=== PATIENT | female | born 1970 | race Caucasian/White ===

== ENCOUNTER 2017-10-05 20:40 | Emergency (ER) | payer SELFPAY ==
[2017-10-05 20:41] VITALS: BP 159/70; PULSE 84; RESP 18; TEMP 36.8; O2SAT 97; BMI 41.2
[2017-10-05 21:43] VITALS: RESP 18
--- NOTE | 2017-10-05 22:33 | ED.VISSUMM ---
- ER Visit Summary Date of Service: 10/05/17 Chief Complaint: Blood in the ear History of Present Illness: The patient is a 46 F who reports recurrent ear infections since May. She is initially on oral antibiotics followed by an eardrop. She has not been on any antibiotics for quite a while. Patient states that she had blood from her left ear earlier today and that her ear was swollen shut. She denies fever. She denies URI symptoms but states she does have allergies. Physical Examination: Vital signs significant for blood pressure 159/70, otherwise unremarkable. Patient sitting upright in bed no acute distress. Head and neck examination reveals right ear to be normal. Examination of the left ear reveals edema and erythema to the proximal canal. The TM itself is clear. Heart is regular rate and rhythm. Lung sounds are clear. Abdomen is soft nontender. Test Results: [] Emergency Department Course and Treatment: Patient is given Cortisporin drops. She is to follow up with the [facility]. Treatment Plan: [] Disposition: Discharge Impression: Otitis externa left ear This note was generated with Koemei dictation software. It may contain incorrect words, spelling, and punctuation that were not noted in review of the chart prior to signing ED Disposition - Plan for ED Patient: Disposition: Home or Assisted Living Chief Complaint: Ear Problem Instructions: ED Otitis Externa Referrals: Deneen Ac NP-C [Primary Care Provider] - Additional Instructions: 4 drops 4 times per day
--- NOTE | 2017-10-05 22:33 | ED.DEP ---
ED Disposition - Plan for ED Patient: Disposition: Home or Assisted Living Chief Complaint: Ear Problem Instructions: ED Otitis Externa Referrals: Deneen Ac QA AUDITOR-C [Primary Care Provider] - Additional Instructions: 4 drops 4 times per day
[2017-10-05 23:05] VITALS: RESP 16
[2017-10-05] MEDS: Neomycin Sulfate/Polymyxin/Hc Susp 10 ML Bottle 4 DRP OTIC (23:05)
== END 2017-10-05 23:05 | disposition home or self-care (01) ==
PROVIDERS: Emergency Provider Emergency Medicine; Family Provider Nurse Practitioner Family; PCP Nurse Practitioner Family
DX: H60.92 Unspecified otitis externa, left ear (principal); Z79.899 Other long term (current) drug therapy
CPT/HCPCS: 99282

== ENCOUNTER 2018-01-02 23:15 | Emergency (ER) | payer SELFPAY ==
[2018-01-02 23:16] VITALS: BP 164/81; PULSE 78; RESP 16; TEMP 36.1; O2SAT 98; BMI 41.5
--- NOTE | 2018-01-02 23:48 | ED.VISSUMM ---
- ER Visit Summary Date of Service: 01/02/18 Chief Complaint: Bilateral ear pain History of Present Illness: The patient is a 47 F who goes to the [facility]. She reports that since May she has been dealing with otitis externa. States that initially she was put on antibiotic pill with no relief. She was then placed on an eardrop which did not give her any relief. She reports that she then had an eardrop called and that because $400. States that she was unable to afford this. Patient states that 2 months ago she was placed on Cortisporin otic and it worked while she was using it, but is initially stopped the symptoms returned. She has not followed up with anyone for this. Patient reports that her pain worsened 2 days ago. She describes as an aching, throbbing pain that is bilateral. States that her right ear is 5 out of 10 currently and 10 out of 10 at worst. Her left ear is 3 out of 10 now and 10 out of 10 at worst. States that both ears have been draining since May. She denies any constitutional symptoms. No fever, chills, nausea, or vomiting. Physical Examination: Vitals: Stable. Afebrile. General: Well-nourished and well-developed. Head: Normocephalic atraumatic. HEENT: Right ear has no pain with movement of her tragus. She does have mild swelling of her canal without exudate. She has a serous effusion behind her TM with no erythema. Left ear does show pain with movement of her tragus. Her canal is quite swollen. I am unable to visualize her TM. There is no exudate present in the canal. She does not have any mastoid tenderness bilaterally. Neck: Supple, no lymphadenopathy. No JVD. Nontender. Cardiovascular: Regular rate and rhythm. No murmurs. Respiratory: No respiratory distress. Clear to auscultation bilaterally. Abdominal: Soft, nontender, nondistended, normal bowel sounds. No guarding, rebound, or peritoneal signs. Back: Nontender. Extremities: Nontender, no edema. Skin: Normal color, no rash. Neurologic: Alert and oriented ?3. Cranial nerves II through XII are intact. Normal strength and sensation. Psych: Normal affect. Emergency Department Course and Treatment: I had a prolonged discussion with the patient about treatment options. She was given coupons for ofloxacin and dexamethasone drops for [facility] and it will total $40 for both. She states that she cannot afford this. Treatment Plan: Patient will be discharged on ofloxacin and dexamethasone drops. Given a prescription for 10 [place]. Instructed to follow-up with Dr. Goldy Finch in 1 week if not improving. Return to the emergency department for any worsening symptoms. Disposition: To home in improved and stable condition. Impression: 1. Bilateral otitis externa. This note was generated with [employer] dictation software. It may contain incorrect words, spelling, and punctuation that were not noted in review of the chart prior to signing ED Disposition - Plan for ED Patient: Disposition: Home or Assisted Living Chief Complaint: Ear Problem Instructions: ED Otitis Externa Prescriptions: Hydrocodone Bitart/Apap 5-325 [[place] 5MG-325MG] 1 tablet PO Q4H PRN PRN 2 Days #10 tablet PRN Reason: Pain Dexamethasone Sod Phosphate [Dexamethasone Ophthalmic] 4 drop EACH EAR BID 7 Days #1 bottle Ofloxacin 4 drop EACH EAR BID 7 Days #1 bottle Referrals: Goldy Flowers MD [STAFF PHYSICIAN] - 1 Week if not improving
--- NOTE | 2018-01-02 23:52 | ED.DCSUM_ITS ---
- ER Visit Summary Date of Service: 01/02/18 Chief Complaint: Bilateral ear pain History of Present Illness: The patient is a 47 F who goes to the [facility]. She reports that since May she has been dealing with otitis externa. States that initially she was put on antibiotic pill with no re lief. She was then placed on an eardrop which did not give her any relief. She reports that she then had an eardrop called and that because $400. States that she was unable to afford this. Patient states that 2 months ago she was placed on Cortisporin otic and it worked while she was using it, but is initially stopped the symptoms returned. She has not followed up with anyone for this. Patient reports that her pain worsened 2 days ago. She describes as an aching, throbbing pain that is bilateral. States that her right ear is 5 out of 10 currently and 10 out of 10 at worst. Her left ear is 3 out of 10 now and 10 out of 10 at worst. States that both ears have been draining since May. She denies any constitutional symptoms. No fever, chills, nausea, or vomiting. Physical Examination: Vitals: Stable. Afebrile. General: Well-nourished and well-developed. Head: Normocephalic atraumatic. HEENT: Right ear has no pain with movement of her tragus. She does have mild swelling of her canal without exudate. She has a serous effusion behind her TM with no erythema. Left ear does show pain with movement of her tragus. Her canal is quite swollen. I am unable to visualize her TM. There is no exudate present in the canal. She does not have any mastoid tenderness bilaterally. Neck: Supple, no lymphadenopathy. No JVD. Nontender. Cardiovascular: Regular rate and rhythm. No murmurs. Respiratory: No respiratory distress. Clear to auscultation bilaterally. Abdominal: Soft, nontender, nondistended, normal bowel sounds. No guarding, rebound, or peritoneal signs. Back: Nontender. Extremities: Nontender, no edema. Skin: Normal color, no rash. Neurologic: Alert and oriented ?3. Cranial nerves II through XII are intact. Normal strength and sensation. Psych: Normal affect. Emergency Department Course and Treatment: I had a prolonged discussion with the patient about treatment options. She was given coupons for ofloxacin and dexamethasone drops for [facility] and it will total $40 for both. She states that she cannot afford this. Treatment Plan: Patient will be discharged on ofloxacin and dexamethasone drops. Given a prescription for 10 [place]. Instructed to follow-up with Dr. Goldy Finch in 1 week if not improving. Return to the emergency department for any worsening symptoms. Disposition: To home in improved and stable condition. Impression: 1. Bilateral otitis externa. This note was generated with [employer] dictation software. It may contain incorrect words, spelling, and punctuation that were not noted in review of the chart prior to signing ED Disposition - Plan for ED Patient: Disposition: Home or Assisted Living Chief Complaint: Ear Problem Instructions: ED Otitis Externa Prescriptions: Hydrocodone Bitart/Apap 5-325 [[place] 5MG-325MG] 1 tablet PO Q4H PRN PRN 2 Days #10 tablet PRN Reason: Pain Dexamethasone Sod Phosphate [Dexamethasone Ophthalmic] 4 drop EACH EAR BID 7 Days #1 bottle Ofloxacin 4 drop EACH EAR BID 7 Days #1 bottle Referrals: Goldy Flowers MD [STAFF PHYSICIAN] - 1 Week if not improving
[2018-01-03 00:44] VITALS: BP 136/84; PULSE 88; RESP 16; O2SAT 98
[2018-01-03] MEDS: HYDROcodone Bitartrate/Apap 5/325 Tablet PO (00:46)
== END 2018-01-03 00:48 | disposition home or self-care (01) ==
PROVIDERS: Emergency Provider Emergency Medicine; Family Provider Nurse Practitioner Family; PCP Nurse Practitioner Family
DX: H60.8X3 Other otitis externa, bilateral (principal); Z79.899 Other long term (current) drug therapy
CPT/HCPCS: 99282

== ENCOUNTER 2018-07-27 22:28 | Emergency (ER) | payer SELFPAY ==
[2018-07-27 22:28] VITALS: BP 141/78; PULSE 87; RESP 15; TEMP 36.7; BMI 36.3
[2018-07-27 23:15] LABS: Absolute Lymphocyte Count 2.25 X10^3/ul (0.83-4.51); Absolute Neutrophil Count 4.1 X10^3/uL (2.0-7.7); Basophil# 0.01 X10^3/uL; Basophil% 0.1 % (0-1); Eosinophil# 0.11 X10^3/uL; Eosinophils% 1.6 % (0-5); Hematocrit 36.4 % (37-47); Hemoglobin 11.9 g/dl (12.0-15.0); Lymphocyte # 2.25 X10^3/ul (4.0); Lymphocyte % 32.8 % (19-41); Mean Corp Hgb Conc 32.7 g/gl (32-36); Mean Corpuscular Hgb 26.3 pg (27.0-32.0); Mean Corpuscular Volume 80.4 fL (81-99); Mean Platelet Vol. 11.3 fl (6.2-12.0); Monocyte# 0.35 X10^3/uL; Monocyte% 5.1 % (0-10); Neutrophil # 4.12 X10^3/uL (2.7-7.7); Neutrophil % 60.3 % (47-70); Platelet Count 262 K/mm3 (150-450); RBC Distribution Width CV 14.3 % (11.6-14.6); RBC Distribution Width SD 41.9 fl (35.1-43.9); Red Blood Count 4.53 M/mm3 (4.2-5.4); White Blood Count 6.9 K/mm3 (4.4-11.0)
[2018-07-27 23:16] LABS: POSITIVE COUNT NO; POSITIVE DIFFERENTIAL NO; POSITIVE MORPHOLOGY NO
[2018-07-27 23:22] LABS: Internal QC Validated? YES +Cl - CLEAR BKGD; Pregnancy, Serum, hCG Quali. NEGATIVE Negative
--- NOTE | 2018-07-27 23:26 | EKG12_ITS ---
Test Reason : [facility] Blood Pressure : / mmHG Vent. Rate : 078 BPM Atrial Rate : 078 BPM P-R Int : 152 ms QRS Dur : 096 ms QT Int : 384 ms P-R-T Axes : 018 057 043 degrees QTc Int : 437 ms Normal sinus rhythm Normal ECG Confirmed by TIFFANY VILLALOBOS, TATI ([id number]), television news video editor LORI BELL ([id number]) on 07/30/2018 9:33:30 AM Referred By: Confirmed By:TATI ALLEN MD
[2018-07-27 23:27] LABS: Amphetamine Urine VISTA NEGATIVE (<1000 ng/mL); Barbiturate Urine VISTA NEGATIVE (< 200 ng/mL); Benzodiazepine Urine VISTA NEGATIVE (< 200 ng/mL); Cocaine Urine VISTA NEGATIVE (< 300 ng/mL); Ecstacy Urine VISTA NEGATIVE (< 500 ng/mL); Methadone Urine VISTA NEGATIVE (< 300 ng/mL); PCP Urine VISTA NEGATIVE (< 25 ng/mL); THC Urine VISTA POSITIVE (< 50 ng/mL); Vista UDS pH Range 5
[2018-07-27 23:28] VITALS: PULSE 87; RESP 17; O2SAT 97
[2018-07-27 23:28] LABS: Anion Gap 4 (5-15); BUN 7 mg/dL (7-18); BUN/Creat Ratio 11.1 RATIO (10-20); Calcium,Total 8.8 mg/dL (8.5-10.1); Chloride 109 mmol/L (98-107); Creatinine, Serum 0.63 mg/dL (0.55-1.02); EST Glomerular Filtration Rate 107 mL/min (>60); Est Glom Filt Rate - Afr Amer 130 mL/min (>60); Estimated Creatinine Clearance 102.23 ml/min; Glucose 95 mg/dL (74-106); Potassium 2.8 mmol/L (3.5-5.1); Sodium Level 139 mmol/L (136-145)
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
[2018-07-27 23:54] LABS: Red Blood Cells-Urine 0 SEEN /hpf (0-5)
[2018-07-28] VITALS (7 sets, daily range): BP systolic 136–138; BP diastolic 70–71; PULSE 72–87; RESP 14–18; TEMP 36.6; O2SAT 97
[2018-07-28] LABS: Color, Urine Yellow (Yellow); Glucose, Dipstick Normal (Normal); Ketone-Dipstick 5 mg/dl (Negative); Leukocyte Esterase-Dipstick 25 /ul (Negative); Nitrite-Dipstick Negative (Negative); Occult Blood-Urine 250 /ul (Negative); Protein-Dipstick 15 mg/dl (Negative); Specific Gravity, Urine 1.015 (1.002-1.030); Urine Bilirubin Dipstick Negative (Negative); Urine Clarity Clear (Clear); Urine Urobilinogen Normal (Normal)
[2018-07-28 00:08] LABS: AST(SGOT) 11 U/L (15-37); Alanine Aminotransfer ALT/SGPT 19 U/L (13-56); Alkaline Phosphatase 67 U/L (45-117); Bilirubin, Direct 0.14 mg/dL (0.00-0.30); Globulin 3.6 g/dL (2.2-4.2); Protein, Total 7.6 g/dL (6.4-8.2); Thyroid Stim Hormone (TSH) 1.19 uIU/mL (0.358-3.74)
--- NOTE | 2018-07-28 00:10 | NURSING ---
CALLED CRISIS AT 0010
[2018-07-28 00:11] LABS: Bacteria RARE /hpf (None Seen); Calcium Oxalate Crystals Ur RARE /hpf (<or=2+); Mucous, Urine 1+ /hpf (<or=2+); Squamous Epithelial Cells - UA 0-5 SEEN /hpf (5-10); White Blood Cells 0-5 SEEN /hpf (0-5)
--- NOTE | 2018-07-28 04:50 | NURSING ---
ONCE ACCEPTED TO [facility] NEED TO USE [facility] SO [facility] GETS BILL
[2018-07-28 05:52] LABS: Potassium 3.3 mmol/L (3.5-5.1)
--- NOTE | 2018-07-28 08:12 | ED.RN ---
CALLED AND LEFT MESSAGE OR WHICH IS THE ONLY CONTACT LISTED TO ASK FOR SOMEONE TO CHECK ON PT'S ANIMALS. THE WAS DONE PER PT REQUEST.
--- NOTE | 2018-07-28 08:15 | ED.RN ---
JAKY JAIN CALLED BACK AND STATED HE WOULD MAKE SURE THE ANIMALS ARE TAKEN CARE OF.
== END 2018-07-28 08:00 ==
PROVIDERS: Emergency Medicine; Emergency Provider Emergency Medicine; Family Provider Nurse Practitioner Family; PCP Nurse Practitioner Family
DX: R45.851 Suicidal ideations (principal); F32.9 Major depressive disorder, single episode, unspecified; E87.6 Hypokalemia; F17.200 Nicotine dependence, unspecified, uncomplicated; Z79.899 Other long term (current) drug therapy
CPT/HCPCS: 80048; 80076; 80307; 80320; 81001; 84132; 84443; 84703; 85025; 93005; 99285; G0480

== ENCOUNTER → 2019-07-19 07:05 | Outpatient (CLI) | payer MEDICAID, SELFPAY ==
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
== END ==
DX: M79.622 Pain in left upper arm (principal)
CPT/HCPCS: 73030; 73060

== ENCOUNTER → 2019-08-23 15:47 | Outpatient (CLI) | payer MEDICAID, SELFPAY ==
--- NOTE | 2019-08-23 15:49 | BI_ITS ---
MAMMOGRAPHY - BILATERAL SCREENING REASON FOR EXAM: Female, 48 years old. Routine annual screening examination. PERTINENT HISTORY: Non-contributory. TECHNIQUE: Digital bilateral breast summer (3D mammographic acquisition) in the CC and MLO projections. 2-D mediolateral oblique (MLO) and craniocaudad (CC) views of both breasts were obtained. CAD: Full Field Digital Mammography with Computer Added Detection was performed. COMPARISON: Comparison is made with prior examination dated January 29, 2017. FINDINGS: Breast Composition: The breasts are heterogeneously dense, which may obscure small masses. There are no dominant masses or suspicious calcifications. No other significant abnormalities are identified. There has been no significant change since the prior study. BI/SCREEN MAMM (CAD) W/SUMMER BILAT IMPRESSION: Stable bilateral screening mammogram. Yearly follow-up mammogram recommended. (A) ASSESSMENT CATEGORY: BIRADS Category 1: Negative. A letter regarding these results will be sent to the patient by the facility within 30 days. Approximately 10% of breast cancers are not detected by mammography. A normal mammogram should not delay biopsy of a clinically suspicious abnormality. [id number] Electronically Signed: Shawn Handy, at 8:02 EDT , Service support ,
== END ==
DX: Z12.31 Encounter for screening mammogram for malignant neoplasm of breast (principal)
CPT/HCPCS: 77063; 77067

== ENCOUNTER → 2019-11-16 14:30 | Outpatient (CLI) | payer MEDICAID, SELFPAY ==
[2019-11-16 13:59] VITALS: BMI 30.4
--- NOTE | 2019-11-16 14:30 | EMB_PTH ---
PATIENT: TONY TSANG LOC: [facility] U#:[id number] AGE/SX: 54/F ROOM: RE11/16/[address]: Dr. Zora James MD : 1970 BED: DIS: SPEC #: [id number] RECD: 11/16/19 16:55 STATUS: BENEDICT RECaesar #: [id number] ELVIN: 11/16/19 14:[address]: Zora James DEPT: SURGICAL PATHOLOGY RECD BY: Khadar Murguia ENTERED: 11/17/19 08:50 SP TYPE: ENDOM BX/C MANNY DR: Leana [facility] Tissues: Endometrium, NOS Procedures: Surgery Specimen Level IV HEADER OPERATION: Endometrial biopsy PRE-OP DIAGNOSIS: Abnormal uterine bleeding TISSUE SUBMITTED: Endometrial lining MICROSCOPIC DIAGNOSIS Endometrium, curettings: Strips of benign superficial endometrium. Weakly proliferative to inactive endometrium with stromal breakdown. AM:afshin 11/18/19 MICROSCOPIC DESCRIPTION Slides are reviewed. GROSS DESCRIPTION Received is one container labeled with the patient's name and not further designated. The specimen consists of a scant amount of soft tissue. The specimen is totally submitted for cell block preparation. A few minute fragments are submitted in cassette 2. / SJ:afshin 11/17/19 TC:5 CPT: 21387
== END ==
PROVIDERS: Referring Provider Obstetrics & Gynecology; Visit Provider Obstetrics & Gynecology
DX: N93.9 Abnormal uterine and vaginal bleeding, unspecified (principal)
CPT/HCPCS: 88305

== ENCOUNTER 2019-12-06 12:39 | Day surgery (SDC) | payer MEDICAID, SELFPAY ==
[2019-11-16 13:59] VITALS: BMI 30.4
[2019-11-30 14:15] LABS: Hematocrit 37.2 % (37-47); Hemoglobin 11.9 g/dL (12.0-15.0); Mean Corpuscular Hgb 27.6 pg (27.0-32.0); Mean Corpuscular Volume 86.3 fL (81-99); Mean Platelet Vol. 11.3 fl (6.2-12.0); Platelet Count 284 K/mm3 (150-450); RBC Distribution Width CV 13.1 % (11.6-14.6); RBC Distribution Width SD 40.9 fl (35.1-43.9); Red Blood Count 4.31 M/mm3 (4.2-5.4); White Blood Count 5.8 K/mm3 (4.4-11.0)
[2019-12-06] MEDS: Levonorgestrel IUD (Liletta) 1 EACH IY (07:00)
[2019-12-06 13:08] LABS: Internal QC Validated? YES +Cl - CLEAR BKGD; Pregnancy, Urine Negative Negative
[2019-12-06 13:21] VITALS: BP 127/87; PULSE 92; RESP 16; TEMP 36.1; O2SAT 100; BMI 31.6
[2019-12-06] MEDS: Lactated Ringers 1,000 ML 100 ML IV (13:29)
--- NOTE | 2019-12-06 13:59 | HP.PCM_ITS ---
- Problem List (1) Cervical stenosis (uterine cervix) Status: Acute (2) Abnormal uterine bleeding (AUB) Status: Acute History and Physical Date of Admission: 12/06/19 Intake Vital Signs 11/16/19 Height 5 ft 6 in 11/16/19 Weight: 188 lb 8 oz 11/16/19 BMI 30.4 11/16/19 BP 138/90 H Intake Visit Reasons: EMB & IUD insertion [employer] Bi Developer Required: No Is patient in pain?: No Allergies Penicillins Allergy (Verified 11/16/19 13:59) Hives Medications Levocetirizine Dihydrochloride [Allergy Relief] 15 mg PO DAILY 07/27/18 [History Confirmed 11/16/19] sertraline 100 mg tablet 100 mg PO DAILY tab 10/17/19 [History Confirmed 11/16/19] Post menopausal: No Patient : No : No PFSH PFSH Medical History PTSD (post-traumatic stress disorder) (Acute) Family History Mother Diabetes Social History (Updated 11/16/19 @ 14:[address] Zora James MD) Smoking Status: Current every day smoker second hand exposure: Yes alcohol intake: never substance use type: does not use seatbelt use: always do you feel safe at home: Yes Pregancy History 3 Elective abortions Hx Para 3 Spontaneous abortions Hx # Term Pregnancies Ectopic pregnancies Hx # Pregnancies Multiple births # of living children 3 HPI EMB & IUD insertion: Details: TONY JAIN is a 48 year old who presents for EMB and IUD insertion. Exam Const General: cooperative, healthy appearing, comfortable, no acute distress, well developed, well groomed Nutritional Appearance: average body habitus, well nourished Orientation: alert, awake, oriented x3 HENMT Head: normal to inspection, normocephalic, atraumatic Eyes Pupils: PERRL, accommodation normal EOM: EOM intact bilaterally Resp Effort & Inspection: normal respiratory effort, able to speak in complete sentences, symmetric chest movement Cardio Rate: regular rate GI Inspection: normal to inspection, non-distended Palpation: soft, no guarding, no masses, not rigid, nontender External Female Exam: normal external appearance, normal appearance of the urethra, no lesions, no lacerations Urethra: normal appearance of the urethra Speculum Exam - Vagina: normal appearance of the vagina, normal vaginal discharge, not erythematous, no lesions, No vaginal bleeding Speculum Exam - Cervix: normal appearance of the cervix OB/External & Speculum: No vaginal bleeding Speculum Exam: no vaginal bleeding Neuro General: alert, awake, oriented x3, CN's II-XI intact bilaterally Cranial Nerves: PERRL, accommodation normal, EOM intact bilaterally Cognition: normal cognition Speech: speech normal Gait: normal gait Psych Appearance: grossly normal, well kempt Mental Status: mental status grossly normal Mood: congruent mood Affect: normal affect Speech and Movement: speech and movement normal Attitude: cooperative Thought Process: normal Thought Content: normal Judgment: judgment good Office Procedures Endometrial Biopsy Endometrial Biopsy Test: Yes Negative Consent Signed: Yes Time out checklist: patient, procedure, site marked/identified, positioning of patient, supplies available, allergies confirmed, team agrees on procedure tenaculum used: Yes Details: Cervix prepped with betadine. Significant stenosis was noted. Gentle traction was applied to the tenacylym and a pipelle inserted into uterus without complication and scant tissue was obtained. Specimen obtained and sent to lab for analysis. All instruments removed from vagina without complications. Excellent hemostasis noted. Liletta IUD IUD GC/Chlamydia:: not done Test: Yes Negative Consent Signed: Yes Time out checklist: patient, procedure, site marked/identified, positioning of patient, supplies available, allergies confirmed, team agrees on procedure IUD: Yes Liletta Details: Sign in Communication: Completed Sign out documentation: Completed The uterus sounded to 7 cm. After prepping the cervix with betadine and using sterile technique, the cervix was grasped with a single tooth tenaculum. Initial attempt to place the IUD showed significant cervical stenosis. Cervical dilators were attempted, but were unable to pass through the internal os. Attempt was again made at passing the IUD, but this was unsuccessful. The procedure was aborted. All instruments were removed from the vagina and excellent hemostasis was noted. Procedure Summary: unsuccessful IUD insertion levonorgestrel 20 mcg/24 hours (5 yrs) 52 mg intrauterine device 1 insert intrauterine ONCE IUD Details: Sign in Communication: Completed Sign out documentation: Completed The uterus sounded to [] cm. After prepping the cervix with betadine and using sterile technique, the cervix was grasped with a single tooth tenaculum and the IUD was inserted without difficulty and the string was cut to 3cm from the external os of the cervix. All instruments were removed from the vagina and excellent hemostasis was noted. Procedure Summary: patient tolerated the procedure well without complication. Office Meds levonorgestrel Performing Provider: Zora James MD Documented (not given) by: Zora James MD on 11/16/19 14:34 Dose Route Admin Location Lot Number Expiration Date NDC Geologic Technician 1 insert intrauterine Results POC Urine Office , Urine Negative Last Edit by Leslie Ralph on 11/16/19 14:06 Assessment & Plan 1. Unsuccessful IUD insertion Z53.8 Plan Presented for IUD insertion and EMB. Was able to get EMB with significant traction placed on EMB, but multiple attempts at IUD placement and passage of cervical dilators were unsuccessful. Discussed alternative contraception vs. Placement in the OR. Patient agreeable to placement of IUD under anesthesia. Aware of risk of expulsion and perforation. Plan Detail Other Orders Orders: Liletta IUD Today Z97.5 Endometrial Biopsy Today N93.9 POC Urine Today N91.2 Other Medications New: levonorgestrel 1 insert intrauterine ONCE 1 ea 0RF Z97.5 Coding Level of Care Code No Charge Diagnoses Unsuccessful IUD insertion Z53.8 Additional Codes Endometrial Biopsy (69022) IUD (77750)
--- NOTE | 2019-12-06 14:02 | PCM.DC.D&C ---
Discharge Diet: No Restrictions Discharge Activity: Return to Normal Activity, May Shower, May Take a Tub Bath - in 2 weeks. Call your doctor if you observe: Fever of 101 or Higher, Using more than one pad per hour, Shortness of breath, Dizziness, Fainting spells, Uncontrolled pain Allergies/Adverse Reactions: Allergies Penicillins Allergy (Verified 12/06/19 13:20) Hives Medications to take at Discharge sertraline 100 mg tablet 50 mg PO DAILY tab 10/17/19 levonorgestrel 20 mcg/24 hours (5 yrs) 52 mg intrauterine device 1 insert INTRAUTERINE ONCE #1 ea 11/16/19 Ibuprofen [Motrin] 800 mg PO TID PRN PRN #60 tab 12/06/19 The following prescriptions were given: Ibuprofen [Motrin] 800 mg PO TID PRN PRN #60 tab PRN Reason: Pain Score 1-10 Transmission Status: Pending to [employer] [facility] - Test Results: Test results from this visit will be discussed in further detail at your follow-up appointment, if applicable.
--- NOTE | 2019-12-06 14:04 | PCM.OPRPT ---
Problem List (1) Cervical stenosis (uterine cervix) Status: Acute (2) Abnormal uterine bleeding (AUB) Status: Acute Report of Operation Date of Procedure: 12/06/19 Pre-Operative Diagnosis: Cervical stenosis, Abnormal uterine bleeding Post-Operative Diagnosis: Same Surgery/Procedure Performed:: Pelvic exam under anesthesia, Liletta IUD insertion Description of Surgical Findings:: Normal appearing cervix. Uterus sounding to 8cm. fitness services manager: None Type of Anesthesia:: MAC Estimated Blood Loss (mL): 5ml Description of Procedure: The patient was taken to the operating room where anesthesia was obtained without difficulty. She was prepped and draped in the dorsal lithotomy position with yellofin stirrups. A weighted speculum was placed in the posterior aspect of the vagina and a negrete retractor was used to visualize the anterior lip of the cervix. The cervix was grasped with a single tooth tenaculum. The uterus sounded to 8cm. The cervix was dilated to allow passage of the IUD applicator. The Liletta IUD was placed without difficulty. Strings were trimmed to 3cm. All instruments were removed from the vagina and she was awakened from anesthesia. Grafts/Implants Used: Liletta IUD - LOT#[id number], Exp:02/2023 - Complications none - Admit VTE Documentation VTE Present on Admission: No Multi Select Codes - Urinary/Genital Urinary/Genital CPT Codes: 91420 PEUA - with IUD insertion
[2019-12-06 14:23] VITALS: BP 125/79; BP 127/87; PULSE 78; RESP 16; TEMP 36.4; O2SAT 99
[2019-12-06 14:30] VITALS: BP 125/82; BP 127/87; PULSE 73; RESP 16; O2SAT 98
[2019-12-06 14:35] VITALS: BP 127/85; BP 127/87; PULSE 78; RESP 16; O2SAT 99
[2019-12-06 14:40] VITALS: BP 120/81; BP 127/87; PULSE 76; RESP 16; O2SAT 98
[2019-12-06 14:45] VITALS: BP 118/82; BP 127/87; PULSE 73; RESP 16; TEMP 36.4; O2SAT 98
== END 2019-12-06 15:37 | disposition home or self-care (01) ==
LOC: SDC 12:40 → AC 12:41
PROVIDERS: Anesthesiology; Referring Provider Obstetrics & Gynecology; Visit Provider Obstetrics & Gynecology
PROC: (CPT 58120; principal; 2019-12-06 13:55)
DX: Z30.430 Encounter for insertion of intrauterine contraceptive device (principal); N88.2 Stricture and stenosis of cervix uteri; Z20.828 Contact with and (suspected) exposure to other viral communicable diseases; N93.9 Abnormal uterine and vaginal bleeding, unspecified; F17.200 Nicotine dependence, unspecified, uncomplicated; F41.9 Anxiety disorder, unspecified; F32.9 Major depressive disorder, single episode, unspecified; Z79.899 Other long term (current) drug therapy
CPT/HCPCS: 00940; 58300; 36415; 81025; 85027; 86850; 86900; 86901; 87635; C9803; J7120; U0003

== ENCOUNTER → 2020-03-14 16:44 | Outpatient (CLI) | payer MEDICAID, SELFPAY ==
[2020-03-14 11:47] VITALS: BMI 35.0
== END ==
PROVIDERS: Referring Provider Obstetrics & Gynecology; Visit Provider Obstetrics & Gynecology
DX: L29.2 Pruritus vulvae (principal)
CPT/HCPCS: 87070; 87186; 87205

== ENCOUNTER → 2020-03-21 13:58 | Outpatient (CLI) | payer MEDICAID, SELFPAY ==
[2020-03-14 11:47] VITALS: BMI 35.0
--- NOTE | 2020-03-21 14:00 | US_ITS ---
STUDY: ULTRASOUND OF THE FEMALE PELVIS - COMPLETE REASON FOR EXAM: Female, 49 years old. iud placement LMP: None TECHNIQUE: Transabdominal and Transvaginal TECHNICAL QUALITY: Adequate. COMPARISON: None. FINDINGS: The uterus is anteverted and is in a midline position. The uterus measures 10.6 cm x 5.8 cm x 4.9 cm. There is a Nabothian cyst of the cervix. The endometrium measures 4.8 mm in thickness, and is hyperechoic. There is no demonstrated endometrial mass. There is no demonstrated myometrial mass. I.U.D. - The patient does have an I.U.D. The right ovary is visualized. The right ovary measures 2.8 cm x 2.8 cm x 1.7 cm. There is no right ovarian cyst or ovarian mass. There is no visualized right adnexal mass or complex lesion. There is normal arterial and normal venous vascularity. The left ovary is visualized. The left ovary measures 3.6 cm x 3.5 cm x 3.5 cm. There is a 2.1 cm x 2.4 cm x 2 cm cyst. There is no visualized left adnexal mass or complex lesion. There is normal arterial and normal venous vascularity. There is no fluid in the cul-de-sac. The pre void volume of the bladder was 51 ml. US/Pelvic (Non ) IMPRESSION: IUD is seen within the uterus. 2.1 cm x 2.4 cm x 2 cm left ovarian cyst. Electronically Signed: Shawn Handy MD at 15:05 EST , Service support ,
--- NOTE | 2020-03-21 14:00 | US_ITS ---
STUDY: ULTRASOUND OF THE FEMALE PELVIS - COMPLETE REASON FOR EXAM: Female, 49 years old. iud placement LMP: None TECHNIQUE: Transabdominal and Transvaginal TECHNICAL QUALITY: Adequate. COMPARISON: None. FINDINGS: The uterus is anteverted and is in a midline position. The uterus measures 10.6 cm x 5.8 cm x 4.9 cm. There is a Nabothian cyst of the cervix. The endometrium measures 4.8 mm in thickness, and is hyperechoic. There is no demonstrated endometrial mass. There is no demonstrated myometrial mass. I.U.D. - The patient does have an I.U.D. The right ovary is visualized. The right ovary measures 2.8 cm x 2.8 cm x 1.7 cm. There is no right ovarian cyst or ovarian mass. There is no visualized right adnexal mass or complex lesion. There is normal arterial and normal venous vascularity. The left ovary is visualized. The left ovary measures 3.6 cm x 3.5 cm x 3.5 cm. There is a 2.1 cm x 2.4 cm x 2 cm cyst. There is no visualized left adnexal mass or complex lesion. There is normal arterial and normal venous vascularity. There is no fluid in the cul-de-sac. The pre void volume of the bladder was 51 ml. US/Transvaginal Non- IMPRESSION: IUD is seen within the uterus. 2.1 cm x 2.4 cm x 2 cm left ovarian cyst. Electronically Signed: Shawn Handy MD at 15:05 EST , Service support ,
== END ==
PROVIDERS: Referring Provider Obstetrics & Gynecology; Visit Provider Obstetrics & Gynecology
DX: Z30.431 Encounter for routine checking of intrauterine contraceptive device (principal)
CPT/HCPCS: 76830; 76856

== ENCOUNTER → 2020-05-09 11:56 | Outpatient (CLI) | payer MEDICAID, SELFPAY ==
[2020-03-14 11:47] VITALS: BMI 35.0
[2020-04-04 11:37] VITALS: BMI 35.5
--- NOTE | 2020-05-09 11:58 | US_ITS ---
STUDY: ULTRASOUND OF THE FEMALE PELVIS - COMPLETE REASON FOR EXAM: Female, 49 years old. F/u ovarian cyst LMP: Unknown. TECHNIQUE: Transabdominal and Transvaginal TECHNICAL QUALITY: Adequate. COMPARISON: Comparison is made with prior examination dated 03/21/2020. FINDINGS: The uterus is anteverted and is in a midline position. The uterus measures 9.4 cm x 6.3 cm x 4.4 cm. There is a Nabothian cyst of the cervix. The endometrium measures 7 mm in thickness, and is hyperechoic. There is no demonstrated endometrial mass. There is no demonstrated myometrial mass. I.U.D. - The patient does not have an I.U.D. The right ovary is visualized. The right ovary measures 2.6 cm x 1.8 cm x 1.9 cm. There is no right ovarian cyst or ovarian mass. There is no visualized right adnexal mass or complex lesion. There is normal arterial and normal venous vascularity. The left ovary is visualized. The left ovary measures 2.8 cm x 2.1 cm x 2.1 cm. Interval decrease in size of the left ovarian cyst. It presently measures 1.1 cm x 0.8 cm x 0.7 cm. There is no visualized left adnexal mass or complex lesion. There is normal arterial and normal venous vascularity. There is no fluid in the cul-de-sac. US/Transvaginal Non- IMPRESSION: Interval decrease in size of the left ovarian cyst. It presently measures 1.1 cm x 0.8 cm x 0.7 cm. Electronically Signed: Shawn Handy MD at 14:49 EDT , Service support ,
--- NOTE | 2020-05-09 11:58 | US_ITS ---
STUDY: ULTRASOUND OF THE FEMALE PELVIS - COMPLETE REASON FOR EXAM: Female, 49 years old. F/u ovarian cyst LMP: Unknown. TECHNIQUE: Transabdominal and Transvaginal TECHNICAL QUALITY: Adequate. COMPARISON: Comparison is made with prior examination dated 03/21/2020. FINDINGS: The uterus is anteverted and is in a midline position. The uterus measures 9.4 cm x 6.3 cm x 4.4 cm. There is a Nabothian cyst of the cervix. The endometrium measures 7 mm in thickness, and is hyperechoic. There is no demonstrated endometrial mass. There is no demonstrated myometrial mass. I.U.D. - The patient does not have an I.U.D. The right ovary is visualized. The right ovary measures 2.6 cm x 1.8 cm x 1.9 cm. There is no right ovarian cyst or ovarian mass. There is no visualized right adnexal mass or complex lesion. There is normal arterial and normal venous vascularity. The left ovary is visualized. The left ovary measures 2.8 cm x 2.1 cm x 2.1 cm. Interval decrease in size of the left ovarian cyst. It presently measures 1.1 cm x 0.8 cm x 0.7 cm. There is no visualized left adnexal mass or complex lesion. There is normal arterial and normal venous vascularity. There is no fluid in the cul-de-sac. US/Pelvic (Non ) IMPRESSION: Interval decrease in size of the left ovarian cyst. It presently measures 1.1 cm x 0.8 cm x 0.7 cm. Electronically Signed: Shawn Handy MD at 14:49 EDT , Service support ,
== END ==
PROVIDERS: Referring Provider Obstetrics & Gynecology; Visit Provider Obstetrics & Gynecology
DX: N83.209 Unspecified ovarian cyst, unspecified side (principal)
CPT/HCPCS: 76830; 76856

== ENCOUNTER 2020-08-19 15:41 | Emergency (ER) | payer MEDICAID, SELFPAY ==
[2020-04-04 11:37] VITALS: BMI 35.5
[2020-08-19 15:41] VITALS: BP 129/89; PULSE 103; RESP 16; TEMP 36.3; O2SAT 97; BMI 33.7
[2020-08-19 15:54] VITALS: PULSE 99; RESP 20; O2SAT 99
--- NOTE | 2020-08-19 16:04 | CT_ITS ---
STUDY: CT CERVICAL SPINE WITHOUT CONTRAST REASON FOR EXAM: Female, 49 years old. Fall struck head RADIATION DOSAGE (If Supplied By Facility): CTDIvol = ( 25.50 ) mGy, DLP = ( 539.81 ) mGycm TECHNIQUE: High resolution transaxial imaging was performed without contrast material. Sagittal and coronal images were reconstructed. Individualized dose optimization techniques were used for this CT. COMPARISON: None FINDINGS: No definite acute fracture/dislocation. The cervical junction is intact. C1-C2 articulation is intact. Curvature is within normal limits. There is normal alignment. Facet joints are intact at all levels bilaterally. No jumped facets. There is multilevel spondyloarthropathy. Multilevel degenerative disc disease seen. Multilevel loss of disc height. Multilevel anterior and posterior marginal osteophytes and disc bulges. Multilevel neural foraminal narrowing. Multilevel narrowing of the spinal canal. Visualized paraspinal soft tissues and structures are unremarkable. CT/Spine Cervical without Contras IMPRESSION: There is no definite acute fracture/dislocation. Degenerative changes. Electronically Signed: Jackson Anaya MD at 17:48 EDT , Service support ,
--- NOTE | 2020-08-19 16:04 | CT_ITS ---
STUDY: CT BRAIN WITHOUT CONTRAST REASON FOR EXAM: Female, 49 years old. Fall of ladder, R sided THAYER RADIATION DOSAGE (If Supplied By Facility): CTDIvol = ( 44.99 ) mGy, DLP = ( 796.11 ) mGycm TECHNIQUE: Transaxial CT imaging of the brain was performed without administration of intravenous contrast material. Individualized dose optimization techniques were used for this CT. COMPARISON: 10/25/2013 FINDINGS: Normal soft tissue structures. Normal calvarium. Normal size ventricles and extra-axial spaces for the patient''s age. Normal white matter tracts of the cerebral hemispheres. Normal basal ganglia and thalami. Normal brainstem. Normal cerebellum. There is no intracranial hemorrhage. There are no findings of an acute ischemic infarction. Normal visualized paranasal sinuses. CT/Brain/Head without Contrast IMPRESSION: Normal unenhanced CT scan of the brain. Electronically Signed: Jackson Anaya MD at 18:05 EDT , Service support ,
--- NOTE | 2020-08-19 16:04 | CT_ITS ---
EXAM: CT CHEST, ABDOMEN AND PELVIS WITH INTRAVENOUS CONTRAST CLINICAL INDICATION: Fall off ladder, R flank/rib pain TECHNIQUE: Helically acquired images were obtained of the chest, abdomen and pelvis with intravenous contrast. This CT exam was performed using one or more of the following dose reduction techniques: automated exposure control, adjustment of the mA and/or kV according to patient size, and/or use of iterative reconstruction technique. [employer] report generation technology utilized. CONTRAST: IV 100mL [id number]-300 COMPARISON: None. FINDINGS: CHEST: LUNGS AND PLEURAL SPACES: Unremarkable. No mass. No consolidation or edema. No pleural effusion or thickening. No pneumothorax. HEART: Unremarkable. Heart size is normal. No pericardial effusion. MEDIASTINUM: Unremarkable. No mediastinal or hilar adenopathy. Esophagus is unremarkable. No hiatal hernia. THYROID: Unremarkable. No thyroid lesions. ABDOMEN: LIVER: There is fatty liver with hepatomegaly. GALLBLADDER AND BILE DUCTS: Unremarkable. No calcified gallstones. No gallbladder distention or wall edema. No intra- or extrahepatic biliary ductal dilation. PANCREAS: Unremarkable. No focal cystic or solid mass. SPLEEN: Unremarkable. Normal size without focal cystic or solid mass. ADRENALS: Unremarkable. No nodules. KIDNEYS AND URETERS: Unremarkable. Normal renal size and position. No hydronephrosis. STOMACH AND BOWEL: Unremarkable. No stomach or bowel distention. No focal inflammatory change. PELVIS: APPENDIX: No evidence of acute appendicitis. BLADDER: Unremarkable. REPRODUCTIVE: Unremarkable as visualized. No mass. CHEST, ABDOMEN and PELVIS: INTRAPERITONEAL SPACE: Unremarkable. No ascites or other fluid collection. No free air. BONES/JOINTS: Degenerative changes of the lumbar spine. No fractures are seen. SOFT TISSUES: Unremarkable. No discrete abdominal or pelvic wall hernia. VASCULATURE: Unremarkable. Aorta is non-dilated. No aortic dissection. No obvious central pulmonary embolism although this study was not performed with the pulmonary embolism protocol. LYMPH NODES: Unremarkable. No enlarged lymph nodes. CT/CT Chest, Abd, Pel w/Contrast IMPRESSION: No definite acute or significant abnormality seen. Electronically Signed: Jackson Anaya MD at 17:57 EDT , Service support ,
[2020-08-19] MEDS: fentaNYL 100 MCG/2 ML Ampul 50 MCG IV (16:24)
[2020-08-19 16:26] LABS: Absolute Lymphocyte Count 1.71 X10^3/uL (0.83-4.51); Absolute Neutrophil Count 4.2 X10^3/uL (2.0-7.7); Basophil# 0.02 X10^3/uL; Basophil% 0.3 % (0-1); Eosinophil# 0.15 X10^3/uL; Eosinophils% 2.3 % (0-5); Hematocrit 39.6 % (37-47); Hemoglobin 12.6 g/dL (12.0-15.0); Lymphocyte # 1.71 X10^3/ul (0.83-4.51); Lymphocyte % 26.6 % (19-41); Mean Corp Hgb Conc 31.8 g/dL (32-36); Mean Corpuscular Hgb 27.6 pg (27.0-32.0); Mean Corpuscular Volume 86.8 fL (81-99); Mean Platelet Vol. 11.6 fl (6.2-12.0); Monocyte# 0.37 X10^3/uL; Monocyte% 5.8 % (0-10); NRBC Flagged by Analyzer 0 % (0-5); Neutrophil # 4.16 X10^3/uL (2.7-7.7); Neutrophil % 64.7 % (47-70); Platelet Count 272 K/mm3 (150-450); RBC Distribution Width CV 13.4 % (11.6-14.6); RBC Distribution Width SD 42.5 fl (35.1-43.9); Red Blood Count 4.56 M/mm3 (4.2-5.4); White Blood Count 6.4 K/mm3 (4.4-11.0)
--- NOTE | 2020-08-19 16:37 | ED.VIS.FALL ---
HPI HPI - Fall History of Present Illness Chief Complaint: Trauma Informant: patient Narrative Narrative: Patient is a 49-year-old female who presents to the emergency department after fall off a ladder. She states that she was about the level of the roof which is 10 feet high whenever she fell backwards. She landed straight on her back and did hit her head. She denies loss of consciousness. She does complain of a right-sided headache that she describes as severe. She is complaining of right-sided mid back pain as well. She denies any neck pain. No chest pain or shortness of breath. No abdominal pain. No weakness or loss of sensation in her extremities. She is not on any blood thinning medications. She has been able to ambulate since the event. [facility] Medical History (Updated 08/20/20 @ 23:[address] Sukh Suárez DO) PTSD (post-traumatic stress disorder) Home Medications sertraline 100 mg tablet 100 mg PO DAILY tab 10/17/19 [History Last Taken Unknown] norethindrone (contraceptive) 0.35 mg tablet 0.35 mg PO DAILY #84 tab 04/04/20 [Rx Last Taken Unknown] lamotrigine 150 mg PO DAILY 06/04/20 [History Last Taken Unknown] Allergy/AdvReac Type Severity Reaction Status Date / Time Penicillins Allergy Hives Verified 08/19/20 15:41 Family History Mother Diabetes Surgical History exam under anesthesia Social History Smoking Status: Current every day smoker tobacco type: cigarettes second hand exposure: Yes alcohol intake: never substance use type: does not use seatbelt use: always do you feel safe at home: Yes ROS ROS ED Constitutional Constitutional ED: Denies chills or fever(s) Eyes Eyes: Denies change in vision ENT ENT ED: Denies epistaxis or rhinorrhea Cardiovascular Cardiovascular: Denies chest pain or palpitations Respiratory/Chest Respiratory/Chest: Denies cough, dyspnea or dyspnea on exertion Gastrointestinal Gastrointestinal: Denies abdominal pain, diarrhea, nausea or vomiting Genitourinary Genitourinary ED: Denies dysuria, hematuria or urinary frequency Musculoskeletal Musculoskeletal: Denies neck pain Integumentary Denies rash Neurologic Neurologic: Denies dizziness, headache(s) or weakness EXAM Physical Exam Const Vital Signs: 08/19/20 15:41 08/19/20 15:54 08/19/20 15:55 Temperature 97.3 F L Temperature Source Temporal Pulse Rate 103 H 99 Respiratory Rate 16 20 H Respiratory Effort Normal Non-Labored Respiratory Depth Shallow Respiratory Pattern Normal Blood Pressure 129/89 H Blood Pressure Mean 102 Pulse Ox 97 99 Oxygen Delivery Method Room Air Room Air Room Air Positive well nourished and well developed General Appearance ED: well developed and NAD HEENT Reports normocephalic, head/scalp atraumatic and moist mucous membranes HEENT Narrative: Small contusion to right parietal occipital region. Eyes PERRL and EOMs intact bilaterally Neck supple General: Negative for tenderness Chest Wall inspection of chest normal Resp normal respiratory effort and clear to auscultation bilaterally Auscultation: Negative for rales, rhonchi or wheezes Cardio regular rate, regular rhythm and no murmurs GI normal to inspection, nondistended, normoactive bowel sounds Palpation: soft; Negative for guarding or rebound tenderness present Back/Spine Back/Spine Narrative: Tenderness to right lateral mid back. No midline spine tenderness or step-off sign. No overlying skin changes. No obvious deformity. Extremity normal to inspection General Extremety ED: Negative for edema or tenderness General Extremity: Negative for edema Neuro oriented x3, CN's II-XII intact bilaterally and no sensory deficits noted Sensorium / Orientation: alert Motor Exam: strength 5/5 throughout Psych mental status grossly normal Skin no rashes or lesions noted MDM MDM MDM Narrative Medical decision making narrative: Patient presents to the emergency department after a fall off a ladder. Upon arrival to the ED vital signs within normal limits. She is complaining of mid upper back pain as well as headache. CT scans are being performed. Basic lab work checked. Basic lab work did not reveal the patient to be anemic. No significant acute abnormality. CT scan of the head did not reveal any acute traumatic intracranial findings. No CT evidence of acute chest/abdomen/pelvis traumatic findings. Patient feeling much better on reexamination. Patient able to ambulate around the ED. Will recommend symptomatic treatment at home. Return precautions are reviewed with her. She otherwise is to follow-up with her PCP. She understands and is agreeable with plan. Discharged home in stable condition. All questions were answered. Lab Data Labs: Laboratory Results - last 24 hr 08/19/20 08/19/20 16:12 16:12 WBC 6.4 RBC 4.56 Hgb 12.6 Hct 39.6 MCV 86.8 MCH 27.6 MCHC 31.8 L RDW Std Deviation 42.5 RDW Coeff of Sharlene 13.4 Plt Count 272 MPV 11.6 Immature Gran % (Auto) 0.300 Neut % (Auto) 64.7 Lymph % (Auto) 26.6 Kaufman % (Auto) 5.8 Eos % (Auto) 2.3 Baso % (Auto) 0.3 Absolute Neuts (auto) 4.2 Absolute Lymphs (auto) 1.71 Nucleated RBC % 0 Sodium 139 Potassium 3.8 Chloride 106 Carbon Dioxide 24.0 Anion Gap 9 BUN 16 Creatinine 0.74 Estim Creat Clear Calc 81.84 Est GFR (MDRD) Af Amer 107 Est GFR (MDRD) Non-Af 88 BUN/Creatinine Ratio 21.7 H Glucose 112 H Calcium 8.8 Total Bilirubin 0.50 AST 15 ALT 18 Alkaline Phosphatase 78 Total Protein 7.6 Albumin 4.0 Globulin 3.6 Albumin/Globulin Ratio 1.1 Lipase 98 Discharge Plan Triage Chief Complaint: Trauma ED Provider: Sukh Suárez Dx/Rx/DC Orders Clinical Impression: CHI (closed head injury), Back pain, Fall from ladder Instructions: Bone Contusion, ED Head Injury (Adult) Prescriptions: No Action norethindrone (contraceptive) 0.35 mg tablet 0.35 mg PO DAILY Qty: 84 RF: 4 sertraline 100 mg tablet 100 mg PO DAILY RF: 0 lamotrigine 100 MG tablet 150 mg PO DAILY RF: 0 Primary Care Provider: [facility]renga [facility] - 3-5 Days Disposition Disposition: Home, Self Care Discharge Date/Time: 08/19/20 19:03
[2020-08-19 16:39] LABS: ALB/GLOB Ratio 1.1 RATIO (0.9-2.4); AST(SGOT) 15 U/L (15-37); Alanine Aminotransfer ALT/SGPT 18 U/L (13-56); Alkaline Phosphatase 78 U/L (45-117); Anion Gap 9 (5-15); BUN 16 mg/dL (7-18); BUN/Creat Ratio 21.7 RATIO (10-20); Calcium,Total 8.8 mg/dL (8.5-10.1); Chloride 106 mmol/L (98-107); Creatinine, Serum 0.74 mg/dL (0.55-1.02); EST Glomerular Filtration Rate 88 mL/min (>60); Est Glom Filt Rate - Afr Amer 107 mL/min (>60); Estimated Creatinine Clearance 81.84 ml/min; Globulin 3.6 g/dL (2.2-4.2); Glucose 112 mg/dL (74-106); Lipase 98 U/L (73-393); Potassium 3.8 mmol/L (3.5-5.1); Protein, Total 7.6 g/dL (6.4-8.2); Sodium Level 139 mmol/L (136-145)
[2020-08-19 16:41] VITALS: BP 120/82; PULSE 86; RESP 16; O2SAT 95
[2020-08-19 17:00] VITALS: BP 138/83; PULSE 94; RESP 15; O2SAT 99
[2020-08-19 17:31] LABS: Bacteria 0 SEEN /hpf (None Seen); Mucous, Urine 0 SEEN /hpf (<or=2+)
[2020-08-19 17:32] LABS: Color, Urine Yellow (Yellow); Glucose, Dipstick Normal (Normal); Ketone-Dipstick Negative (Negative); Leukocyte Esterase-Dipstick 25 /ul (Negative); Nitrite-Dipstick Negative (Negative); Occult Blood-Urine 50 /ul (Negative); Protein-Dipstick 30 mg/dl (Negative); Specific Gravity, Urine 1.015 (1.002-1.030); Urine Bilirubin Dipstick Negative (Negative); Urine Clarity Sl. Cloudy (Clear); Urine Urobilinogen 1 mg/dl (Normal); Urine pH 6.5 (5.0 - 8.0)
[2020-08-19] MEDS: Morphine 4 MG/ML Syringe IV (17:38)
[2020-08-19 17:47] LABS: Red Blood Cells-Urine 0-5 SEEN /hpf (0-5); Squamous Epithelial Cells - UA 0-5 SEEN /hpf (5-10); White Blood Cells 0-5 SEEN /hpf (0-5)
[2020-08-19 19:00] VITALS: BP 122/89
== END 2020-08-19 19:03 | disposition home or self-care (01) ==
PROVIDERS: Emergency Provider Emergency Medicine
DX: S09.90XA Unspecified injury of head, initial encounter (principal); M54.9 Dorsalgia, unspecified; F17.210 Nicotine dependence, cigarettes, uncomplicated; F43.10 Post-traumatic stress disorder, unspecified; W11.XXXA Fall on and from ladder, initial encounter
CPT/HCPCS: 70450; 71260; 72125; 74177; 80053; 81001; 83690; 85025; 96374; 96375; 99284; Q9967; A4216

== ENCOUNTER → 2020-09-19 09:27 | Outpatient (CLI) | payer MEDICAID, SELFPAY ==
[2020-04-04 11:37] VITALS: BMI 35.5
--- NOTE | 2020-09-19 09:28 | BI_ITS ---
MAMMOGRAPHY - BILATERAL SCREENING REASON FOR EXAM: Female, 49 years old. Routine annual screening examination. PERTINENT HISTORY: Screening TECHNIQUE: Digital bilateral breast summer (3D mammographic acquisition) in the CC and MLO projections. 2-D mediolateral oblique (MLO) and craniocaudad (CC) views of both breasts were obtained. CAD: Full Field Digital Mammography with Computer Added Detection was performed. COMPARISON: 08/23/2019 FINDINGS: Breast Composition: Heterogeneously dense There are no dominant masses or suspicious calcifications. No other significant abnormalities are identified. BI/SCRN MAMM (CAD)W/SUMMER BILAT IMPRESSION: Stable bilateral screening mammogram. Yearly follow-up mammogram recommended. (A) ASSESSMENT CATEGORY: BIRADS Category 1: Negative. A letter regarding these results will be sent to the patient by the facility within 30 days. Approximately 10% of breast cancers are not detected by mammography. A normal mammogram should not delay biopsy of a clinically suspicious abnormality. [id number] Electronically Signed: Zeus Bailon DO at 16:25 EDT Tel , Service support ,
== END ==
PROVIDERS: Referring Provider Nurse Practitioner Adult Health; Visit Provider Nurse Practitioner Adult Health
DX: Z12.31 Encounter for screening mammogram for malignant neoplasm of breast (principal); F33.1 Major depressive disorder, recurrent, moderate
CPT/HCPCS: 77063; 77067

== ENCOUNTER → 2021-01-23 11:44 | Outpatient (CLI) | payer MEDICAID, SELFPAY ==
[2021-01-23 12:02] LABS: Absolute Lymphocyte Count 1.73 X10^3/uL (0.83-4.51); Absolute Neutrophil Count 2.9 X10^3/uL (2.0-7.7); Basophil# 0.03 X10^3/uL; Basophil% 0.6 % (0-1); Eosinophil# 0.27 X10^3/uL; Hematocrit 39.5 % (37-47); Hemoglobin 13.4 g/dL (12.0-15.0); Lymphocyte # 1.73 X10^3/ul (0.83-4.51); Lymphocyte % 32.3 % (19-41); Mean Corp Hgb Conc 33.9 g/dL (32-36); Mean Corpuscular Hgb 29.8 pg (27.0-32.0); Mean Corpuscular Volume 87.8 fL (81-99); Mean Platelet Vol. 11.1 fl (6.2-12.0); Monocyte# 0.39 X10^3/uL; Monocyte% 7.3 % (0-10); NRBC Flagged by Analyzer 0 % (0-5); Neutrophil # 2.88 X10^3/uL (2.7-7.7); Neutrophil % 53.9 % (47-70); Platelet Count 273 K/mm3 (150-450); RBC Distribution Width SD 38.6 fl (35.1-43.9); White Blood Count 5.4 K/mm3 (4.4-11.0)
[2021-01-23 12:22] LABS: Estradiol 43.2 pg/mL; Follicle Stimulating Hormone 31.3 mIU/mL; Thyroid Stim Hormone (TSH) 0.73 uIU/mL (0.358-3.74)
== END ==
PROVIDERS: Referring Provider Nurse Practitioner Women's Health; Visit Provider Nurse Practitioner Women's Health
DX: N90.89 Other specified noninflammatory disorders of vulva and perineum (principal); N85.2 Hypertrophy of uterus; N93.9 Abnormal uterine and vaginal bleeding, unspecified; Z13.29 Encounter for screening for other suspected endocrine disorder
CPT/HCPCS: 36415; 82670; 83001; 84443; 85025; 87255

== ENCOUNTER → 2021-01-29 14:58 | Outpatient (CLI) | payer MEDICAID, SELFPAY ==
--- NOTE | 2021-01-29 15:01 | US_ITS ---
STUDY: ULTRASOUND OF THE FEMALE PELVIS - COMPLETE REASON FOR EXAM: Female, 50 years old. Abnormal bleeding LMP: 01/13/2021 TECHNIQUE: Transabdominal and Transvaginal TECHNICAL QUALITY: Adequate. COMPARISON: None. FINDINGS: The uterus is anteverted and is in a midline position. The uterus measures 9.1 x 5.0 x 4.4 cm. Normal uterine cervix. The endometrium measures 4.5 mm in thickness, and is hyperechoic. There is suggestion of adenomyosis with indistinctness between the endometrial stripe and myometrium. There is no demonstrated endometrial mass. There is no demonstrated myometrial mass. I.U.D. - The patient does not have an I.U.D. The right ovary is visualized. The right ovary measures 3.5 x 3.7 x 3.0 cm. There is a simple 3.1 cm cyst. There is normal arterial and normal venous vascularity. The left ovary is visualized. The left ovary measures 2.4 x 2.6 x 1.1 cm. There is no left ovarian cyst or ovarian mass. There is no visualized left adnexal mass or complex lesion. There is normal arterial and normal venous vascularity. There is no fluid in the cul-de-sac. The bladder is sonographically normal US/Transvaginal Non- IMPRESSION: Indistinct border between the endometrium and myometrium within the uterus suggesting adenomyosis Simple right ovarian cyst, given patient''s age, short-term follow-up is recommended to ensure resolution No suspicious adnexal mass or free fluid Electronically Signed: Filiberto Garsia MD at 16:56 EST , Service support ,
--- NOTE | 2021-01-29 15:01 | US_ITS ---
STUDY: ULTRASOUND OF THE FEMALE PELVIS - COMPLETE REASON FOR EXAM: Female, 50 years old. Abnormal bleeding LMP: 01/13/2021 TECHNIQUE: Transabdominal and Transvaginal TECHNICAL QUALITY: Adequate. COMPARISON: None. FINDINGS: The uterus is anteverted and is in a midline position. The uterus measures 9.1 x 5.0 x 4.4 cm. Normal uterine cervix. The endometrium measures 4.5 mm in thickness, and is hyperechoic. There is suggestion of adenomyosis with indistinctness between the endometrial stripe and myometrium. There is no demonstrated endometrial mass. There is no demonstrated myometrial mass. I.U.D. - The patient does not have an I.U.D. The right ovary is visualized. The right ovary measures 3.5 x 3.7 x 3.0 cm. There is a simple 3.1 cm cyst. There is normal arterial and normal venous vascularity. The left ovary is visualized. The left ovary measures 2.4 x 2.6 x 1.1 cm. There is no left ovarian cyst or ovarian mass. There is no visualized left adnexal mass or complex lesion. There is normal arterial and normal venous vascularity. There is no fluid in the cul-de-sac. The bladder is sonographically normal US/Pelvic (Non ) IMPRESSION: Indistinct border between the endometrium and myometrium within the uterus suggesting adenomyosis Simple right ovarian cyst, given patient''s age, short-term follow-up is recommended to ensure resolution No suspicious adnexal mass or free fluid Electronically Signed: Filiberto Garsia MD at 16:56 EST , Service support ,
== END ==
PROVIDERS: Referring Provider Nurse Practitioner Women's Health; Visit Provider Nurse Practitioner Women's Health
DX: N93.9 Abnormal uterine and vaginal bleeding, unspecified (principal); N85.2 Hypertrophy of uterus
CPT/HCPCS: 76830; 76856

== ENCOUNTER 2021-03-28 14:00 | Outpatient (CLI) | payer MEDICAID, SELFPAY ==
--- NOTE | 2021-03-28 14:02 | US_ITS ---
STUDY: ULTRASOUND OF THE FEMALE PELVIS - COMPLETE REASON FOR EXAM: Female, 50 years old. ovarian cyst, pelvic pain TECHNIQUE: Transabdominal COMPARISON: None. FINDINGS: The uterus is anteverted and is in a midline position. The uterus measures 9 x 5 cm. There is a Nabothian cyst of the cervix. The endometrium measures 2 mm in thickness, and is hyperechoic. There is no demonstrated endometrial mass. Uterus is heterogeneous. There is no demonstrated myometrial mass. I.U.D. - The patient does not have an I.U.D. The right ovary is visualized. The right ovary measures 2.8 x 3 cm. Cyst visualized measuring 18 mm. There is no visualized right adnexal mass or complex lesion. There is normal arterial and normal venous vascularity. The left ovary is visualized. The left ovary measures 2.5 x 2.4 cm. There is no left ovarian cyst or ovarian mass. There is no visualized left adnexal mass or complex lesion. There is normal arterial and normal venous vascularity. There is no fluid in the cul-de-sac. Urinary bladder volume is 180 cc US/Transvaginal Non- IMPRESSION: There are Nabothian cysts of the cervix. Electronically Signed: Marco Lara MD at 20:14 EST ,
--- NOTE | 2021-03-28 14:02 | US_ITS ---
STUDY: ULTRASOUND OF THE FEMALE PELVIS - COMPLETE REASON FOR EXAM: Female, 50 years old. ovarian cyst, pelvic pain TECHNIQUE: Transabdominal COMPARISON: None. FINDINGS: The uterus is anteverted and is in a midline position. The uterus measures 9 x 5 cm. There is a Nabothian cyst of the cervix. The endometrium measures 2 mm in thickness, and is hyperechoic. There is no demonstrated endometrial mass. Uterus is heterogeneous. There is no demonstrated myometrial mass. I.U.D. - The patient does not have an I.U.D. The right ovary is visualized. The right ovary measures 2.8 x 3 cm. Cyst visualized measuring 18 mm. There is no visualized right adnexal mass or complex lesion. There is normal arterial and normal venous vascularity. The left ovary is visualized. The left ovary measures 2.5 x 2.4 cm. There is no left ovarian cyst or ovarian mass. There is no visualized left adnexal mass or complex lesion. There is normal arterial and normal venous vascularity. There is no fluid in the cul-de-sac. Urinary bladder volume is 180 cc US/Pelvic (Non ) IMPRESSION: There are Nabothian cysts of the cervix. Electronically Signed: Marco Lara MD at 20:14 EST ,
== END 2021-03-28 23:59 | disposition home or self-care (01) ==
LOC: US 14:01
PROVIDERS: Referring Provider Nurse Practitioner Women's Health; Visit Provider Nurse Practitioner Women's Health
DX: N83.209 Unspecified ovarian cyst, unspecified side (principal)
CPT/HCPCS: 76830; 76856

== ENCOUNTER 2021-06-25 08:36 | Day surgery (SDC) | payer MEDICAID, SELFPAY ==
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
--- NOTE | 2021-06-24 12:39 | EKG12_ITS ---
Test Reason : PREOP Blood Pressure : / mmHG Vent. Rate : 090 BPM Atrial Rate : 090 BPM P-R Int : 150 ms QRS Dur : 082 ms QT Int : 346 ms P-R-T Axes : 066 054 050 degrees QTc Int : 423 ms Normal sinus rhythm Normal ECG Confirmed by RILEY VILLALOBOS, JEROME ([id number]), proposal editor WANDA GARCIA ([id number]) on 06/24/2021 2:04:00 PM Referred By: Marilee Mcclelland Confirmed By:JEROME LIN MD
[2021-06-24 13:36] LABS: Hemoglobin 13.4 g/dL (12.0-15.0); Mean Corp Hgb Conc 33.5 g/dL (32-36); Mean Corpuscular Volume 89.7 fL (81-99); Mean Platelet Vol. 11.1 fl (6.2-12.0); Platelet Count 250 K/mm3 (150-450); RBC Distribution Width CV 12.4 % (11.6-14.6); RBC Distribution Width SD 40.7 fl (35.1-43.9); Red Blood Count 4.46 M/mm3 (4.2-5.4); White Blood Count 6.9 K/mm3 (4.4-11.0)
[2021-06-24 14:37] LABS: Magnesium 1.8 mg/dL (1.6-2.6)
[2021-06-25] VITALS (7 sets, daily range): BP systolic 120–133; BP diastolic 80–89; PULSE 89–98; RESP 14–16; TEMP 36.7–37.2; O2SAT 98–100; BMI 36.5
[2021-06-25 09:11] LABS: Internal QC Validated? YES +Cl - CLEAR BKGD; Pregnancy, Urine Negative Negative
--- NOTE | 2021-06-25 09:15 | PCM.DC ---
Discharge Instructions Diet Discharge Diet: No restrictions Activity May resume sexual activity in: 6 weeks Weight Bearing Status: Full weight bearing Dressing / Incision Call your doctor if your incision/area has: Continuous Slow Oozing, Sudden Increased Bleeding, Increased Pain/ Swelling, Increased Redness and Foul Smelling Discharge Call your doctor if you observe: Fever of 101 or Higher, Using more than 1 pad per hour, Shortness of breath, Chest pain and Uncontrolled pain Suture Line Care: Avoid Pulling/Pushing and Avoid Pinching/Bending Remove Dressing in: 1 week (if present) Cleanse incision/area with: Soap & Water and Keep Dressing Clean & Dry Follow Up Care Please Follow Up With: Marilee Mcclelland DO When: Call to make an appointment with your doctor for a postop visit in 2 and 6 weeks Test Results: Test results from this visit will be discussed in further detail at your follow-up appointment, if applicable. Discharge Plan Admission Primary Reason for Your Visit: hysterectomy Attending Provider: Marilee Mcclelland [facility] Providers: Beena Ohara Discharge Orders/Prescriptions Prescriptions: New ibuprofen 800 mg tablet 800 mg PO Q8H PRN (Reason: pain) 7 Days Qty: 30 RF: 0 oxycodone-acetaminophen [Percocet] 5-325 mg tablet 1 tab PO Q4H PRN (Reason: pain) 7 Days Qty: 30 RF: 0 Continued sertraline 100 mg tablet 100 mg PO DAILY RF: 0 lamotrigine [Lamictal] 100 MG tablet 150 mg PO DAILY RF: 0 zolpidem 5 mg tablet 5 mg PO QHS RF: 0 valacyclovir 1 gram tablet 1,000 mg PO BID PRN (Reason: HSV) RF: 0 Discontinued norethindrone (contraceptive) 0.35 mg tablet 0.35 mg PO DAILY Qty: 84 RF: 4 [facility] - Disposition Disposition (needs filled in before D/C Order can be placed): Home, Self Care
[2021-06-25] MEDS: Gabapentin 600 MG Tablet PO (09:24)
[2021-06-25] MEDS: Celecoxib 200 MG Capsule 400 MG PO (09:24)
[2021-06-25] MEDS: dexAMETHasone 10 MG/ML Vial 8 MG IV (09:24)
[2021-06-25] MEDS: Acetaminophen 500 MG Tablet 1000 MG PO (09:25)
[2021-06-25] MEDS: Lactated Ringers 1,000 ML 40 ML IV (09:28)
[2021-06-25] MEDS: Magnesium 2 GM IV (09:29)
[2021-06-25 09:46] LABS: Bedside Glucose 151 mg/dL (74-106)
--- NOTE | 2021-06-25 10:10 | HYST_PTH ---
PATIENT: TONY TSANG LOC: [facility] U#:[id number] AGE/SX: 50/F ROOM: RE06/25/[address]: Dr. Marilee Mcclelland DO : 1970 BED: DIS: 06/25/2021 SPEC #: [id number] RECD: 06/25/21 12:34 STATUS: BENEDICT CRISTHIAN #: [id number] ELVIN: 06/25/21 10:[address]: Marilee Mcclelland DEPT: SURGICAL PATHOLOGY RECD BY: Marquita Meyers ENTERED: 06/25/21 12:58 SP TYPE: HYSTERECT OTHR DR: Beena Ohara, DISH PERSON-C [facility] Tissues: Uterus, NOS Procedures: Surgery Specimen Level V HEADER OPERATION: Lap robotic hysterectomy, salpingectomy, cystoscopy PRE-OP DIAGNOSIS: Pelvic pain, ovarian cyst, abnormal uterine bleeding TISSUE SUBMITTED: Uterus, cervix, bilateral fallopian tubes MICROSCOPIC DIAGNOSIS Uterus, cervix and bilateral fallopian tubes, hysterectomy and bilateral salpingectomy: Cervix ? chronic cystic cervicitis. Endometrium ? inactive endometrium. Myometrium ? adenomyosis. Bilateral fallopian tubes - no pathologic diagnosis. SJ:afshin 06/26/2021 MICROSCOPIC DESCRIPTION Slides are reviewed. GROSS DESCRIPTION Received in fixative is one container labeled with the patient's name and designated uterus, cervix, bilateral fallopian tubes. The specimen consists of a hysterectomy specimen consisting of uterus with cervix and attached bilateral fallopian tubes. The uterus with cervix weighs 84 gm and measures 8.5 x 5 x 3.5 cm. The serosal surface is melendez, glistening. The ectocervical mucosa is unremarkable. The external os is oval in contour. The endocervical canal measures 3 cm in length and the endocervical mucosa is melendez, glistening and unremarkable. The triangular endometrial cavity measures 4 cm in length and 2.5 cm in width. The endometrium is melendez, glistening without any mass lesion and measures 0.1 cm in thickness. Sections of the uterine wall do not reveal any mass lesion and measures 2 cm in thickness. The right fallopian tube measures 7 cm in length and up to 0.7 cm in diameter. The fimbrial end is identified. Sections reveal unremarkable cut surfaces. The left fallopian tube is similar appearance to right and measures 8 cm in length and 0.7 cm in diameter. [employer] sections are submitted in eight cassettes as follows: 1 - anterior cervix, 2 - posterior cervix, 3 & 4 - anterior uterine wall, 5 & 6 - posterior uterine wall, 7 ? right fallopian tube, 8 ? left fallopian tube. / MIKKI:afshin 06/25/2021 TC:5 CPT: 63271
--- NOTE | 2021-06-25 11:37 | PCM.OPRPT ---
Report of Operation Date of Procedure: 06/25/21 Pre-Operative Diagnosis: pelvic pain, menorrhagia, obesity Post-Operative Diagnosis: pelvic pain, menorrhagia, obesity Surgery/Procedure Performed:: total robotic hysterectomy, bilateral salpingectomy Description of Surgical Findings:: 9 cm size uterus, normal appearing ovaries and tubes. On exploration of the abdominal cavity the uterus, adnexa, bowel, and liver were found to be normal. Cystoscopy showed no evidence of leaking at approximately 250 cc of normal saline, positive ureteral orifices and jet flow are seen and no suture material was appreciated in the bladder. Surgeon: Marilee Mcclelland child and youth program assistant: Karen Chowdary Type of Anesthesia: General Anesthesiologist: Russell Barrera Specimen's removed: uterus, cervix, fallopian tubes Drains: none Estimated Blood Loss (mL): 50cc Fluids Replaced: 1500cc Description of Procedure: Specimens removed: Uterus and cervix, Bilateral tubes Reason for surgery: This is a 50-year-old G3, P3 who presented to my office with history of heavy menses and desire for hysterectomy. The planned procedure is for a robotic hysterectomy the risks benefits and alternatives were discussed with the patient the patient had a clear understanding of the procedure and a consent form was signed. Procedure: The patient was placed in the dorsal low lithotomy position and prepped and draped in the normal sterile fashion both abdominally and in the perineum. Her legs were placed in stirrups a Hill catheter was inserted into the urethra without difficulty. A weighted speculum was placed in the vagina and a single-tooth tenaculum was used to grasp the anterior lip of the cervix. An Advincula uterine manipulator was inserted through the cervix without complication. It was then tied into place at the 2 and 10:00 locations on the cervix. Gloves were changed and attention was turned towards the abdomen. Approximately 23 cm above the pubic symphysis in the midline, and after Marcaine injection, a [8] mm incision was made. An 8 mm trocar was inserted through the laparoscope, then inserted into the abdomen under direct visualization using the laparoscope. Good abdominal placement was noted and no complications were appreciated. An air seal device was utilized to create pneumoperitoneum. At 12 cm lateral to the midline on the left and right sides 8 mm accessory ports were placed. Next a left upper quadrant 8 mm acute care nursing assistant port site was placed. The patient was placed in steep Trendelenburg position. The robot was docked. The hysterectomy was initiated first by taking down the fallopian tubes by dissecting the underlying mesosalpinx. Next, the round ligament on each side was taken down using the vessel sealer device. The IP ligament was then taken down using the vessel sealer device. These areas were freed without complication] the broad ligament was then and taken down using the vessel sealer device. Next the bladder flap was taken down without complication. This was done using monopolar cautery to the level of the cervical vaginal junction. After the bladder flap was created, uterine vessels were then isolated and cauterized using the vessel sealer device and EndoShears. At this point the uterine vessels were taken down further starting from the ascending branch, dissecting along the edges of the cervix to the level of the cervical vaginal junction with hemostasis appreciated. The cervical vaginal junction was then using monopolar cautery in a circumferential pattern across the superior aspect of the cervix. The specimen was delivered through the vagina and sent to pathology. The remaining vaginal cuff was then closed using V lock suture in 2 layters. This was performed in a running technique. Excellent hemostasis was obtained and good closure was noted. Irrigation was then performed. All operative sites were noted to be hemostatic. A cystoscopy was performed with a 70 degree cystoscope through the urethra into the bladder without complication. The bladder was instilled with approximately 250 cc of normal saline. Intraoperative images were made. Ureteral orifices and jets were identified. No suture material was appreciated in the bladder. The bladder was then drained and cystoscope was removed. The abdominal cavity was again examined using the laparoscope after the robot was undocked. All operative sites were noted to be hemostatic. The trochars were removed under direct visualization without complication and pneumoperitoneum was reduced. At this point the skin was then closed using 4-0 Monocryl subcuticular stitch and sealed with surgical glue. The patient tolerated the procedure well sponge lap and needle counts were correct x2 the patient was taken to the recovery room in stable condition. Admit VTE Documentation VTE Present on Admission: Yes VTE Mechan Device Prophylaxis: None VTE Pharm Prophylaxis ordered?: No Reason prophylaxis not ordered:: Treatment Not Indicated Multi Select Codes Urinary/Genital Urinary/Genital CPT Codes: 75430 TLH+BS/O <250gr uterus
[2021-06-25] MEDS: Lactated Ringers 1,000 ML 100 ML IV (12:56)
[2021-06-25] MEDS: Ondansetron 4 MG/2 ML Vial IV (12:57)
[2021-06-25] MEDS: HYDROcodone Bitartrate/Apap 5/325 Tablet PO (13:37)
== END 2021-06-25 14:25 | disposition home or self-care (01) ==
LOC: SDC 08:36 → AC 08:37
PROVIDERS: Anesthesiology; Referring Provider Obstetrics & Gynecology; Visit Provider Obstetrics & Gynecology
PROC: 0UT94ZZ Resection of Uterus, Percutaneous Endoscopic Approach (ICD-10-PCS; CPT 58571; principal; 2021-06-25 09:50)
DX: N72 Inflammatory disease of cervix uteri (principal); N80.0 Endometriosis of uterus; M48.02 Spinal stenosis, cervical region; E66.9 Obesity, unspecified; F43.10 Post-traumatic stress disorder, unspecified; F17.210 Nicotine dependence, cigarettes, uncomplicated; M19.90 Unspecified osteoarthritis, unspecified site; Z79.899 Other long term (current) drug therapy; Z68.36 Body mass index [BMI] 36.0-36.9, adult
CPT/HCPCS: 58571; 00840; 36415; 81025; 82962; 83735; 85027; 86850; 86900; 86901; 87426; 88307; 93005; C9803; J7120; J2405

== ENCOUNTER 2021-07-22 19:16 | Emergency (ER) | payer MEDICAID, SELFPAY ==
[2021-07-22 19:18] VITALS: BP 138/76; PULSE 114; RESP 18; TEMP 36.2; O2SAT 97; BMI 36.9
--- NOTE | 2021-07-22 19:30 | EX.ED.DYSGE1 ---
HPI History of Present Illness Chief Complaint: Lower Extremity Injury Informant: patient Narrative Narrative: 50-year-old female states that she is having right leg pain. She states that on June 25 she underwent a hysterectomy. She had a follow-up appointment on the . She states that just prior to that appointment she had 2 days where her knee was swollen and very painful. She notes that the leg is now started hurting again and is swollen. She notes she developed a pustule in her inguinal region that is painful. It started draining brown fluid but then the next day it was closed back up again. She is worried she may have a DVT. [facility] Medical History Arthritis Depression PTSD (post-traumatic stress disorder) Smoker Wears glasses Home Medications sertraline 100 mg tablet 100 mg PO DAILY tab 10/17/19 [History Last Taken 06/24/21] lamotrigine [Lamictal] 150 mg PO DAILY 06/04/20 [History Last Taken 06/24/21] valacyclovir 1,000 mg PO BID PRN 06/12/21 [History Last Taken 06/24/21] zolpidem 5 mg PO QHS 06/12/21 [History Last Taken 06/24/21] ibuprofen 800 mg PO Q8H PRN 7 Days #30 tab 06/25/21 [Rx Last Taken Unknown] oxycodone-acetaminophen [Percocet] 1 tab PO Q4H PRN 7 Days #30 tab 06/25/21 [Rx Last Taken Unknown] cephalexin 500 mg PO Q6 #28 capsule 07/22/21 [Rx Last Taken Unknown] oxycodone-acetaminophen 1 tab PO Q6H PRN PRN 3 Days #12 tablet 07/22/21 [Rx Last Taken Unknown] sulfamethoxazole-trimethoprim 1 tab PO BID #14 tablet 07/22/21 [Rx Last Taken Unknown] Allergy/AdvReac Type Severity Reaction Status Date / Time Penicillins Allergy Hives Verified 07/11/21 11:18 Family History Mother Diabetes Surgical History exam under anesthesia History of robot-assisted laparoscopic hysterectomy (~06/25/21) Social History Smoking Status: Current every day smoker tobacco type: cigarettes second hand exposure: Yes alcohol intake: never substance use type: does not use seatbelt use: always do you feel safe at home: Yes ROS ROS ED Constitutional Constitutional ED: Denies chills or weight loss Eyes Eyes: Denies change in vision or diplopia ENT ENT ED: Denies ear pain, rhinorrhea or sore throat Cardiovascular Cardiovascular: Denies chest pain, orthopnea, palpitations or racing heartbeat Respiratory/Chest Respiratory/Chest: Denies cough, dyspnea or orthopnea Gastrointestinal Gastrointestinal: Denies abdominal pain, diarrhea, nausea or vomiting Genitourinary Genitourinary ED: Denies dysuria, hematuria or urinary frequency Musculoskeletal Musculoskeletal: Reports other Details: Right leg pain and swelling ; Denies arthralgias or myalgias Integumentary Reports abscess; Denies rash Neurologic Neurologic: Denies headache(s) or weakness Psychiatric Psychiatric: Denies anxiety, depression, suicidal ideation or suicidal thoughts Endocrine Endocrinology: Denies polydipsia, polyphagia or polyuria Allergic/Immunologic Allergic/Immunologic ED: Denies mouth swelling, tongue swelling or urticaria EXAM Physical Exam Const Vital Signs: 07/22/21 19:18 Temperature 97.1 F L Temperature Source Temporal Pulse Rate 114 H Respiratory Rate 18 Blood Pressure 138/76 H Blood Pressure Mean 96 Pulse Ox 97 Oxygen Delivery Method Room Air Positive well nourished, well developed and obese General Appearance ED: well developed Nutritional Appearance: obese HEENT Reports normocephalic, head/scalp atraumatic, TM's clear and moist mucous membranes Negative for trauma Tympanic Membrane ED: Yes TM's clear Eyes PERRL and EOMs intact bilaterally Neck no lymphadenopathy, supple and no JVD Resp normal respiratory effort and clear to auscultation bilaterally Cardio regular rate, regular rhythm and no murmurs GI normal to inspection, nondistended, normoactive bowel sounds and non-tender Palpation: soft Back/Spine no CVA tenderness and normal ROM Extremity Extremity Narrative: I do not appreciate any significant swelling to the leg. I see no secondary cellulitis. No palpable cords. General Extremety ED: Negative for edema General Extremity: Negative for edema Neuro oriented x3 and CN's II-XII intact bilaterally Sensorium / Orientation: alert Motor Exam: strength 5/5 throughout Psych mental status grossly normal Mood & Affect: Negative for depressed or tearful Skin no rashes or lesions noted and no wounds Skin Narrative: There is a fluctuant 1 cm elliptical abscess in the inguinal fold on the right. MDM MDM MDM Narrative Medical decision making narrative: The abscess was locally anesthetized using 1% lidocaine. A cruciate incision was made with expression of a small amount of pus. It was probed for loculations. Too small to put any substantial packing in. Wound care discussed with patient should be placed on antibiotics. Patient received oxycodone and a duplex ultrasound was obtained. This was negative for DVT. Not really seen anything that would explain why the patient's whole leg minus her foot is hurting. There is no significant swelling or erythema. Muscle tone is normal. The leg is warm normal color. Discharge Plan Triage Chief Complaint: Lower Extremity Injury ED Provider: Evangelist Hwang Dx/Rx/DC Orders Clinical Impression: Cutaneous abscess, Pain in right leg Instructions: ED Abscess Incision And Drainage Prescriptions: New oxycodone-acetaminophen [oxycodone-acetaminophen] 1 TABLET tablet 1 tab PO Q6H PRN PRN (Reason: Pain) 3 Days Qty: 12 RF: 0 sulfamethoxazole-trimethoprim [sulfamethoxazole-trimethoprim] 1 TABLET tablet 1 tab PO BID Qty: 14 RF: 0 cephalexin [cephalexin] 500 MG capsule 500 mg PO Q6 Qty: 28 RF: 0 No Action sertraline 100 mg tablet 100 mg PO DAILY RF: 0 lamotrigine [Lamictal] 100 MG tablet 150 mg PO DAILY RF: 0 zolpidem 5 mg tablet 5 mg PO QHS RF: 0 valacyclovir 1 gram tablet 1,000 mg PO BID PRN (Reason: HSV) RF: 0 ibuprofen 800 mg tablet 800 mg PO Q8H PRN (Reason: pain) 7 Days Qty: 30 RF: 0 oxycodone-acetaminophen [Percocet] 5-325 mg tablet 1 tab PO Q4H PRN (Reason: pain) 7 Days Qty: 30 RF: 0 Primary Care Provider[facility]ren[facility] Week Disposition Disposition: Home, Self Care
--- NOTE | 2021-07-22 19:31 | US_ITS ---
STUDY: VENOUS DOPPLER ULTRASOUND - RIGHT LOWER EXTREMITY REASON FOR EXAM: Female, 50 years old. LEG PAIN AND SWELLING undefined -- PAIN TECHNIQUE: Ultrasound evaluation of the deep vein system to include desir-scale imaging and compression was performed. Desir-scale imaging and Doppler sonographic evaluation, including duplex spectral analysis and qualitative color flow sonography, was performed. COMPARISON: None. FINDINGS: Common Femoral Vein: Normal compression, spontaneity and augmentation. Normal color Doppler. Common Femoral Vein/Greater Saphenous Junction: Normal compression, spontaneity and augmentation. Normal color Doppler. Superficial Femoral Proximal: Normal compression, spontaneity and augmentation. Normal color Doppler. Superficial Femoral Middle: Normal compression, spontaneity and augmentation. Normal color Doppler. Superficial Femoral Distal: Normal compression, spontaneity and augmentation. Normal color Doppler. Popliteal Vein: Normal compression, spontaneity and augmentation. Normal color Doppler. Posterior Tibial Vein: Normal compression, spontaneity and augmentation. Normal color Doppler. Peroneal Vein: Normal compression, spontaneity and augmentation. Normal color Doppler. There is a right fluid collection measuring 60 x 32 mm.. There is no demonstrated deep venous thrombosis. US/Venous Duplex Imag/Limited/Uni IMPRESSION: There is no demonstrated deep venous thrombosis.There is a right anterior knee fluid collection measuring 60 x 32 mm.. Electronically Signed: Marco Lara MD at 20:46 EDT Reading Location ID and State: [facility] / [place] , Service support ,
[2021-07-22] MEDS: oxyCODONE 5 MG Tablet 10 MG PO (19:37)
[2021-07-22] MEDS: Lidocaine 1% (20 ml mdv) 20 ML Vial INFILT (19:38)
== END 2021-07-22 20:53 | disposition home or self-care (01) ==
LOC: ED 20:27
PROVIDERS: Emergency Provider Emergency Medicine; Visit Provider Emergency Medicine
DX: L02.415 Cutaneous abscess of right lower limb (principal); F17.210 Nicotine dependence, cigarettes, uncomplicated; E66.9 Obesity, unspecified
CPT/HCPCS: 10060; 93971; 99283

== ENCOUNTER → 2021-08-15 | Outpatient (CLI) | payer MEDICAID, SELFPAY ==
--- NOTE | 2021-08-15 13:55 | RAD_ITS ---
STUDY: X-RAY - RIGHT KNEE REASON FOR EXAM: Female, 50 years old. EFFUSION TECHNIQUE: 2 view(s) of the knee. COMPARISON: None. FINDINGS: Normal visualized distal femur. Normal visualized proximal tibia and fibula. Normal proximal tibiofibular articulation. There is mild degenerative arthrosis of the medial femorotibial compartment. There is mild degenerative arthrosis of the lateral femorotibial compartment. There is moderate degenerative arthrosis of the patellofemoral articulation. The soft tissue structures are unremarkable. RAD/Knee 1 or 2 Views IMPRESSION: Effusion, as described above. MRI may be useful. Electronically Signed: Conrado Hitchcock MD at 16:58 EDT ,
--- NOTE | 2021-08-15 13:55 | RAD_ITS ---
STUDY: X-RAY - LUMBAR SPINE REASON FOR EXAM: Female, 50 years old. PAIN TECHNIQUE: XR Spine Lumbar 2 or 3 Views COMPARISON: None FINDINGS: Normal lumbar lordosis. There is no substantial scoliosis. There is a normal alignment of the vertebrae. There is multilevel endplate spondylosis of the lumbar vertebrae. There is multi-level degenerative disc disease with multi-level disc space narrowing. Anterior osteophytes. The soft tissue structures are unremarkable. RAD/Lumbar Spine 2 or 3 Views IMPRESSION: Degenerative changes of the spine, as detailed above. Electronically Signed: Marco Lara MD at 16:57 EDT ,
[2021-08-15 14:26] LABS: Absolute Lymphocyte Count 1.69 X10^3/uL (0.83-4.51); Basophil# 0.02 X10^3/uL; Basophil% 0.5 % (0-1); Eosinophil# 0.21 X10^3/uL; Eosinophils% 4.9 % (0-5); Hematocrit 36.6 % (37-47); Hemoglobin 12.3 g/dL (12.0-15.0); Lymphocyte # 1.69 X10^3/ul (0.83-4.51); Lymphocyte % 39.5 % (19-41); Mean Corp Hgb Conc 33.6 g/dL (32-36); Mean Corpuscular Hgb 29.8 pg (27.0-32.0); Mean Corpuscular Volume 88.6 fL (81-99); Mean Platelet Vol. 10.9 fl (6.2-12.0); Monocyte# 0.38 X10^3/uL; Monocyte% 8.9 % (0-10); NRBC Flagged by Analyzer 0 % (0-5); Neutrophil # 1.98 X10^3/uL (2.7-7.7); Neutrophil % 46.2 % (47-70); Platelet Count 274 K/mm3 (150-450); RBC Distribution Width CV 12.2 % (11.6-14.6); RBC Distribution Width SD 39.4 fl (35.1-43.9); Red Blood Count 4.13 M/mm3 (4.2-5.4); White Blood Count 4.3 K/mm3 (4.4-11.0)
[2021-08-15 14:28] LABS: Erythrocyte Sedimentation Rate 18 mm/hr (0-30)
[2021-08-15 15:11] LABS: AST(SGOT) 15 U/L (15-37); Alanine Aminotransfer ALT/SGPT 18 U/L (13-56); Albumin, Serum 3.4 g/dL (3.2-5.0); Alkaline Phosphatase 74 U/L (45-117); Anion Gap 7 (5-15); BUN 8 mg/dL (7-18); BUN/Creat Ratio 14.3 RATIO (10-20); CPK Total, Creatine Kinase 81 U/L (26-192); CRP 9.38 mg/L (0.0-3.0); Calcium,Total 8.5 mg/dL (8.5-10.1); Chloride 103 mmol/L (98-107); Creatinine, Serum 0.56 mg/dL (0.55-1.02); EST Glomerular Filtration Rate 121 mL/min (>60); Est Glom Filt Rate - Afr Amer 146 mL/min (>60); Globulin 3.4 g/dL (2.2-4.2); Glucose 124 mg/dL (74-106); Potassium 3.5 mmol/L (3.5-5.1); Protein, Total 6.8 g/dL (6.4-8.2); Sodium Level 137 mmol/L (136-145); Uric Acid 3.9 mg/dL (2.6-6.0)
== END | disposition home or self-care (01) ==
LOC: LAB 13:38
PROVIDERS: Referring Provider Nurse Practitioner Adult Health; Visit Provider Nurse Practitioner Adult Health
DX: M54.50 Low back pain, unspecified (principal); M25.461 Effusion, right knee; M79.604 Pain in right leg
CPT/HCPCS: 36415; 72100; 73560; 80053; 82550; 84550; 85025; 85652; 86140; 86431

== ENCOUNTER → 2021-08-22 | Outpatient (CLI) | payer MEDICAID, SELFPAY ==
[2021-08-26 19:50] LABS: ANTINUCLEAR ANTIBODIES DIRECT Negative (Negative)
== END | disposition home or self-care (01) ==
LOC: LAB 13:22
PROVIDERS: Visit Provider Nurse Practitioner Adult Health
DX: M54.50 Low back pain, unspecified (principal); M79.604 Pain in right leg; M25.461 Effusion, right knee
CPT/HCPCS: 36415; 86038

== ENCOUNTER → 2021-10-15 | Outpatient (CLI) | payer MEDICAID, SELFPAY ==
--- NOTE | 2021-10-15 08:09 | MRI_ITS ---
STUDY: MRI LUMBAR SPINE WITHOUT CONTRAST REASON FOR EXAM: Female, 50 years old. pain TECHNIQUE: Standardized fat and water weighted pulse sequences were obtained in the sagittal and axial planes. COMPARISON: X-ray the lumbar spine dated March 29, 2016 FINDINGS: No fracture or compression deformity or marrow edema is present. Normal lumbar lordosis. There is no substantial scoliosis. Normal conus medullaris that terminates at the T12-L1 level. L1-2: Diffuse disc desiccation with mild to moderate asymmetric disc space narrowing and diffuse disc bulging. Mild anterior endplate osteophyte formation. Slight retrolisthesis of no more than 2 mm. Normal bilateral facet joints. Normal central canal and bilateral lateral recesses. Normal bilateral intervertebral neural foramina. L2-3: Normal endplates. Minor disc desiccation and mild posterior disc space narrowing without bulging or herniation. Small anterior disc spur complex.. Normal bilateral facet joints. Normal central canal and bilateral lateral recesses. Normal bilateral intervertebral neural foramina. Slight retrolisthesis of no more than 2 mm. L3-4: Normal endplates. Diffuse disc desiccation with mild posterior disc space narrowing and minimal annular bulging. Superimposed small right paracentral disc protrusion contributing to right lateral recess stenosis and nerve root compression. Mild central canal stenosis is also present. Mild facet joint hypertrophy. Normal bilateral intervertebral neural foramina. L4-5: Normal endplates. Diffuse disc desiccation with mild posterior disc space narrowing and shallow disc protrusion. Mild central canal stenosis is present primarily due to mild to moderate facet joint hypertrophy. Mild bilateral foraminal stenosis with mild nerve root impingement seen on the left but not on the right. L5-S1: Normal endplates. Diffuse disc desiccation with mild disc space narrowing and posterior annular bulging as well as a small annular tear in the disc. Mild facet joint hypertrophy. Normal central canal and bilateral lateral recesses. Mild left foraminal stenosis with posterior nerve root impingement. Normal right neural foramen. Normal visualized sacral ala. There is mild paraspinal muscular atrophy. MRI/Spine Lumbar (Routine) IMPRESSION: 1. Multilevel degenerative changes, as described above. 2. Right paracentral disc protrusion with right lateral recess stenosis and nerve root compression at L3-L4 3. Mild central canal stenosis at L3-L4 and L4-L5. Electronically Signed: Murray Galicia MD at 14:34 EDT ,
== END | disposition home or self-care (01) ==
LOC: MRI 08:09
PROVIDERS: Referring Provider Orthopaedic Surgery; Visit Provider Orthopaedic Surgery
DX: M51.26 Other intervertebral disc displacement, lumbar region (principal)
CPT/HCPCS: 72148

== ENCOUNTER → 2022-03-27 | Outpatient (CLI) | payer MEDICAID, SELFPAY ==
--- NOTE | 2022-03-27 11:10 | RAD_ITS ---
EXAM: XR LUMBOSACRAL SPINE, 4 OR 5 VIEWS CLINICAL INDICATION: LUMBAR SPRAIN TECHNIQUE: Frontal, lateral and bilateral oblique views of the lumbar spine. This report was created using [employer] report generation technology. COMPARISON: 08/15/2021.. FINDINGS: VERTEBRAE: Multilevel bilateral vertebral facet arthropathy in the lower lumbar spine unchanged. Preserved vertebral body height. No fracture. No spondylolisthesis. Preservation of the normal lumbar lordosis. DISC SPACES: Multilevel mild degenerative disc disease not significantly changed since the previous examination. GASTROINTESTINAL TRACT: Unremarkable as visualized. Included bowel gas pattern is non-obstructive. RAD/L/S Spine Min 4 Views IMPRESSION: 1. Multilevel mild degenerative disc disease not significantly changed since the previous examination. 2. Multilevel bilateral vertebral facet arthropathy in the lower lumbar spine unchanged. Electronically Signed: Bronson Bourne MD at 6:55 EST ,
== END | disposition home or self-care (01) ==
LOC: RAD 11:02
PROVIDERS: Referring Provider Chiropractor; Visit Provider Chiropractor
DX: S33.5XXA Sprain of ligaments of lumbar spine, initial encounter (principal)
CPT/HCPCS: 72110

== ENCOUNTER 2022-04-21 13:30 | Outpatient (RCR) | payer MEDICAID, SELFPAY ==
--- NOTE | 2022-03-20 13:36 | HP.PTEVAL ---
Patient's Visit Information TONY JAIN is a 51 year old F referred to Physical Therapy by Dr. Jazmyne Marino MD with a diagnosis of Back pain and knee pain. Date of Evaluation: 03/20/22 Physical Therapist: Larry Rogers - Visit Plan Frequency: 2x /Week Duration: 6 Weeks Plan: Begin with aquatic physical therapy to work on improving core, back, and LE strength. Progress to land therapy when tolerated to work on improving knee ROM, LE strength, and balance. - Subjective Pt. is a 51 y.o. female who has been having back and bilateral knee pain which has been going on for about a year with no specific injury that she is aware of. Her PLOF includes no history of back or knee pain in the past. She had x-ray of both of her knees which showed osteoarthritis. She also had imaging of her back but is not sure of the results. Pt. denies any radicular leg pain and also denies any change in her bowel or bladder function. She denies any falls in the last six months. Pt. has difficulty with standing/walking longer than 5 minutes, ascending/descending stairs, squatting, sleeping, walking on uneven ground, lifting things, getting into/out of tub, sitting longer than 30 minutes, housework, yard work, and work activity. 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 Her goal with physical therapy is to decrease her pain. She has never had physical therapy in the past. Pt. rates left knee pain at 6/10, right knee pain 5/10, and back pain at 5/10 and describes the pain as throbbing and achy. She is currently taking Advil or Motrin for pain and also has pain patches. Her PMH includes smoker about 1/2 to pack a day, hysterectomy, and ear infections. Pt. lives alone in a two story home with two steps to enter. Her hobbies include going tanning and spending time with grandkids. - Objective Palpation- Vague tenderness over lumbar spine and bilateral knees. Posture- Forward flexed posture and bilateral bent knees in standing. Lumbar AROM flexion- WNL and mild low back pain, extension- severe restriction and severe pain, SB to left- min restriction and moderate pain, SB to right- WNL and mild pain. Hip PROM- WFL bilaterally. AROM left knee flexion [105 degrees], extension [-35 degrees]. AROM right knee flexion [105 degrees], extension [-20 degrees]. Left hip strength flexion [4/5], abduction [4/5], adduction [4/5], extension [4/5], knee flexion [3+/5], knee extension [2+/5], ankle DF [4+/5], ankle PF [4+/5]. Right hip strength flexion [4/5], abduction [4/5], adduction [4/5], extension [4/5], knee flexion [3+/5], knee extension [2+/5], ankle DF [4+/5], ankle PF [4+/5]. Sensation- WNL bilateral lower extremities. Gait- Pt. ambulates with forward flexed posture and flexed knees bilaterally. Stairs- Pt. ascends/descends stairs with step to gait pattern and unilateral handrail. - Balance/Special Test Scores Lower Extremity Functional Score: 5 - Goals Goal 1:: Pt. will be able to stand/walk for at least 20 minutes with pain < 5/10. Goal Time Frame: 4-6 Weeks Goal 2:: Pt. will be able to sleep a full night with no interruptions due to pain. Goal Time Frame: 4-6 Weeks Goal 3:: Pt. will be able to get into/out of the bath tub with no assist in order to improve mobility. Goal Time Frame: 4-6 Weeks Goal 4:: Pt. will improve bilateral LE strength to 4/5 for all motions in order to improve stability and balance. Goal Time Frame: 4-6 Weeks Goal 5:: Pt. will rate back and bilateral knee pain at worst at 5/10 with ADL's. Goal Time Frame: 4-6 Weeks Goal 6:: Pt. will improve LEFS score < 70% disability in order to improve ADL's. Goal Time Frame: 4-6 Weeks - Rehabilitation Potential Physical Therapy Diagnosis: Decreased bilateral knee ROM, LE strength, core/back strength, balance, and pain Rehabilitation Potential: Fair - Anticipated Interventions Patient/Client Instruction: Educate patient on: Condition, Plan of Care, Benefits of Fitness Program For the Purpose of:: To decrease pain, To improve ability to perform ADL's, To improve performance and independence with ADL's, To assume or resume ADL's, To improve tolerance to ADL's Therapeutic Exercise to Include: Strength training, Endurance training, Balance training, Body mechanics, Postural training, Flexibilty training, Gait and locomotor training, Passive ROM, Active ROM, Dynamic Lumbar Stabilization Comment: Begin aquatic physical therapy to work on improving LE, core, and back strength. Progress to land as tolerated to continue to work on improving knee ROM, LE strength, core/back strength, and balance. For the Purpose of:: To decrease pain, To improve ability to perform ADL's, To improve performance and independence with ADL's, To assume or resume ADL's, To improve tolerance to ADL's Functional Training to Include: ADL Training, Gait training For the Purpose of:: To decrease pain, To improve ability to perform ADL's, To increase tolerance to activity/condition/position, To improve performance and independence with ADL's, To improve gait and locomotor functions, To improve endurance, To improve balance, To improve safety with gait, To assume or resume ADL's, To improve tolerance to ADL's Assistive Devices: Cane, Wheeled walker For the Purpose of:: To decrease pain, To improve ability to perform ADL's, To improve performance and independence with ADL's, To improve balance, To improve safety with gait, To assume or resume ADL's, To improve tolerance to ADL's Cryotherapy (ice pack, ice massage): Yes For the Purpose of:: To decrease pain, To decrease swelling/inflammation, To improve ability to perform ADL's, To improve performance and independence with ADL's, To assume or resume ADL's, To improve tolerance to ADL's Thank you for the opportunity to evaluate your patient. For Medicare and Medicare HMO plans, please review the plan of care and approve it. It will need to be FAXED BACK to us at [phone] for Medicare purposes. For Medicare only, by signing this I certify the plan of care. Please let me know if there are questions or concerns regarding this plan of care. Physician Signature: Date:
--- NOTE | 2022-05-29 09:52 | HP.PT.NRP ---
TONY Valencia TRINH was seen in my office for initial evaluation on 03/20/22. The following Plan of Care was established for this patient: Initial Frequency: 2x /Week Initial Duration: 6 Weeks Patient/Client Instruction: Educate patient on: Condition, Plan of Care, Benefits of Fitness Program For the Purpose of:: To decrease pain, To improve ability to perform ADL's, To improve performance and independence with ADL's, To assume or resume ADL's, To improve tolerance to ADL's Therapeutic Exercise to Include: Strength training, Endurance training, Balance training, Body mechanics, Postural training, Flexibilty training, Gait and locomotor training, Passive ROM, Active ROM, Dynamic Lumbar Stabilization For the Purpose of:: To decrease pain, To improve ability to perform ADL's, To improve performance and independence with ADL's, To assume or resume ADL's, To improve tolerance to ADL's Functional Training to Include: ADL Training, Gait training For the Purpose of:: To decrease pain, To improve ability to perform ADL's, To increase tolerance to activity/condition/position, To improve performance and independence with ADL's, To improve gait and locomotor functions, To improve endurance, To improve balance, To improve safety with gait, To assume or resume ADL's, To improve tolerance to ADL's Assistive Devices: Cane, Wheeled walker For the Purpose of:: To decrease pain, To improve ability to perform ADL's, To improve performance and independence with ADL's, To improve balance, To improve safety with gait, To assume or resume ADL's, To improve tolerance to ADL's Cryotherapy (ice pack, ice massage): Yes For the Purpose of:: To decrease pain, To decrease swelling/inflammation, To improve ability to perform ADL's, To improve performance and independence with ADL's, To assume or resume ADL's, To improve tolerance to ADL's This patient was last seen in our office . Pertinent comments regarding their Physical therapy will appear below: THIS PT RECEIVED A NOTE STATING PATIENT CALLED TO REPORT DR. VICK IS SENDING HER TO A SPECIALIST AND WE CAN D/C HER CHART. At this point I will be discontinuing this patient from physical therapy. I would be happy to see this patient again in the future if found appropriate by the physician. Thank you! Beverly Sandoval, PT, Cert MDT Balance/Gait/Functional tests - Balance/Special Test Scores Lower Extremity Functional Score: 5
== END 2022-04-21 19:00 | disposition home or self-care (01) ==
LOC: PT 13:30
PROVIDERS: Referring Provider Anesthesiology Pain Medicine; Visit Provider Anesthesiology Pain Medicine
DX: M54.9 Dorsalgia, unspecified (principal); M25.569 Pain in unspecified knee
CPT/HCPCS: 97110; 97113; 97162

== ENCOUNTER 2022-05-24 09:01 | Emergency (ER) | payer MEDICAID, SELFPAY ==
[2022-05-24 09:02] VITALS: BP 158/84; PULSE 82; RESP 18; TEMP 36.4; O2SAT 99; BMI 36.8
--- NOTE | 2022-05-24 09:28 | EX.ED.DYSGE1 ---
HPI History of Present Illness Chief Complaint: Other, Pain/Inj Informant: patient Narrative Narrative: Bilateral leg spasms for the past 3 days unable to sleep. [id number] restless leg medications with no relief. Has had mild symptoms in the past self-limiting. Has not talked to her PCP for this. She is followed by the [facility]. No recent travel or surgeries. No chest pains or shortness of breath. No history of PE or DVT. Patient states also tried [id number] sleep aids with no relief. States currently feels spasms in her legs. Prior similar symptoms: Yes PFSH PFSH Medical History Abnormal uterine bleeding (AUB) Arthritis Cervical stenosis (uterine cervix) CHI (closed head injury) DDD (degenerative disc disease), lumbar Depression Genital herpes HNP (herniated nucleus pulposus), lumbar Ovarian cyst Pelvic pain PTSD (post-traumatic stress disorder) Smoker Wears glasses Home Medications sertraline 100 mg tablet 100 mg PO DAILY 10/17/19 [History Last Taken 06/24/21] lamotrigine 100 mg tablet (Lamictal) 150 mg PO DAILY 06/04/20 [History Last Taken 06/24/21] diazepam 5 mg tablet (Valium) 5 mg PO TID PRN muscle spasm #10 tabs 05/24/22 [Rx Last Taken Unknown] gabapentin 300 mg capsule 300 mg PO QHS #30 caps 05/24/22 [Rx Last Taken Unknown] Allergy/AdvReac Type Severity Reaction Status Date / Time Penicillins Allergy Hives Verified 05/24/22 09:04 Family History Mother Diabetes Surgical History exam under anesthesia History of robot-assisted laparoscopic hysterectomy (~06/25/21) Status post hysterectomy Social History Smoking Status: Current every day smoker tobacco type: cigarettes second hand exposure: Yes alcohol intake: never substance use type: does not use seatbelt use: always do you feel safe at home: Yes ROS ROS ED Constitutional Constitutional ED: Denies chills, fever(s) or sweats Eyes Eyes: Denies change in vision ENT ENT ED: Denies dysphagia or sore throat Cardiovascular Cardiovascular: Denies chest pain, leg edema, palpitations or racing heartbeat Respiratory/Chest Respiratory/Chest: Denies cough, dyspnea or dyspnea on exertion Gastrointestinal Gastrointestinal: Denies abdominal pain, diarrhea, nausea or vomiting Genitourinary Genitourinary ED: Denies dysuria, hematuria or urinary frequency Musculoskeletal Musculoskeletal: Reports extremity pain; Denies back pain or neck pain Integumentary Denies rash or wounds Neurologic Neurologic: Denies headache(s), paresthesias or weakness EXAM Physical Exam Const Vital Signs: 05/24/22 09:02 Temperature 97.6 F L Temperature Source Temporal Pulse Rate 82 Respiratory Rate 18 Blood Pressure 158/84 H Blood Pressure Mean 108 Pulse Ox 99 Oxygen Delivery Method Room Air Positive well nourished and well developed General Appearance ED: well developed and NAD HEENT Reports moist mucous membranes normocephalic and atraumatic Eyes PERRL, EOMs intact bilaterally and conjunctivae normal General Eye ED: Yes normal appearance of both eyes Neck no lymphadenopathy and supple General: Negative for tenderness Chest Wall Chest: Negative for tenderness Resp normal respiratory effort and normal air movement Effort and Inspection: symmetric chest movement; Negative for respiratory distress Cardio regular rate, regular rhythm and no murmurs Peripheral Pulses: pulses 2+ throughout GI normal to inspection, nondistended, normoactive bowel sounds and non-tender Palpation: Negative for guarding or rebound tenderness present Back/Spine no CVA tenderness and no thoracic nor lumbar tenderness Extremity normal to inspection Extremity Narrative: Soft compartments lower extremities of thighs and calves. No swelling. Pulses are intact distally. General Extremety ED: Negative for edema or tenderness General Extremity: Negative for edema Neuro oriented x3 and no sensory deficits noted Sensorium / Orientation: awake and alert Skin no rashes or lesions noted and no wounds MDM MDM MDM Narrative Medical decision making narrative: Interventions / MDM: Differential diagnosis: Muscle spasms, restless leg syndrome Diagnosis considered but do not suspect: DVT, however soft compartments pulses are intact distally no swelling. My EKG interpretation: N/A Imaging independently reviewed and interpreted by myself: N/A External documents reviewed: N/A Test considered but not ordered:N/A ED course: Patient nontoxic, presenting with spasms bilateral leg consistent with restless leg syndrome. Soft compartments no swelling, low suspicion for DVT. Treated with Valium in the ED monitor with improving symptoms. Discussed recommended treatment for restless leg symptoms with gabapentin as noted from up-to-date. She agrees with this, she is started on gabapentin for nighttime use. As needed Valium. Outpatient follow-up. All questions were answered. Re-evaluation: stable Disposition discussed with patient/family/significant other: Patient and significant other Case discussed with consulting clinician: N/A Discharge Plan Triage Chief Complaint: Other, Pain/Inj ED Provider: Brenton Herrera Dx/Rx/DC Orders Clinical Impression: Restless leg syndrome, Muscle spasm of both lower legs Instructions: RLS, RLS What to Do Prescriptions: New gabapentin 300 mg capsule 300 mg PO QHS Qty: 30 0RF diazepam [Valium] 5 mg tablet 5 mg PO TID PRN (Reason: muscle spasm) Qty: 10 0RF No Action sertraline 100 mg tablet 100 mg PO DAILY lamotrigine [Lamictal] 100 MG tablet 150 mg PO DAILY Primary Care Provider: Leana Hanna Referrals: [facility] Leana Alvarenga [Primary Care Provider] - 1-2 Weeks Activity Restrictions/Additional Instructions: Take medications as prescribed, follow-up with your doctor for continued treatment and reevaluation. Disposition Disposition: Home, Self Care Discharge Date/Time: 05/24/22 10:31
[2022-05-24] MEDS: diazePAM 5 MG Tablet PO (09:32)
== END 2022-05-24 10:31 | disposition home or self-care (01) ==
PROVIDERS: Emergency Provider Emergency Medicine; Visit Provider Emergency Medicine
DX: G25.81 Restless legs syndrome (principal); M62.838 Other muscle spasm; M51.36 Other intervertebral disc degeneration, lumbar region; F32.A Depression, unspecified; F17.210 Nicotine dependence, cigarettes, uncomplicated; Z79.899 Other long term (current) drug therapy
CPT/HCPCS: 99283

== ENCOUNTER → 2022-05-27 | Outpatient (CLI) | payer MEDICAID, SELFPAY ==
--- NOTE | 2022-05-27 15:43 | MRI_ITS ---
STUDY: MRI RIGHT KNEE REASON FOR EXAM: Female, 51 years old. Pain TECHNIQUE: Standardized fat and water weighted pulse sequences were obtained in all 3 orthogonal planes. COMPARISON: X-ray April 30, 2022 FINDINGS: Normal medial meniscus. There is focal, less than 50% thickness articular cartilage loss of the medial femorotibial compartment. There is mild osteoarthritic spur formation of the medial knee compartment. Normal medial collateral ligamentous complex (MCL). Normal distal semimembranosus, gracilis and semitendinosus tendons. Normal lateral meniscus. Normal hyaline cartilage of the lateral femorotibial compartment. There is moderate osteoarthritic spur formation of the lateral knee compartment. Normal proximal tibiofibular articulation. Normal lateral collateral (fibular) ligament. Normal popliteus tendon. Normal biceps femoris tendon. Normal anterior cruciate ligament (ACL). Normal posterior cruciate ligament (PCL). There is arthrosis of the patellofemoral articulation. There is diffuse, less than 50% thickness articular cartilage loss of the patellofemoral compartment. Normal medial and lateral patellar retinaculum. Normal quadriceps tendon. Normal patellar tendon. Normal Hoffa''s fat pad. There is a moderate volume joint effusion. The soft tissues are unremarkable. The otherwise visualized osseous structures are unremarkable. MRI/Lower Ext Joint Only (Routine) IMPRESSION: Degenerative change. Joint effusion. No meniscal tear seen. Electronically Signed: Mj Solano MD at 23:49 EDT ,
--- NOTE | 2022-05-27 15:43 | MRI_ITS ---
STUDY: MRI LEFT KNEE REASON FOR EXAM: Female, 51 years old. Pain. TECHNIQUE: Standardized fat and water weighted pulse sequences were obtained in all 3 orthogonal planes. COMPARISON: None. FINDINGS: There is medial meniscus tear of the posterior horn, series 4 image 15/46. There is diffuse, greater than 50% thickness articular cartilage loss of the medial femorotibial compartment. There is mild osteoarthritic spur formation of the medial knee compartment. Normal medial collateral ligamentous complex (MCL). Normal distal semimembranosus, gracilis and semitendinosus tendons. There is radial tear of the body of the lateral meniscus, series 6 image 15/32 There is diffuse, less than 50% thickness articular cartilage loss of the lateral femorotibial compartment. There is mild osteoarthritic spur formation of the lateral knee compartment. Normal proximal tibiofibular articulation. Normal lateral collateral (fibular) ligament. Normal popliteus tendon. Normal biceps femoris tendon. Normal anterior cruciate ligament (ACL). Normal posterior cruciate ligament (PCL). There is arthrosis of the patellofemoral articulation. There is diffuse, greater than 50% thickness articular cartilage loss of the patellofemoral compartment. Normal medial and lateral patellar retinaculum. Normal quadriceps tendon. Normal patellar tendon. Normal Hoffa''s fat pad. There is a moderate volume joint effusion. The soft tissues are unremarkable. The otherwise visualized osseous structures are unremarkable. MRI/Lower Ext Joint Only (Routine) IMPRESSION: Medial meniscus tear. Lateral meniscus tear. Degenerative change. Joint effusion. Electronically Signed: Mj Solano MD at 23:36 EDT ,
== END | disposition home or self-care (01) ==
PROVIDERS: Referring Provider Orthopaedic Surgery; Visit Provider Orthopaedic Surgery
DX: M25.469 Effusion, unspecified knee (principal); M17.0 Bilateral primary osteoarthritis of knee
CPT/HCPCS: 73721

== ENCOUNTER → 2022-06-04 | Outpatient (CLI) | payer MEDICAID, SELFPAY ==
[2022-06-04 12:14] LABS: Hematocrit 41.3 % (37-47); Hemoglobin 13.6 g/dL (12.0-15.0); Mean Corp Hgb Conc 32.9 g/dL (32-36); Mean Corpuscular Hgb 30.6 pg (27.0-32.0); Mean Platelet Vol. 11.1 fl (6.2-12.0); Platelet Count 310 K/mm3 (150-450); RBC Distribution Width CV 12.2 % (11.6-14.6); RBC Distribution Width SD 42.2 fl (35.1-43.9); Red Blood Count 4.44 M/mm3 (4.2-5.4); White Blood Count 6.3 K/mm3 (4.4-11.0)
[2022-06-04 13:14] LABS: Vitamin B12 408 pg/mL (211-911); Vitamin D,25 Hydroxy 23.2 ng/mL
[2022-06-04 13:28] LABS: ALB/GLOB Ratio 1.2 RATIO (0.9-2.4); AST(SGOT) 12 U/L (15-37); Alanine Aminotransfer ALT/SGPT 21 U/L (13-56); Albumin, Serum 3.7 g/dL (3.2-5.0); Alkaline Phosphatase 96 U/L (45-117); Anion Gap 3 (5-15); BUN 16 mg/dL (7-18); BUN/Creat Ratio 27.8 RATIO (10-20); Calcium,Total 8.7 mg/dL (8.5-10.1); Chloride 107 mmol/L (98-107); Creatinine, Serum 0.58 mg/dL (0.55-1.02); EST Glomerular Filtration Rate 117 mL/min (>60); Est Glom Filt Rate - Afr Amer 142 mL/min (>60); Globulin 3.1 g/dL (2.2-4.2); Glucose 97 mg/dL (74-106); Magnesium 1.8 mg/dL (1.6-2.6); Potassium 4.3 mmol/L (3.5-5.1); Protein, Total 6.8 g/dL (6.4-8.2); Sodium Level 137 mmol/L (136-145); Thyroid Stim Hormone (TSH) 0.77 uIU/mL (0.358-3.74)
== END | disposition home or self-care (01) ==
LOC: LAB 11:28
DX: G25.81 Restless legs syndrome (principal)
CPT/HCPCS: 36415; 80053; 82306; 82607; 83036; 83735; 84443; 85027

== ENCOUNTER → 2022-11-04 | Outpatient (CLI) | payer MEDICAID, SELFPAY ==
--- NOTE | 2022-11-04 15:00 | RAD_ITS ---
INDICATION: RHEUMATOID ARTHRITIS BOTH KNEES W POSITIVE RHEUMATOID FACTOR EXAMINATION/TECHNIQUE: X-RAY - RIGHT XR Knee 1 or 2 Views 2 VIEWS COMPARISON: 04/30/2022 FINDINGS: SOFT TISSUES: No soft tissue swelling or gas. No radiopaque foreign body. BONES/JOINTS: No acute fracture. Stable mild tricompartmental degenerative changes. No sclerotic or destructive changes observed. RAD/Knee 1 or 2 Views IMPRESSION: Stable mild degenerative changes. Electronically Signed: Jeffrey Brown MD at 0:28 EDT ,
--- NOTE | 2022-11-04 15:00 | RAD_ITS ---
INDICATION: RHEUMATOID ARTHRITIS BOTH KNEES W POSTITIVE RHEUMATOID FACTOR EXAMINATION/TECHNIQUE: X-RAY - BILATERAL XR Hand Bilateral 1 View Ea - [id number] VIEWS: Bilateral PA and bilateral oblique ball-catcher''s view of the hands. COMPARISON: None FINDINGS: SOFT TISSUES: No soft tissue swelling or gas. No radiopaque foreign body. BONES/JOINTS: No acute fracture. Periarticular erosion noted at the right third middle phalanx ulnar base... Normal alignment. Preservation of the joint space.. No sclerotic or destructive changes observed. Moderate to severe osseous proliferation at the right first carpal metacarpal joint with minimal osteophyte formation along the metacarpophalangeal joints and interphalangeal joints. RAD/Hand 2 Views IMPRESSION: Right third middle phalanx periarticular erosion as can be seen with rheumatoid arthritis. Moderate to severe osteoarthritis of the right first carpometacarpal joint. Otherwise minimal osteoarthritis within the bilateral digits.. Electronically Signed: Paul Baxter MD at 4:58 EDT ,
--- NOTE | 2022-11-04 15:00 | RAD_ITS ---
INDICATION: RHEUMATOID ARTHRITIS EXAMINATION/TECHNIQUE: X-RAY - LEFT XR Knee 1 or 2 Views 2 VIEWS COMPARISON: X-rays left knee 04/30/2022 FINDINGS: BONES: No fracture demonstrated. Joint space narrowing all 3 joint compartments with subchondral sclerosis and osteophytes. JOINTS: No dislocation. SOFT TISSUES: Small joint effusion. RAD/Knee 1 or 2 Views IMPRESSION: Degenerative changes and joint effusion, stable. Electronically Signed: Luisa Garcia MD at 3:37 EDT ,
[2022-11-04 15:28] LABS: Anion Gap 5 (5-15); BUN 12 mg/dL (7-18); Chloride 107 mmol/L (98-107); Creatinine, Serum 0.63 mg/dL (0.55-1.02); EST Glomerular Filtration Rate 105 mL/min (>60); Est Glom Filt Rate - Afr Amer 127 mL/min (>60); Glucose 104 mg/dL (74-106); Potassium 4.1 mmol/L (3.5-5.1); Sodium Level 139 mmol/L (136-145)
[2022-11-05 10:51] LABS: AST(SGOT) 11 U/L (15-37); Alanine Aminotransfer ALT/SGPT 25 U/L (13-56); Albumin, Serum 3.8 g/dL (3.2-5.0); Alkaline Phosphatase 91 U/L (45-117); Bilirubin, Direct 0.07 mg/dL (0.00-0.30); CRP < 2.90 mg/L (0.0-3.0); Globulin 3.4 g/dL (2.2-4.2); Protein, Total 7.2 g/dL (6.4-8.2)
== END | disposition home or self-care (01) ==
DX: M05.761 Rheumatoid arthritis with rheumatoid factor of right knee without organ or systems involvement (principal); M05.762 Rheumatoid arthritis with rheumatoid factor of left knee without organ or systems involvement; R79.89 Other specified abnormal findings of blood chemistry; Z11.59 Encounter for screening for other viral diseases
CPT/HCPCS: 36415; 73120; 73560; 80048; 80076; 86140; 86431

== ENCOUNTER → 2022-11-05 | Outpatient (CLI) | payer MEDICAID, SELFPAY ==
[2022-11-05 16:59] LABS: Absolute Lymphocyte Count 2.45 X10^3/uL (0.83-4.51); Absolute Neutrophil Count 4.5 X10^3/uL (2.0-7.7); Basophil# 0.04 X10^3/uL; Basophil% 0.5 % (0-1); Eosinophil# 0.17 X10^3/uL; Eosinophils% 2.2 % (0-5); Hematocrit 43.1 % (37-47); Hemoglobin 14.2 g/dL (12.0-15.0); Lymphocyte # 2.45 X10^3/ul (0.83-4.51); Lymphocyte % 32.4 % (19-41); Mean Corp Hgb Conc 32.9 g/dL (32-36); Mean Corpuscular Hgb 30.5 pg (27.0-32.0); Mean Corpuscular Volume 92.5 fL (81-99); Mean Platelet Vol. 10.8 fl (6.2-12.0); Monocyte# 0.42 X10^3/uL; Monocyte% 5.6 % (0-10); NRBC Flagged by Analyzer 0 % (0-5); Neutrophil # 4.45 X10^3/uL (2.7-7.7); Neutrophil % 58.9 % (47-70); Platelet Count 309 K/mm3 (150-450); RBC Distribution Width CV 11.9 % (11.6-14.6); RBC Distribution Width SD 40.4 fl (35.1-43.9); Red Blood Count 4.66 M/mm3 (4.2-5.4); White Blood Count 7.6 K/mm3 (4.4-11.0)
[2022-11-05 17:23] LABS: Erythrocyte Sedimentation Rate 11 mm/hr (0-30)
[2022-11-05 18:09] LABS: Hepatitis B Surface Antibody Reactive; Hepatitis C Antibody Non-Reactive (Nonreactive); Vitamin D,25 Hydroxy 19.6 ng/mL
[2022-11-07 21:06] LABS: CCP IgG Antibodies 6 units (0-19); Hepatitis B Core Ab Total Negative (Negative); QNTFERON TB Mitogen Value > 10.00 IU/mL (.); QNTFERON TB Nil Value 0.03 IU/mL (.); QNTFERON TB1+ Ag Value 0.05 IU/mL (.); QNTFERON TB2+ Ag Value 0.04 IU/mL (.); QNTIFERON TB Positive Criteria Negative (Negative)
== END | disposition home or self-care (01) ==
DX: R79.89 Other specified abnormal findings of blood chemistry (principal); M05.761 Rheumatoid arthritis with rheumatoid factor of right knee without organ or systems involvement; M05.762 Rheumatoid arthritis with rheumatoid factor of left knee without organ or systems involvement; Z11.59 Encounter for screening for other viral diseases
CPT/HCPCS: 36415; 82306; 85025; 85652; 86200; 86480; 86704; 86706; 86803

== ENCOUNTER → 2023-04-09 | Outpatient (CLI) | payer MEDICARE, MEDICAID, SELFPAY ==
--- NOTE | 2023-04-09 13:51 | BI_ITS ---
MAMMOGRAPHY - BILATERAL SCREENING REASON FOR EXAM: Female, 52 years old. Routine annual screening examination. PERTINENT HISTORY: Non-contributory. TECHNIQUE: Digital bilateral breast summer (3D mammographic acquisition) in the CC and MLO projections. 2-D mediolateral oblique (MLO) and craniocaudad (CC) views of both breasts were obtained. CAD: Full Field Digital Mammography with Computer Added Detection was performed. COMPARISON: Comparison is made with prior study dated September 19, 2020 and August 23, 2019. FINDINGS: Breast Composition: There are scattered areas of fibroglandular density. There are no dominant masses or suspicious calcifications. No other significant abnormalities are identified. There has been no significant change since the prior study. BI/SCRN MAMM (CAD)W/SUMMER BILAT IMPRESSION: Stable bilateral screening mammogram. Yearly follow-up mammogram recommended. (A) ASSESSMENT CATEGORY: BIRADS Category 1: Negative. A letter regarding these results will be sent to the patient by the facility within 30 days. Approximately 10% of breast cancers are not detected by mammography. A normal mammogram should not delay biopsy of a clinically suspicious abnormality. [id number] Electronically Signed: Shawn Handy MD at 14:49 EST ,
--- OUTSIDE RECORDS SUMMARY | 2023-04-09 16:09 | XMS RPT_ITS | CCD ---
Author Name Unknown Address [address] [place] [address] Organization [facility] Care Team Providers Care Cradle Slide Maker Name Role Phone NO, PHYSICIAN Primary Care Unavailable No, Physician Primary Care Provider Unavailabl e NO, PHYSICIAN Primary Care Unavailable IGOE, ART CHRISTENSEN Attending Unavailable CECILIO VICK Admitting Unavaila ble CECILIO VICK Referring Unavaila ble NO, PHYSICIAN Primary Care Unavailable IGOE, ART CHRISTENSEN Attending Unavailable NO, PHYSICIAN Primary Care Unavailable IGOE, ART CHRISTENSEN Attending Unavailable IGOE, ART CHRISTENSEN Attending Unavailable NO, PHYSICIAN Primary Care Unavailable Allergies Allergy Classification Reported Allergen(s) Allergy Type Date of Onset Reaction(s) Facility (7 sources) Penicillins; Translations: [PENICILLINS] Propensity to adverse reactions to drug (disorder) 8 [facility] Repository Medications Current Medications Medication Drug Class(es) Dates Sig (Normalized) Sig (Original) diazePAM 5 mg oral tablet (5 sources) Benzodiazepine Start: 3 diazePAM (VALIUM) 5 MG tablet Take by mouth . 0 05/24/2022 Active 1 ml etanercept 50 mg/ml auto-injector (5 sources) Tumor Necrosis Factor Naya Start: 3 End: 4 etanercept (ENBREL SURECLICK AUTOINJECTOR) 50 mg/mL (1 mL) Pen single use prefilled syringe Indications: Rheumatoid arthritis involving multiple sites with positive rheumatoid factor (HCC) Inject 1 mL (50 mg total) under the skin every 7 days . 12 mL 3 11/06/2022 11/06/2023 Active folic acid 1 mg oral tablet (5 sources) Start: 3 End: 4 take 1 tablet by mouth once daily folic acid (FOLVITE) 1 MG tablet Indications: Rheumatoid arthritis involving multiple sites with positive rheumatoid factor (HCC) Take 1 (one) tablet (1 mg total) by mouth daily EXCEPT day of methotrexate . 90 tablet 3 11/06/2022 11/06/2023 Active gabapentin 300 mg oral capsule (5 sources) Anti-epileptic Agent Start: 3 take 1 capsule by mouth once daily gabapentin (NEURONTIN) 300 MG capsule Take 1 (one) capsule (300 mg total) by mouth nightly . 0 10/10/2022 Active hydroxychloroquine sulfate 200 mg oral tablet (5 sources) Antimalarial, Antirheumatic Agent Start: 3 End: 4 take 2 tablets by mouth once daily hydrOXYchloroQUINE (PLAQUENIL) 200 mg tablet Indications: Rheumatoid arthritis involving both knees with positive rheumatoid factor (HCC) Take 2 (two) tablets (400 mg total) by mouth daily . 180 tablet 3 11/03/2022 11/03/2023 Active lamoTRIgine 100 mg oral tablet (5 sources) Mood Stabilizer, Anti-epileptic Agent Start: 3 take 1 tablet by mouth once daily lamoTRIgine (LAMICTAL) 100 MG tablet Take 1 (one) tablet (100 mg total) by mouth daily . 0 10/09/2022 Active methotrexate 2.5 mg oral tablet (5 sources) Folate Analog Metabolic Inhibitor Start: 3 End: 3 take 4 tablets by mouth every week methoTREXate (TREXALL) 2.5 MG tablet Indications: Rheumatoid arthritis involving multiple sites with positive rheumatoid factor (HCC) Take 4 (four) tablets (10 mg total) by mouth once a week . 12 tablet 0 11/06/2022 02/04/2023 Active predniSONE 2.5 mg oral tablet (5 sources) Start: 3 End: 3 take 2 tablets by mouth once daily predniSONE (DELTASONE) 2.5 MG tablet Indications: Rheumatoid arthritis involving multiple sites with positive rheumatoid factor (HCC) Take 2 (two) tablets (5 mg total) by mouth daily . 180 tablet 0 11/06/2022 02/04/2023 Active sertraline 100 mg oral tablet (5 sources) Serotonin Reuptake Inhibitor Start: 3 take 1 tablet by mouth once daily sertraline (ZOLOFT) 100 MG tablet Take 1 (one) tablet (100 mg total) by mouth daily . 0 10/09/2022 Active Problems Problem Classification Problem Date Documented Date Episodic/Chronic Immunizations and screening for infectious disease (4 sources) Other specified abnormal immunological findings in serum; Translations: [Encounter for screening for other viral diseases] Onset: 11-03-2022 Episodic Other aftercare (1 source) superintendent container terminal methotrexate user; Translations: [superintendent container terminal methotrexate user] 11-13-2022 Episodic Other nervous system disorders (2 sources) Other chronic pain; Translations: [Other chronic pain] Onset: 11-03-2022 Chronic Other non-traumatic joint disorders (2 sources) Pain in unspecified joint; Translations: [Pain in unspecified joint] Onset: 11-03-2022 Episodic Other screening for suspected conditions (not mental disorders or infectious disease) (4 sources) Elevated C-reactive protein (CRP); Translations: [Other specified abnormal findings of blood chemistry] Onset: 11-03-2022 Episodic Rheumatoid arthritis and related disease (8 sources) Rheumatoid arthritis of multiple joints; Translations: [Rheumatoid arthritis with rheumatoid factor of multiple sites without organ or systems involvement] Onset: 11-03-2022 11-06-2022 Chronic Spondylosis; intervertebral disc disorders; other back problems (4 sources) Lumbago with sciatica, left side; Translations: [Lumbago with sciatica, right side] Onset: 11-03-2022 Episodic Results Test Name Value Interpretation Reference Range Facil ity Encounters Encounter Date Encounter Type Care Provider Facility Start: 01-13-2023 Documentation procedure Bay Jane LPN [facility] Start: 12-10-2022 Documentation procedure Bay Jane LPN [facility] Start: 12-08-2022 ambulatory ART RUSSELL [facility] Start: 12-08-2022 Documentation procedure Bay Jane LPN [facility] Start: 11-13-2022 Orders Only Art Russell MD Work Phone: [facility] Plan of Treatment Date Care Activity Detail Author Start: 05-06-2023 End: 05-06-2023 Patient encounter procedure [facility] Start: 10-17-2022 Influenza vaccination Sequential Influenza Vaccine (#1) [facility] Start: 01-01-2020 Screening for malignant neoplasm of colon Flexible sigmoidoscopy [facility] Start: 2009 Screening for malignant neoplasm of breast Mammogram [facility] Start: 1988 Administration of herpes zoster vaccine Zoster Vaccines (1 of 2) [facility] Start: 01-01-1988 Hepatitis C screening Hepatitis C Screening [facility] Start: 1984 HIV screening HIV Screening [facility] Start: 1981 Depression screening using PHQ-9 (Patient Health Questionnaire 9) score Depression Screening (PHQ-2/9) [facility] Start: 01-01-1976 Pneumococcal Vaccine: Ped or At-Risk (1 - PCV) Pneumococcal Vaccine: Ped or At-Risk (1 - PCV) [facility] Start: 1974 COVID-19 Vaccine (#1) COVID-19 Vaccine (#1) [facility] Start: 1972 History and physical examination, annual for health maintenance Wellness Visit [facility] Start: 1969 Screening for malignant neoplasm of colon [facility] Start: 1969 Tetanus vaccination Tetanus: Every 10yrs [facility] End: 11-14-2023 Alanine aminotransferase [Enzymatic activity/volume] in Serum or Plasma ALT Lab Routine Rheumatoid arthritis involving both knees with positive rheumatoid factor (HCC) superintendent container terminal methotrexate user EVERY 3 MONTHS for 2 Occurrences starting 11/13/2022 until 11/14/2023 [facility] Work Phone: Payers Date Payer Category Payer Medicaid [id number] 2022 Medicaid [employer] [facility]ICA[facility] [id number] 2022-Present [phone] [address] [place] [address] [id number] 1970 Unknown [id number] 1970 Unknown [id number] 1970 Unknown [id number] 1970 Unknown [id number] 1970 Unknown [id number] Social History Date Type Detail Facility Start: 11-03-2022 Tobacco smoking status NHIS Smokes t obacco daily [facility] History of tobacco use Cigarette Smoker [facility] Start: 11-03-2022 Tobacco use and exposure Smokeless t obacco non-user [facility] Start: 11-03-2022 Alcohol intake Ex-drinker (finding) [facility] Start: 11-03-2022 History of Social function [facility] Start: 11-03-2022 Tobacco use panel [facility] Start: 1970 Sex Assigned At Not on file [facility] History of Present illness Narrative 01-13-2023 Bay Jane LPN - 01/13/2023 3:03 PM EST Note Date & Type Note Facility 01-13-2023 History of Presen t illness Narrative Attempted a 2nd PA for pt.'s Enbrel, it was denied the 1st time I attempted it. Was unable to do an appeal as I am not an TANK CLEANER or PA. PA was completed/submitted through [employer] documented in this encounter [facility] History of Present illness Narrative 12-10-2022 Bay Jane LPN - 12/10/2022 9:35 AM EDTBBay squires LPN - 12/08/2022 3:36 PM EDT Note Date & Type Note Facility 12-10-2022 History of Presen t illness Narrative Pt.'s Enbrel was denied. I call [employer] @ [phone] and spoke with Chantel lynn to initiate an appeal. Ref # [id number]. Pt has been made aware Pt.'s Enbrel required a PA, the online form was completed and submitted through [employer]. See attached document documented in this encounter [facility] History of Present illness Narrative 12-10-2022 Bay Jane LPN - 12/10/2022 9:32 AM EDT Note Date & Type Note Facility 12-10-2022 History of Presen t illness Narrative ERROR documented in this encounter [facility] Instructions 11-06-2022 Patient Instructions Note Date & Type Note Facility 11-06-2022 Instructions Art Russell MD - 11/06/2022 10:55 AM EDT The financial assistance depends on if you have insurance or not. If you have no insurance you call [employer] patient assistance: # https://www.[employer]/assets/pd f/QCGMV-KGA-Nyzxawpddem-Ytwvdpzyvoyq-Tyicyf-UA.pdf If you have insurance you call [employer] patient assistance and apply for co-pay card: # https://www.[employer]/-/media/Themes/Amgen/Enb relPro-com/[employer]/PDF/Mqnejv-Ecsvamn-Gqkbyi ment-Form_Electronic_Filled.pdf documented in this encounter [facility] History of Present illness Narrative 11-06-2022 Art Russell MD - 11/06/2022 10:25 AM EDT Note Date & Type Note Facility 11-06-2022 History of Presen t illness Narrative Images from the original note were not included. Teleheath Visit I discussed risks, benefits and alternatives of a telephone visit telemedicine consultation with the patient (and any accompanying persons) including the risks that the patient's personal health details and medical records will be discussed over real-time, synchronous, interactive video/audio technology, the visit will not be recorded without the express consent of both the provider and the patient, and that there are inherent diagnostic limitations compared to htoo-pz-hidy evaluations. We elected to proceed with the telemedicine consultation. I have spent 30 minutes with the patient reviewing the HPI, reviewing and updating the medical records & coordination of care. The patient indicates understanding of these issues and agrees with the plan. RHEUMATOLOGY EST PATIENT VISIT Patients name: Olga Patel : 1970 Today's date: 11/06/2022 Reason for visit: establish care Disease summary:RA diagnosed in Oct 2022. Status: NOT controlled. Serology: +ve RF -ve Radiology: Current Meds:HCQ 400mg/day Pain control: Prior Meds: HPC: This is a 51 y.o. female with a pmhx of obesity, tobacco abuse, depression, DJD here for RA w/u. Patient Olga presents with a history of degenerative bone condition in her knees and back, and torn meniscus in both knees. She reports severe pain and mobility issues, for which she has been receiving injections from Dr. Marino. The pain is only temporarily alleviated by these injections, and their effectiveness seems to decrease after a few weeks. Olga's knee issues began following a hysterectomy two years ago. She describes a pattern of swelling and heat in her knees, lasting for about a week before subsiding for a month. This pattern started shortly after her surgery. She reports weight gain since her surgery due to decreased activity. She also experiences soreness in her hands, which is a new symptom. Olga has been dealing with these issues for almost two years and has seen 13 doctors. She reports severe pain and sleep issues due to the pain. Her PCP at [facility], has not provided any help with these issues. She has a history of smoking and has no immediate plans to quit, despite being informed that smoking is a known trigger for rheumatoid arthritis. Olga also reports constant and sometimes debilitating pain in her knees, making it difficult for her to move around, even with a walker. She has been recommended for knee replacement due to moderate to severe joint space narrowing with spurring. She has a history of 29 surgeries by the age of 42, not due to age-related degenerative arthritis, but due to early onset rheumatoid arthritis. She also reports symptoms of fatigue and stiffness, which are common in rheumatoid arthritis. Olga's hands and back also show signs of rheumatoid arthritis. She has received shots for the back, which have been effective. However, the shots for the knees did not last as expected and the knees became swollen again. She is open to starting treatment for rheumatoid arthritis and is considering quitting smoking in preparation for potential surgery. Prior Rheum appts: NIL Oct 2022 - TANK CLEANER Interim: The patient, Allyssa, primarily presents with rheumatoid arthritis, with the knees being the most affected area. She has been on Plaquenil (hydroxychloroquine) with no reported issues. Allyssa is scheduled to start on methotrexate, a dose of four 2.5 milligram tablets taken once a week, along with daily folic acid supplementation, excluding the day of methotrexate administration. She is also to commence a low dose of prednisone for her rheumatoid arthritis. The patient is advised to contact her insurance provider to confirm the correct specialty pharmacy for the delivery of Enbrel. She is also informed about the potential need for prior authorization for specialty drugs. I have reviewed the patient's medical history in detail and updated the computerized patient record. Past Medical History: Diagnosis Date Arthritis Cervical stenosis (uterine cervix) CHI (closed head injury) DDD (degenerative disc disease), lumbar Depression Genital herpes Herniated nucleus pulposus of lumbosacral region Ovarian cyst PTSD (post-traumatic stress disorder) Past Surgical History: Procedure Laterality Date HYSTERECTOMY (CERVIX REMOVED) Social History Tobacco Use Smoking status: Every Day Types: Cigarettes Smokeless tobacco: Never Vaping Use Vaping Use: Never used Substance Use Topics Alcohol use: Not Currently Drug use: Never Family History Problem Relation Age of Onset Diabetes Mother Allergies Allergen Reactions Penicillins Hives No outpatient medications have been marked as taking for the 11/06/22 encounter (Appointment) with Art Russell MD. Review of Systems: General Constitutional: Denied fevers, chills, anorexia, weight loss, or night sweats Eyes: denied blurry vision, no dry eyes, no RP ENT: denied nasal drainage, sinus pressure, nasal ulcers Mouth: denied oral ulcers, dry mouth Lymphatics: no new adenopathy in cervical, supraclavicular, axillary, inguinal regions Respiratory: no cough, SOB CV: denied palpitations, chest pain/pressure, PND, orthopnea. GI: denied abd pain, n/v/d, constipation, melena. : denied dysuria, urgency, frequency or hematuria. Skin: no rashes or lesions Musculoskeletal: as per HPI Hematologic/lmmunologic: no adenopathy, bleeding, easy bruisiality or recurrent infection. Neurology: Denied new headaches, speech/balance/coordination problems. Denied new focal numbness or weakness of extremities Psych: denied anxiety, depression or mood swings A 10 point review of systems was completed. Physical Exam: There were no vitals taken for this visit. Gen: NAD, resting comfortably,Alert, cooperative, no distress, appears stated age Psych: Mood and affect appropriate DATA: I have reviewed lab work and imaging. Labs:reviewed. Imaging: reviewed. Health Maintenance Due Topic Date Due Tetanus: Every 10yrs Never done Colorectal Cancer Screening/Monitoring Never done COVID-19 Vaccine (1) Never done Wellness Visit Never done Pneumococcal Vaccine: Ped or At-Risk (1 - PCV) Never done Depression Screening (PHQ-2/9) Never done HIV Screening Never done Hepatitis C Screening Never done Mammogram Never done Zoster Vaccines (1 of 2) Never done Sequential Influenza Vaccine (1) 10/17/2022 Assessment & Plan RA with +RF - uncontrolled - continue HCQ 400mg/day - continue methotrexate 10mg/day and supplemental folate - Start enbrel 50mg/week - patient to keep in contact regarding PA process of enbrel. The patient indicates understanding of these issues and agrees with the plan. Return to clinic 6 mo Telehealth appointments okFranca Russell MD Municipal Bond Trader Concrete Stone Fabricator Note: To expedite correspondence this note was generated by [employer]vis voice recognition software. Some grammatical or spelling errors may occur using the system. documented in this encounter [facility] Evaluation note Note Date & Type Note Facility documented in this encounter [facility] Evaluation note Note Date & Type Note Facility documented in this encounter [facility] Summary Purpose Family History No Family History Records FoundNo Family History Records FoundNo Family History Records Found Advance Directives No Advanced Directives Records FoundNo Advanced Directives Records FoundNo Advanced Directives Records Found Reason for Referral Specialty Diagnoses / Procedures Referred By Contac t Referred To Contact Diagnoses Rheumatoid arthritis involving multiple sites with positive rheumatoid factor (HCC) Art Russell MD [address] [place] [address] Referral ID Status Reason Start Date Expiration Date Visits Re quested Visits Authorized [id number] Closed 1 1 Additional Source Comments INFORMATION SOURCE (unrecogn ized section and content) DATE CREATED AUTHOR AUTHOR'S ORGANIZ ATION 12/10/2022 [facility]atory DATE CREATED AUTHOR AUTHOR'S ORGANIZ ATION 02/20/2023 [facility] Care Teams (unrecognized sec tion and content) Cradle Slide Maker Relationship Specialty Start Date End Date No, Physician [facility] PCP - General 11/03/22 Cradle Slide Maker Relationship Specialty Start Date End Date No, Physician [facility] PCP - General 11/03/22 Cradle Slide Maker Relationship Specialty Start Date End Date No, Physician [facility] PCP - General 11/03/22 FOR RECORDS PERTAINING TO PATIENTS WHO ARE OR HAVE BEEN ENROLLED IN A CHEMICAL DEPENDENCY/SUBSTANCEABUSE PROGRAM, SOME INFORMATION MAY BE OMITTED. This clinical summary was aggregated from multiple sources. Caution should be exercised in using it in the provision of clinical care. This summary normalizes information from multiple sources, and as a consequence, information in this document may materially change the coding, format and clinical context of patient data. In addition, data may be omitted in some cases. CLINICAL DECISIONS SHOULD BE BASED ON THE PRIMARY CLINICAL RECORDS. [facility]. provides no warranty or guarantee of the accuracy or completeness of information in this document.
== END | disposition home or self-care (01) ==
LOC: OPBI 13:49
PROVIDERS: Referring Provider Nurse Practitioner Family; Visit Provider Nurse Practitioner Family
DX: Z12.31 Encounter for screening mammogram for malignant neoplasm of breast (principal)
CPT/HCPCS: 77063; 77067

== ENCOUNTER → 2023-08-10 | Outpatient (CLI) | payer MEDICARE, MEDICAID, SELFPAY ==
--- NOTE | 2023-08-10 14:00 | ECHOCS_ITS ---
Reason For Study: SHORTNESS OF BREATH Procedure This was a 2D Doppler, Color Flow transthoracic echocardiogram. The study was technically difficult. Contrast injection was performed. Exam performed in department. Left Ventricle Normal size and thickness. Mild LV septal hypokinesis. Estimated LVEF 55 to 60%. No evidence for diastolic dysfunction. Right Ventricle Normal right ventricle. Atria The left and right atria are normal. Mitral Valve Trivial mitral valve insufficiency. Tricuspid Valve Trivial tricuspid valve insufficiency. Unable to estimate RV systolic pressure due to insufficient tricuspid regurgitant envelope. Aortic Valve Trisinus/trileaflet aortic valve. Pulmonic Valve The pulmonic valve is not well visualized. Great Vessels Normal sized aortic root. Pericardium/Pleural No pericardial effusion. Medication 22 gauge I.V. with prn adaptor inserted into right arm. Diluted definity 3ml given slow IV push to enhance endocardial definition. MMode/2D Measurements & Calculations LVIDd: 5.1 cm IVSd: 1.1 cm LVOT diam: 2.1 cm LVIDs: 3.5 cm LVPWd: 1.1 cm RVDd: 3.0 cm FS: 31.4 % LVOT area: 3.5 cm2 Ao root diam: 3.4 cm LAV(MOD-bp): 43.1 ml LVAd ap4: 35.9 cm2 LAV(MOD-bp) Indexed: 19.8 ml/m2 LVLd ap4: 8.0 cm LAV(MOD-sp2): 37.4 ml EDV(MOD-sp4): 131.4 ml LAV(MOD-sp4): 44.4 ml EDV(sp4-el): 136.3 ml LVAs ap4: 21.5 cm2 LVLs ap4: 7.1 cm ESV(MOD-sp4): 55.5 ml ESV(sp4-el): 55.6 ml EF(MOD-sp4): 57.8 % EF(sp4-el): 59.2 % LVAd ap2: 27.4 cm2 SV(MOD-sp4): 75.9 ml SV(MOD-sp2): 44.0 ml LVLd ap2: 9.4 cm EDV(MOD-sp2): 64.9 ml EDV(sp2-el): 67.9 ml LVAs ap2: 13.2 cm2 LVLs ap2: 7.2 cm ESV(MOD-sp2): 20.9 ml ESV(sp2-el): 20.8 ml EF(MOD-sp2): 67.8 % SV(sp4-el): 80.7 ml LA dimension(2D): 4.1 cm LA A4 area: 17.6 cm2 RA A4 area: 11.6 cm2 TAPSE: 2.0 cm Time Measurements MV dec time: 0.13 sec Doppler Measurements & Calculations MV E max breezy: 60.6 cm/sec Lat Peak E' Breezy: 11.2 cm/sec Med Peak E' Breezy: 10.1 cm/sec MV A max breezy: 71.7 cm/sec E/E' lat: 5.4 E/E' med: 6.0 MV E/A: 0.85 Ao V2 max: 133.7 cm/sec LV V1 max: 126.8 cm/sec MV dec slope: 484.1 cm/sec2 Ao max P.1 mmHg LV V1 max P.4 mmHg Ao V2 mean: 96.0 cm/sec LV V1 mean P.3 mmHg Ao mean P.2 mmHg LV V1 mean: 100.4 cm/sec Ao V2 VTI: 23.6 cm LV V1 VTI: 19.5 cm AV (velocity ratio): 0.83 RENEE(I,D): 2.9 cm2 RENEE(V,D): 3.3 cm2 SV(LVOT): 68.1 ml PA V2 max: 77.5 cm/sec PA max PG (full): 1.1 mmHg ECHO/Echo Complete W/ Contrast Interpretation Summary The study was technically difficult. Mild LV septal hypokinesis. Estimated LVEF 55 to 60%. No evidence for diastolic dysfunction. Ordering Physician: Kaia Luo Referring Physician: Kaia Luo Performed By: Karrie Clarke RDCS
== END | disposition home or self-care (01) ==
LOC: CVS 13:56
PROVIDERS: Referring Provider Nurse Practitioner Family; Visit Provider Nurse Practitioner Family
DX: R06.02 Shortness of breath (principal)
CPT/HCPCS: 93306; Q9957; A4216; C8929

== ENCOUNTER → 2023-09-16 | Outpatient (CLI) | payer MEDICARE, SELFPAY ==
--- NOTE | 2023-09-16 09:57 | VDLE_ITS ---
Reason For Study: OTHER SPECIFIED SOFT TISSUE DISORDERS RIGHT LEFT GSV is normal. GSV is normal. CFV is compressible, spontaneous, phasic, CFV is compressible, spontaneous, phasic, competent and demonstrates normal competent, and demonstrates normal augmentation. augmentation. FV is compressible, spontaneous, phasic, FV is compressible, spontaneous, phasic, competent and demonstrates normal competent and demonstrates normal augmentation. augmentation. POP V is compressible, spontaneous, phasic, POP V is compressible, spontaneous, phasic, competent and demonstrates normal competent and demonstrates normal augmentation. augmentation. T/P Trunk is compressible. T/P Trunk is compressible. PTV is compressible. PTV is compressible. RT PerV is compressible. LT PerV is compressible. Procedure This is a venous duplex using B-mode, color flow and spectral Doppler. Exam performed in department. A preliminary report was called and/or faxed to [facility] @ [phone] @ 10:30 AM. VL/Venous Duplex US - Yassine Extrem Interpretation Summary Deep veins of the lower extremities are bilaterally patent and compressible seg mentally. There is no evidence of deep vein thrombosis on either side. Valvular competence appears in tact within the proximal deep venous systems bilaterally. The great saphenous veins appear bila terally patent and compressible segmentally. Ordering Physician: Kaia Luo Referring Physician: [facility] Performed By: Giselle Tafoya, MENDOZACS, RVT
--- NOTE | 2023-09-16 10:45 | BD_ITS ---
STUDY: DUAL ENERGY X-RAY ABSORPTIOMETRY / DXA REASON FOR EXAM: Female, 52 years old. M810 TECHNIQUE: Bone Mineral Density (BMD) measurements of lumbar spine and bilateral hips were obtained. COMPARISON: None. FINDINGS: Lumbar Spine (L1-L4): g/cm2 (1.456) / T-score (3.4) / Z-score (4.4) Findings are suggestive of normal bone density with a low fracture risk. Left Femur Total: g/cm2 (1.165) / T-score (1.8) / Z-score (2.4) Left Femoral Neck: g/cm2 (0.844) / T-score (0.0) / Z-score (0.9) Right Femur Total: g/cm2 (1.051) / T-score (0.9) / Z-score (1.5) Right Femoral Neck: g/cm2 (0.815) / T-score (-0.3) / Z-score (0.7) BD/Dexa Bone Density Study IMPRESSION: The patient is considered normal as outlined below according to World Honorio Organization (WHO) criteria with a low fracture risk. Reference Information: The T-score is the number of standard deviations above or below the standard which is normal for young adults at their peak bone mineral density. The World Health Organization (WHO) interprets the T-scores as follows: Above -1 Normal bone density Between -1 and -2.5 Osteopenia Equal to / or below -2.5 Osteoporosis As a practical clinical guideline, osteopenia may be graded as follows: Mild -1 through -1.5 Moderate -1.6 through -2.0 Severe -2.1 through -2.4 The Z-score is the number of standard deviations above or below age-matched controls. A Z-score of less than -1.5 would be considered abnormal. References: 1. NIH Osteoporosis and Related Bone Diseases www osteo.org 2. International Society for Clinical Densitometry www iscd.org 3. National Osteoporosis Foundation www nof.org Electronically Signed: Shawn Handy MD at 14:52 EDT ,
== END | disposition home or self-care (01) ==
LOC: CVS 09:56
PROVIDERS: Referring Provider Nurse Practitioner Family; Visit Provider Nurse Practitioner Family
DX: M79.89 Other specified soft tissue disorders (principal); M81.0 Age-related osteoporosis without current pathological fracture
CPT/HCPCS: 77080; 93970

== ENCOUNTER → 2024-03-02 | Outpatient (CLI) | payer MEDICARE, SELFPAY ==
[2024-03-02 17:16] LABS: Absolute Lymphocyte Count 2.34 X10^3/uL (0.83-4.51); Absolute Neutrophil Count 3.5 X10^3/uL (2.0-7.7); Basophil# 0.04 X10^3/uL; Basophil% 0.6 % (0-1); Eosinophil# 0.22 X10^3/uL; Eosinophils% 3.4 % (0-5); Hematocrit 44.8 % (37-47); Hemoglobin 15.4 g/dL (12.0-15.0); Lymphocyte # 2.34 X10^3/ul (0.83-4.51); Lymphocyte % 36.6 % (19-41); Mean Corp Hgb Conc 34.4 g/dL (32-36); Mean Corpuscular Volume 90.1 fL (81-99); Mean Platelet Vol. 10.7 fl (6.2-12.0); Monocyte# 0.32 X10^3/uL; NRBC Flagged by Analyzer 0 % (0-5); Neutrophil # 3.47 X10^3/uL (2.7-7.7); Neutrophil % 54.2 % (47-70); Platelet Count 297 K/mm3 (150-450); RBC Distribution Width CV 11.5 % (11.6-14.6); RBC Distribution Width SD 37.9 fl (35.1-43.9); Red Blood Count 4.97 M/mm3 (4.2-5.4); White Blood Count 6.4 K/mm3 (4.4-11.0)
[2024-03-02 17:39] LABS: ALB/GLOB Ratio 1.1 RATIO (0.9-2.4); AST(SGOT) 16 U/L (15-37); Alanine Aminotransfer ALT/SGPT 36 U/L (13-56); Albumin, Serum 3.9 g/dL (3.2-5.0); Alkaline Phosphatase 96 U/L (45-117); Anion Gap 6 (5-15); BUN 10 mg/dL (7-18); BUN/Creat Ratio 16.8 RATIO (10-20); Calcium,Total 9.2 mg/dL (8.5-10.1); Chloride 105 mmol/L (98-107); Cholesterol 188 mg/dL (200); EST Glomerular Filtration Rate 112 mL/min (>60); Est Glom Filt Rate - Afr Amer 135 mL/min (>60); Globulin 3.6 g/dL (2.2-4.2); Glucose 106 mg/dL (74-106); High Density Lipoprotein 59 mg/dL; Potassium 3.9 mmol/L (3.5-5.1); Protein, Total 7.5 g/dL (6.4-8.2); Sodium Level 137 mmol/L (136-145); Triglycerides 153 mg/dL; Very Low Density Lipoprotein 31 mg/dL (5-40)
[2024-03-02 17:42] LABS: Vitamin D,25 Hydroxy 22.9 ng/mL
== END | disposition home or self-care (01) ==
PROVIDERS: PCP Nurse Practitioner Family; Visit Provider Nurse Practitioner Family
DX: E78.5 Hyperlipidemia, unspecified (principal); E55.9 Vitamin D deficiency, unspecified; I10 Essential (primary) hypertension
CPT/HCPCS: 36415; 80053; 80061; 82306; 84443; 85025

== ENCOUNTER → 2024-04-20 | Outpatient (CLI) | payer MEDICARE, SELFPAY ==
--- NOTE | 2024-04-20 06:56 | MRI_ITS ---
PROCEDURE: SPINE LUMBAR (ROUTINE) REASON FOR EXAM: Pain. TECHNIQUE: Lumbar spine CT without contrast. COMPARISON: Lumbar spine series 03/15/2024 and lumbar MRI of 10/15/2021. FINDINGS: Compared with the prior lumbar MRI of 10/15/2021, slight interval worsening of multilevel lumbar degenerative disc disease is noted. Vertebrae: Normal lumbar vertebral body heights. No evidence of fracture. No spondylolysis. Alignment: No spondylolisthesis. L1-2: A very mild disc bulge is seen. No significant spinal canal stenosis or neural foraminal narrowing is noted. L2-3: Mild posterior facet and ligamentum flavum hypertrophy is seen. A very mild disc bulge is seen. No significant spinal canal stenosis or neural foraminal narrowing is noted. L3-4: Moderate posterior facet and ligamentum flavum hypertrophy is seen. A mild broad-based disc protrusion is noted, asymmetrically greater to the right. At least mild right neural foraminal narrowing is noted. Moderate spinal canal narrowing is seen at this level. L4-5: Moderate posterior facet and ligamentum flavum hypertrophy is seen. Superimposed upon a mild disc bulge is seen a mild central disc protrusion/extrusion. Mild spinal canal narrowing is noted. Moderate left neural foraminal narrowing is also noted. L5-S1: Moderate posterior facet hypertrophy is seen. A mild broad-based disc protrusion is noted. At least mild left neural foraminal narrowing is noted. No significant spinal canal stenosis is seen at this level. Sacrum: Visualized upper sacrum and SI joints are unremarkable. Visualized retroperitoneal structures are unremarkable. MRI/Spine Lumbar (Routine) IMPRESSION: 1. Multilevel lumbar degenerative disc disease, as described, slightly progress ed since the prior study of 2021. 2. Moderate spinal canal narrowing noted at the L3-L4 level. One or more dose reduction techniques were used (e.g., Automated exposure contr ol, adjustment of the mA and/or kV according to patient size, use of iterative reconstruction technique). Reading Location: [id number]
== END | disposition home or self-care (01) ==
PROVIDERS: PCP Nurse Practitioner Family; Referring Provider Student in an Organized Health Care Education/Training Program; Visit Provider Student in an Organized Health Care Education/Training Program
DX: M48.062 Spinal stenosis, lumbar region with neurogenic claudication (principal); M54.16 Radiculopathy, lumbar region; M51.369 Other intervertebral disc degeneration, lumbar region without mention of lumbar back pain or lower extremity pain
CPT/HCPCS: 72148

== ENCOUNTER → 2024-06-13 | Outpatient (CLI) | payer MEDICARE, MEDICAID, SELFPAY ==
[2024-06-13 18:08] LABS: Absolute Lymphocyte Count 2.24 X10^3/uL (0.83-4.51); Absolute Neutrophil Count 3.4 X10^3/uL (2.0-7.7); Basophil# 0.04 X10^3/uL; Basophil% 0.6 % (0-1); Eosinophils% 3.2 % (0-5); Hematocrit 41.3 % (37-47); Hemoglobin 14.2 g/dL (12.0-15.0); Lymphocyte # 2.24 X10^3/ul (0.83-4.51); Lymphocyte % 35.5 % (19-41); Mean Corp Hgb Conc 34.4 g/dL (32-36); Mean Corpuscular Hgb 31.1 pg (27.0-32.0); Mean Corpuscular Volume 90.6 fL (81-99); Mean Platelet Vol. 11.5 fl (6.2-12.0); Monocyte# 0.43 X10^3/uL; Monocyte% 6.8 % (0-10); NRBC Flagged by Analyzer 0 % (0-5); Neutrophil # 3.39 X10^3/uL (2.7-7.7); Neutrophil % 53.7 % (47-70); Platelet Count 292 K/mm3 (150-450); RBC Distribution Width CV 11.5 % (11.6-14.6); RBC Distribution Width SD 37.9 fl (35.1-43.9); Red Blood Count 4.56 M/mm3 (4.2-5.4); White Blood Count 6.3 K/mm3 (4.4-11.0)
[2024-06-13 19:04] LABS: Erythrocyte Sedimentation Rate 4 mm/hr (0-30)
[2024-06-13 19:59] LABS: ALB/GLOB Ratio 1.6 RATIO (0.9-2.4); AST(SGOT) 30 U/L (<=31); Alanine Aminotransfer ALT/SGPT 39 U/L (<=34); Albumin, Serum 4.4 g/dL (3.5-5.0); Alkaline Phosphatase 84 U/L (35-104); Anion Gap 15 (5-15); BUN 10 mg/dL (4-19); BUN/Creat Ratio 14.9 RATIO (10-20); Calcium,Total 9.6 mg/dL (7.6-11.0); Carbon Dioxide 22.5 mmol/L (21.0-32.0); Chloride 103 mmol/L (98-108); Creatinine, Serum 0.64 mg/dL (0.70-1.20); EST Glomerular Filtration Rate 105 (>60); Globulin 2.7 g/dL (2.2-4.2); Glucose 128 mg/dL (70-99); Hepatitis B Surface Antibody REAC; Hepatitis B Surface Antigen Nonreactive (Nonreactive); Hepatitis C Antibody Nonreactive (Nonreactive); Potassium 4.5 mmol/L (3.3-5.1); Protein, Total 7.1 g/dL (5.9-8.4); Sodium Level 140 mmol/L (133-145); Total Bilirubin 0.47 mg/dL (0.00-1.30)
[2024-06-13 20:05] LABS: CRP < 3.00 mg/L (0.0-3.0); Rheumatoid Factor < 10.0 IU/mL (<15)
[2024-06-15 12:08] LABS: ANTINUCLEAR ANTIBODIES DIRECT Negative (Negative)
[2024-06-15 15:08] LABS: CCP IgG Antibodies 11 units (0-19)
== END | disposition home or self-care (01) ==
LOC: MTLAB 14:33
PROVIDERS: PCP Nurse Practitioner Family; Referring Provider Internal Medicine Rheumatology; Visit Provider Internal Medicine Rheumatology
DX: M06.4 Inflammatory polyarthropathy (principal); M17.0 Bilateral primary osteoarthritis of knee; M51.369 Other intervertebral disc degeneration, lumbar region without mention of lumbar back pain or lower extremity pain; M47.897 Other spondylosis, lumbosacral region
CPT/HCPCS: 36415; 80053; 85025; 85652; 86038; 86140; 86200; 86431; 86706; 86803; 87340

== ENCOUNTER → 2024-07-04 | Outpatient (CLI) | payer MEDICARE, MEDICAID, SELFPAY ==
--- NOTE | 2024-07-04 07:06 | EKG12_ITS ---
Test Reason : PRE OP Blood Pressure : */* mmHG Vent. Rate : 94 BPM Atrial Rate : 94 BPM P-R Int : 152 ms QRS Dur : 84 ms QT Int : 352 ms P-R-T Axes : 67 15 66 degrees QTcB Int : 440 ms Normal sinus rhythm Possible Left atrial enlargement Borderline ECG Confirmed by RILEY VILLALOBOS, JEROME ([id number]), film editor HOOD BLACKBURN ([id number]) on 07/04/2024 9:48:32 AM Referred By: Latonia Villeda Confirmed By: JEROME LIN MD
--- NOTE | 2024-07-04 07:07 | US_ITS ---
PROCEDURE: ABDOMEN LIMITED 07/04/2024 REASON FOR EXAM: ELEVATED LIVER ENZYMES COMPARISON: None FINDINGS: Liver: Diffusely echogenic suggesting fatty infiltration. Hepatomegaly. Liver measures 19 cm. Gallbladder: No evidence of gallstones. Gallbladder wall is not thickened. Common bile duct: Normal measuring 5 mm . Pancreas: Normal Other: Right kidney measures 12.8 cm 5.8 cm 5.2 cm. Renal cortex measures 2 cm. US/Abdomen Limited IMPRESSION: Hepatomegaly and diffuse fatty infiltration of the liver. Reading Location: [place] [id number]
--- NOTE | 2024-07-04 07:22 | RAD_ITS ---
PROCEDURE: CHEST PA AND LATERAL 07/04/2024 REASON FOR EXAM: PRE OP TECHNIQUE: Frontal and lateral views of the chest. FINDINGS: The lungs are clear. Pulmonary vascularity appears within limits. No pleural effusion. The cardiac and mediastinal contours appear within limits. The visualized osseous structures appear within limits. RAD/Chest PA and Lateral IMPRESSION: No evidence of acute disease. Reading Location: [id number]
[2024-07-04 08:42] LABS: Absolute Lymphocyte Count 2.45 X10^3/uL (0.83-4.51); Absolute Neutrophil Count 3.2 X10^3/uL (2.0-7.7); Basophil# 0.03 X10^3/uL; Basophil% 0.5 % (0-1); Eosinophil# 0.26 X10^3/uL; Eosinophils% 4.1 % (0-5); Hematocrit 40.6 % (37-47); Hemoglobin 14.1 g/dL (12.0-15.0); Lymphocyte # 2.45 X10^3/ul (0.83-4.51); Lymphocyte % 38.4 % (19-41); Mean Corp Hgb Conc 34.7 g/dL (32-36); Mean Corpuscular Hgb 31.2 pg (27.0-32.0); Mean Corpuscular Volume 89.8 fL (81-99); Mean Platelet Vol. 11.1 fl (6.2-12.0); Monocyte# 0.39 X10^3/uL; Monocyte% 6.1 % (0-10); NRBC Flagged by Analyzer 0 % (0-5); Neutrophil # 3.23 X10^3/uL (2.7-7.7); Neutrophil % 50.6 % (47-70); Platelet Count 297 K/mm3 (150-450); RBC Distribution Width CV 11.5 % (11.6-14.6); RBC Distribution Width SD 37.3 fl (35.1-43.9); Red Blood Count 4.52 M/mm3 (4.2-5.4); White Blood Count 6.4 K/mm3 (4.4-11.0)
[2024-07-04 09:29] LABS: ALB/GLOB Ratio 1.6 RATIO (0.9-2.4); AST(SGOT) 24 U/L (<=31); Alanine Aminotransfer ALT/SGPT 28 U/L (<=34); Albumin, Serum 4.2 g/dL (3.5-5.0); Alkaline Phosphatase 80 U/L (35-104); Anion Gap 11 (5-15); BUN 9 mg/dL (4-19); BUN/Creat Ratio 16.6 RATIO (10-20); Calcium,Total 9.3 mg/dL (7.6-11.0); Carbon Dioxide 22.9 mmol/L (21.0-32.0); Chloride 104 mmol/L (98-108); Cholesterol 184 mg/dL (<=200); Creatinine, Serum 0.57 mg/dL (0.70-1.20); EST Glomerular Filtration Rate 108 (>60); Globulin 2.7 g/dL (2.2-4.2); Glucose 121 mg/dL (70-99); Hemoglobin A1c 5.7 % (<=5.6); High Density Lipoprotein 45 mg/dL; Low Density Lipoprotein Calc. 109 mg/dL; Potassium 3.9 mmol/L (3.3-5.1); Protein, Total 6.9 g/dL (5.9-8.4); Sodium Level 138 mmol/L (133-145); Total Bilirubin 0.42 mg/dL (0.00-1.30); Triglycerides 149 mg/dL; Very Low Density Lipoprotein 30 mg/dL (5-40); cholesterol:hdl ratio screen 4.05
[2024-07-04 09:31] LABS: Vitamin D,25 Hydroxy 18.8 ng/mL (30-100)
[2024-07-04 09:39] LABS: Prothrombin Time (Protime)PT. 13.7 SECONDS (11.7-14.9)
== END | disposition home or self-care (01) ==
LOC: US 07:04
PROVIDERS: PCP Nurse Practitioner Family; Referring Provider Internal Medicine Rheumatology; Visit Provider Internal Medicine Rheumatology
DX: Z01.818 Encounter for other preprocedural examination (principal); M06.4 Inflammatory polyarthropathy; E66.01 Morbid (severe) obesity due to excess calories; E55.9 Vitamin D deficiency, unspecified; M17.0 Bilateral primary osteoarthritis of knee; Z79.899 Other long term (current) drug therapy
CPT/HCPCS: 36415; 71046; 76705; 80053; 80061; 82306; 83036; 84443; 85025; 85610; 93005

== ENCOUNTER 2024-07-27 15:28 | Inpatient (IN) | payer MEDICARE, MEDICAID, SELFPAY ==
[2024-07-19 09:05] LABS: Magnesium 2.1 mg/dL (1.5-2.2)
[2024-07-19 09:13] LABS: Hepatitis B Surface Antibody REAC
[2024-07-19 09:15] LABS: HIV Nonreactive (Nonreactive); Hepatitis C Antibody Nonreactive (Nonreactive)
[2024-07-20 05:07] LABS: Hepatitis A AB, Total Negative (Negative)
[2024-07-27] VITALS (18 sets, daily range): BP systolic 124–151; BP diastolic 36–100; PULSE 96–109; RESP 9–18; TEMP 36.2–37.2; O2SAT 94–100; BMI 46.5
--- OUTSIDE RECORDS SUMMARY | 2024-07-27 05:41 | XMS RPT_ITS | CCD ---
Author Organization [facility] CliniSymd Care Team Providers Care English Adjunct Faculty Name Role Phone [facility] Primary Care Pro vider [facility] Referring Provid er Isa ROGE BELL Attending Provider [phone] Dr. Marilee Mcclelland Attending Provider [phone] Dr. Marilee Mcclelland Other Provider Dr. Marilee Mcclelland Referring Provider [phone] ROGE Ohara Other Provider [phone] [place] [address], [facility] Primary [facility] Pro vider [facility] Referring Provid er Dr. Leon Bravo Attending Provider [phone] Dr. Eitan Brasher Referring Provider [phone] [place] [address], [facility] Primary Care Pro vider [facility], [facility] Startzman Referring Provid er Dr. Marilee Mcclelland Attending Provider [phone] [facility] Timfidelina Primary Care Pro vider Dr. Marilee Mcclelland Attending Provider [phone] Dr. Marilee Mcclelland Other Provider [facility] Referring Provid er Dr. Sukh Bolanos Attending Provider [phone] Dr. Leon Bravo Attending Provider [phone] Dr. Brandyn Silva Attending Provider [facility], [facility] Primary Care Pro vider [facility], [facility] Referring Provid er Dr. Sukh Bolanos Attending Provider Dr. Leon Bravo Attending Provider [phone] No, Physician Primary Care Provider Unavailabl e NO, PHYSICIAN Primary Care Unavailable IGOE, ART CHRISTENSEN Attending Unavailable SUKH BOLANOS Admitting Unavaila ble BORRUSO, SUKH MAK Referring Unavaila ble FALLS, FR[place] W[place]ONE Attending Unavailabl e NO, PHYSICIAN Primary Care Unavailable IGOE, ART CHRISTENSEN Attending Unavailable NO, PHYSICIAN Primary Care Unavailable IGOE, ART CHRISTENSEN Attending Unavailable NO, PHYSICIAN Primary Care Unavailable IGOE, ART CHRISTENSEN Attending Unavailable NO, PHYSICIAN Primary Care Unavailable NO, PHYSICIAN Primary Care Unavailable NO, PHYSICIAN Primary Care Unavailable Valerio SIDING APPLICATOR-C, Kaia Primary Care Provider Valerio SIDING APPLICATOR-C, Kaia Attending Provider Valerio SIDING APPLICATOR-C, Kaia Referring Provider Soumya To Attending Provider [phone] Shelly VILLALOBOS, Dr. Quintero Attending Provider Soumya To Referring Provider [phone] Sukh Bolanos DO Attending Provider Valerio SIDING APPLICATOR-C, Kaia Primary Care Provider Soumya To Attending Provider [phone] Valerio SIDING APPLICATOR-C, Kaia Referring Provider Dr. Leon Bravo MD Attending Provider Yogi VILLALOBOS, Dr. Yanes Attending Provider Christiana VILLALOBOS, Dr. Lincoln Attending Provider Christiana VILLALOBOS, Dr. Lincoln Referring Provider [facility], Kaia Primary Care Unavailabl e Latonia Villeda Referring Unavailable Latonia Villeda Attending Unavailable Adrianne Hi Attending Unavailable [facility], [facility] Primary Care Unavailable Valerio VSC, [facility] Primary Care Unavailabl e Shelly, [place] Attending Unavailable Vellanki, Latonia Referring Unavailable Valerio VSC, [facility] Primary Care Unavailabl e Borruso Sukh Attending Unavailable Valerio VSC, Kaia Referring Unavailabl e Valerio VSC, [facility] Primary Care Unavailabl e Valerio VSC, Kaia Referring Unavailabl e Gilda, Soumya Attending Unavailable Valerio VSC, [facility] Primary Care Unavailabl e Gilda, Soumya Attending Unavailable Valerio VSC, Kaia Referring Unavailabl e Valerio VSC, [facility] Primary Care Unavailabl e Shelly, Leon Attending Unavailable Valerio VSC, Kaia Referring Unavailabl e Valerio VSC, [facility] Primary Care Unavailabl e Borruso, Sukh Attending Unavailable Yogi, Joaquín Attending Unavailable Valerio VSC, [facility] Primary Care Unavailabl e Valerio VSC, Kaia Referring Unavailabl e Calix, Joaquín Attending Unavailable Valerio VSC, Kaia Referring Unavailabl e Valerio VSC, [facility] Primary Care Unavailabl e Valerio VSC, [facility] Primary Care Unavailabl e Borruso, Sukh Attending Unavailable Valerio VSC, Kaia Referring Unavailabl e Valerio VSC, [facility] Primary Care Unavailabl e Shelly, [place] Attending Unavailable Valerio VSC, [facility] Primary Care Unavailabl e Vellanki, Latonia Referring Unavailable Vellanki, Latonia Attending Unavailable Valerio VSC, Kaia Attending Unavailabl e Valerio VSC, Kaia Referring Unavailabl [facility] Care Unavailable Valerio VSC, Kaia Attending Unavailabl e Valerio VSC, [facility] Primary Care Unavailabl e Valerio VSC, Kaia Attending Unavailabl e Valerio VSC, Kaia Referring Unavailabl [facility] Care Unavailable Valerio VSC, [facility] Primary Care Unavailabl e Gilda, Soumya Referring Unavailable Gilda, Soumya Attending Unavailable Yogi, Joaquín Referring Unavailable Calix, Joaquín Attending Unavailable Yogi, Joaquín Admitting Unavailable Valerio VSC, [facility] Primary Care Unavailabl e Allergies Allergy Classification Reported Allergen(s) Allergy Type Date of Onset Reaction(s) Facility (20 sources) Penicillins; Translations: [PENICILLINS] Allergy to substance 02-24-2007 [facility] Medications Current Medications Medication Drug Class(es) Dates Sig (Normalized) Sig (Original) 1 ml etanercept 50 mg/ml auto-injector (6 sources) Tumor Necrosis Factor Naya Start: 3 End: 4 etanercept (ENBREL SURECLICK AUTOINJECTOR) 50 mg/mL (1 mL) Pen single use prefilled syringe Indications: Rheumatoid arthritis involving multiple sites with positive rheumatoid factor (HCC) Inject 1 mL (50 mg total) under the skin every 7 days . 12 mL 3 11/06/2022 05/12/2023 Discontinued folic acid 1 mg oral tablet (8 sources) Start: 3 End: 5 take 1 tablet by mouth once daily folic acid (FOLVITE) 1 MG tablet Indications: Rheumatoid arthritis involving multiple sites with positive rheumatoid factor (HCC) Take 1 (one) tablet (1 mg total) by mouth daily EXCEPT day of methotrexate . 90 tablet 3 05/12/2023 05/11/2024 Active gabapentin 300 mg oral capsule (18 sources) Anti-epileptic Agent Start: 3 End: 5 take 1 capsule by mouth at bedtime as needed for pain Gabapentin 300 mg capsule Active 300 mg PO AT BEDTIME as needed for PAIN July 21, 2024 2:03pm hydroxychloroquine sulfate 200 mg oral tablet (9 sources) Antimalarial, Antirheumatic Agent Start: 5 take 1 tablet by mouth twice daily Hydroxychloroquine (Plaquenil) 200 mg tablet Active 200 mg PO TWICE A DAY July 13, 2024 12:00am Start: 11-03-2022 End: 11-03-2023 take 2 tablets by mouth once daily hydrOXYchloroQUINE (PLAQUENIL) 200 mg tablet Indications: Rheumatoid arthritis involving both knees with positive rheumatoid factor (HCC) Take 2 (two) tablets (400 mg total) by mouth daily . 180 tablet 3 11/03/2022 11/03/2023 Active lamoTRIgine 100 mg oral tablet (20 sources) Mood Stabilizer, Anti-epileptic Agent Start: 10-09-2022 take 1 tablet by mouth once daily lamoTRIgine (LAMICTAL) 100 MG tablet Take 1 (one) tablet (100 mg total) by mouth daily . 0 10/09/2022 Active Start: 06-04-2020 Lamotrigine (L amictal) 100 MG tablet Active 150 mg PO DAILY June 04, 2020 12:00am lisinopril 10 mg oral tablet (3 sources) Angiotensin Converting Enzyme Inhibitor Start: 03-04-2023 take 1 tablet by mouth once daily lisinopriL (PRINIVIL,ZESTRIL) 10 MG tablet Take 1 (one) tablet (10 mg total) by mouth daily . 0 03/04/2023 Active methotrexate 2.5 mg oral tablet (8 sources) Folate Analog Metabolic Inhibitor Start: 05-12-2023 take 6 tablets by mouth every week methoTREXate (TREXALL) 2.5 MG tablet Indications: Rheumatoid arthritis involving multiple sites with positive rheumatoid factor (HCC) Take 6 (six) tablets (15 mg total) by mouth once a week Labs needed for refills - monthly for first three months, then every 3 months after if labs are stable. . 24 tablet 0 05/12/2023 Active Start: 11-06-2022 End: 05-12-2023 take 4 tablets by mouth every week methoTREXate (TREXALL) 2.5 MG tablet Indications: Rheumatoid arthritis involving multiple sites with positive rheumatoid factor (HCC) Take 4 (four) tablets (10 mg total) by mouth once a week . 12 tablet 0 11/06/2022 05/12/2023 Discontinued (Reorder (Suppress CancelRx Message to Pharmacy)) predniSONE 2.5 mg oral tablet (7 sources) Start: 05-15-2023 take 2 tablets by mouth once daily predniSONE (DELTASONE) 2.5 MG tablet Indications: Seropositive rheumatoid arthritis (HCC) Take 2 (two) tablets (5 mg total) by mouth daily . 180 tablet 0 05/15/2023 Active Start: 11-06-2022 End: 05-15-2023 take 2 tablets by mouth once daily predniSONE (DELTASONE) 2.5 MG tablet Indications: Rheumatoid arthritis involving multiple sites with positive rheumatoid factor (HCC) Take 2 (two) tablets (5 mg total) by mouth daily . 180 tablet 0 11/06/2022 02/04/2023 Active Completed/Discontinued Medications Medication Drug Class(es) Dates Sig (Normalized) Sig (Original) acetaminophen 325 mg / HYDROcodone bitartrate 5 mg oral tablet (14 sources) Opioid Agonist Start: 01-02-2018 End: 01-04-2018 Hydrocodone-Acetami nophen 1 TABLET tablet Discontinued 1 {tbl} PO EVERY 4 HOURS NEEDED as needed for Pain 10 2 January 02, 2018 1:00am January 03, 2018 1:00am January 04, 2018 1:12am Start: 01-02-2018 End: 01-04-2018 take 1 tablet by mouth every four hours as needed Hydrocodone-Acetaminophen Discontinued 1 TABLET PO EVERY 4 HOURS NEEDED 10 2 January 02, 2018 12:00am January 04, 2018 12:12am acetaminophen 325 mg / oxyCODONE hydrochloride 5 mg oral tablet (20 sources) Opioid Agonist Start: 07-22-2021 End: 08-06-2021 Oxycodone-Acetaminophen 1 TABLET tablet Discontinued 1 {tbl} PO EVERY 6 HOURS NEEDED as needed for Pain 12 July 22, 2021 August 06, 2021 9:58am Start: 07-22-2021 End: 08-06-2021 take 1 tablet by mouth every six hours as needed Oxycodone-Acetaminophen Discontinued 1 TABLET PO EVERY 6 HOURS NEEDED 12 July 22, 2021 August 06, 2021 8:58am Start: 06-25-2021 End: 08-06-2021 Oxycodone-Acetaminophen (Per cocet) 5-325 mg tablet Discontinued 1 {tbl} PO Q4H as needed for pain 30 June 25, 2021 August 06, 2021 9:58am cephalexin 500 mg oral capsule (20 sources) Cephalosporin Antibacterial Start: 07-22-2021 End: 08-06-2021 take 1 capsule by mouth every six hours Cephalexin 500 mg capsule Discontinued 500 mg PO EVERY 6 HOURS August 06, 2021 9:57am August 06, 2021 9:59am clobetasol propionate 0.5 mg/ml topical cream (9 sources) Corticosteroid Start: 04-16-2022 End: 04-30-2022 Clobetasol 0.05 % cream Discontinued 1 NMA TOPICAL DAILY 60 April 16, 2022 1:00am April 30, 2022 9:56am dexamethasone phosphate 1 mg/ml ophthalmic solution (14 sources) Corticosteroid Start: 01-02-2018 End: 01-09-2018 Dexamethasone Sodium Phosphate 5 ML Drops Discontinued 4 NMA Each Ear TWICE A DAY 1 January 02, 2018 1:00am January 08, 2018 1:00am January 09, 2018 1:10am diazePAM 5 mg oral tablet (20 sources) Benzodiazepine Start: 05-24-2022 End: 03-15-2024 take 1 tablet by mouth at bedtime as needed for muscle spasms Diazepam (Valium) 5 mg tablet Discontinued 5 mg PO AT BEDTIME as needed for muscle spasm 6 May 28, 2022 12:00am March 15, 2024 3:01pm diclofenac potassium 25 mg oral tablet (1 source) Nonsteroidal Anti-inflammatory Drug Start: 06-03-2024 take 1 tablet by mouth twice daily Diclofenac Potassium 25 mg tablet Active 25 mg PO TWICE A DAY June 03, 2024 12:00am On Hold: for surgery DULoxetine 30 mg delayed release oral capsule (2 sources) Serotonin and Norepinephrine Reuptake Inhibitor Start: 03-15-2024 End: 07-21-2024 take 1 capsule by mouth twice daily Duloxetine 30 mg capsule,delayed release(DR/EC) Discontinued 30 mg PO TWICE A DAY March 15, 2024 1:00am July 21, 2024 2:03pm etodolac 500 mg oral tablet (1 source) Nonsteroidal Anti-inflammatory Drug Start: 05-04-2024 End: 06-03-2024 take 1 tablet by mouth twice daily Etodolac 500 mg tablet Discontinued 500 mg PO TWICE A DAY 60 May 04, 2024 12:00am June 03, 2024 9:59am ibuprofen 800 mg oral tablet (20 sources) Nonsteroidal Anti-inflammatory Drug Start: 06-25-2021 End: 08-06-2021 take 1 tablet by mouth every eight hours as needed for pain Ibuprofen 800 mg tablet Discontinued 800 mg PO Q8H as needed for pain 30 7 August 06, 2021 9:57am August 06, 2021 9:59am levonorgestrel 0.006807 mg/hr intrauterine system (2 sources) Progestin, Progestin-containi ng Intrauterine Device Start: 10-17-2019 End: 10-17-2019 levonorgestrel 20 mcg/24 hours (6 yrs) 52 mg intrauterine device Discontinued 1 INSERT INTRA-UTER ONCE 1 October 17, 2019 11:34am October 17, 2019 12:29pm lidocaine 0.04 mg/mg topical gel (14 sources) Antiarrhythmic, Amide Local Anesthetic Start: 01-23-2021 End: 03-13-2021 Lidocaine 4 % gel Discontinued 1 NMA TOPICAL 2 to 4 times per day as needed for pain January 23, 2021 1:00am March 13, 2021 9:50am methylPREDNISolone 4 mg oral tablet (8 sources) Corticosteroid Start: 05-28-2022 End: 03-15-2024 take 1 tablet by mouth once Methylprednisolone (Medrol (Bk)) 4 mg tablets,dose pack Discontinued 0 PO per package directions May 28, 2022 12:00am March 15, 2024 3:02pm take as directed norethindrone 0.35 mg oral tablet (20 sources) Start: 04-04-2020 End: 06-25-2021 take 1 tablet by mouth once daily Norethindrone (Contraceptive) 0.35 mg tablet Discontinued 0.35 mg PO DAILY April 26, 2021 4:54pm June 25, 2021 9:19am ofloxacin 3 mg/ml ophthalmic solution (14 sources) Quinolone Antimicrobial Start: 01-02-2018 End: 01-09-2018 Ofloxacin 5 ML Drops Discontinued 4 NMA Each Ear TWICE A DAY 02 22January 02, 2018 1:00am January 08, 2018 1:00am January 09, 2018 1:10am sertraline 150 mg oral tablet (20 sources) Serotonin Reuptake Inhibitor Start: 05-18-2024 End: 06-03-2024 take 1 capsule by mouth once daily Sertraline 150 mg capsule Discontinued 150 mg PO daily May 18, 2024 12:00am June 03, 2024 9:59am Start: 10-17-2019 End: 03-15-2024 take 1 tablet by mouth once daily Sertraline 100 mg tablet Discontinued 100 mg PO DAILY October 17, 2019 11:54am March 15, 2024 3:02pm Start: 11-25-2015 End: 10-17-2019 Sertraline 100 MG tablet Discontinued 150 mg PO DAILY November 25, 2015 12:00am October 17, 2019 11:54am Start: 11-25-2015 End: 10-17-2019 take 150 mg by mouth once daily Sertraline Discontinue d 150 MG PO DAILY November 24, 2015 11:00pm October 17, 2019 10:54am sulfamethoxazole 800 mg / trimethoprim 160 mg oral tablet (20 sources) Dihydrofolate Reductase Inhibitor Antibacterial, Sulfonamide Antimicrobial Start: 07-22-2021 End: 08-06-2021 Sulfamethoxazole-Trimethopri m 1 TABLET tablet Discontinued 1 {tbl} PO TWICE A DAY July 22, 2021 12:00am August 06, 2021 9:58am Start: 07-22-2021 End: 08-06-2021 take 1 tablet by mouth twice daily Sulfamethoxazole-Trimethoprim Discontinu ed 1 TABLET PO TWICE A DAY July 21, 2021 11:00pm August 06, 2021 8:58am Start: 03-20-2020 End: 03-25-2020 Sulfamethoxazole-Trimethopri m 800-160 mg tablet Discontinued 1 {tbl} PO TWICE A DAY 10 March 20, 2020 1:00am March 24, 2020 1:00am March 25, 2020 1:03am Start: 03-20-2020 End: 03-25-2020 take 1 tablet by mouth twice daily Sulfamethoxazole-Trimethoprim Discontinu ed 1 TABLET PO TWICE A DAY 10 March 20, 2020 12:00am March 25, 2020 12:03am tiZANidine 4 mg oral tablet (2 sources) Central alpha-2 Adrenergic Agonist Start: 03-15-2024 End: 07-13-2024 Tizanidine 4 mg tablet Discontinued mg PO March 15, 2024 1:00am July 13, 2024 8:26am valACYclovir 1000 mg oral tablet (20 sources) Herpesvirus Nucleoside Analog DNA Polymerase Inhibitor, Herpes Simplex Virus Nucleoside Analog DNA Polymerase Inhibitor, Herpes Zoster Virus Nucleoside Analog DNA Polymerase Inhibitor Start: 03-13-2021 End: 06-12-2021 Valacyclovir 1 gram tablet Discontinued 1000 mg PO TWICE A DAY 05 07March 13, 2021 9:50am June 12, 2021 3:40pm Start: 03-13-2021 End: 06-12-2021 take 1000 mg by mouth twice daily Valacyclovir Discontinued 1000 MG PO TWICE A DAY 05 07March 13, 2021 8:50am June 12, 2021 2:40pm Start: 01-23-2021 End: 02-02-2021 Valacyclovir 1 gram tablet Discontinued 1000 mg PO TWICE A DAY 05 12January 23, 2021 1:00am February 01, 2021 1:00am February 02, 2021 1:01am Start: 01-23-2021 End: 02-02-2021 take 1000 mg by mouth twice daily Valacyclovir Discontinued 1000 MG PO TWICE A DAY 05 12January 23, 2021 12:00am February 02, 2021 12:01am zolpidem tartrate 5 mg oral tablet (20 sources) gamma-Aminobutyric Acid-ergic Agonist Start: 06-12-2021 End: 09-30-2021 take 1 tablet by mouth at bedtime Zolpidem 5 mg tablet Discontinued 5 mg PO AT BEDTIME June 12, 2021 12:00am September 30, 2021 10:07am Start: 04-17-2021 End: 04-19-2021 take 1 tablet by mouth at bedtime as needed Zolpidem (Ambien) 5 mg tablet Discontinued 5 mg PO AT BEDTIME as needed for insomnia April 19, 2021 3:41pm April 19, 2021 5:13pm Problems Active Problems Problem Classification Problem Date Documented Date Episodic/Chronic Abdominal pain (19 sources) Pain in pelvis; Translations: [Pelvic and perineal pain] Episodic Disorders of lipid metabolism (1 source) Hyperlipidemia, unspecified; Translations: [Hyperlipidemia, unspecified] Onset: 03-22-2024 Chronic Immunizations and screening for infectious disease (7 sources) Other specified abnormal immunological findings in serum; Translations: [Encounter for screening for other viral diseases] Onset: 11-03-2022 Episodic Joint disorders and dislocations; trauma-related (11 sources) Tear of meniscus of knee; Translations: [Other meniscus derangements, unspecified meniscus, unspecified knee] 05-28-2022 Chronic Osteoarthritis (20 sources) Unilateral primary osteoarthritis, right knee; Translations: [Osteoarthrosis, unspecified whether generalized or localized, lower leg] Onset: 06-21-2024 Chronic Other acquired deformities (2 sources) Lumbar spondylolisthesis; Translations: [Spondylolisthesis, lumbar region] 06-03-2024 Episodic Other acquired deformities (1 source) Spondylolisthesis, lumbar region; Translations: [Spondylolisthesis, lumbar region] Onset: 06-21-2024 Episodic Other aftercare (1 source) [facility] methotrexate user; Translations: [[facility] methotrexate user] 11-13-2022 Episodic Other aftercare (4 sources) Other intermodal customer service (current) drug therapy; Translations: [Other halfway (current) drug therapy] Onset: 05-06-2023 Episodic Other aftercare (4 sources) Taking high risk medication; Translations: [Other halfway (current) drug therapy] Onset: 05-12-2023 05-06-2023 Episodic Other connective tissue disease (10 sources) Tendinitis of shoulder region; Translations: [Other enthesopathies, not elsewhere classified] 11-26-2015 Episodic Other connective tissue disease (13 sources) Pain in right lower limb; Translations: [Pain in right leg] 07-30-2021 Episodic Other connective tissue disease (9 sources) Bilateral spasm of muscle of calves; Translations: [Other muscle spasm] 05-24-2022 Episodic Other connective tissue disease (8 sources) Swelling of hand; Translations: [Other specified soft tissue disorders] 05-28-2022 Episodic Other connective tissue disease (8 sources) Hand pain; Translations: [Pain in right hand] 05-28-2022 Episodic Other connective tissue disease (3 sources) Pain in right hand; Translations: [Pain in limb] 05-28-2022 Episodic Other connective tissue disease (4 sources) Tendonitis of left shoulder; Translations: [Other enthesopathies, not elsewhere classified] 11-26-2015 Episodic Other female genital disorders (14 sources) Abnormal uterine bleeding; Translations: [Abnormal uterine and vaginal bleeding, unspecified] 03-13-2021 Chronic Comment on above: failed IUD and proge sterone only OCP. Consult with JV to discuss hysteroscopy D&C Other female genital disorders (6 sources) Abnormal uterine and vaginal bleeding, unspecified; Translations: [Unspecified disorders of menstruation and other abnormal bleeding from female genital tract] Chronic Other female genital disorders (14 sources) Stenosis of cervix; Translations: [Stricture and stenosis of cervix uteri] 12-06-2019 Episodic Other female genital disorders (3 sources) Stricture and stenosis of cervix uteri; Translations: [Stricture and stenosis of cervix] Episodic Other hereditary and degenerative nervous system conditions (9 sources) Restless legs; Translations: [Restless legs syndrome] 05-24-2022 Chronic Other injuries and conditions due to external causes (14 sources) Closed injury of head; Translations: [Unspecified injury of head, initial encounter] 08-20-2020 Episodic Other nervous system disorders (2 sources) Other chronic pain; Translations: [Other chronic pain] Onset: 11-03-2022 Chronic Other non-traumatic joint disorders (9 sources) Knee joint effusion; Translations: [Effusion, unspecified knee] 04-30-2022 Episodic Other non-traumatic joint disorders (18 sources) Pain in left knee; Translations: [Left knee pain] 04-30-2022 Episodic Other non-traumatic joint disorders (4 sources) Effusion, unspecified knee; Translations: [Effusion of joint, lower leg] 04-30-2022 Episodic Other non-traumatic joint disorders (8 sources) Joint finding; Translations: [Joint disorder, unspecified] 05-28-2022 Episodic Other non-traumatic joint disorders (4 sources) Joint disorder, unspecified; Translations: [Unspecified disorder of joint, multiple sites] Onset: 05-16-2024 05-28-2022 Episodic Other non-traumatic joint disorders (3 sources) Pain in unspecified joint; Translations: [Pain in unspecified joint] Onset: 11-03-2022 Episodic Ovarian cyst (20 sources) Cyst of ovary; Translations: [Unspecified ovarian cyst, unspecified side] Episodic Residual codes; unclassified (5 sources) Acquired absence of both cervix and uterus; Translations: [Acquired absence of both cervix and uterus] Episodic Rheumatoid arthritis and related disease (20 sources) Rheumatoid arthritis of multiple joints; Translations: [Rheumatoid arthritis with rheumatoid factor of multiple sites without organ or systems involvement] Onset: 11-03-2022 11-06-2022 Chronic Skin and subcutaneous tissue infections (13 sources) Abscess of skin and/or subcutaneous tissue; Translations: [Cutaneous abscess, unspecified] 07-30-2021 Episodic Spondylosis; intervertebral disc disorders; other back problems (20 sources) Other intervertebral disc displacement, lumbar region; Translations: [Herniation of intervertebral disc of lumbar spine] Onset: 04-22-2024 Chronic Spondylosis; intervertebral disc disorders; other back problems (19 sources) Sciatica, unspecified side; Translations: [Sciatica] Onset: 11-03-2022 Episodic Superficial injury; contusion (14 sources) Contusion of lower back; Translations: [Contusion of lower back and pelvis, initial encounter] 03-30-2016 Episodic Unclassified (1 source) [facility] (current) use of antimetabolite agent; Translations: [[facility] (current) use of antimetabolite agent] Onset: 05-06-2023 Unclassified (2 sources) Arthralgia of multiple joints; Translations: [M25.50 - Pain in unspecified joint,M25.9 - Joint disorder, unspecified] Unclassified (1 source) Multiple joint complaints Unclassified (1 source) Other intervertebral disc degeneration, lumbar region with discogenic back pain and lower extremity pain; Translations: [Other intervertebral disc degeneration, lumbar region with discogenic back pain and lower extremity pain] Onset: 06-21-2024 Unclassified (1 source) Low back pain, unspecified; Translations: [Low back pain, unspecified] Onset: 04-22-2024 Viral infection (17 sources) Genital herpes simplex; Translations: [Herpesviral infection of urogenital system, unspecified] Chronic Past or Other Problems Problem Classification Problem Date Documented Date Episodic/Chronic Other connective tissue disease (5 sources) Other specified soft tissue disorders; Translations: [Swelling of limb] Onset: 06-29-2023 05-28-2022 Episodic Other lower respiratory disease (1 source) Shortness of breath; Translations: [Shortness of breath] Onset: 08-19-2023 Episodic Other screening for suspected conditions (not mental disorders or infectious disease) (4 sources) Elevated C-reactive protein (CRP); Translations: [Other specified abnormal findings of blood chemistry] Onset: 11-03-2022 Episodic Unclassified (11 sources) exam under anesthesia 09-06-2021 Comment on above: IUD insertion Unclassified (1 source) intermediate designer (current) use of antimetabolite agent; Translations: [[facility] (current) use of antimetabolite agent] Onset: 05-06-2023 Results Test Name Value Interpretation Reference Range Facility Orthopedic Visit Reporton Orthopedic Visit Report [facility] [address] [place] [address] [id number] OFFICE VISIT Date of Service: 07/21/24 MR#: [id number] Acct: [id number] Name: TONY PATEL Rep #: [id number] : 1970 Provider: Dr. Joaquín Calix MD Age/Sex: 53/F Location: [facility] Status: Signed Intake Vital Signs 05/18/24 10:15 Height 5 ft 5 in Intake Visit Reasons: lumbar spine Chief Complaint: lumbar spine pre-op Accompanied by: Self Is patient in pain?: Yes Pain scale (1-10): 5 Allergies Penicillins Allergy (Verified 07/21/24 13:59) Hives Medications ???Medication ???Instructions ???Recorded ???Confirmed ???Type lamotrigine 100 mg tablet 150 mg PO DAILY DEPRESSION 1 07/21/24 History (Lamictal) diclofenac potassium 25 mg tablet 25 mg PO BID pain 06/03/24 History Held on 07/13/24. Instructions: for surgery hydroxychloroquine 200 mg tablet 200 mg PO BID RA 07/13/24 07/21/24 History (Plaquenil) gabapentin 300 mg capsule 300 mg PO QHS PRN PAIN 07/21/24 H istory PFSH Medical History Wears hearing aid Post-menopausal Cancer Anxiety Marijuana use Ambulates with cane Rheumatoid arthritis Fatty liver Back pain Dietary restriction History of pain when walking History of edema History of echocardiogram DDD (degenerative disc disease), lumbar HNP (herniated nucleus pulposus), lumbar Wears glasses Depression Arthritis Smoker Pelvic pain Genital herpes Ovarian cyst CHI (closed head injury) Abnormal uterine bleeding (AUB) Cervical stenosis (uterine cervix) PTSD (post-traumatic stress disorder) Surgical History History of robot-assisted laparoscopic hysterectomy ( 06/25/21) Status post hysterectomy exam under anesthesia Family History Mother Diabetes Social History Smoking Status: Current every day smoker tobacco type: cigarettes second hand exposure: Yes alcohol intake: never substance use type: does not use seatbelt use: always do you feel safe at home: Yes HPI lumbar spine Details: This documentation accurately reflects the service provided and the decisions made by me, Dr. Joaquín Calix MD 07/21/24 0574. Part of today???s visit was documented by Susana Don ATC, acting as scribe. TONY PATEL is a 53 year old F here today for pre-op 360 lumbar spinal fusion L3-4, L4-5 and L5- S1 dos 07/27/2024. Patient was approved for the bone stimulator and will be getting that. She states she is unsure on her current medications so plans on calling us and updating them today. 06/03/24: TONY PATEL is a 53 year old F here today to discuss surgery. She continues to experience centralized low back and bilateral leg pain. She states her legs feel weak at times with ambulation. Patient continues to c/o pain throughout her entire lower extremities sometimes the pain is worse in the groin. She recently had bilateral knee injections with Dr. Mackenzie. She says that she gets a burning pain sensation in her midline back. She does continue to say that she has issues with standing for extended periods. She recently had an injection with Dr. Marino to help with her pain while waiting for surgery. Over that past few years she had had about [address] Mairno. She does get a lot of radiating pain over her anterior thighs bilaterally. Right now she is having more pain in her back than her knees. She did have gel injections for her knees with Dr. Bolanos. She can typically walk for 20 minutes before having to stop and take a break. She did have a hysterectomy 4 years ago as she had cancer. 04/22/24: TONY PATEL is a 53 year old F here today for lumbar spine MRI review. She continues to experience centralized low back pain. She also complains of bilateral leg pain. She states her legs feel weak at times with ambulation. She did follow up with Dr. Marino after her last visit with us but did not have any injections. She would like to discuss MRI results and next steps. Patient says that she continues to have pain throughout her entire lower extremity sometimes the pain is worse in the groin and other times it is worse in her knees. She says that she gets a burning pain sensation in her midline back. She does continue to say that she has issues with standing for extended period of time especially when in the kitchen. She relies on a shopping cart to lean on when at the grocery store. HPI from 03/15/24: TONY PATEL is a 53 year old F here today for lumbar spine pain. Patient rates her pain a 5/10 today. Patient states the lumbar spine has been going on for a couple years. She describes the pa (more content not included)... Normal [facility] Hepatitis A AB, Totalon 06-0 HEPATITIS A,TOT Negative Normal Negative [facility] Comment on above: Result Comment: Comm ent: The HAV total antibody assay detects both IgG and IgM but does not differentiate between them. A negative result suggests susceptibility to infection. A positive result could be due to vaccination, previously resolved infection or active infection. Testing for HAV IgM should be performed if active HAV infection is suspected. [facility] offers profiles that will automatically reflex positive HAV total antibody results to IgM (e.g., panel #[id number] HAV Antibody w/ Rfx). Performed at: [address] [id number] Psychiatric Nurse: Boogie Hinds PhD, Phone: [phone] Performed By: #### L 3100.0300, L3890.6202, L3890.6006, L3890.6301, M100.651, BTSPAT ####[facility] [address] [place], [address] MRSA/SAID NASAL SCREENon MRSA+SAID SCRN Reason for Exam: Thong karolyn MRSA MRSA Negative S. AUREUS S. aureus Negative Normal [facility] Comment on above: Performed By: #### L 3100.0300, L3890.6202, L3890.6006, L3890.6301, M100.651, BTSPAT ####[facility] [address] [facility] [place], [place], [id number] HIVon 07-19-2024 HIV Non-Reactive Normal Nonreactive [facility] Comment on above: Result Comment: Non- Reactive Reactive Repeatedly reactive samples must be confirmed according to CDC recommended confirmatory algorithms. The subresults for either HIVAG or AHIV can be used as an aid in the selection of the confirmation algorithm for reactive samples. Send out specimens with Reactive results to [facility] for confirmation. Order the HIV antibody detection and differentiation: lc#[id number] Performed By: #### L 3100.0300, L3890.6202, L3890.6006, L3890.6301, M100.651, BTSPAT ####[facility] [address] [place], [place], [address] Hepatitis B Surface Antibody on 07-19-2024 HEP B Surf Ab REAC Normal [facility] Comment on above: Result Comment: <8.5 mIU/mL: Non-Reactive 8.5<= x <11.5 mIU/mL: Indeterminate >=11.5 mIU/mL: Reactive Non Reactive: Inconsistent with immunity less than <10 mIU/mL Reactive: Consistent with immunity greater than or equal to 10 mIU/mL Performed By: #### L 3100.0300, L3890.6202, L3890.6006, L3890.6301, M100.651, BTSPAT ####[facility] [address] [place], [place], [id number] Hepatitis C Antibodyon 07-19 Hepatitis C Ab Non-Reactive Normal Nonreactive [facility] Comment on above: Result Comment: Reac tive: Presumptive evidence of antibodies to HCV. Follow CDC recommendations for supplemental testing. Non-Reactive: Antibodies to HCV were not detected; does not exclude the possibility of exposure to HCV Reactive Results are presumptive evidence of antibodies to HCV. Follow CDC recommendations for supplemental testing. Order confirmation testing: HCV Quant by PCR testing - HCVPCR #[id number] Non Reactive: < 0.8 Equivocal: >/= 0.8 to < 1.0 Reactive: >/= 1.0 The CDC requires that a reactive/equivocal HCV antibody result be sent out for confirmation. HCV Quant by PCR testing. Performed By: #### L 3100.0300, L3890.6202, L3890.6006, L3890.6301, M100.651, BTSPAT ####[facility] [address] [place], [place], [phone] Magnesiumon 07-19-2024 Magnesium [Mass/Vol] 2.1 mg/dL Normal 1.5-2.2 [facility] Comment on above: Performed By: #### L 501.5200 ####[facility] [address] [place], [address] Type AND Screen - PAT ONLYon 07-19-2024 Ab SCREEN GEL Negative Normal [facility] Comment on above: Order Comment: Surge ry Date: 07/27/24Reason for Laboratory Test PRE-[id number] Lumbar Fusion L3-4, L4-5, L5-S1, ERAS Performed By: #### L 3100.0300, L3890.6202, L3890.6006, L3890.6301, M100.651, BTSPAT ####[facility] [address] [place], [address] 12 Lead EKGon 07-04-2024 12 Lead EKG [facility] [address] [place] [address] 12 Lead EKG 07/04/24 0717 MR#: [id number] Acct: [id number] Name: TONY PATEL Rep #: [id number] : 1970 53 From: Leon Bravo MD Attending Dr: Dr. Latonia Villeda MD Status: RE G CLI Ordering Dr: Kaia Luo [facility] SIDING APPLICATOR-C Date: 07/04 Location: US Sex: F C Admitted: Test Reason : PRE OP Blood Pressure : */* mmHG Vent. Rate : 94 BPM Atrial Rate : 94 BPM P-R Int : 152 ms QRS Dur : 84 ms QT Int : 352 ms P-R-T Axes : 67 15 66 degrees QTcB Int : 440 ms Normal sinus rhythm Possible Left atrial enlargement Borderline ECG Confirmed by SHELLY VILLALOBOS, LEON ([id number]), rewrite editor HOOD BLACKBURN ([id number]) on 07/04/2024 9:48:32 AM Referred By: Latonia Villeda Confirmed By: LEON BRAVO MD 07/04/24 0948 Date Leon Bravo MD CC: [facility] ROGE Luo; Dr. Latonia Villeda MD Signed Normal [facility] Abdomen Limitedon 07-04-2024 Abdomen Limited [facility] Imaging Services [address] [place] [address] Abdomen Limited MR#: [id number] Acct: [id number] Name: TONY PATEL Rep #: [id number] : 1970 F 53 From: Shawn tapia MD PCP: Kaia Luo Rosy, SIDING APPLICATOR-C Status: REG CLI Study: Abdomen Limited Date of Exam: 07/04/24 Exam# [id number] Ordering Dr: Latonia Villeda MD PROCEDURE: ABDOMEN LIMITED 07/04/2024 REASON FOR EXAM: ELEVATED LIVER ENZYMES COMPARISON: None FINDINGS: Liver: Diffusely echogenic suggesting fatty infiltration. Hepatomegaly. Liver measures 19 cm. Gallbladder: No evidence of gallstones. Gallbladder wall is not thickened. Common bile duct: Normal measuring 5 mm . Pancreas: Normal Other: Right kidney measures 12.8 cm 5.8 cm 5.2 cm. Renal cortex measures 2 cm. US/Abdomen Limited IMPRESSION: Hepatomegaly and diffuse fatty infiltration of the liver. Reading Location: [place] [address] CC: [facility] ROGE Luo; Dr. Latonia Villeda MD Telescope Maintenance: Signed Normal [facility] Absolute lymphocyte countOrd ered By: [facility] Kaia Luo on 07-04-2024 Lymphocytes Auto (Unsp spec) [#/Vol] 2.45 10*3/uL 0.83-4.51 [facility] Absolute neutrophil countOrd ered By: [facility] Kaia Luo on 07-04-2024 Neutrophils (Bld) [#/Vol] 3.2 10*3/uL 2.0-7.7 [facility] Anion gap in Serum or Plasma Ordered By: [facility] Kaia Luo on 07-04-2024 Anion gap [Moles/Vol] 11 mmol/L 5-15 [facility] Automated lymphocyte count a s percentage of total leukocytesOrdered By: [facility] Kaia Luo on 07-04-2024 Lymphocytes/100 WBC Auto (Unsp spec) 38.4 % [facility] BUN/creatinine ratioOrdered By: [facility] Kaia Luo on 07-04-2024 Urea nitrogen/Creatinine [Mass ratio] 16.6 mg/mg 10- [facility] Basophil percentageOrdered B y: [facility] Kaia Luo on 07-04-2024 Basophils/100 WBC (Bld) 0.5 % 0-1 [facility] Bilirubin, totalOrdered By: [facility] Center[facility] Luo on 07-04-2024 Bilirubin [Mass/Vol] 0.42 mg/dL 0.00-1.30 [facility] CBC W/Diff, Automatedon 06-16 Absolute Lymph 2.45 X10 3/uL Normal 0.83-4.51 [facility] Comment on above: Performed By: #### L 501.9520, L500.4100, L100.0100, L500.4050, L506.1001, L501.9985, L300.3900 ####[facility] [address] [place], [address] Absolute Neut 3.2 X10 3/uL Normal 2.0-7.7 [facility] Comment on above: Performed By: #### L 501.9520, L500.4100, L100.0100, L500.4050, L506.1001, L501.9985, L300.3900 ####[facility] [address] [place], [address] Basophils/100 WBC (Bld) 0.5 % Normal 0-1 [facility] Comment on above: Performed By: #### L 501.9520, L500.4100, L100.0100, L500.4050, L506.1001, L501.9985, L300.3900 ####[facility] [address] [place], [address] Eosinophils/100 WBC (Bld) 4.1 % Normal 0-5 [facility] Comment on above: Performed By: #### L 501.9520, L500.4100, L100.0100, L500.4050, L506.1001, L501.9985, L300.3900 ####[facility] [address], [address] Erythrocyte distribution width (RBC) [Ratio] 11.5 % Low 11.6-14.6 [facility] Comment on above: Performed By: #### L 501.9520, L500.4100, L100.0100, L500.4050, L506.1001, L501.9985, L300.3900 ####[facility] [address] [place], [address] Hematocrit (Bld) [Volume fraction] 40.6 % Normal 37-47 [facility] Comment on above: Performed By: #### L 501.9520, L500.4100, L100.0100, L500.4050, L506.1001, L501.9985, L300.3900 ####[facility] [address] [place], [address] Hemoglobin (Bld) [Mass/Vol] 14.1 g/dL Normal 12.0-15.0 [facility] Comment on above: Performed By: #### L 501.9520, L500.4100, L100.0100, L500.4050, L506.1001, L501.9985, L300.3900 ####[facility] [address] [place], [address] IG% 0.300 Normal 0.0-0.9 [facility] Comment on above: Result Comment: IG% - Immature Granulocytes (promyelocytes, myelocytes and metamyelocytes) > 1% indicates that a LEFT SHIFT is Present. Performed By: #### L 501.9520, L500.4100, L100.0100, L500.4050, L506.1001, L501.9985, L300.3900 ####[facility] [address] [place], [address] Lymphocytes/100 WBC (Bld) 38.4 % Normal 19-41 [facility] Comment on above: Performed By: #### L 501.9520, L500.4100, L100.0100, L500.4050, L506.1001, L501.9985, L300.3900 ####[facility] [address] [place], [address] MCH (RBC) [Entitic mass] 31.2 pg Normal 27.0-32.0 [facility] Comment on above: Performed By: #### L 501.9520, L500.4100, L100.0100, L500.4050, L506.1001, L501.9985, L300.3900 ####[facility] [address] [place], [address] MCHC (RBC) [Mass/Vol] 34.7 g/dL Normal 32-36 [facility] Comment on above: Performed By: #### L 501.9520, L500.4100, L100.0100, L500.4050, L506.1001, L501.9985, L300.3900 ####[facility] [address] [place], [address] MCV (RBC) [Entitic vol] 89.8 fL Normal 81-99 [facility] Comment on above: Performed By: #### L 501.9520, L500.4100, L100.0100, L500.4050, L506.1001, L501.9985, L300.3900 ####[facility] [address] [place], [address] Monocytes/100 WBC (Bld) 6.1 % Normal 0-10 [facility] Comment on above: Performed By: #### L 501.9520, L500.4100, L100.0100, L500.4050, L506.1001, L501.9985, L300.3900 ####[facility] [address] [place], [address] Neutrophils/100 WBC (Bld) 50.6 % Normal 47-70 [facility] Comment on above: Performed By: #### L 501.9520, L500.4100, L100.0100, L500.4050, L506.1001, L501.9985, L300.3900 ####[facility] [address] [place], [address] Nucleated RBC (Bld) [#/Vol] 0 10*3/uL Normal 0-5 [facility] Comment on above: Performed By: #### L 501.9520, L500.4100, L100.0100, L500.4050, L506.1001, L501.9985, L300.3900 ####[facility] [address] [place], [address] Platelet mean volume (Bld) [Entitic vol] 11.1 fL Normal 6.2-12.0 [facility] Comment on above: Performed By: #### L 501.9520, L500.4100, L100.0100, L500.4050, L506.1001, L501.9985, L300.3900 ####[facility] [address] [place], [address] Platelets (Bld) [#/Vol] 297 10*3/uL Normal 150-450 [facility] Comment on above: Performed By: #### L 501.9520, L500.4100, L100.0100, L500.4050, L506.1001, L501.9985, L300.3900 ####[facility] [address] [place], [address] RBC (Bld) [#/Vol] 4.52 10*6/uL Normal 4.2-5.4 [facility] Comment on above: Performed By: #### L 501.9520, L500.4100, L100.0100, L500.4050, L506.1001, L501.9985, L300.3900 ####[facility] [address] [place], [address] RDW SD 37.3 fl Normal 35.1-43.9 [facility] Comment on above: Performed By: #### L 501.9520, L500.4100, L100.0100, L500.4050, L506.1001, L501.9985, L300.3900 ####[facility] [address] [place], [address] WBC (Bld) [#/Vol] 6.4 10*3/uL Normal 4.4-11.0 [facility] Comment on above: Performed By: #### L 501.9520, L500.4100, L100.0100, L500.4050, L506.1001, L501.9985, L300.3900 ####[facility] [address] [place], [place], [id number] Calculated very low density lipoprotein (VLDL) cholesterol measurementOrdered By: [facility] Kaia Luo on 07-04-2024 Calculated very low density lipoprotein (VLDL) cholesterol measurement 30 mg/dL 5-40 [facility] Carbon dioxide, total [Moles /volume] in Central venous bloodOrdered By: [facility] Kaia Luo on 07-04-2024 CO2 [Moles/Vol] 22.9 mmol/L 21.0-32.0 [facility] Chest PA and Lateralon 07-04 Chest PA and Lateral [facility] Imaging Services [address] [place] [address] Chest PA and Lateral MR#: [id number] Acct: [id number] Name: TONY PATEL Rep #: [id number] : 1970 F 53 From: Adalid Mchugh MD PCP: RED Tran, SIDING APPLICATOR-C Status: REG CLI Study: Chest PA and Lateral Date of Exam: 07/04/24 Exam# [id number] Ordering Dr: Latonia Villeda MD PROCEDURE: CHEST PA AND LATERAL 07/04/2024 REASON FOR EXAM: PRE OP TECHNIQUE: Frontal and lateral views of the chest. FINDINGS: The lungs are clear. Pulmonary vascularity appears within limits. No pleural effusion. The cardiac and mediastinal contours appear within limits. The visualized osseous structures appear within limits. RAD/Chest PA and Lateral IMPRESSION: No evidence of acute disease. Reading Location: [facility] CC: Rosy SIDING APPLICATOR-C Kaia Luo; Dr. Latonia Villeda MD Telescope Maintenance: Signed Normal [facility] Chloride assayOrdered By: CLEMENT Luo on 07-04-2024 Chloride [Moles/Vol] 104 mmol/L 98-108 [facility] Comprehensive Metabolic Prof ilon 07-04-2024 Albumin [Mass/Vol] 4.2 g/dL Normal 3.5-5.0 [facility] Comment on above: Performed By: #### L 501.9520, L500.4100, L100.0100, L500.4050, L506.1001, L501.9985, L300.3900 ####[facility] [address] [place], [place], [id number] Albumin/Globulin [Mass ratio] 1.6 {ratio} Normal 0.9-2.4 [facility] Comment on above: Performed By: #### L 501.9520, L500.4100, L100.0100, L500.4050, L506.1001, L501.9985, L300.3900 ####[facility] [address] [place], [address] ALK PHOS 80 U/L Normal 35-104 [facility] Comment on above: Performed By: #### L 501.9520, L500.4100, L100.0100, L500.4050, L506.1001, L501.9985, L300.3900 ####[facility] [address] [place], [address] ALT [Catalytic activity/Vol] 28 U/L Normal <=34 [facility] Comment on above: Performed By: #### L 501.9520, L500.4100, L100.0100, L500.4050, L506.1001, L501.9985, L300.3900 ####[facility] [address] [place], [place], [phone](090) AST [Catalytic activity/Vol] 24 U/L Normal <=31 [facility] Comment on above: Performed By: #### L 501.9520, L500.4100, L100.0100, L500.4050, L506.1001, L501.9985, L300.3900 ####[facility] [address] [place], [place], [phone] Bilirubin [Mass/Vol] 0.42 mg/dL Normal 0.00-1.30 [facility] Comment on above: Performed By: #### L 501.9520, L500.4100, L100.0100, L500.4050, L506.1001, L501.9985, L300.3900 ####[facility] [address] [place], [place], [phone](778) BUN/CRE 16.6 RATIO Normal 10-20 [facility] Comment on above: Performed By: #### L 501.9520, L500.4100, L100.0100, L500.4050, L506.1001, L501.9985, L300.3900 ####[facility] [address] [place], [address] Calcium [Mass/Vol] 9.3 mg/dL Normal 7.6-11.0 [facility] Comment on above: Performed By: #### L 501.9520, L500.4100, L100.0100, L500.4050, L506.1001, L501.9985, L300.3900 ####[facility] [address] [place], [address] Chloride [Moles/Vol] 104 mmol/L Normal 98-108 [facility] Comment on above: Performed By: #### L 501.9520, L500.4100, L100.0100, L500.4050, L506.1001, L501.9985, L300.3900 ####[facility] [address] [place], [address] CO2 [Moles/Vol] 22.9 mmol/L Normal 21.0-32.0 [facility] Comment on above: Performed By: #### L 501.9520, L500.4100, L100.0100, L500.4050, L506.1001, L501.9985, L300.3900 ####[facility] [address] [place], [address] Creatinine [Mass/Vol] 0.57 mg/dL Low 0.70-1.20 [facility] Comment on above: Performed By: #### L 501.9520, L500.4100, L100.0100, L500.4050, L506.1001, L501.9985, L300.3900 ####[facility] [address] [place], [address] GAP 11 Normal 5-15 [facility] Comment on above: Performed By: #### L 501.9520, L500.4100, L100.0100, L500.4050, L506.1001, L501.9985, L300.3900 ####[facility] [address] [place], [address] GFR/1.73 sq M.predicted among non-blacks MDRD (S/P/Bld) [Vol rate/Area] 108 mL/min/{1.73_m2} Normal >60 [facility] Comment on above: Result Comment: mL/m in/1.73m2 CKD-EPI Creatinine Equation (2020) Performed By: #### L 501.9520, L500.4100, L100.0100, L500.4050, L506.1001, L501.9985, L300.3900 ####[facility] [address] [place], [address] Globulin (S) [Mass/Vol] 2.7 g/dL Normal 2.2-4.2 [facility] Comment on above: Performed By: #### L 501.9520, L500.4100, L100.0100, L500.4050, L506.1001, L501.9985, L300.3900 ####[facility] [address] [place], [address] Glucose [Mass/Vol] 121 mg/dL High 70-99 [facility] Comment on above: Performed By: #### L 501.9520, L500.4100, L100.0100, L500.4050, L506.1001, L501.9985, L300.3900 ####[facility] [address] [place], [address] Potassium [Moles/Vol] 3.9 mmol/L Normal 3.3-5.1 [facility] Comment on above: Performed By: #### L 501.9520, L500.4100, L100.0100, L500.4050, L506.1001, L501.9985, L300.3900 ####[facility] [address] [place], [address] Sodium [Moles/Vol] 138 mmol/L Normal 133-145 [facility] Comment on above: Performed By: #### L 501.9520, L500.4100, L100.0100, L500.4050, L506.1001, L501.9985, L300.3900 ####[facility] [address] [place], [address] T PROT 6.9 g/dL Normal 5.9-8.4 [facility] Comment on above: Performed By: #### L 501.9520, L500.4100, L100.0100, L500.4050, L506.1001, L501.9985, L300.3900 ####[facility] [address] [place], [address] Urea nitrogen [Mass/Vol] 9 mg/dL Normal 4-19 [facility] Comment on above: Performed By: #### L 501.9520, L500.4100, L100.0100, L500.4050, L506.1001, L501.9985, L300.3900 ####[facility] [address] [place], [address] Eosinophil percentageOrdered By: [facility] Kaia Luo on 07-04-2024 Eosinophils/100 WBC (Bld) 4.1 % 0-5 [facility] Erythrocyte distribution wid th ratioOrdered By: [facility] Kaia Luo on 07-04-2024 Erythrocyte distribution width (RBC) [Ratio] 11.5 % Low 11.6-14.6 [facility] Erythrocyte distribution wid th standard deviationOrdered By: [facility] Kaia Luo on 07-04-2024 Erythrocyte distribution width (RBC) [Ratio] 37.3 fl 35.1-43.9 [facility] Glomerular filtration rate ( GFR) estimation/1.73 sq m using serum, plasma, or whole bOrdered By: [facility] Kaia Luo on 07-04-2024 GFR/1.73 sq M.predicted among non-blacks MDRD (S/P/Bld) [Vol rate/Area] 108 mL/min/{1.73_m2} >60 [facility] Comment on above: mL/min/1.73m2 CKD-EP I Creatinine Equation (2020) Hematocrit Auto (Bld) [Volum e fraction]Ordered By: [facility] Kaia Luo on 07-04-2024 Hematocrit (Bld) [Volume fraction] 40.6 % 37-47 [facility] Hemoglobin A1con 07-04-2024 HbA1c (Bld) [Mass fraction] 5.7 % Normal <=5.6 [facility] Comment on above: Result Comment: Norm al < 5.7 % Prediabetic 5.7 - 6.4 % Diabetic >or= 6.5 % Please note range changes. Performed By: #### L 501.9520, L500.4100, L100.0100, L500.4050, L506.1001, L501.9985, L300.3900 ####[facility] [address] [place], [place], [address] Hemoglobin A1c percentageOrd ered By: [facility] Kaia Luo on 07-04-2024 HbA1c (Bld) [Mass fraction] 5.7 % <5.7 [facility] Comment on above: Normal < 5.7 % Predi abetic 5.7 - 6.4 % Diabetic >or= 6.5 % Please note range changes. Hemoglobin measurementOrdere d By: [facility] Kaia Luo on 07-04-2024 Hemoglobin (Bld) [Mass/Vol] 14.1 g/dL 12.0-15.0 [facility] Immature granulocytes/100 WB C Auto (Bld)Ordered By: [facility] Kaia Luo on 07-04-2024 Immature granulocytes/100 WBC (Bld) 0.300 % 0.0-0.9 [facility] Comment on above: IG% - Immature Granu locytes (promyelocytes, myelocytes and metamyelocytes) > 1% indicates that a LEFT SHIFT is Present. International normalized rat io (INR) calculationOrdered By: [facility] Kaia Luo on 07-04-2024 INR Coag (Bld) [Relative time] 1.0 {INR} [facility] LDL calc ser/plasOrdered By: [facility] Kaia Luo on 07-04-2024 Cholesterol in LDL [Mass/Vol] 109 mg/dL [facility] Comment on above: Cpkkxffgfl=674-035 m g/dL & Higher Wqkt=962 mg/dL or greater Laboratory - Chemistry and C hemistry - challengeOrdered By: [facility] Kaiakeegan Luo on 07-04-2024 AST [Catalytic activity/Vol] 24 U/L <32 [facility] Lipid Profileon 07-04-2024 CHOL:HDL 4.05 Normal [facility] Comment on above: Performed By: #### L 501.9520, L500.4100, L100.0100, L500.4050, L506.1001, L501.9985, L300.3900 ####[facility] [address] [place], [address] Cholesterol [Mass/Vol] 184 mg/dL Normal <=200 [facility] Comment on above: Result Comment: Chol esterol level, Desirable <200 mg/dL Borderline high cholesterol 200-239 mg/dL High cholesterol >=240 mg/dL Recommendations of the NCEP Adult Treatment Panel for the following risk-cutoff thresholds for the [place] population. Performed By: #### L 501.9520, L500.4100, L100.0100, L500.4050, L506.1001, L501.9985, L300.3900 ####[facility] [address] [place], [address] Cholesterol in HDL [Mass/Vol] 45 mg/dL Normal [facility] Comment on above: Result Comment: Berenice onal Cholesterol Education Program (NCEP) guidelines: <40 mg/dL: Low HDL-cholesterol (major risk factor for CHD) >= 60 mg/dL: High HDL-cholesterol (negative risk factor for CHD) HDL-cholesterol is affected by a number of factors, e.g. smoking, exercise, hormones, sex and age. Performed By: #### L 501.9520, L500.4100, L100.0100, L500.4050, L506.1001, L501.9985, L300.3900 ####[facility] [address] [place], [place], [phone](111) Cholesterol in LDL [Mass/Vol] 109 mg/dL Normal [facility] Comment on above: Result Comment: Bord gklymw=361-550 mg/dL Higher Ixgl=217 mg/dL or greater Performed By: #### L 501.9520, L500.4100, L100.0100, L500.4050, L506.1001, L501.9985, L300.3900 ####[facility] [address] [place], [place], [phone](109) Cholesterol in VLDL [Mass/Vol] 30 mg/dL Normal 5-40 [facility] Comment on above: Performed By: #### L 501.9520, L500.4100, L100.0100, L500.4050, L506.1001, L501.9985, L300.3900 ####[facility] [address] [place], [address] Triglyceride [Mass/Vol] 149 mg/dL Normal [facility] Comment on above: Result Comment: The drugs N-Acetylcysteine and Metamizole may falsely depress this assay. Normal range: <150 mg/dL Borderline High: 150-199 mg/dL High: 200-499 mg/dL Very High: >500 mg/dL Performed By: #### L 501.9520, L500.4100, L100.0100, L500.4050, L506.1001, L501.9985, L300.3900 ####[facility] [address] [place], [address] MCV (mean corpuscular volume ) determinationOrdered By: Rosy Luo on 07-04-2024 MCV (RBC) [Entitic vol] 89.8 fL 81-99 [facility] Mean corpuscular hemoglobin (MCH) determinationOrdered By: [facility] Kaia Luo on 07-04-2024 MCH (RBC) [Entitic mass] 31.2 pg 27.0-32.0 [facility] Mean corpuscular hemoglobin concentration (MCHC) determinationOrdered By: [facility] Kaia Luo on 07-04-2024 MCHC (RBC) [Mass/Vol] 34.7 g/dL 32-36 [facility] Mean platelet volume determi nationOrdered By: [facility] Kaia Luo on 07-04-2024 Platelet mean volume (Bld) [Entitic vol] 11.1 fL 6.2-12.0 [facility] Monocyte percentageOrdered B y: [facility] Kaiakeegan Luo on 07-04-2024 Monocytes/100 WBC (Bld) 6.1 % 0-10 [facility] Neutrophil percentageOrdered By: [facility] Kaia Luo on 07-04-2024 Neutrophils/100 WBC (Bld) 50.6 % 47-70 [facility] Nucleated red blood cell per centageOrdered By: [facility] Kaia Luo on 07-04-2024 Nucleated RBC/100 WBC (Bld) [Ratio] 0 % 0-5 [facility] Platelet countOrdered By: [facility] Kaia Luo on 07-04-2024 Platelets (Bld) [#/Vol] 297 10*3/uL 150-450 [facility] Potassium measurement (mass/ volume)Ordered By: [facility] Kaia Luo on 07-04-2024 Potassium (Unsp spec) [Mass/Vol] 3.9 mmol/L 3.3-5.1 [facility] Prothrombin Time w/INRon INR Coag (PPP) [Relative time] 1.0 {INR} Normal [facility] Comment on above: Performed By: #### L 501.9520, L500.4100, L100.0100, L500.4050, L506.1001, L501.9985, L300.3900 ####[facility] [address] [place], [place], [phone] PT Coag (PPP) [Time] 13.7 s Normal 11.7-14.9 [facility] Comment on above: Performed By: #### L 501.9520, L500.4100, L100.0100, L500.4050, L506.1001, L501.9985, L300.3900 ####[facility] [address] [place], [address] Prothrombin timeOrdered By: [facility] Kaia Luo on 07-04-2024 PT Coag (PPP) [Time] 13.7 s 11.7-14.9 [facility] RBC Auto (Bld) [#/Vol]Ordere d By: [facility] Kaia Luo on 07-04-2024 RBC (Bld) [#/Vol] 4.52 10*6/uL 4.2-5.4 [facility] Screening total cholesterol/ high density lipoprotein (HDL) cholesterol ratioOrdered By: [facility] Kaia Lou on 07-04-2024 Cholesterol.total/Mellisa sterol in HDL [Mass ratio] 4.05 {ratio} [facility] Serum creatinine measurement (mass/volume)Ordered By: [facility] Kaia Lou on 07-04-2024 Creatinine [Mass/Vol] 0.57 mg/dL Low 0.70-1.20 [facility] Serum globulin measurementOr dered By: [facility] Kaia Luo on 07-04-2024 Globulin (S) [Mass/Vol] 2.7 g/dL 2.2-4.2 [facility] Serum glucose measurement (m ass/volume)Ordered By: [facility] Kaia Luo on 07-04-2024 Glucose [Mass/Vol] 121 mg/dL High 70-99 [facility] Serum or plasma alanine chauhan otransferase (ALT) measurementOrdered By: [facility] Kaia Luo on 07-04-2024 ALT [Catalytic activity/Vol] 28 U/L <35 [facility] Serum or plasma albumin roque urement (mass/volume)Ordered By: [facility] Kaia Luo on 07-04-2024 Albumin [Mass/Vol] 4.2 g/dL 3.5-5.0 [facility] Serum or plasma albumin/glob ulin mass ratioOrdered By: [facility] Kaia Luo on 07-04-2024 Albumin/Globulin [Mass ratio] 1.6 {ratio} 0.9-2.4 [facility] Serum or plasma alkaline yael sphatase measurementOrdered By: [facility] Kaia Luo on 07-04-2024 ALP [Catalytic activity/Vol] 80 U/L 35-104 [facility] Serum or plasma calcium roque urement (mass/volume)Or[facility] By: [facility] on 07-04-2024 Calcium [Mass/Vol] 9.3 mg/dL 7.6-11.0 [facility] Serum or plasma cholesterol in HDL measurement (mass/volume)Ordered By: [facility] Lu[facility] on 07-04-2024 Cholesterol in HDL [Mass/Vol] 45 mg/dL >40 [facility] Comment on above: National Cholesterol Education Program (NCEP) guidelines:<40 mg/dL: Low HDL-cholesterol (major risk factor for CHD)>= 60 mg/dL: High HDL-cholesterol (negative risk factor for CHD)HDL-cholesterol is affected by a number of factors, e.g. smoking, exercise, hormones, sex and age. Serum or plasma cholesterol measurement (mass/volume)Ordered By: [facility] on 07-04-2024 Cholesterol [Mass/Vol] 184 mg/dL <201 [facility] Comment on above: Cholesterol level, D esirable <200 mg/dLBorderline high cholesterol 200-239 mg/dLHigh cholesterol >=240 mg/dLRecommendations of the NCEP Adult Treatment Panel for the following risk-cutoff thresholds for the [place] population. Serum or plasma urea nitroge n measurement (mass/volume)Ordered By: [facility] Kaia Luo on 07-04-2024 Urea nitrogen [Mass/Vol] 9 mg/dL 4-19 [facility] Sodium levelOrdered By: [facility] on 07-04-2024 Sodium [Moles/Vol] 138 mmol/L 133-145 [facility] TSH DL <= 0.005 mIU/L QnOrde red By: [facility] Kaia Luo on 07-04-2024 TSH Qn 1.770 uIU/mL 0.300-4.200 [facility] Thyroid Stim Hormone (TSH)on 07-04-2024 TSH 1.770 uIU/mL Normal 0.300-4.200 [facility] Comment on above: Performed By: #### L 501.9520, L500.4100, L100.0100, L500.4050, L506.1001, L501.9985, L300.3900 ####[facility] [address] [place], [address] Total proteinOrdered By: [facility] Kaia Luo on 07-04-2024 Protein [Mass/Vol] 6.9 g/dL 5.9-8.4 [facility] Triglycerides measurementOrd ered By: [facility] Kaia Luo on 07-04-2024 Triglyceride [Mass/Vol] 149 mg/dL <199 [facility] Comment on above: The drugs N-Acetylcy steine and Metamizole may falsely depress this assay. Normal range: <150 mg/dLBorderline High: 150-199 mg/dLHigh: 200-499 mg/dLVery High: >500 mg/dL Vitamin D,25 Hydroxyon 07-04 Vitamin D 25-OH 18.8 ng/mL Low 30-100 [facility] Comment on above: Result Comment: [place] min D Status Deficiency: <20 ng/mL (50nmol/L) Insufficiency: 20-30 ng/mL (50-75 nmol/L) Sufficiency: 30-100 ng/mL (75-250 nmol/L) Toxicity: >100 ng/mL (>250 nmol/L) Performed By: #### L 501.9520, L500.4100, L100.0100, L500.4050, L506.1001, L501.9985, L300.3900 ####[facility] [address] [place], [address] White blood cell (WBC) count Ordered By: [facility] Kaia Luo on 07-04-2024 WBC (Bld) [#/Vol] 6.4 10*3/uL 4.4-11.0 [facility] ANTINUCLEAR ANTIBODIES DIREC Ton 06-15-2024 ANDREW,DIRECT Negative Normal Negative [facility] Comment on above: Result Comment: Perf ormed at: - [facility], [place] [id number] Psychiatric Nurse: Boogie Hinds PhD, Phone: [phone] Performed By: #### L 3890.6202, L3890.6301, L3100.5475, L505.7010, L101.9900, L500.4050, L4600.0100, L3890.6102, L501.6710, L100.0100 ####[facility] [address] [facility] [place], [address] CCP IgG Antibodieson 025 CCP IgG Ab. 11 units Normal 0-19 [facility] Comment on above: Result Comment: Nega tive <20 Weak positive 20 - 39 Moderate positive 40 - 59 Strong positive >59 Performed at: [facility] [id number] Psychiatric Nurse: Boogie Hinds PhD, Phone: [phone] Performed By: #### L 3890.6202, L3890.6301, L3100.5475, L505.7010, L101.9900, L500.4050, L4600.0100, L3890.6102, L501.6710, L100.0100 ####[facility] [address] [facility] [place], [address] Absolute lymphocyte countOrd ered By: Latonia Villeda on 06-13-2024 Lymphocytes Auto (Unsp spec) [#/Vol] 2.24 10*3/uL 0.83-4.51 [facility] Absolute neutrophil countOrd ered By: Latonia Villeda on 06-13-2024 Neutrophils (Bld) [#/Vol] 3.4 10*3/uL 2.0-7.7 [facility] Anion gap in Serum or Plasma Ordered By: Latonia Villeda on 06-13-2024 Anion gap [Moles/Vol] 15 mmol/L 5-15 [facility] Automated lymphocyte count a s percentage of total leukocytesOrdered By: Latonia Villeda on 06-13-2024 Lymphocytes/100 WBC Auto (Unsp spec) 35.5 % 19-41 [facility] BUN/creatinine ratioOrdered By: Latoniacindi Tijerinaelayne on 06-13-2024 Urea nitrogen/Creatinine [Mass ratio] 14.9 mg/mg 10- [facility] Basophil percentageOrdered B y: Latonia Christiana on 06-13-2024 Basophils/100 WBC (Bld) 0.6 % 0-1 [facility] Bilirubin, totalOrdered By: Latonia Villeda on 06-13-2024 Bilirubin [Mass/Vol] 0.47 mg/dL 0.00-1.30 [facility] CBC W/Diff, Automatedon 05-18 Absolute Lymph 2.24 X10 3/uL Normal 0.83-4.51 [facility] Comment on above: Performed By: #### L 3890.6202, L3890.6301, L3100.5475, L505.7010, L101.9900, L500.4050, L4600.0100, L3890.6102, L501.6710, L100.0100 ####[facility] [address] [place], [address] Absolute Neut 3.4 X10 3/uL Normal 2.0-7.7 [facility] Comment on above: Performed By: #### L 3890.6202, L3890.6301, L3100.5475, L505.7010, L101.9900, L500.4050, L4600.0100, L3890.6102, L501.6710, L100.0100 ####[facility] [address] [place], [address] Basophils/100 WBC (Bld) 0.6 % Normal 0-1 [facility] Comment on above: Performed By: #### L 3890.6202, L3890.6301, L3100.5475, L505.7010, L101.9900, L500.4050, L4600.0100, L3890.6102, L501.6710, L100.0100 ####[facility] [address] [place], [address] Eosinophils/100 WBC (Bld) 3.2 % Normal 0-5 [facility] Comment on above: Performed By: #### L 3890.6202, L3890.6301, L3100.5475, L505.7010, L101.9900, L500.4050, L4600.0100, L3890.6102, L501.6710, L100.0100 ####[facility] [address] [place], [address] Erythrocyte distribution width (RBC) [Ratio] 11.5 % Low 11.6-14.6 [facility] Comment on above: Performed By: #### L 3890.6202, L3890.6301, L3100.5475, L505.7010, L101.9900, L500.4050, L4600.0100, L3890.6102, L501.6710, L100.0100 ####[facility] [address] [place], [place], [phone]) Hematocrit (Bld) [Volume fraction] 41.3 % Normal 37-47 [facility] Comment on above: Performed By: #### L 3890.6202, L3890.6301, L3100.5475, L505.7010, L101.9900, L500.4050, L4600.0100, L3890.6102, L501.6710, L100.0100 ####[facility] [address] [place], [place], [phone]) Hemoglobin (Bld) [Mass/Vol] 14.2 g/dL Normal 12.0-15.0 [facility] Comment on above: Performed By: #### L 3890.6202, L3890.6301, L3100.5475, L505.7010, L101.9900, L500.4050, L4600.0100, L3890.6102, L501.6710, L100.0100 ####[facility] [address] [place], [address] IG% 0.200 Normal 0.0-0.9 [facility] Comment on above: Result Comment: IG% - Immature Granulocytes (promyelocytes, myelocytes and metamyelocytes) > 1% indicates that a LEFT SHIFT is Present. Performed By: #### L 3890.6202, L3890.6301, L3100.5475, L505.7010, L101.9900, L500.4050, L4600.0100, L3890.6102, L501.6710, L100.0100 ####[facility] [address], [address] Lymphocytes/100 WBC (Bld) 35.5 % Normal 19-41 [facility] Comment on above: Performed By: #### L 3890.6202, L3890.6301, L3100.5475, L505.7010, L101.9900, L500.4050, L4600.0100, L3890.6102, L501.6710, L100.0100 ####[facility] [address] [facility] [place], [address] MCH (RBC) [Entitic mass] 31.1 pg Normal 27.0-32.0 [facility] Comment on above: Performed By: #### L 3890.6202, L3890.6301, L3100.5475, L505.7010, L101.9900, L500.4050, L4600.0100, L3890.6102, L501.6710, L100.0100 ####[facility] [address] [place], [address] MCHC (RBC) [Mass/Vol] 34.4 g/dL Normal 32-36 [facility] Comment on above: Performed By: #### L 3890.6202, L3890.6301, L3100.5475, L505.7010, L101.9900, L500.4050, L4600.0100, L3890.6102, L501.6710, L100.0100 ####[facility] [address] [facility] [place], [address] MCV (RBC) [Entitic vol] 90.6 fL Normal 81-99 [facility] Comment on above: Performed By: #### L 3890.6202, L3890.6301, L3100.5475, L505.7010, L101.9900, L500.4050, L4600.0100, L3890.6102, L501.6710, L100.0100 ####[facility] [address] [facility] [place], [address] Monocytes/100 WBC (Bld) 6.8 % Normal 0-10 [facility] Comment on above: Performed By: #### L 3890.6202, L3890.6301, L3100.5475, L505.7010, L101.9900, L500.4050, L4600.0100, L3890.6102, L501.6710, L100.0100 ####[facility] [address] [facility] [place], [address] Neutrophils/100 WBC (Bld) 53.7 % Normal 47-70 [facility] Comment on above: Performed By: #### L 3890.6202, L3890.6301, L3100.5475, L505.7010, L101.9900, L500.4050, L4600.0100, L3890.6102, L501.6710, L100.0100 ####[facility] [address] [facility] [place], [address] Nucleated RBC (Bld) [#/Vol] 0 10*3/uL Normal 0-5 [facility] Comment on above: Performed By: #### L 3890.6202, L3890.6301, L3100.5475, L505.7010, L101.9900, L500.4050, L4600.0100, L3890.6102, L501.6710, L100.0100 ####[facility] [address] [place], [address]( Platelet mean volume (Bld) [Entitic vol] 11.5 fL Normal 6.2-12.0 [facility] Comment on above: Performed By: #### L 3890.6202, L3890.6301, L3100.5475, L505.7010, L101.9900, L500.4050, L4600.0100, L3890.6102, L501.6710, L100.0100 ####[facility] [address] [place], [address] Platelets (Bld) [#/Vol] 292 10*3/uL Normal 150-450 [facility] Comment on above: Performed By: #### L 3890.6202, L3890.6301, L3100.5475, L505.7010, L101.9900, L500.4050, L4600.0100, L3890.6102, L501.6710, L100.0100 ####[facility] [address] [place], [address] RBC (Bld) [#/Vol] 4.56 10*6/uL Normal 4.2-5.4 [facility] Comment on above: Performed By: #### L 3890.6202, L3890.6301, L3100.5475, L505.7010, L101.9900, L500.4050, L4600.0100, L3890.6102, L501.6710, L100.0100 ####[facility] [address] [place], [address]( RDW SD 37.9 fl Normal 35.1-43.9 [facility] Comment on above: Performed By: #### L 3890.6202, L3890.6301, L3100.5475, L505.7010, L101.9900, L500.4050, L4600.0100, L3890.6102, L501.6710, L100.0100 ####[facility] [address] [place], [place], [phone] WBC (Bld) [#/Vol] 6.3 10*3/uL Normal 4.4-11.0 [facility] Comment on above: Performed By: #### L 3890.6202, L3890.6301, L3100.5475, L505.7010, L101.9900, L500.4050, L4600.0100, L3890.6102, L501.6710, L100.0100 ####[facility] [address] [place], [place], [id number] CRPon 06-13-2024 C-REACTIVE PROT < 3.00 Normal 0.0-3.0 [facility] Comment on above: Performed By: #### L 3890.6202, L3890.6301, L3100.5475, L505.7010, L101.9900, L500.4050, L4600.0100, L3890.6102, L501.6710, L100.0100 ####[facility] [address] [place], [place], [phone] Carbon dioxide, total [Moles /volume] in Central venous bloodOrdered By: Latonia Villeda on 06-13-2024 CO2 [Moles/Vol] 22.5 mmol/L 21.0-32.0 [facility] Chloride assayOrdered By: Felisa Villeda on 06-13-2024 Chloride [Moles/Vol] 103 mmol/L 98-108 [facility] Comprehensive Metabolic Prof ilon 06-13-2024 Albumin [Mass/Vol] 4.4 g/dL Normal 3.5-5.0 [facility] Comment on above: Performed By: #### L 3890.6202, L3890.6301, L3100.5475, L505.7010, L101.9900, L500.4050, L4600.0100, L3890.6102, L501.6710, L100.0100 ####[facility] [address] [place], [place], [phone](002) Albumin/Globulin [Mass ratio] 1.6 {ratio} Normal 0.9-2.4 [facility] Comment on above: Performed By: #### L 3890.6202, L3890.6301, L3100.5475, L505.7010, L101.9900, L500.4050, L4600.0100, L3890.6102, L501.6710, L100.0100 ####[facility] [address] [place], [place], [phone](457) ALK PHOS 84 U/L Normal 35-104 [facility] Comment on above: Performed By: #### L 3890.6202, L3890.6301, L3100.5475, L505.7010, L101.9900, L500.4050, L4600.0100, L3890.6102, L501.6710, L100.0100 ####[facility] [address] [place], [place], [phone](075) ALT [Catalytic activity/Vol] 39 U/L High <=34 [facility] Comment on above: Performed By: #### L 3890.6202, L3890.6301, L3100.5475, L505.7010, L101.9900, L500.4050, L4600.0100, L3890.6102, L501.6710, L100.0100 ####[facility] [address] [place], [place], [phone](137) AST [Catalytic activity/Vol] 30 U/L Normal <=31 [facility] Comment on above: Performed By: #### L 3890.6202, L3890.6301, L3100.5475, L505.7010, L101.9900, L500.4050, L4600.0100, L3890.6102, L501.6710, L100.0100 ####[facility] [address] [place], [address] Bilirubin [Mass/Vol] 0.47 mg/dL Normal 0.00-1.30 [facility] Comment on above: Performed By: #### L 3890.6202, L3890.6301, L3100.5475, L505.7010, L101.9900, L500.4050, L4600.0100, L3890.6102, L501.6710, L100.0100 ####[facility] [address] [place], [address] BUN/CRE 14.9 RATIO Normal 10-20 [facility] Comment on above: Performed By: #### L 3890.6202, L3890.6301, L3100.5475, L505.7010, L101.9900, L500.4050, L4600.0100, L3890.6102, L501.6710, L100.0100 ####[facility] [address] [place], [address] Calcium [Mass/Vol] 9.6 mg/dL Normal 7.6-11.0 [facility] Comment on above: Performed By: #### L 3890.6202, L3890.6301, L3100.5475, L505.7010, L101.9900, L500.4050, L4600.0100, L3890.6102, L501.6710, L100.0100 ####[facility] [address] [place], [address] Chloride [Moles/Vol] 103 mmol/L Normal 98-108 [facility] Comment on above: Performed By: #### L 3890.6202, L3890.6301, L3100.5475, L505.7010, L101.9900, L500.4050, L4600.0100, L3890.6102, L501.6710, L100.0100 ####[facility] [address] [place], [address](659) CO2 [Moles/Vol] 22.5 mmol/L Normal 21.0-32.0 [facility] Comment on above: Performed By: #### L 3890.6202, L3890.6301, L3100.5475, L505.7010, L101.9900, L500.4050, L4600.0100, L3890.6102, L501.6710, L100.0100 ####[facility] [address] [place], [address]([phone]) Creatinine [Mass/Vol] 0.64 mg/dL Low 0.70-1.20 [facility] Comment on above: Performed By: #### L 3890.6202, L3890.6301, L3100.5475, L505.7010, L101.9900, L500.4050, L4600.0100, L3890.6102, L501.6710, L100.0100 ####[facility] [address] [place], [phone] GAP 15 Normal 5-15 [facility] Comment on above: Performed By: #### L 3890.6202, L3890.6301, L3100.5475, L505.7010, L101.9900, L500.4050, L4600.0100, L3890.6102, L501.6710, L100.0100 ####[facility] [address] [place], [phone] GFR/1.73 sq M.predicted among non-blacks MDRD (S/P/Bld) [Vol rate/Area] 105 mL/min/{1.73_m2} Normal >60 [facility] Comment on above: Result Comment: mL/m in/1.73m2 CKD-EPI Creatinine Equation (2020) Performed By: #### L 3890.6202, L3890.6301, L3100.5475, L505.7010, L101.9900, L500.4050, L4600.0100, L3890.6102, L501.6710, L100.0100 ####[facility] [address] [place], [address] Globulin (S) [Mass/Vol] 2.7 g/dL Normal 2.2-4.2 [facility] Comment on above: Performed By: #### L 3890.6202, L3890.6301, L3100.5475, L505.7010, L101.9900, L500.4050, L4600.0100, L3890.6102, L501.6710, L100.0100 ####[facility] [address] [place], [place], [phone] Glucose [Mass/Vol] 128 mg/dL High 70-99 [facility] Comment on above: Performed By: #### L 3890.6202, L3890.6301, L3100.5475, L505.7010, L101.9900, L500.4050, L4600.0100, L3890.6102, L501.6710, L100.0100 ####[facility] [address] [place], [address] Potassium [Moles/Vol] 4.5 mmol/L Normal 3.3-5.1 [facility] Comment on above: Performed By: #### L 3890.6202, L3890.6301, L3100.5475, L505.7010, L101.9900, L500.4050, L4600.0100, L3890.6102, L501.6710, L100.0100 ####[facility] [address] [place], [place], [id number] Sodium [Moles/Vol] 140 mmol/L Normal 133-145 [facility] Comment on above: Performed By: #### L 3890.6202, L3890.6301, L3100.5475, L505.7010, L101.9900, L500.4050, L4600.0100, L3890.6102, L501.6710, L100.0100 ####[facility] [address] [place], [place], [id number] T PROT 7.1 g/dL Normal 5.9-8.4 [facility] Comment on above: Performed By: #### L 3890.6202, L3890.6301, L3100.5475, L505.7010, L101.9900, L500.4050, L4600.0100, L3890.6102, L501.6710, L100.0100 ####[facility] [address] [place], [place], [id number] Urea nitrogen [Mass/Vol] 10 mg/dL Normal 4-19 [facility] Comment on above: Performed By: #### L 3890.6202, L3890.6301, L3100.5475, L505.7010, L101.9900, L500.4050, L4600.0100, L3890.6102, L501.6710, L100.0100 ####[facility] [address] [place], [place], [phone] Eosinophil percentageOrdered By: Latonia Villeda on 06-13-2024 Eosinophils/100 WBC (Bld) 3.2 % 0-5 [facility] Erythrocyte Sed Rateon 06-13 SED RATE 4 mm/hr Normal 0-30 [facility] Comment on above: Performed By: #### L 3890.6202, L3890.6301, L3100.5475, L505.7010, L101.9900, L500.4050, L4600.0100, L3890.6102, L501.6710, L100.0100 ####[facility] [address] [place], [address] Erythrocyte distribution wid th ratioOrdered By: Latonia Villeda on 06-13-2024 Erythrocyte distribution width (RBC) [Ratio] 11.5 % Low 11.6-14.6 [facility] Erythrocyte distribution wid th standard deviationOrdered By: Latonia Villeda on 06-13-2024 Erythrocyte distribution width (RBC) [Ratio] 37.9 fl 35.1-43.9 [facility] Erythrocyte sedimentation ra teOrdered By: Latonia Villeda on 06-13-2024 ESR (Bld) [Velocity] 4 mm/h 0-30 [facility] Glomerular filtration rate ( GFR) estimation/1.73 sq m using serum, plasma, or whole bOrdered By: Latoniacindi Villeda on 06-13-2024 GFR/1.73 sq M.predicted among non-blacks MDRD (S/P/Bld) [Vol rate/Area] 105 mL/min/{1.73_m2} >60 [facility] Comment on above: mL/min/1.73m2 CKD-EP I Creatinine Equation (2020) Hematocrit Auto (Bld) [Volum e fraction]Ordered By: Latonia Villeda on 06-13-2024 Hematocrit (Bld) [Volume fraction] 41.3 % 37-47 [facility] Hemoglobin measurementOrdere d By: Latonia Villeda on 06-13-2024 Hemoglobin (Bld) [Mass/Vol] 14.2 g/dL 12.0-15.0 [facility] Hepatitis B Surface Antibody on 06-13-2024 HEP B Surf Ab REAC Normal [facility] Comment on above: Result Comment: <8.5 mIU/mL: Non-Reactive 8.5<= x <11.5 mIU/mL: Indeterminate >=11.5 mIU/mL: Reactive Non Reactive: Inconsistent with immunity less than <10 mIU/mL Reactive: Consistent with immunity greater than or equal to 10 mIU/mL Performed By: #### L 3890.6202, L3890.6301, L3100.5475, L505.7010, L101.9900, L500.4050, L4600.0100, L3890.6102, L501.6710, L100.0100 ####[facility] [address] [place], [place], [id number] Hepatitis C Antibodyon 06-13 Hepatitis C Ab Non-Reactive Normal Nonreactive [facility] Comment on above: Result Comment: Reac tive: Presumptive evidence of antibodies to HCV. Follow CDC recommendations for supplemental testing. Non-Reactive: Antibodies to HCV were not detected; does not exclude the possibility of exposure to HCV Reactive Results are presumptive evidence of antibodies to HCV. Follow CDC recommendations for supplemental testing. Order confirmation testing: HCV Quant by PCR testing - HCVPCR #[id number] Non Reactive: < 0.8 Equivocal: >/= 0.8 to < 1.0 Reactive: >/= 1.0 The [facility] requires that a reactive/equivocal HCV antibody result be sent out for confirmation. HCV Quant by PCR testing. Performed By: #### L 3890.6202, L3890.6301, L3100.5475, L505.7010, L101.9900, L500.4050, L4600.0100, L3890.6102, L501.6710, L100.0100 ####[facility] [address] [place], [address] Immature granulocytes/100 WB C Auto (Bld)Ordered By: Latonia Villeda on 06-13-2024 Immature granulocytes/100 WBC (Bld) 0.200 % 0.0-0.9 [facility] Comment on above: IG% - Immature Granu locytes (promyelocytes, myelocytes and metamyelocytes) > 1% indicates that a LEFT SHIFT is Present. L3890.6102on 06-13-2024 HEP B Surf Ag Non-Reactive Normal Nonreactive [facility] Comment on above: Result Comment: Reac tive: Presumptive evidence of HBV. Repeatedly reactive samples must be confirmed using a neutralization test ([employer] HBsAg Confirmatory Test) Non-Reactive: HBsAg not detected; does not exclude the possibility of exposure to HBV Performed By: #### L 3890.6202, L3890.6301, L3100.5475, L505.7010, L101.9900, L500.4050, L4600.0100, L3890.6102, L501.6710, L100.0100 ####[facility] [address] [place], [address] Laboratory - Chemistry and C hemistry - challengeOrdered By: Latonia Villeda on 06-13-2024 AST [Catalytic activity/Vol] 30 U/L <32 [facility] Laboratory - Microbiology an d Antimicrobial susceptibilityOrdered By: Latonia Villeda on 06-13-2024 HBV surface Ag Ql (S) Non-Reactive Nonreactive [facility] Comment on above: Reactive: Presumptiv e evidence of HBV. Repeatedly reactive samples must be confirmed using a neutralization test ([employer] HBsAg Confirmatory Test)Non-Reactive: HBsAg not detected; does not exclude the possibility of exposure to HBV MCV (mean corpuscular volume ) determinationOrdered By: Latonia Villeda on 06-13-2024 MCV (RBC) [Entitic vol] 90.6 fL 81-99 [facility] Mean corpuscular hemoglobin (MCH) determinationOrdered By: Latonia Villeda on 06-13-2024 MCH (RBC) [Entitic mass] 31.1 pg 27.0-32.0 [facility] Mean corpuscular hemoglobin concentration (MCHC) determinationOrdered By: Latonia Villeda 06-13-2024 MCHC (RBC) [Mass/Vol] 34.4 g/dL 32-36 [facility] Mean platelet volume determi nationOrdered By: Latonia Villeda on 06-13-2024 Platelet mean volume (Bld) [Entitic vol] 11.5 fL 6.2-12.0 [facility] Monocyte percentageOrdered B y: Latonia Villeda on 06-13-2024 Monocytes/100 WBC (Bld) 6.8 % 0-10 [facility] Neutrophil percentageOrdered By: Latonia Villeda on 06-13-2024 Neutrophils/100 WBC (Bld) 53.7 % 47-70 [facility] Nucleated red blood cell per centageOrdered By: Latonia Villeda on 06-13-2024 Nucleated RBC/100 WBC (Bld) [Ratio] 0 % 0-5 [facility] Platelet countOrdered By: Felisa Villeda on 06-13-2024 Platelets (Bld) [#/Vol] 292 10*3/uL 150-450 [facility] Potassium measurement (mass/ volume)Ordered By: Latonia Villeda on 06-13-2024 Potassium (Unsp spec) [Mass/Vol] 4.5 mmol/L 3.3-5.1 [facility] RBC Auto (Bld) [#/Vol]Ordere d By: Latonia Villeda on 06-13-2024 RBC (Bld) [#/Vol] 4.56 10*6/uL 4.2-5.4 [facility] Rheumatoid Factoron 06-14-19 25 RHEUMATOID FAC < 10.0 Normal <15 [facility] Comment on above: Performed By: #### L 3890.6202, L3890.6301, L3100.5475, L505.7010, L101.9900, L500.4050, L4600.0100, L3890.6102, L501.6710, L100.0100 ####[facility] [address] [place], [place], [phone] Serum creatinine measurement (mass/volume)Ordered By: Latonia Villeda on 06-13-2024 Creatinine [Mass/Vol] 0.64 mg/dL Low 0.70-1.20 [facility] Serum globulin measurementOr dered By: Latonia Villeda on 06-13-2024 Globulin (S) [Mass/Vol] 2.7 g/dL 2.2-4.2 [facility] Serum glucose measurement (m ass/volume)Ordered By: Latonia Villeda on 06-13-2024 Glucose [Mass/Vol] 128 mg/dL High 70-99 [facility] Serum hepatitis B virus surf irma antibody detectionOrdered By: Latonia Villeda on 06-13-2024 HBV surface Ab Ql (S) REAC [facility] Comment on above: <8.5 mIU/mL: Non-Cornelia ctive8.5<= x <11.5 mIU/mL: Indeterminate>=11.5 mIU/mL: Reactive Non Reactive: Inconsistent with immunity less than <10 mIU/mL Reactive: Consistent with immunity greater than or equal to 10 mIU/mL Serum or plasma C reactive p rotein measurement (mass/volume)Ordered By: Latonia Villeda on 06-13-2024 CRP [Mass/Vol] mg/L 0.0-3.0 [facility] Serum or plasma alanine chauhan otransferase (ALT) measurementOrdered By: Latonia Villeda on 06-13-2024 ALT [Catalytic activity/Vol] 39 U/L High <35 [facility] Serum or plasma albumin roque urement (mass/volume)Ordered By: Latonia Villeda on 06-13-2024 Albumin [Mass/Vol] 4.4 g/dL 3.5-5.0 [facility] Serum or plasma albumin/glob ulin mass ratioOrdered By: Latonia Villeda on 06-13-2024 Albumin/Globulin [Mass ratio] 1.6 {ratio} 0.9-2.4 [facility] Serum or plasma alkaline yael sphatase measurementOrdered By: Latonia Villeda on 06-13-2024 ALP [Catalytic activity/Vol] 84 U/L 35-104 [facility] Serum or plasma calcium roque urement (mass/volume)Ordered By: Latonia Villeda on 06-13-2024 Calcium [Mass/Vol] 9.6 mg/dL 7.6-11.0 [facility] Serum or plasma cyclic citru llinated peptide IgG antibody assay (units/volume)Ordered By: Latonia Villeda on 06-13-2024 Cyclic citrullinated peptide IgG Qn 11 units 0-19 [facility] Comment on above: Negative <20 Weak po sitive 20 - 39 Moderate positive 40 - 59 Strong positive >59Performed at: [facility] [address] [id number] Director: Boogie Hinds PhD, Phone: [phone] Serum or plasma urea nitroge n measurement (mass/volume)Ordered By: Latonia Villeda on 04-28-2025 Urea nitrogen [Mass/Vol] 10 mg/dL 4-19 [facility] Serum rheumatoid factor dete ctionOrdered By: Latonia Villeda on 06-13-2024 Rheumatoid factor Ql (S) < 10.0 IU/mL <15 [facility] Sodium levelOrdered By: Ricardo Villeda on 06-13-2024 Sodium [Moles/Vol] 140 mmol/L 133-145 [facility] Total proteinOrdered By: Kervin Villeda on 06-13-2024 Protein [Mass/Vol] 7.1 g/dL 5.9-8.4 [facility] White blood cell (WBC) count Ordered By: Latonia Villeda on 06-13-2024 WBC (Bld) [#/Vol] 6.3 10*3/uL 4.4-11.0 [facility] Orthopedic Visit Reporton Orthopedic Visit Report [facility] [address] [place] [address] [address] [place] [address] OFFICE VISIT Date of Service: 06/03/24 MR#: [id number] Acct: [id number] Name: TONY PATEL Rep #: [id number] : 1970 Provider: Dr. Joaquín Calix MD Age/Sex: 53/F Location: [facility] Status: Signed Intake Vital Signs 05/04/24 10:30 05/18/24 10:15 Height 5 ft 5 in 5 ft 5 in Weight: 260 lb BMI 43.2 Intake Visit Reasons: LUMBAR SPINE Chief Complaint: lumbar spine Is patient in pain?: Yes (low back ) Pain scale (1-10): 6 Allergies Penicillins Allergy (Verified 06/03/24 09:59) Hives Medications ???Medication ???Instructions ???Recorded ???Confirmed ???Type lamotrigine 100 mg tablet 150 mg PO DAILY 06/04/20 05/18/24 History (Lamictal) gabapentin 300 mg capsule 300 mg PO QHS #30 caps 05/24/22 Rx duloxetine 30 mg capsule,delayed mg PO 03/15/24 05/18/24 History release tizanidine 4 mg tablet mg PO 03/15/24 05/18/24 History diclofenac potassium 25 mg tablet mg PO 06/03/24 06/03/24 History PFSH Medical History DDD (degenerative disc disease), lumbar HNP (herniated nucleus pulposus), lumbar Wears glasses Depression Arthritis Smoker Pelvic pain Genital herpes Ovarian cyst CHI (closed head injury) Abnormal uterine bleeding (AUB) Cervical stenosis (uterine cervix) PTSD (post-traumatic stress disorder) Surgical History History of robot-assisted laparoscopic hysterectomy ( 06/25/21) Status post hysterectomy exam under anesthesia Family History Mother Diabetes Social History Smoking Status: Current every day smoker tobacco type: cigarettes second hand exposure: Yes alcohol intake: never substance use type: does not use seatbelt use: always do you feel safe at home: Yes HPI LUMBAR SPINE Chief Complaint: lumbar spine Details: This documentation accurately reflects the service provided and the decisions made by me, Dr. Joaquín Calix MD 06/03/24 8631. Part of today???s visit was documented by Kristen WATERS, acting as scribe. TONY PATEL is a 53 year old F here today to discuss surgery. She continues to experience centralized low back and bilateral leg pain. She states her legs feel weak at times with ambulation. Patient continues to c/o pain throughout her entire lower extremities sometimes the pain is worse in the groin. She recently had bilateral knee injections with Dr. Mackenzie. She says that she gets a burning pain sensation in her midline back. She does continue to say that she has issues with standing for extended periods. She recently had an injection with Dr. Marino to help with her pain while waiting for surgery. Over that past few years she had had about [address] Marino. She does get a lot of radiating pain over her anterior thighs bilaterally. Right now she is having more pain in her back than her knees. She did have gel injections for her knees with Dr. Bolanos. She can typically walk for 20 minutes before having to stop and take a break. She did have a hysterectomy 4 years ago as she had cancer. 04/22/24: TONY PATEL is a 53 year old F here today for lumbar spine MRI review. She continues to experience centralized low back pain. She also complains of bilateral leg pain. She states her legs feel weak at times with ambulation. She did follow up with Dr. Marino after her last visit with us but did not have any injections. She would like to discuss MRI results and next steps. Patient says that she continues to have pain throughout her entire lower extremity sometimes the pain is worse in the groin and other times it is worse in her knees. She says that she gets a burning pain sensation in her midline back. She does continue to say that she has issues with standing for extended period of time especially when in the kitchen. She relies on a shopping cart to lean on when at the grocery store. HPI from 03/15/24: TONY PATEL is a 53 year old F here today for lumbar spine pain. Patient rates her pain a 5/10 today. Patient states the lumbar spine has been going on for a couple years. She describes the pain centrally along the lumbar spine. She states most days she is unable to stand up straight due to the pain. She does see group care worker and she was told she has deterioration in her lumbar spine. She says that her walking distance has decreased over the last 6 months and that she is only able to walk several blocks at a time before she needs to rest due to pain. She says that she relies on a shopping cart to lean on when grocery shopping (more content not included)... Normal [facility] Orthopedic Visit Reporton Orthopedic Visit Report [facility] [address] [place] [address] OFFICE VISIT Date of Service: 05/18/24 MR#: [id number] Acct: [id number] Name: TONY PATEL Rep #: [id number] : 1970 Provider: Dr. Sukh ramos DO Age/Sex: 53/F Location: [facility] Status: Signed Intake Vital Signs 05/04/24 10:30 05/18/24 10:15 Height 5 ft 5 in 5 ft 5 in Weight: 269 lb 6 oz 260 lb BMI 44.8 43.2 Intake Visit Reasons: BILATERAL KNEES Chief Complaint: 3rd Euflexxa BL knee Accompanied by: Self Is patient in pain?: No Allergies Penicillins Allergy (Verified 05/18/24 10:21) Hives Medications ???Medication ???Instructions ???Recorded ???Confirmed ???Type lamotrigine 100 mg tablet 150 mg PO DAILY 06/04/20 05/18/24 History (Lamictal) gabapentin 300 mg capsule 300 mg PO QHS #30 caps 05/24/22 Rx duloxetine 30 mg capsule,delayed mg PO 03/15/24 05/18/24 History release tizanidine 4 mg tablet mg PO 03/15/24 05/18/24 History etodolac 500 mg tablet 500 mg PO BID #60 tabs 05/04/24 Rx sertraline 150 mg capsule 150 mg PO QDAY 05/18/24 05/18/24 H istory Have you fallen in the past year?: No PFSH Medical History DDD (degenerative disc disease), lumbar HNP (herniated nucleus pulposus), lumbar Wears glasses Depression Arthritis Smoker Pelvic pain Genital herpes Ovarian cyst CHI (closed head injury) Abnormal uterine bleeding (AUB) Cervical stenosis (uterine cervix) PTSD (post-traumatic stress disorder) Surgical History History of robot-assisted laparoscopic hysterectomy ( 06/25/21) Status post hysterectomy exam under anesthesia Family History Mother Diabetes Social History Smoking Status: Current every day smoker tobacco type: cigarettes second hand exposure: Yes alcohol intake: never substance use type: does not use seatbelt use: always do you feel safe at home: Yes HPI BILATERAL KNEES Details: This documentation accurately reflects the service provided and the decisions made by me, Dr. Sukh Bolanos, DO 05/18/24824. Part of today???s visit was documented by Shivam Don MA, acting as scribe. TONY PATEL is a 53 year old F here today for 3rd Euflexxa injection in bl knee. Patient doesn't have any questions or concerns. Ortho Exam General General: Yes no acute distress and Yes well groomed Neurologic: Yes alert and Yes oriented x3 Psychologic: Yes reasonable and appropriate Right Knee Skin/Wound: No erythema, No ecchymosis and No swelling Homans Sign: No Knee ROM: Yes ROM-Extension -20 to 0 (-12) and Yes ROM-Flexion 0-140 (93) Examination: Yes Med jt line tenderness, Yes Lat jt line tenderness, No Crepitus, Yes Pain with flexion and Yes Pain with extention Stability: NML: Anterior Drawer, NML: Vince, NML: Posterior Drawer, NML: Valgus 0, NML: Valgus 30, NML: Varus 0 and NML: Varus 30 Patella Translation: 1 KNEE: No erythema or increased warmth or joint effusion there is some hypersensitivity Left Knee Skin/Wound: Yes CDI, No ecchymosis, No erythema and No swelling Homans Sign: No Knee ROM: Yes ROM-Extension -20 to 0 (-20) and Yes ROM-Flexion 0-140 (100) Examination: Yes med jt line tenderness and Yes Lat jt line tenderness Stability: NML: Anterior Drawer, NML: Posterior Drawer, NML: Valgus 30 and NML: Varus 30 Patella Translation: 1 Patella Grind: Yes KNEE: no effusion synovial hypertropphy bilateral swelling in BL feet worse on the right No erythema or increased warmth or joint effusion there is some hypersensitivity Office Procedures Euflexxa Procedure Details:: Obtained consent for injection. Under sterile conditions, injected the patients bilateral knee with 3rd Euflexxa . The patient tolerated the injection well without any noted complication. Patient should call our office if redness develops, pain worsens or if they have any concerns. Is this Buy Bill?: Yes Euflexxa Procedure Details:: Obtained consent for injection. Under sterile conditions, injected the patients left knee with 3rd Euflexxa. The patient tolerated the injection well without any noted complication. Patient should call our office if redness develops, pain worsens or if they have any concerns. Is this Buy Bill?: Yes Office Meds Euflexxa 10 mg/mL (mw 2.4-3.6 million) intra-articular syringe Performing Provider: Sukh Bolanos DO Performing Location: [facility] Administered by: Sukh Bolanos DO on 05/18/24 10:42 Dose Route Admin Location Dispensed Lot Number Expiratio (more content not included)... Normal [facility] Orthopedic Visit Reporton Orthopedic Visit Report [facility] [address] [place] [address] [address] [place] [address] OFFICE VISIT Date of Service: 05/11/24 MR#: [id number] Acct: [id number] Name: TONY PATEL Rep #: [id number] : 1970 Provider: Dr. Sukh ramos DO Age/Sex: 53/F Location: [facility] Status: Signed Intake Vital Signs 05/04/24 10:30 Height 5 ft 5 in Weight: 269 lb 6 oz BMI 44.8 Intake Visit Reasons: BILATERAL KNEES Allergies Penicillins Allergy (Verified 05/04/24 10:32) Hives Medications ???Medication ???Instructions ???Recorded ???Confirmed ???Type lamotrigine 100 mg tablet 150 mg PO DAILY 06/04/20 05/11/24 History (Lamictal) gabapentin 300 mg capsule 300 mg PO QHS #30 caps 05/24/22 Rx duloxetine 30 mg capsule,delayed mg PO 03/15/24 05/11/24 History release tizanidine 4 mg tablet mg PO 03/15/24 05/11/24 History etodolac 500 mg tablet 500 mg PO BID #60 tabs 05/04/24 Rx PFSH Medical History DDD (degenerative disc disease), lumbar HNP (herniated nucleus pulposus), lumbar Wears glasses Depression Arthritis Smoker Pelvic pain Genital herpes Ovarian cyst CHI (closed head injury) Abnormal uterine bleeding (AUB) Cervical stenosis (uterine cervix) PTSD (post-traumatic stress disorder) Surgical History History of robot-assisted laparoscopic hysterectomy ( 06/25/21) Status post hysterectomy exam under anesthesia Family History Mother Diabetes Social History Smoking Status: Current every day smoker tobacco type: cigarettes second hand exposure: Yes alcohol intake: never substance use type: does not use seatbelt use: always do you feel safe at home: Yes HPI BILATERAL KNEES Details: This documentation accurately reflects the service provided and the decisions made by me, Dr. Sukh Bolanos, DO 05/11/24 0809. Part of today???s visit was documented by Kristen WATERS, acting as scribe. TONY PATEL is a 53 year old F here today for 2nd Euflexxa injection bilateral knee. She does continue to take the Etodolac for the knee pain which she has noticed some relief with taking it. Ortho Exam General General: Yes no acute distress and Yes well groomed Neurologic: Yes alert and Yes oriented x3 Psychologic: Yes reasonable and appropriate Right Knee Skin/Wound: No erythema, No ecchymosis and No swelling Homans Sign: No Knee ROM: Yes ROM-Extension -20 to 0 (-12) and Yes ROM-Flexion 0-140 (93) Examination: Yes Med jt line tenderness, Yes Lat jt line tenderness, No Crepitus, Yes Pain with flexion and Yes Pain with extention Stability: NML: Anterior Drawer, NML: Vince, NML: Posterior Drawer, NML: Valgus 0, NML: Valgus 30, NML: Varus 0 and NML: Varus 30 Patella Translation: 1 KNEE: No erythema or increased warmth or joint effusion there is some hypersensitivity Left Knee Skin/Wound: Yes CDI, No ecchymosis, No erythema and No swelling Homans Sign: No Knee ROM: Yes ROM-Extension -20 to 0 (-20) and Yes ROM-Flexion 0-140 (100) Examination: Yes med jt line tenderness and Yes Lat jt line tenderness Stability: NML: Anterior Drawer, NML: Posterior Drawer, NML: Valgus 30 and NML: Varus 30 Patella Translation: 1 Patella Grind: Yes KNEE: no effusion synovial hypertropphy bilateral swelling in BL feet worse on the right No erythema or increased warmth or joint effusion there is some hypersensitivity Office Procedures Euflexxa Procedure Details:: Obtained consent for injection. Under sterile conditions, injected the patients bilateral knee with 20mg/2mL of Euflexxa in each knee. The patient tolerated the injection well without any noted complication. Patient should call our office if redness develops, pain worsens or if they have any concerns. Is this Buy Bill?: Yes Yes Office Meds Euflexxa 10 mg/mL (mw 2.4-3.6 million) intra-articular syringe Performing Provider: Sukh Bolanos DO Performing Location: [facility] Administered by: Sukh Bloanos DO on 05/11/24 11:46 Dose Route Admin Location Dispensed Lot Number Expiration Date NDC Man ufacturer 40 mg intra-articular bilateral knee 4 mL [id number] 02/05/25 [address]-6 F [employer] Supplemental Info 05/04/2024 x-ray left knee: Progression of her medial compartment arthrosis there is now severe degenerative degenerative change lateral compartment has moderate spurring, moderate patellofemoral spurring medial patellar facet 05/04/2024 x-ray right knee: Slight progression of knee arthrosis now moderate spurring throughout the knee there is mild approaching moderate narrowing medial and latera (more content not included)... Normal [facility] Knee 4 or More Viewson 05-04 Knee 4 or More Views [facility] Imaging Services [address] [place], [place] [id number] Knee 4 or More Views MR#: [id number] Acct: [id number] Name: TONY PATEL Rep #: [id number] : 1970 F 53 From: Alexander Davis MD PCP: Kiaa Luo [facility], SIDING APPLICATOR-C Status: DEP AMB Study: Knee 4 or More Views Date of Exam: 05/04/24 Exam# [id number] Ordering Dr: Sukh Bolanos DO PROCEDURE: KNEE 4 OR MORE VIEWS (RADKN), 05/04/2024 REASON FOR EXAM: CHRONIC PAIN, NKI TECHNIQUE: AP, lateral, AP tunnel, and sunrise views of the LEFT knee were obtained. COMPARISON: 11/04/2022 FINDINGS: Fracture/dislocation: None visible. Joint space(s): Severe loss of medial compartment joint space. Mild loss of lateral compartment joint space. Mild/moderate loss of patellofemoral compartment joint space. Mild tricompartment osteophytes and mild subchondral sclerosis. Soft tissues: Joint effusion likely present.. Foreign bodies: None visible. Bone mineralization: Demineralization. Other: None. RAD/Knee 4 or More Views IMPRESSION: 1. Demineralization without visible acute displaced fracture. 2. Medial compartment predominant osteoarthritis as detailed with likely joint effusion. Reading Location: [id number] CC: [facility] SIDING APPLICATOR-C Kaia Luo; Dr. Sukh Bolanos DO Telescope Maintenance: Signed [facility] Knee 4 or More Views [facility] Imaging Services [address] [place] [id number] Knee 4 or More Views MR#: [id number] Acct: [id number] Name: TONY PATEL Rep #: [id number] : 1970 F 53 From: Shawn tapia MD PCP: RED Tran, SIDING APPLICATOR-C Status: DEP AMB Study: Knee 4 or More Views Date of Exam: 05/04/24 Exam# [id number] Ordering Dr: Sukh Bolanos DO PROCEDURE: KNEE 4 OR MORE VIEWS 05/04/2024 REASON FOR EXAM: CHRONIC PAIN, NKI TECHNIQUE: 4 views of the right knee COMPARISON: None FINDINGS: Bones: No fracture. No suspicious bone lesion. Joints: Mild degree of joint space narrowing involving the medial and lateral compartments of knee joint as well as the patellofemoral joint. Effusion: No effusion. Soft tissues: Soft tissues are unremarkable. RAD/Knee 4 or More Views IMPRESSION: Mild degree of tricompartmental joint space narrowing and osteoarthritis. Reading Location: [facility] CC: [facility] SIDING APPLICATOR-C Kaia Luo; Dr. Sukh Bolanos DO Telescope Maintenance: Signed [facility] Orthopedic Visit Reporton Orthopedic Visit Report [facility] [address] [place] [address] OFFICE VISIT Date of Service: 05/04/24 MR#: [id number] Acct: [id number] Name: TONY PATEL Rep #: [id number] : 1970 Provider: Dr. Sukh Tai so, DO Age/Sex: 53/F Location: [facility] Status: Signed Intake Vital Signs 03/15/24 14:00 05/04/24 10:30 Height 5 ft 5 in 5 ft 5 in Weight: 269 lb 6 oz BMI 44.8 Intake Visit Reasons: BL KNEES Chief Complaint: Lumbar Spine MRI Review Accompanied by: Self Is patient in pain?: Yes Pain scale (1-10): 7 Allergies Penicillins Allergy (Verified 05/04/24 10:32) Hives Medications ???Medication ???Instructions ???Recorded ???Confirmed ???Type lamotrigine 100 mg tablet 150 mg PO DAILY 06/04/20 05/04/24 History (Lamictal) gabapentin 300 mg capsule 300 mg PO QHS #30 caps 05/24/22 Rx duloxetine 30 mg capsule,delayed mg PO 03/15/24 05/04/24 History release tizanidine 4 mg tablet mg PO 03/15/24 05/04/24 History etodolac 500 mg tablet 500 mg PO BID #60 tabs 05/04/24 Rx PFSH Medical History DDD (degenerative disc disease), lumbar HNP (herniated nucleus pulposus), lumbar Wears glasses Depression Arthritis Smoker Pelvic pain Genital herpes Ovarian cyst CHI (closed head injury) Abnormal uterine bleeding (AUB) Cervical stenosis (uterine cervix) PTSD (post-traumatic stress disorder) Surgical History History of robot-assisted laparoscopic hysterectomy ( 06/25/21) Status post hysterectomy exam under anesthesia Family History Mother Diabetes Social History Smoking Status: Current every day smoker tobacco type: cigarettes second hand exposure: Yes alcohol intake: never substance use type: does not use seatbelt use: always do you feel safe at home: Yes HPI BL KNEES Details: This documentation accurately reflects the service provided and the decisions made by me, Dr. Sukh Bolanos, DO 05/04/24 0809. Part of today???s visit was documented by Kristen WATERS, acting as scribe. TONY PATEL is a 53 year old F here today for continued bilateral knee pain. She rates her pain today a 7/10. Her left knee is worse than her right knee. She saw Soumya BURTON for her lower back and she wanted her to follow-up as she is going to need surgery on her back. She wanted her to discuss whether she should have surgery on her knees or her back first. She denies seeing a mophead trimmer and wrapper for her inflammatory condition as was previously recommended. She does see Dr. Marino for pain management who has given her injections in her knees and her back. Her last injection in her knees was bout 3 months ago. She does take OTC Ibuprofen and Tylenol for her pain. She denies ever doing gel injections. BMI 44.8 today 05/28/2022:MRI review of BL knees. Denies any changes. She states that she is having severe BL knee pain and she has spasms that radiate down the BL legs. she states that her knees and legs swell on and off severely but not today. She states that when she lays down she has BL leg movements and spasms of the lower legs that keep her awake at night. She also reports having BL hand swelling and pain at times which comes and goes. She states that she has had this pain in her hands and legs for over 1 year. She has had some blood work drawn in 07/2021 by her PCP office and she had an elevated CRP and rheumatoid factor but she states she was not aware of this. Denies any consults with a mophead trimmer and wrapper. She denies any known family hx of RA or lupus or inflammatory conditions. Plan:Personally reviewed the patients MRI of the left knee and educated that she has medial and lateral meniscus tearing along with OA of the knee. Educated that her pain is out of proportion and not explained by this, she also has swelling in multiple joints that comes and goes and blood work which demonstrated elevated CRP and rheumatoid factor without further investigation or treatment. educated that the OA of the knee will not cause leg spasms. Educated that with her hx and her complaints of hand pain/swelling/knee swelling/leg spasms it is highly likely that she has some type of inflammatory condition. Recommended a referral to a mophead trimmer and wrapper for proper diagnosis and treatment. Will also prescribe the patient Prednisone to help with her flare of inflammation and pain at this time. Denies any hx of addiction. Will provider her with additional Valium at night , she can take as needed to help with sleep and night spasms until she can see her PCP on 06/02/2022, as she has been to the emergency room for this and I do not wa (more content not included)... [facility] Orthopedic Visit Reporton Orthopedic Visit Report [facility] [address] [place] [address] OFFICE VISIT Date of Service: 04/22/24 MR#: [id number] Acct: [id number] Name: TONY PATEL Rep #: [id number] : 1970 Provider: FELISA Conde Age/Sex: 53/F Location: [facility] Status: Signed Intake Vital Signs 03/15/24 14:00 Height 5 ft 5 in Weight: 261 lb 8 oz BMI 43.4 Intake Visit Reasons: LUMBAR SPINE Chief Complaint: Lumbar Spine MRI Review Is patient in pain?: Yes (lumbar spine) Pain scale (1-10): 6 Allergies Penicillins Allergy (Verified 04/22/24 14:01) Hives Medications ???Medication ???Instructions ???Recorded ???Confirmed ???Type lamotrigine 100 mg tablet 150 mg PO DAILY 06/04/20 04/22/24 History (Lamictal) gabapentin 300 mg capsule 300 mg PO QHS #30 caps 05/24/22 Rx duloxetine 30 mg capsule,delayed mg PO 03/15/24 04/22/24 History release tizanidine 4 mg tablet mg PO 03/15/24 04/22/24 History PFSH Medical History DDD (degenerative disc disease), lumbar HNP (herniated nucleus pulposus), lumbar Wears glasses Depression Arthritis Smoker Pelvic pain Genital herpes Ovarian cyst CHI (closed head injury) Abnormal uterine bleeding (AUB) Cervical stenosis (uterine cervix) PTSD (post-traumatic stress disorder) Surgical History History of robot-assisted laparoscopic hysterectomy ( 06/25/21) Status post hysterectomy exam under anesthesia Family History Mother Diabetes Social History Smoking Status: Current every day smoker tobacco type: cigarettes second hand exposure: Yes alcohol intake: never substance use type: does not use seatbelt use: always do you feel safe at home: Yes HPI LUMBAR SPINE Details: This documentation accurately reflects the service provided and the decisions made by me, FELISA Conde 04/22/24 1938. Part of today???s visit was documented by Kellie Medel RN, acting as scribe. TONY PATEL is a 53 year old F here today for lumbar spine MRI review. She continues to experience centralized low back pain. She also complains of bilateral leg pain. She states her legs feel weak at times with ambulation. She did follow up with Dr. Marino after her last visit with us but did not have any injections. She would like to discuss MRI results and next steps. Patient says that she continues to have pain throughout her entire lower extremity sometimes the pain is worse in the groin and other times it is worse in her knees. She says that she gets a burning pain sensation in her midline back. She does continue to say that she has issues with standing for extended period of time especially when in the kitchen. She relies on a shopping cart to lean on when at the grocery store. HPI from 03/15/24: TONY PATEL is a 53 year old F here today for lumbar spine pain. Patient rates her pain a 5/10 today. Patient states the lumbar spine has been going on for a couple years. She describes the pain centrally along the lumbar spine. She states most days she is unable to stand up straight due to the pain. She does see group care worker and she was told she has deterioration in her lumbar spine. She says that her walking distance has decreased over the last 6 months and that she is only able to walk several blocks at a time before she needs to rest due to pain. She says that she relies on a shopping cart to lean on when grocery shopping. Patient does see Dr. Marino and she has gotten injections in her knees and her lumbar spine. The last injection she had only gave her relief for about [address] Marino referred her to us to be evaluated. The last injection she had with Dr. Marino was given last month. Patient states she thinks she has had about 6 injections in the lumbar spine all together. Says that originally she felt like the injections gave her a month of relief. She complains of pain in the legs that seem to bother her. Patient denies numbness/tingling in the legs. Recently her pain has been radiating into her bilateral groin. With her groin pain increasing with sitting. Uses a recliner which has been slightly helpful. She says that this pain in her legs tends to change location at times it will be her lateral thigh and then other times it will be the front of her salazar, but there is no one location where there is pain consistently in her legs. The pain will go into both legs. She states she does get swelling in her legs and feet that will randomly occur and this tends to last about 1-2 weeks. Patient denies surgery. Patient did physical therapy at [facility] for the lumbar spine pain. Says that she h (more content not included)... [facility] Magnetic resonance imaging r eportOrdered By: Tomy Dunaway on 04-20-2024 Study report [facility] Imaging Services [address] [place] [address] Spine Lumbar (Routine) MR#: [id number] Acct: [id number] Name: TONY PATEL Erik Rep #: [id number] : 1970 F 53 From: Sameer Dunaway MD PCP: Kaia Luo Rosy, SIDING APPLICATOR-C Status: REG CLI Study:Spine Lumbar (Routine) Date of Exam: 04/20/24 Exam# [id number] Ordering Dr: Glen Vo PA PROCEDURE: SPINE LUMBAR (ROUTINE) REASON FOR EXAM: Pain. TECHNIQUE: Lumbar spine CT without contrast. COMPARISON: Lumbar spine series 03/15/2024 and lumbar MRI of 10/15/2021. FINDINGS: Compared with the prior lumbar MRI of 10/15/2021, slight interval worsening of multilevel lumbar degenerative disc disease is noted. Vertebrae: Normal lumbar vertebral body heights. No evidence of fracture. No spondylolysis. Alignment: No spondylolisthesis. L1-2: A very mild disc bulge is seen. No significant spinal canal stenosis or neural foraminal narrowing is noted. L2-3: Mild posterior facet and ligamentum flavum hypertrophy is seen. A very mild disc bulge is seen. No significant spinal canal stenosis or neural foraminal narrowing is noted. L3-4: Moderate posterior facet and ligamentum flavum hypertrophy is seen. A mild broad-based disc protrusion is noted, asymmetrically greater to the right. At least mild right neural foraminal narrowing is noted. Moderate spinal canal narrowing is seen at this level. L4-5: Moderate posterior facet and ligamentum flavum hypertrophy is seen. Superimposed upon a mild disc bulge is seen a mild central disc protrusion/extrusion. Mild spinal canal narrowing is noted. Moderate left neural foraminal narrowing is also noted. L5-S1: Moderate posterior facet hypertrophy is seen. A mild broad-based disc protrusion is noted. At least mild left neural foraminal narrowing is noted. No significant spinal canal stenosis is seen at this level. Sacrum: Visualized upper sacrum and SI joints are unremarkable. Visualized retroperitoneal structures are unremarkable. MRI/Spine Lumbar (Routine) IMPRESSION: 1. Multilevel lumbar degenerative disc disease, as described, slightly progressed since the prior study of 2021. 2. Moderate spinal canal narrowing noted at the L3-L4 level. One or more dose reduction techniques were used (e.g., Automated exposure control, adjustment of the mA and/or kV according to patient size, use of iterative reconstruction technique). Reading Location: [id number] CC: [facility] SIDING APPLICATORPadma Luo; FELISA Conde ~ Telescope Maintenance: Signed [facility] Spine Lumbar (Routine)on Spine Lumbar (Routine) [facility] Imaging Services [address] [place] [id number] Spine Lumbar (Routine) MR#: [id number] Acct: [id number] Name: TONY PATEL Rep #: [id number] : 1970 F 53 From: Tomy Valencia PCP: Kaia Luo Rosy, SIDING APPLICATOR-C Status: REG CLI Study: Spine Lumbar (Routine) Date of Exam: 04/20/24 Exam# [id number] Ordering Dr: Soumya Vo PROCEDURE: SPINE LUMBAR (ROUTINE) REASON FOR EXAM: Pain. TECHNIQUE: Lumbar spine CT without contrast. COMPARISON: Lumbar spine series 03/15/2024 and lumbar MRI of 10/15/2021. FINDINGS: Compared with the prior lumbar MRI of 10/15/2021, slight interval worsening of multilevel lumbar degenerative disc disease is noted. Vertebrae: Normal lumbar vertebral body heights. No evidence of fracture. No spondylolysis. Alignment: No spondylolisthesis. L1-2: A very mild disc bulge is seen. No significant spinal canal stenosis or neural foraminal narrowing is noted. L2-3: Mild posterior facet and ligamentum flavum hypertrophy is seen. A very mild disc bulge is seen. No significant spinal canal stenosis or neural foraminal narrowing is noted. L3-4: Moderate posterior facet and ligamentum flavum hypertrophy is seen. A mild broad-based disc protrusion is noted, asymmetrically greater to the right. At least mild right neural foraminal narrowing is noted. Moderate spinal canal narrowing is seen at this level. L4-5: Moderate posterior facet and ligamentum flavum hypertrophy is seen. Superimposed upon a mild disc bulge is seen a mild central disc protrusion/extrusion. Mild spinal canal narrowing is noted. Moderate left neural foraminal narrowing is also noted. L5-S1: Moderate posterior facet hypertrophy is seen. A mild broad-based disc protrusion is noted. At least mild left neural foraminal narrowing is noted. No significant spinal canal stenosis is seen at this level. Sacrum: Visualized upper sacrum and SI joints are unremarkable. Visualized retroperitoneal structures are unremarkable. MRI/Spine Lumbar (Routine) IMPRESSION: 1. Multilevel lumbar degenerative disc disease, as described, slightly progressed since the prior study of 2021. 2. Moderate spinal canal narrowing noted at the L3-L4 level. One or more dose reduction techniques were used (e.g., Automated exposure control, adjustment of the mA and/or kV according to patient size, use of iterative reconstruction technique). Reading Location: [id number] CC: [facility] SIDING APPLICATOR-C Kaia Luo; FELISA Conde Telescope Maintenance: Signed [facility] L/S Spine Min 4 Viewson 02-17 L/S Spine Min 4 Views [facility] Imaging Services [address] [place], [place] [id number] L/S Spine Min 4 Views MR#: [id number] Acct: [id number] Name: TONY PATEL Rep #: [id number] : 1970 F 53 From: Mohan Sanford DO PCP: RED Tran, SIDING APPLICATOR-C Status: DEP AMB Study: L/S Spine Min 4 Views Date of Exam: 03/15/24 Exam# [id number] Ordering Dr: Soumya Vo PROCEDURE: L/S SPINE MIN 4 VIEWS REASON FOR EXAM: Back pain TECHNIQUE: Standing AP and lateral views of the lumbar spine. COMPARISON: None. FINDINGS: 5 lumbar type vertebral levels. Trace retrolisthesis of L1 on L2, L2 on L3 and L3 on L4. Lumbar vertebral body heights are maintained. No acute lumbar spine fractures or dislocations are identified. Mild multilevel degenerative disc and endplate changes throughout the lumbar spine most conspicuous at the T12-L1 and L5-S1 levels. Facet arthrosis most prominent of the lower lumbar spine. Anatomic alignment of the bilateral SI joints. Remaining visualized osseous structures are intact. Trace phleboliths within the right pelvis. Right hepatic shadow extends below the right iliac crest. RAD/L/S Spine Min 4 Views IMPRESSION: 1. No acute lumbar spine fractures or dislocations are identified. 2. Mild multilevel degenerative disc and endplate changes, as detailed above. 3. Right hepatic shadow, extends below the right iliac crest. Can not exclude hepatomegaly. Correlate clinically Reading Location: [facility] CC: [facility] SIDING APPLICATOR-C Kaia Luo; FELISA Conde Telescope Maintenance: Signed [facility] Orthopedic Visit Reporton Orthopedic Visit Report [facility] [address] [place] [address] [address] [place] [address] OFFICE VISIT Date of Service: 03/15/24 MR#: [id number] Acct: [id number] Name: TONY PATEL Rep #: [id number] : 1970 Provider: FELISA Conde Age/Sex: 53/F Location: [facility] Status: Signed Intake Vital Signs 05/24/22 09:02 03/15/24 14:00 Height 5 ft 5 in 5 ft 5 in Weight: 261 lb 8 oz BMI 43.4 Intake Visit Reasons: LUMBAR SPINE Chief Complaint: Lumbar Spine Pain Accompanied by: Self Is patient in pain?: Yes Pain scale (1-10): 5 Allergies Penicillins Allergy (Verified 03/15/24 14:01) Hives Medications ???Medication ???Instructions ???Recorded ???Confirmed ???Type lamotrigine 100 mg tablet 150 mg PO DAILY 06/04/20 03/15/24 History (Lamictal) gabapentin 300 mg capsule 300 mg PO QHS #30 caps 05/24/22 03/15/24 Rx duloxetine 30 mg capsule,delayed mg PO 03/15/24 03/15/24 History release tizanidine 4 mg tablet mg PO 03/15/24 03/15/24 History PFSH Medical History (Updated 03/16/24 @ 08:11 by FELISA Conde) DDD (degenerative disc disease), lumbar HNP (herniated nucleus pulposus), lumbar Wears glasses Depression Arthritis Smoker Pelvic pain Genital herpes Ovarian cyst CHI (closed head injury) Abnormal uterine bleeding (AUB) Cervical stenosis (uterine cervix) PTSD (post-traumatic stress disorder) Surgical History History of robot-assisted laparoscopic hysterectomy ( 06/25/21) Status post hysterectomy exam under anesthesia Family History Mother Diabetes Social History Smoking Status: Current every day smoker tobacco type: cigarettes second hand exposure: Yes alcohol intake: never substance use type: does not use seatbelt use: always do you feel safe at home: Yes HPI LUMBAR SPINE Details: This documentation accurately reflects the service provided and the decisions made by me, FELISA Conde 03/15/24 9930. Part of today???s visit was documented by Susana Don ATC, acting as scribe. TONY PATEL is a 53 year old F here today for lumbar spine pain. Patient rates her pain a 5/10 today. Patient states the lumbar spine has been going on for a couple years. She describes the pain centrally along the lumbar spine. She states most days she is unable to stand up straight due to the pain. She does see group care worker and she was told she has deterioration in her lumbar spine. She says that her walking distance has decreased over the last 6 months and that she is only able to walk several blocks at a time before she needs to rest due to pain. She says that she relies on a shopping cart to lean on when grocery shopping. Patient does see Dr. Marino and she has gotten injections in her knees and her lumbar spine. The last injection she had only gave her relief for about [address] Marino referred her to us to be evaluated. The last injection she had with Dr. Marino was given last month. Patient states she thinks she has had about 6 injections in the lumbar spine all together. Says that originally she felt like the injections gave her a month of relief. She complains of pain in the legs that seem to bother her. Patient denies numbness/tingling in the legs. Recently her pain has been radiating into her bilateral groin. With her groin pain increasing with sitting. Uses a recliner which has been slightly helpful. She says that this pain in her legs tends to change location at times it will be her lateral thigh and then other times it will be the front of her salazar, but there is no one location where there is pain consistently in her legs. The pain will go into both legs. She states she does get swelling in her legs and feet that will randomly occur and this tends to last about 1-2 weeks. Patient denies surgery. Patient did physical therapy at [facility] for the lumbar spine pain. Says that she has had back pain since her hysterectomy in 2019. Says that she has had swelling in her legs. Worsened over the last 6 months. PT was done in 2021 and did 3 months, she has had done some of the HEP without benefit. Ortho Exam General General: Yes distressed Neurologic: Yes alert and Yes oriented x3 Spine SPINE TESTING CERVICAL THORACIC LUMBAR Musculoskeletal Strength 0=absent - 5=normal Details: Neurological exam of the lower extremities shows 5x5 power. Normal sensations across all dermatomes. No hyperreflexia. Mild midline and bilateral paraspinal tenderness. Patient was very antalgic when going from sitting to standing. Coding Level of Care Code Off vis,est,level 4 Diagnoses Lumbar stenosis with neurogenic claudication M48.062 Lumbar radiculop (more content not included)... Normal [facility] [id number] DOrdered By: Koki Luo on 03-02-2024 Vitamin D 25-Hydroxy 22.9 ng/mL [facility] Comment on above: Vitamin D 25(OH) Sta tus Range Deficiency <20 ng/mL (50nmol/L) Insufficiency 20 - 30 ng/mL (50 - 75 nmol/L) Sufficiency 30 - 100 ng/mL (75 - 250 nmol/L) Toxicity >100 ng/mL (>250 nmol/L) Absolute neutrophil countOrd ered By: [facility] Kaia Luo on 03-02-2024 Neutrophils (Bld) [#/Vol] 3.5 10*3/uL 2.0-7.7 [facility] Albumin to globulin ratioOrd ered By: [facility] Kaia Luo on 03-02-2024 Albumin/Globulin [Mass ratio] 1.1 {ratio} 0.9-2.4 [facility] Basophil percentageOrdered B y: [facility] Kaia Luo on 03-02-2024 Basophils/100 WBC (Bld) 0.6 % 0-1 [facility] Bilirubin, totalOrdered By: [facility] Kaia Luo on 03-02-2024 Bilirubin [Mass/Vol] 0.60 mg/dL 0.20-1.00 [facility] Comment on above: For patients on eltr ombopag therapy, use of Dimension [place] TBIL is not recommended. Blood urea nitrogen (BUN)/cr eatinine ratioOrdered By: [facility] Kaiamarucs Luo on 03-02-2024 Urea nitrogen/Creatinine [Mass ratio] 16.8 mg/mg 10- [facility] CBC W/Diff, Automatedon 02-16 Absolute Lymph 2.34 X10 3/uL Normal 0.83-4.51 [facility] Comment on above: Performed By: #### L 501.9520, L500.4100, L100.0100, L500.4050, L506.1000 #### [facility] [address] [place], [address] Absolute Neut 3.5 X10 3/uL Normal 2.0-7.7 [facility] Comment on above: Performed By: #### L 501.9520, L500.4100, L100.0100, L500.4050, L506.1000 #### [facility] [address] [place], [address] Basophils/100 WBC (Bld) 0.6 % Normal 0-1 [facility] Comment on above: Performed By: #### L 501.9520, L500.4100, L100.0100, L500.4050, L506.1000 #### [facility] [address] [place], [address] Eosinophils/100 WBC (Bld) 3.4 % Normal 0-5 [facility] Comment on above: Performed By: #### L 501.9520, L500.4100, L100.0100, L500.4050, L506.1000 #### [facility] [address] [place], [address] Erythrocyte distribution width (RBC) [Ratio] 11.5 % Low 11.6-14.6 [facility] Comment on above: Performed By: #### L 501.9520, L500.4100, L100.0100, L500.4050, L506.1000 #### [facility] [address] [place], [address] Hematocrit (Bld) [Volume fraction] 44.8 % Normal 37-47 [facility] Comment on above: Performed By: #### L 501.9520, L500.4100, L100.0100, L500.4050, L506.1000 #### [facility] [address] [place], [address] Hemoglobin (Bld) [Mass/Vol] 15.4 g/dL High 12.0-15.0 [facility] Comment on above: Performed By: #### L 501.9520, L500.4100, L100.0100, L500.4050, L506.1000 #### [facility] [address] [place], [address] IG% 0.200 Normal 0.0-0.9 [facility] Comment on above: Result Comment: IG% - Immature Granulocytes (promyelocytes, myelocytes and metamyelocytes) > 1% indicates that a LEFT SHIFT is Present. Performed By: #### L 501.9520, L500.4100, L100.0100, L500.4050, L506.1000 #### [facility] [address] [place], [address] Lymphocytes/100 WBC (Bld) 36.6 % Normal 19-41 [facility] Comment on above: Performed By: #### L 501.9520, L500.4100, L100.0100, L500.4050, L506.1000 #### [facility] [address] [place], [address] MCH (RBC) [Entitic mass] 31.0 pg Normal 27.0-32.0 [facility] Comment on above: Performed By: #### L 501.9520, L500.4100, L100.0100, L500.4050, L506.1000 #### [facility] [address] [place], [address] MCHC (RBC) [Mass/Vol] 34.4 g/dL Normal 32-36 [facility] Comment on above: Performed By: #### L 501.9520, L500.4100, L100.0100, L500.4050, L506.1000 #### [facility] [address] [place], [address] MCV (RBC) [Entitic vol] 90.1 fL Normal 81-99 [facility] Comment on above: Performed By: #### L 501.9520, L500.4100, L100.0100, L500.4050, L506.1000 #### [facility] [address] [place], [address] Monocytes/100 WBC (Bld) 5.0 % Normal 0-10 [facility] Comment on above: Performed By: #### L 501.9520, L500.4100, L100.0100, L500.4050, L506.1000 #### [facility] [address] [place], [address] Neutrophils/100 WBC (Bld) 54.2 % Normal 47-70 [facility] Comment on above: Performed By: #### L 501.9520, L500.4100, L100.0100, L500.4050, L506.1000 #### [facility] [address] [place], [address] Nucleated RBC (Bld) [#/Vol] 0 10*3/uL Normal 0-5 [facility] Comment on above: Performed By: #### L 501.9520, L500.4100, L100.0100, L500.4050, L506.1000 #### [facility] [address] [place], [address] Platelet mean volume (Bld) [Entitic vol] 10.7 fL Normal 6.2-12.0 [facility] Comment on above: Performed By: #### L 501.9520, L500.4100, L100.0100, L500.4050, L506.1000 #### [facility] [address] [place], [address] Platelets (Bld) [#/Vol] 297 10*3/uL Normal 150-450 [facility] Comment on above: Performed By: #### L 501.9520, L500.4100, L100.0100, L500.4050, L506.1000 #### [facility] [address] [place], [address] RBC (Bld) [#/Vol] 4.97 10*6/uL Normal 4.2-5.4 [facility] Comment on above: Performed By: #### L 501.9520, L500.4100, L100.0100, L500.4050, L506.1000 #### [facility] [address] [place], [address] RDW SD 37.9 fl Normal 35.1-43.9 [facility] Comment on above: Performed By: #### L 501.9520, L500.4100, L100.0100, L500.4050, L506.1000 #### [facility] [address] [place], [address] WBC (Bld) [#/Vol] 6.4 10*3/uL Normal 4.4-11.0 [facility] Comment on above: Performed By: #### L 501.9520, L500.4100, L100.0100, L500.4050, L506.1000 #### [facility] [address] [place], [address] Carbon dioxide measurementOr dered By: [facility] Kaia Luo on 03-02-2024 CO2 [Moles/Vol] 26.0 mmol/L 21.0-32.0 [facility] Chloride measurementOrdered By: [facility] Kaia Luo on 03-02-2024 Chloride [Moles/Vol] 105 mmol/L 98-107 [facility] Comprehensive Metabolic Prof ilon 03-02-2024 Albumin [Mass/Vol] 3.9 g/dL Normal 3.2-5.0 [facility] Comment on above: Performed By: #### L 501.9520, L500.4100, L100.0100, L500.4050, L506.1000 #### [facility] [address] [place], [address] Albumin/Globulin [Mass ratio] 1.1 {ratio} Normal 0.9-2.4 [facility] Comment on above: Performed By: #### L 501.9520, L500.4100, L100.0100, L500.4050, L506.1000 #### [facility] [address] [place], [address] ALK P 96 U/L Normal 45-117 [facility] Comment on above: Performed By: #### L 501.9520, L500.4100, L100.0100, L500.4050, L506.1000 #### [facility] [address] [place], [address] ALT [Catalytic activity/Vol] 36 U/L Normal 13-56 [facility] Comment on above: Performed By: #### L 501.9520, L500.4100, L100.0100, L500.4050, L506.1000 #### [facility] [address] [place], [address] AST [Catalytic activity/Vol] 16 U/L Normal 15-37 [facility] Comment on above: Performed By: #### L 501.9520, L500.4100, L100.0100, L500.4050, L506.1000 #### [facility] [address] [place], [address] Bilirubin [Mass/Vol] 0.60 mg/dL Normal 0.20-1.00 [facility] Comment on above: Result Comment: For patients on eltrombopag therapy, use of Dimension [place] TBIL is not recommended. Performed By: #### L 501.9520, L500.4100, L100.0100, L500.4050, L506.1000 #### [facility] [address] [place], [address] BUN/CRE 16.8 RATIO Normal 10-20 [facility] Comment on above: Performed By: #### L 501.9520, L500.4100, L100.0100, L500.4050, L506.1000 #### [facility] [address] [place], [address] CA,Total 9.2 mg/dL Normal 8.5-10.1 [facility] Comment on above: Performed By: #### L 501.9520, L500.4100, L100.0100, L500.4050, L506.1000 #### [facility] [address] [place], [address] Chloride [Moles/Vol] 105 mmol/L Normal 98-107 [facility] Comment on above: Performed By: #### L 501.9520, L500.4100, L100.0100, L500.4050, L506.1000 #### [facility] [address] [place], [address] CO2 [Moles/Vol] 26.0 mmol/L Normal 21.0-32.0 [facility] Comment on above: Performed By: #### L 501.9520, L500.4100, L100.0100, L500.4050, L506.1000 #### [facility] [address] [place], [address] Creatinine [Mass/Vol] 0.60 mg/dL Normal 0.55-1.02 [facility] Comment on above: Result Comment: The validity of the calculated GFR GFRAA in patients over 70 years has not been determined. Clinical correlation is essential. Performed By: #### L 501.9520, L500.4100, L100.0100, L500.4050, L506.1000 #### [facility] [address] [place], [address] EST GFR - AA 135 mL/min Normal >60 [facility] Comment on above: Result Comment: Afri can [place] GFR Calc Performed By: #### L 501.9520, L500.4100, L100.0100, L500.4050, L506.1000 #### [facility] [address] [place], [address] GAP 6 Normal 5-15 [facility] Comment on above: Performed By: #### L 501.9520, L500.4100, L100.0100, L500.4050, L506.1000 #### [facility] [address] [place], [address] GFR/1.73 sq M.predicted among non-blacks MDRD (S/P/Bld) [Vol rate/Area] 112 mL/min/{1.73_m2} Normal >60 [facility] Comment on above: Result Comment: Non- GFR Calc Performed By: #### L 501.9520, L500.4100, L100.0100, L500.4050, L506.1000 #### [facility] [address] [place], [address] Globulin (S) [Mass/Vol] 3.6 g/dL Normal 2.2-4.2 [facility] Comment on above: Performed By: #### L 501.9520, L500.4100, L100.0100, L500.4050, L506.1000 #### [facility] [address] [place], [address] Glucose [Mass/Vol] 106 mg/dL Normal 74-106 [facility] Comment on above: Result Comment: Fast ing Glucose result from 100 to 125 mg/dL suggests IMPAIRED HOMEOSTASIS per A.D.A. criteria. Performed By: #### L 501.9520, L500.4100, L100.0100, L500.4050, L506.1000 #### [facility] [address] [place], [address] Potassium [Moles/Vol] 3.9 mmol/L Normal 3.5-5.1 [facility] Comment on above: Performed By: #### L 501.9520, L500.4100, L100.0100, L500.4050, L506.1000 #### [facility] [address] [place], [address] Sodium [Moles/Vol] 137 mmol/L Normal 136-145 [facility] Comment on above: Performed By: #### L 501.9520, L500.4100, L100.0100, L500.4050, L506.1000 #### [facility] [address] [place], [address] T PROT 7.5 g/dL Normal 6.4-8.2 [facility] Comment on above: Performed By: #### L 501.9520, L500.4100, L100.0100, L500.4050, L506.1000 #### [facility] [address] [place], [address] Urea nitrogen [Mass/Vol] 10 mg/dL Normal 7-18 [facility] Comment on above: Performed By: #### L 501.9520, L500.4100, L100.0100, L500.4050, L506.1000 #### [facility] [address] [place], [address] Eosinophil percentageOrdered By: [facility] Kaia Luo on 03-02-2024 Eosinophils/100 WBC (Bld) 3.4 % 0-5 [facility] Erythrocyte distribution wid th ratioOrdered By: [facility] Kaia Luo on 03-02-2024 Erythrocyte distribution width (RBC) [Ratio] 11.5 % Low 11.6-14.6 [facility] Erythrocyte distribution wid th standard deviationOrdered By: [facility] Kaia Luo on 03-02-2024 Erythrocyte distribution width (RBC) [Entitic vol] 37.9 fL 35.1-43.9 [facility] Estimated glomerular filtrat ion rate (GFR) AmericanOrdered By: [facility] Kaia Luo on 03-02-2024 Estimated GFR (MDRD) Amer 135 mL/min >60 [facility] Comment on above: GFR Calc Glomerular filtration rate ( GFR) estimationOrdered By: [facility] Kaia Luo on 03-02-2024 Estimated GFR (MDRD) Non-Af Amer 112 mL/min >60 [facility] Comment on above: Non- GFR Calc Glucose measurementOrdered B y: [facility] Kaia Luo on 03-02-2024 Glucose [Mass/Vol] 106 mg/dL 74-106 [facility] Comment on above: Fasting Glucose resu lt from 100 to 125 mg/dL suggests IMPAIRED HOMEOSTASIS per A.D.A. criteria. Hematocrit Auto (Bld) [Volum e fraction]Ordered By: [facility] Kaia Luo on 03-02-2024 Hematocrit (Bld) [Volume fraction] 44.8 % 37-47 [facility] Hemoglobin measurementOrdere d By: [facility] Kaia Luo on 03-02-2024 Hemoglobin (Bld) [Mass/Vol] 15.4 g/dL High 12.0-15.0 [facility] High density lipoprotein (HD L) measurementOrdered By: [facility] Kaia Luo on 03-02-2024 Cholesterol in HDL [Mass/Vol] 59 mg/dL >40 [facility] Comment on above: The drugs N-Acetylcy steine and Metamizole may falsely depress this assay. Reference Range HDL <40 mg/dL Low HDL Cholesterol HDL >or= 60 mg/dL High HDL Cholesterol Immature granulocytes/100 WB C Auto (Bld)Ordered By: [facility] Kaia Luo on 03-02-2024 Immature granulocytes/100 WBC (Bld) 0.200 % 0.0-0.9 [facility] Comment on above: IG% - Immature Granu locytes (promyelocytes, myelocytes and metamyelocytes) > 1% indicates that a LEFT SHIFT is Present. Laboratory - Chemistry and C hemistry - challengeOrdered By: [facility] Kaia Luo on 03-02-2024 AST [Catalytic activity/Vol] 16 U/L 15-37 [facility] Lipid Profileon 03-02-2024 Cholesterol [Mass/Vol] 188 mg/dL Normal 200 [facility] Comment on above: Result Comment: <200 mg/dL Desirable 200-240 mg/dL Borderline >240 mg/dL High Risk Performed By: #### L 501.9520, L500.4100, L100.0100, L500.4050, L506.1000 ####[facility] [id number] [place], [address] Cholesterol in HDL [Mass/Vol] 59 mg/dL Normal [facility] Comment on above: Result Comment: The drugs N-Acetylcysteine and Metamizole may falsely depress this assay. Reference Range HDL <40 mg/dL Low HDL Cholesterol HDL >or= 60 mg/dL High HDL Cholesterol Performed By: #### L 501.9520, L500.4100, L100.0100, L500.4050, L506.1000 ####[facility] [id number] [place], [address] Cholesterol in LDL [Mass/Vol] 98 mg/dL Normal 0-130 [facility] Comment on above: Performed By: #### L 501.9520, L500.4100, L100.0100, L500.4050, L506.1000 ####[facility] [address] [place], [address] Cholesterol in VLDL [Mass/Vol] 31 mg/dL Normal 5-40 [facility] Comment on above: Performed By: #### L 501.9520, L500.4100, L100.0100, L500.4050, L506.1000 ####[facility] [address] [place], [address] Triglyceride [Mass/Vol] 153 mg/dL Normal [facility] Comment on above: Result Comment: The drugs N-Acetylcysteine and Metamizole may falsely depress this assay. Serum Triglycerides Reference Interval Normal <150 mg/dL Borderline high 150 - 199 mg/dL High 200 - 499 mg/dL Very High > or = 500 mg/dL Performed By: #### L 501.9520, L500.4100, L100.0100, L500.4050, L506.1000 ####[facility] [address] [place], [address] Low density lipoprotein (LDL ) cholesterol measurementOrdered By: [facility] Kaia Luo on 03-02-2024 Cholesterol in LDL [Mass/Vol] 98 mg/dL 0-130 [facility] Lymphocytes Auto (Unsp spec) [#/Vol]Ordered By: [facility] Kaia Luo on 03-02-2024 Lymphocytes (Bld) [#/Vol] 2.34 10*3/uL 0.83-4.51 [facility] Lymphocytes/100 WBC Auto (Un sp spec)Ordered By: [facility] Kaia Luo on 03-02-2024 Lymphocytes/100 WBC (Bld) 36.6 % 19-41 [facility] MCV (mean corpuscular volume ) determinationOrdered By: [facility] Kaia Luo on 03-02-2024 MCV (RBC) [Entitic vol] 90.1 fL 81-99 [facility] Mean corpuscular hemoglobin (MCH) determinationOrdered By: [facility] Kaia Luo on 03-02-2024 MCH (RBC) [Entitic mass] 31.0 pg 27.0-32.0 [facility] Mean corpuscular hemoglobin concentration (MCHC) determinationOrdered By: [facility] Kaia Luo on 03-02-2024 MCHC (RBC) [Mass/Vol] 34.4 g/dL 32-36 [facility] Mean platelet volume determi nationOrdered By: [facility] Kaia Luo on 03-02-2024 Platelet mean volume (Bld) [Entitic vol] 10.7 fL 6.2-12.0 [facility] Monocyte percentageOrdered B y: [facility] Kaia Luo on 03-02-2024 Monocytes/100 WBC (Bld) 5.0 % 0-10 [facility] Neutrophil percentageOrdered By: [facility] Kaia Luo on 03-02-2024 Neutrophils/100 WBC (Bld) 54.2 % 47-70 [facility] Nucleated red blood cell per centageOrdered By: [facility] Kaia Luo on 03-02-2024 Nucleated RBC/100 WBC (Bld) [Ratio] 0 % 0-5 [facility] Platelet countOrdered By: [facility] Kaia Luo on 03-02-2024 Platelets (Bld) [#/Vol] 297 10*3/uL 150-450 [facility] Potassium measurementOrdered By: [facility] Kaia Luo on 03-02-2024 Potassium [Moles/Vol] 3.9 mmol/L 3.5-5.1 [facility] RBC Auto (Bld) [#/Vol]Ordere d By: [facility] Kaia Luo on 03-02-2024 RBC (Bld) [#/Vol] 4.97 10*6/uL 4.2-5.4 [facility] Serum anion gap measurementO rdered By: [facility] Kaia Luo on 03-02-2024 Anion gap [Moles/Vol] 6 mmol/L 5-15 [facility] Serum globulin measurementOr dered By: [facility] Kaia Luo on 03-02-2024 Globulin (S) [Mass/Vol] 3.6 g/dL 2.2-4.2 [facility] Serum or plasma alanine chauhan otransferase (ALT) measurementOrdered By: [facility] Kaia Luo on 03-02-2024 ALT [Catalytic activity/Vol] 36 U/L 13-56 [facility] Serum or plasma albumin roque urement (mass/volume)Ordered By: [facility] Kaia Luo on 03-02-2024 Albumin [Mass/Vol] 3.9 g/dL 3.2-5.0 [facility] Serum or plasma alkaline yael sphatase measurementOrdered By: [facility] Kaia Luo on 03-02-2024 ALP [Catalytic activity/Vol] 96 U/L 45-117 [facility] Serum or plasma calcium roque urement (mass/volume)Ordered By: [facility] Kaiakeegan Luo on 03-02-2024 Calcium [Mass/Vol] 9.2 mg/dL 8.5-10.1 [facility] Serum or plasma cholesterol measurement (mass/volume)Ordered By: [facility] Kaia Luo on 03-02-2024 Cholesterol [Mass/Vol] 188 mg/dL <200 [facility] Comment on above: <200 mg/dL Desirable 200-240 mg/dL Borderline >240 mg/dL High Risk Serum or plasma creatinine m easurement (mass/volume)Ordered By: [facility] Kaia Luo on 03-02-2024 Creatinine [Mass/Vol] 0.60 mg/dL 0.55-1.02 [facility] Comment on above: The validity of the calculated GFR & GFRAA in patients over 70 years has not been determined. Clinical correlation is essential. Serum or plasma urea nitroge n measurement (mass/volume)Ordered By: [facility] Urea nitrogen [Mass/Vol] 10 mg/dL 7-18 [facility] Sodium levelOrdered By: [facility] Kaiakeegan Luo on 03-02-2024 Sodium [Moles/Vol] 137 mmol/L 136-145 [facility] TSH QnOrdered By: [facility] Quintin Luo on 03-02-2024 Thyroid Stimulating Hormone (TSH) 1.320 uIU/mL 0.358-3.740 [facility] Thyroid Stim Hormone (TSH)on 03-02-2024 TSH 1.320 uIU/mL Normal 0.358-3.740 [facility] Comment on above: Performed By: #### L 501.9520, L500.4100, L100.0100, L500.4050, L506.1000 ####[facility] [address] [place], [address] Total proteinOrdered By: [facility] Center[facility]aiam[facility]us Luo on 03-02-2024 Protein [Mass/Vol] 7.5 g/dL 6.4-8.2 [facility] Triglycerides measurementOrd ered By: [facility] Kaia Luo on 03-02-2024 Triglyceride [Mass/Vol] 153 mg/dL <199 [facility] Comment on above: The drugs N-Acetylcy steine and Metamizole may falsely depress this assay.Serum Triglycerides Reference Interval Normal <150 mg/dL Borderline high 150 - 199 mg/dL High 200 - 499 mg/dL Very High > or = 500 mg/dL Very low density lipoprotein (VLDL) cholesterol measurementOrdered By: [facility] Kaia Luo on 03-02-2024 VLDL Cholesterol 31 mg/dL 5-40 [facility] Vitamin D,25 Hydroxyon 03-02 Vitamin D 25-OH 22.9 ng/mL Normal [facility] Comment on above: Result Comment: [place] min D 25(OH) Status Range Deficiency <20 ng/mL (50nmol/L) Insufficiency 20 - 30 ng/mL (50 - 75 nmol/L) Sufficiency 30 - 100 ng/mL (75 - 250 nmol/L) Toxicity >100 ng/mL (>250 nmol/L) Performed By: #### L 501.9520, L500.4100, L100.0100, L500.4050, L506.1000 #### [facility] [address] [place], [address] White blood cell (WBC) count Ordered By: [facility] Kaia Luo on 03-02-2024 WBC (Bld) [#/Vol] 6.4 10*3/uL 4.4-11.0 [facility] Dexa Bone Density Studyon Dexa Bone Density Study [facility] Imaging Services [address] [place] [address] Dexa Bone Density Study MR#: [id number] Acct: [id number] Name: TONY PATEL Rep #: [id number] : 1970 F 52 From: Shawn tapia MD PCP: [facility] Status: REG CLI Study: Dexa Bone Density Study Date of Exam: 09/16/23 Exam# [id number] Ordering Dr: Kaia LuoC SIDING APPLICATOR-C [id number] STUDY: DUAL ENERGY X-RAY ABSORPTIOMETRY / DXA REASON FOR EXAM: Female, 52 years old. M810 TECHNIQUE: Bone Mineral Density (BMD) measurements of lumbar spine and bilateral hips were obtained. COMPARISON: None. FINDINGS: Lumbar Spine (L1-L4): g/cm2 (1.456) / T-score (3.4) / Z-score (4.4) Findings are suggestive of normal bone density with a low fracture risk. Left Femur Total: g/cm2 (1.165) / T-score (1.8) / Z-score (2.4) Left Femoral Neck: g/cm2 (0.844) / T-score (0.0) / Z-score (0.9) Right Femur Total: g/cm2 (1.051) / T-score (0.9) / Z-score (1.5) Right Femoral Neck: g/cm2 (0.815) / T-score (-0.3) / Z-score (0.7) BD/Dexa Bone Density Study IMPRESSION: The patient is considered normal as outlined below according to World Honorio Organization (WHO) criteria with a low fracture risk. Reference Information: The T-score is the number of standard deviations above or below the standard which is normal for young adults at their peak bone mineral density. The World Health Organization (WHO) interprets the T-scores as follows: Above -1 Normal bone density Between -1 and -2.5 Osteopenia Equal to / or below -2.5 Osteoporosis As a practical clinical guideline, osteopenia may be graded as follows: Mild -1 through -1.5 Moderate -1.6 through -2.0 Severe -2.1 through -2.4 The Z-score is the number of standard deviations above or below age-matched controls. A Z-score of less than -1.5 would be considered abnormal. References: 1. NIH Osteoporosis and Related Bone Diseases www osteo.org 2. International Society for Clinical Densitometry www iscd.org 3. National Osteoporosis Foundation www nof.org Electronically Signed: Shawn Handy MD at 14:52 EDT , CC: [facility] SIDING APPLICATOR-C Kaai Luo; [facility] Telescope Maintenance: Signed Normal [facility] Venous Duplex US - Yassine Extre [facility] 09-16-2023 Venous Duplex US - Yassine Extrem [facility] [address] [place] [address] Venous Duplex US - Yassine [facility] 09/16/23 1009 MR#: [id number] Acct: [id number] Name: TONY PATEL Rep #: [id number] : 1970 52 From: Nic Benton MD Attending Dr: Kaia Luo, [facility], SIDING APPLICATOR-C Status : REG CLI Ordering Dr: Kaia Luo [facility] SIDING APPLICATOR-C Date: 09/15 Location: CVS Sex: F C Admitted: Reason For Study: OTHER SPECIFIED SOFT TISSUE DISORDERS RIGHT LEFT GSV is normal. GSV is normal. CFV is compressible, spontaneous, phasic, CFV is compressible, spontaneous, phasic, competent and demonstrates normal competent, and demonstrates normal augmentation. augmentation. FV is compressible, spontaneous, phasic, FV is compressible, spontaneous, phasic, competent and demonstrates normal competent and demonstrates normal augmentation. augmentation. POP V is compressible, spontaneous, phasic, POP V is compressible, spontaneous, phasic, competent and demonstrates normal competent and demonstrates normal augmentation. augmentation. T/P Trunk is compressible. T/P Trunk is compressible. PTV is compressible. PTV is compressible. RT PerV is compressible. LT PerV is compressible. Procedure This is a venous duplex using B-mode, color flow and spectral Doppler. Exam performed in department. A preliminary report was called and/or faxed to [facility] @ [phone] @ 10:30 AM. VL/Venous Duplex US - Yassine Extrem Interpretation Summary Deep veins of the lower extremities are bilaterally patent and compressible segmentally. There is no evidence of deep vein thrombosis on either side. Valvular competence appears intact within the proximal deep venous systems bilaterally. The great saphenous veins appear bilaterally patent and compressible segmentally. Ordering Physician: Kaia Luo Referring Physician: [facility] Performed By: Giselle Tafoya, GRACIELA, RVT 09/16/232317 Date Nic Benton MD CC: [facility] SIDING APPLICATOR-C Kaia Luo; [facility] Date Dictated: 09/16/23 1009 Date Transcribed: 09/16/232317 Telescope Maintenance: Signed Normal [facility] Echo Complete W/ Contraston 08-10-2023 Echo Complete W/ Contrast [facility] Cardi[facility] Services [address] [place] [address] Echo Complete W/ Contrast 08/10/23 1406 MR#: [id number] Acct: [id number] Name: TONY PATEL Erik Rep #: [id number] : 1970 52 From: Adrianne Hi MD Attending Dr: Kaia Luo [facility], SIDING APPLICATOR-C Status : REG CLI Ordering Dr: Kaia Luo SIDING APPLICATOR-C Date: 08/09 Location: CVS Sex: F C Admitted: Reason For Study: SHORTNESS OF BREATH Procedure This was a 2D Doppler, Color Flow transthoracic echocardiogram. The study was technically difficult. Contrast injection was performed. Exam performed in department. Left Ventricle Normal size and thickness. Mild LV septal hypokinesis. Estimated LVEF 55 to 60%. No evidence for diastolic dysfunction. Right Ventricle Normal right ventricle. Atria The left and right atria are normal. Mitral Valve Trivial mitral valve insufficiency. Tricuspid Valve Trivial tricuspid valve insufficiency. Unable to estimate RV systolic pressure due to insufficient tricuspid regurgitant envelope. Aortic Valve Trisinus/trileaflet aortic valve. Pulmonic Valve The pulmonic valve is not well visualized. Great Vessels Normal sized aortic root. Pericardium/Pleural No pericardial effusion. Medication 22 gauge I.V. with prn adaptor inserted into right arm. Diluted definity 3ml given slow IV push to enhance endocardial definition. MMode/2D Measurements Calculations LVIDd: 5.1 cm IVSd: 1.1 cm LVOT diam: 2.1 cm LVIDs: 3.5 cm LVPWd: 1.1 cm RVDd: 3.0 cm FS: 31.4 % LVOT area: 3.5 cm2 Ao root diam: 3.4 cm LAV(MOD-bp): 43.1 ml LVAd ap4: 35.9 cm2 LAV(MOD-bp) Indexed: 19.8 ml/m2 LVLd ap4: 8.0 cm LAV(MOD-sp2): 37.4 ml EDV(MOD-sp4): 131.4 ml LAV(MOD-sp4): 44.4 ml EDV(sp4-el): 136.3 ml LVAs ap4: 21.5 cm2 LVLs ap4: 7.1 cm ESV(MOD-sp4): 55.5 ml ESV(sp4-el): 55.6 ml EF(MOD-sp4): 57.8 % EF(sp4-el): 59.2 % LVAd ap2: 27.4 cm2 SV(MOD-sp4): 75.9 ml SV(MOD-sp2): 44.0 ml LVLd ap2: 9.4 cm EDV(MOD-sp2): 64.9 ml EDV(sp2-el): 67.9 ml LVAs ap2: 13.2 cm2 LVLs ap2: 7.2 cm ESV(MOD-sp2): 20.9 ml ESV(sp2-el): 20.8 ml EF(MOD-sp2): 67.8 % SV(sp4-el): 80.7 ml LA dimension(2D): 4.1 cm LA A4 area: 17.6 cm2 RA A4 area: 11.6 cm2 TAPSE: 2.0 cm Time Measurements MV dec time: 0.13 sec Doppler Measurements Calculations MV E max alejandro: 60.6 cm/sec Lat Peak E' Alejandro: 11.2 cm/sec Med Peak E' Alejandro: 10.1 cm/sec MV A max alejandro: 71.7 cm/sec E/E' lat: 5.4 E/E' med: 6.0 MV E/A: 0.85 Ao V2 max: 133.7 cm/sec LV V1 max: 126.8 cm/sec MV dec slope: 484.1 cm/sec2 Ao max P.1 mmHg LV V1 max P.4 mmHg Ao V2 mean: 96.0 cm/sec LV V1 mean P.3 mmHg Ao mean P.2 mmHg LV V1 mean: 100.4 cm/sec Ao V2 VTI: 23.6 cm LV V1 VTI: 19.5 cm AV (velocity ratio): 0.83 RENEE(I,D): 2.9 cm2 RENEE(V,D): 3.3 cm2 SV(LVOT): 68.1 ml PA V2 max: 77.5 cm/sec PA max PG (full): 1.1 mmHg ECHO/Echo Complete W/ Contrast Interpretation Summary The study was technically difficult. Mild LV septal hypokinesis. Estimated LVEF 55 to 60%. No evidence for diastolic dysfunction. Ordering Physician: Kaia Luo Referring Physician: Kaia Luo Performed By: Karrie Clarke RDCS 08/11/23 0908 Date Adrianne Hi MD CC: [facility] SIDING APPLICATOR-C Kaia Luo; [facility] Date Dictated: 08/10/231405 Date Transcribed: 08/11/23 09 Telescope Maintenance: Signed Normal [facility] CBC W Auto Differential pane l (Bld)on 06-29-2023 Basophils (Bld) [#/Vol] 0.03 10*3/uL Normal <0.11 [facility] Comment on above: Order Comment: Speci men Type: BLOOD SPECIMEN Ordering Facility: [facility] Address: [address] [place] [address] Performed By: #### 5 7021-8 #### [facility] CLIA [id number] [address] [place] [address] [place] Basophils/100 WBC (Bld) 0.4 % Normal [facility] Comment on above: Order Comment: Speci men Type: BLOOD SPECIMEN Ordering Facility: [facility] Address: [address] [place] [address] Performed By: #### 5 7021-8 #### [facility] CLIA [id number] [address] [place] [address] [place] Differential cell count method Nom (Bld) Auto Normal [facility] Comment on above: Order Comment: Speci men Type: BLOOD SPECIMEN Ordering Facility: [facility] Address: [address] [place] [address] Performed By: #### 5 7021-8 #### [facility] CLIA [id number] [address] [place] [address] [place] Eosinophils (Bld) [#/Vol] 0.23 10*3/uL Normal <0.46 [facility] Comment on above: Order Comment: Speci men Type: BLOOD SPECIMEN Ordering Facility: [facility] Address: [address] [place] [address] Performed By: #### 5 7021-8 #### [facility] CLIA [id number] [address] [place] [address] [place] Eosinophils/100 WBC (Bld) 3.2 % Normal [facility] Comment on above: Order Comment: Speci men Type: BLOOD SPECIMEN Ordering Facility: [facility] Address: [address] [place] [address] Performed By: #### 5 7021-8 #### [facility] CLIA [id number] [address] [place] [address] [place] Erythrocyte distribution width (RBC) [Ratio] 11.8 % Normal 11.5-15.0 [facility] Comment on above: Order Comment: Speci men Type: BLOOD SPECIMEN Ordering Facility: [facility] Address: [address] [place] [address] Performed By: #### 5 7021-8 #### [facility] CLIA [id number] [address] [place] [address] [place] Hematocrit (Bld) [Volume fraction] 42.5 % Normal 36.0-46.0 [facility] Comment on above: Order Comment: Speci men Type: BLOOD SPECIMEN Ordering Facility: [facility] Address: [address] [place] [address] Performed By: #### 5 7021-8 #### [facility] CLIA [id number] [address] [place] [address] [place] Hemoglobin (Bld) [Mass/Vol] 14.2 g/dL Normal 11.5-15.5 [facility] Comment on above: Order Comment: Speci men Type: BLOOD SPECIMEN Ordering Facility: [facility] Address: [address] [place] [address] Performed By: #### 5 7021-8 #### [facility] CLIA [id number] [address] [place] [address] [place] Immature granulocytes (Bld) [#/Vol] 10*3/uL Normal <0.10 [facility] Comment on above: Order Comment: Speci men Type: BLOOD SPECIMEN Ordering Facility: [facility] Address: [address] [place] [address] Performed By: #### 5 7021-8 #### [facility] CLIA [id number] [address] [place] [address] [place] Immature granulocytes/100 WBC (Bld) 0.3 % Normal [facility] Comment on above: Order Comment: Speci men Type: BLOOD SPECIMEN Ordering Facility: [facility] Address: [address] [place] [address] Performed By: #### 5 7021-8 #### [facility] CLIA [id number] [address] [place] [address] [place] Lymphocytes (Bld) [#/Vol] 1.79 10*3/uL Normal 1.00-4.00 [facility] Comment on above: Order Comment: Speci men Type: BLOOD SPECIMEN Ordering Facility: [facility] Address: [address] [place] [address] Performed By: #### 5 7021-8 #### [facility] CLIA [id number] [address] [place] [address] [place] Lymphocytes/100 WBC (Bld) 25.2 % Normal [facility] Comment on above: Order Comment: Speci men Type: BLOOD SPECIMEN Ordering Facility: [facility] Address: [address] [place] [address] Performed By: #### 5 7021-8 #### [facility] CLIA [id number] [address] [place] [address] [place] MCH (RBC) [Entitic mass] 31.1 pg Normal 26.0-34.0 [facility] Comment on above: Order Comment: Speci men Type: BLOOD SPECIMEN Ordering Facility: [facility] Address: [address] [place], [place] [address], [place] [address] Performed By: #### 5 7021-8 #### [facility] CLIA [id number] [address] [place] [address] [place] MCHC (RBC) [Mass/Vol] 33.4 g/dL Normal 30.5-36.0 [facility] Comment on above: Order Comment: Speci men Type: BLOOD SPECIMEN Ordering Facility: [facility] Address: [address] [place] [address] Performed By: #### 5 7021-8 #### [facility] CLIA [id number] [address] [place] [address] [place] MCV (RBC) [Entitic vol] 93.0 fL Normal 80.0-100.0 [facility] Comment on above: Order Comment: Speci men Type: BLOOD SPECIMEN Ordering Facility: [facility] Address: [address] [place] [address] Performed By: #### 5 7021-8 #### [facility] CLIA [id number] [address] [place] [address] [place] Monocytes (Bld) [#/Vol] 0.48 10*3/uL Normal <0.87 [facility] Comment on above: Order Comment: Speci men Type: BLOOD SPECIMEN Ordering Facility: [facility] Address: [address] [place] [address] Performed By: #### 5 7021-8 #### [facility] CLIA [id number] [address] [place] [address] [place] Monocytes/100 WBC (Bld) 6.8 % Normal [facility] Comment on above: Order Comment: Speci men Type: BLOOD SPECIMEN Ordering Facility: [facility] Address: [address] [place] [address] Performed By: #### 5 7021-8 #### [facility] CLIA [id number] [address] [place] [id number] [place] Neutrophils (Bld) [#/Vol] 4.54 10*3/uL Normal 1.45-7.50 [facility] Comment on above: Order Comment: Speci men Type: BLOOD SPECIMEN Ordering Facility: [facility] Address: [address] [place] [address] Performed By: #### 5 7021-8 #### [facility] CLIA [id number] [address] [place] [address] [place] Neutrophils/100 WBC (Bld) 64.1 % Normal [facility] Comment on above: Order Comment: Speci men Type: BLOOD SPECIMEN Ordering Facility: [facility] Address: [address] [place] [address] Performed By: #### 5 7021-8 #### [facility] CLIA [id number] [address] [place] [address] [place] Nucleated RBC (Bld) [#/Vol] 10*3/uL Normal <0.01 [facility] Comment on above: Order Comment: Speci men Type: BLOOD SPECIMEN Ordering Facility: [facility] Address: [address] [place] [address] Performed By: #### 5 7021-8 #### [facility] CLIA [id number] [address] [place] [address] [place] Nucleated RBC/100 WBC (Bld) [Ratio] 0.0 /100 WBC Normal [facility] Comment on above: Order Comment: Speci men Type: BLOOD SPECIMEN Ordering Facility: [facility] Address: [address] [place] [address] Performed By: #### 5 7021-8 #### [facility] CLIA [id number] [address] [place] [id number] [place] Platelet mean volume (Bld) [Entitic vol] 11.5 fL Normal 9.0-12.7 [facility] Comment on above: Order Comment: Speci men Type: BLOOD SPECIMEN Ordering Facility: [facility] Address: [address] [place] [address], [place] [address] Performed By: #### 5 7021-8 #### [facility] CLIA [id number] [address] [place] [address] [place] Platelets (Bld) [#/Vol] 301 10*3/uL Normal 150-400 [facility] Comment on above: Order Comment: Speci men Type: BLOOD SPECIMEN Ordering Facility: [facility] Address: [address] [place] [address] Performed By: #### 5 7021-8 #### [facility] CLIA [id number] [address] [place] [address] [place] RBC (Bld) [#/Vol] 4.57 10*6/uL Normal 3.90-5.20 [facility] Comment on above: Order Comment: Speci men Type: BLOOD SPECIMEN Ordering Facility: [facility] Address: [address] [place] [address] Performed By: #### 5 7021-8 #### [facility] CLIA [id number] [address] [place] [address] [place] WBC (Bld) [#/Vol] 7.09 10*3/uL Normal 3.70-11.00 [facility] Comment on above: Order Comment: Speci men Type: BLOOD SPECIMEN Ordering Facility: [facility] Address: [address] [place] [address] Performed By: #### 5 7021-8 #### [facility] CLIA [id number] [address] [place] [address] [place] Comprehensive metabolic 2000 panelon 06-29-2023 Albumin [Mass/Vol] 4.0 g/dL Normal 3.9-4.9 [facility] Comment on above: Order Comment: Speci men Type: BLOOD SPECIMEN Ordering Facility: [facility] Address: [address], [place] [address] Performed By: #### 3 016-3, 62908-4, 84719-7 #### [facility] CLIA [id number] [address] [place] [address] [place] ALP [Catalytic activity/Vol] 85 U/L Normal 34-123 [facility] Comment on above: Order Comment: Speci men Type: BLOOD SPECIMEN Ordering Facility: [facility] Address: [address] [place] [address] RD, [place] [address] Performed By: #### 3 016-3, 84654-3, 50448-3 #### [facility] CLIA [id number] [address] [place] [address] [place] ALT [Catalytic activity/Vol] 22 U/L Normal 7-38 [facility] Comment on above: Order Comment: Speci men Type: BLOOD SPECIMEN Ordering Facility: [facility] Address: [address] [place] [address] RD, [place] [address] Performed By: #### 3 016-3, 74506-2, 41879-2 #### [facility] CLIA [id number] [address] [place] [address] [place] Anion gap [Moles/Vol] 12 mmol/L Normal 9-18 [facility] Comment on above: Order Comment: Speci men Type: BLOOD SPECIMEN Ordering Facility: [facility] Address: [address] [place] [address] RD, [place] [address] Performed By: #### 3 016-3, 66657-4, 14445-2 #### [facility] CLIA [id number] [address] [place] [address] [place] AST [Catalytic activity/Vol] 22 U/L Normal 13-35 [facility] Comment on above: Order Comment: Speci men Type: BLOOD SPECIMEN Ordering Facility: [facility] Address: [address] [place] [address] RD, [place] [address] Performed By: #### 3 016-3, 62889-9, 47107-6 #### [facility] CLIA [id number] [address] [place] [address] [place] Bilirubin [Mass/Vol] 0.3 mg/dL Normal 0.2-1.3 [facility] Comment on above: Order Comment: Speci men Type: BLOOD SPECIMEN Ordering Facility: [facility] Address: [address] [place] [address] RD, [place] [address] Performed By: #### 3 016-3, 74920-0, 21905-4 #### [facility] CLIA [id number] [address] [place] [address] [place] Calcium [Mass/Vol] 9.4 mg/dL Normal 8.5-10.2 [facility] Comment on above: Order Comment: Speci men Type: BLOOD SPECIMEN Ordering Facility: [facility] Address: [address] [place] [address] RD, [place] [address] Performed By: #### 3 016-3, 83906-7, 20102-2 #### [facility] CLIA [id number] [address] [place] [address] [place] Chloride [Moles/Vol] 103 mmol/L Normal 97-105 [facility] Comment on above: Order Comment: Speci men Type: BLOOD SPECIMEN Ordering Facility: [facility] Address: [address] [place] [address] RD, [place] [address] Performed By: #### 3 016-3, 23759-3, 42137-0 #### [facility] CLIA [id number] [address] [place], [place] [address] [place] CO2 [Moles/Vol] 26 mmol/L Normal 22-30 [facility] Comment on above: Order Comment: Speci men Type: BLOOD SPECIMEN Ordering Facility: [facility] Address: [address] [place] [address] RD, [place] [address] Performed By: #### 3 016-3, 09326-1, 69482-5 #### [facility] CLIA [id number] [address] [place] [address] [place] Creatinine [Mass/Vol] 0.57 mg/dL Low 0.58-0.96 [facility] Comment on above: Order Comment: Speci men Type: BLOOD SPECIMEN Ordering Facility: [facility] Address: [address] [place] [address], [place] [address] Performed By: #### 3 016-3, 20721-3, 84713-7 #### [facility] CLIA [id number] [address] [place] [address] [place] Creatinine and Glomerular filtration rate.predicted panel (S/P/Bld) 109 mL/min/1.73m??? Normal >=60 [facility] Comment on above: Order Comment: Sarah garcia Type: BLOOD SPECIMEN Ordering Facility: [facility] Address: [address] [place] [address], [place] [address] Result Comment: Sue mated Glomerular Filtration Rate (eGFR) is calculated using the 2020 CKD-EPI creatinine equation. This equation utilizes serum creatinine, sex, and age as parameters. The creatinine assay has traceable calibration to isotope dilution-mass spectrometry. Refer to KDIGO guidelines for clinical interpretation. In patients with unstable renal function, e.g. those with acute kidney injury, the eGFR may not accurately reflect actual GFR. Performed By: #### 3 016-3, 88854-2, 65820-5 #### [facility] CLIA [id number] [facility] [place] [id number] [place] Glucose [Mass/Vol] 109 mg/dL High 74-99 [facility] Comment on above: Order Comment: Speci radha Type: BLOOD SPECIMEN Ordering Facility: [facility] Address: [address] [place] [address], [place] [address] Result Comment: The [place] [employer] (ADA) provides guidance for cutoff values for fasting glucose and random glucose. The ADA defines fasting as no caloric intake for at least 8 hours. Fasting plasma glucose results between 100 to 125 mg/dL indicate increased risk for diabetes (prediabetes). Fasting plasma glucose results greater than or equal to 126 mg/dL meet the criteria for diagnosis of diabetes. In the absence of unequivocal hyperglycemia, results should be confirmed by repeat testing. In a patient with classic symptoms of hyperglycemia or hyperglycemic crisis, random plasma glucose results greater than or equal to 200 mg/dL meet the criteria for diagnosis of diabetes. Reference: Standards of Medical Care in Diabetes 2016, [place] [employer]. Diabetes Care. 2016.39(Suppl 1). Performed By: #### 3 016-3, 87835-4, 63164-0 #### [facility] CLIA [id number] [address] [place] [address] [place] Potassium [Moles/Vol] 3.7 mmol/L Normal 3.7-5.1 [facility] Comment on above: Order Comment: Speci men Type: BLOOD SPECIMEN Ordering Facility: [facility] Address: [address] [place] [address] Performed By: #### 3 016-3, 78083-5, 58170-8 #### [facility] CLIA [id number] [address] [place] [address] [place] Protein [Mass/Vol] 6.8 g/dL Normal 6.3-8.0 [facility] Comment on above: Order Comment: Speci men Type: BLOOD SPECIMEN Ordering Facility: [facility] Address: [address] [place] [address] Performed By: #### 3 016-3, 97824-0, 77692-2 #### [facility] CLIA [id number] [address] [place], [place] [address] [place] Sodium [Moles/Vol] 141 mmol/L Normal 136-144 [facility] Comment on above: Order Comment: Speci men Type: BLOOD SPECIMEN Ordering Facility: [facility] Address: [address] [place] [address] Performed By: #### 3 016-3, 38759-9, 69880-3 #### [facility] CLIA [id number] [address] [place] [address] [place] Urea nitrogen [Mass/Vol] 12 mg/dL Normal 7-21 [facility] Comment on above: Order Comment: Speci men Type: BLOOD SPECIMEN Ordering Facility: [facility] Address: [address] [place] [address], [place] [address] Performed By: #### 3 016-3, 16314-5, 00248-7 #### [facility] CLIA [id number] [address] [place] [address] [place] [facility] Natriuretic peptide.B prohormone N-Terminal [Mass/Vol] <36 Normal <125 [facility] Comment on above: Order Comment: Speci men Type: BLOOD SPECIMEN Ordering Facility: [facility] Address: [address] [place] [address], [place] [address] Performed By: #### 3 016-3, 70149-8, 23395-3 #### [facility] CLIA [id number] [address] [place] [address] [place] TSH SerPl-aCncon 06-29-2023 TSH Qn 1.160 m[IU]/L Normal 0.270-4.200 [facility] Comment on above: Order Comment: Speci men Type: BLOOD SPECIMEN Ordering Facility: [facility] Address: [address] [place] [address], [place] [address] Performed By: #### 3 016-3, 25708-1, 35926-5 #### [facility] CLIA [id number] [address] [place] [address] [place] External Lab CCPOrdered By: Isamar Chandler on 05-12-2023 [facility] CRP [Mass/Vol]on 05-06-2023 Interpretation and review of laboratory results Normal [facility] CRP, Inflammationon 05-06-19 CRP [Mass/Vol] 6.5 mg/L 0.0 - 10.0 mg/L [facility] ESR Westergren method (Bld) [Velocity]on 05-06-2023 ESR (Bld) [Velocity] 20 mm/h [facility] Interpretation and review of laboratory results Normal [facility] Hepatic function 2000 panelO rdered By: Kym Hooker on 05-06-2023 Albumin [Mass/Vol] 4.4 g/dL 3.2 - 5.2 g/dL [facility] ALP [Catalytic activity/Vol] 83 U/L 40 - 150 U/L [facility] ALT [Catalytic activity/Vol] 19 U/L 0-35 U/L [facility] AST [Catalytic activity/Vol] 23 U/L 0-35 U/L [facility] Bilirubin [Mass/Vol] 0.5 mg/dL 0.0 - 1 .3 mg/dL [facility] Bilirubin.conjugated [Mass/Vol] mg/dL 0.0 - 0.4 mg/dL [facility] Interpretation and review of laboratory results Normal [facility] Protein [Mass/Vol] 7.2 g/dL 6.0 - 8.0 g/dL [facility] Hepatitis B Surface Antigeno n 05-06-2023 HBV surface Ag Ql (S) Negative Negative [facility] Interpretation and review of laboratory results Normal [facility] Test performed using Violetta YAMEL immunoassay system [facility] Hepatitis C Ab with Reflex t o HCV Virus Quantitationon 05-06-2023 HCV Ab Ql (S) Negative Negative [facility] Interpretation and review of laboratory results Normal [facility] Test performed using Violetta YAMEL immunoassay system [facility] 25(OH)D3 SerPl-mCncon 2023 25-hydroxyvitamin D3 [Mass/Vol] 26.0 ng/mL Low 31.0-80.0 [facility] Comment on above: Order Comment: Speci men Type: BLOOD SPECIMEN Ordering Facility: [facility] Address: [address] [place] [address] RD, [place] [address] Result Comment: Clas sification of 25 [place] Vitamin D status: Deficiency/Insufficiency: < or = 30 ng/ml. Sufficiency/Optimal Levels: 31-80 ng/mL Toxicity: > 100 ng/mL. Test performed by chemiluminescent immunoassay. Performed By: #### 1 989-3 #### [facility] CLIA [id number] [address] [place] [address] [place] CBC panel Auto (Bld)on 02-18 Erythrocyte distribution width (RBC) [Ratio] 11.6 % Normal 11.5-15.0 [facility] Comment on above: Order Comment: Speci men Type: BLOOD SPECIMEN Ordering Facility: [facility] Address: [address] [place] [address] Performed By: #### 5 8410-2 #### [facility] CLIA [id number] [address] [place] [address] [place] Hematocrit (Bld) [Volume fraction] 43.2 % Normal 36.0-46.0 [facility] Comment on above: Order Comment: Speci men Type: BLOOD SPECIMEN Ordering Facility: [facility] Address: [address] [place] [address] Performed By: #### 5 8410-2 #### [facility] CLIA [id number] [address] [place] [address] [place] Hemoglobin (Bld) [Mass/Vol] 14.2 g/dL Normal 11.5-15.5 [facility] Comment on above: Order Comment: Speci men Type: BLOOD SPECIMEN Ordering Facility: [facility] Address: [address] [place] [address] Performed By: #### 5 8410-2 #### [facility] CLIA [id number] [address] [place] [address] [place] MCH (RBC) [Entitic mass] 30.5 pg Normal 26.0-34.0 [facility] Comment on above: Order Comment: Speci men Type: BLOOD SPECIMEN Ordering Facility: [facility] Address: [address] [place] [address] Performed By: #### 5 8410-2 #### [facility] CLIA [id number] [address] [place] [address] [place] MCHC (RBC) [Mass/Vol] 32.9 g/dL Normal 30.5-36.0 [facility] Comment on above: Order Comment: Speci men Type: BLOOD SPECIMEN Ordering Facility: [facility] Address: [address] [place] [address] Performed By: #### 5 8410-2 #### [facility] CLIA [id number] [address] [place] [address] [place] MCV (RBC) [Entitic vol] 92.9 fL Normal 80.0-100.0 [facility] Comment on above: Order Comment: Speci men Type: BLOOD SPECIMEN Ordering Facility: [facility] Address: [address] [place] [address] Performed By: #### 5 8410-2 #### [facility] CLIA [id number] [address] [place] [address] [place] Nucleated RBC (Bld) [#/Vol] 10*3/uL Normal <0.01 [facility] Comment on above: Order Comment: Speci men Type: BLOOD SPECIMEN Ordering Facility: [facility] Address: [address] [place] [address], [place] [address] Performed By: #### 5 8410-2 #### [facility] CLIA [id number] [address] [place] [address] [place] Platelet mean volume (Bld) [Entitic vol] 11.4 fL Normal 9.0-12.7 [facility] Comment on above: Order Comment: Speci men Type: BLOOD SPECIMEN Ordering Facility: [facility] Address: [address] [place] [address] Performed By: #### 5 8410-2 #### [facility] CLIA [id number] [address] [place] [address] [place] Platelets (Bld) [#/Vol] 318 10*3/uL Normal 150-400 [facility] Comment on above: Order Comment: Speci men Type: BLOOD SPECIMEN Ordering Facility: [facility] Address: [address] [place] [address], [place] [address] Performed By: #### 5 8410-2 #### [facility] CLIA [id number] [address] [place] [address] [place] RBC (Bld) [#/Vol] 4.65 10*6/uL Normal 3.90-5.20 [facility] Comment on above: Order Comment: Speci men Type: BLOOD SPECIMEN Ordering Facility: [facility] Address: [address] [place] [address] Performed By: #### 5 8410-2 #### [facility] CLIA [id number] [address] [place] [address] [place] WBC (Bld) [#/Vol] 7.36 10*3/uL Normal 3.70-11.00 [facility] Comment on above: Order Comment: Speci men Type: BLOOD SPECIMEN Ordering Facility: [facility] Address: [address] [place] [address] Performed By: #### 5 8410-2 #### [facility] [place] [id number] [address] [place] [address] [place] Comprehensive metabolic 2000 panelon 02-18-2023 Albumin [Mass/Vol] 4.3 g/dL Normal 3.9-4.9 [facility] Comment on above: Order Comment: Speci men Type: BLOOD SPECIMEN Ordering Facility: [facility] Address: [address] [place] [address] Performed By: #### 2 4323-8, 2132-9, 86952-0, 3016-3 #### [facility] [place] [id number] [address] [place] [address] [place] ALP [Catalytic activity/Vol] 83 U/L Normal 34-123 [facility] Comment on above: Order Comment: Speci men Type: BLOOD SPECIMEN Ordering Facility: [facility] Address: [address] [place] [address] Performed By: #### 2 4323-8, 2-9, 66891-9, 3016-3 #### [facility] CLIA [id number] [address] [place] [address] [place] ALT [Catalytic activity/Vol] 18 U/L Normal 7-38 [facility] Comment on above: Order Comment: Speci men Type: BLOOD SPECIMEN Ordering Facility: [facility] Address: [address] [place] [address] Performed By: #### 2 4323-8, 2131-9, 88138-1, 3016-3 #### [facility] CLIA [id number] [address] [place] [address] [place] Anion gap [Moles/Vol] 15 mmol/L Normal 9-18 [facility] Comment on above: Order Comment: Speci men Type: BLOOD SPECIMEN Ordering Facility: [facility] Address: [address] [place] [address] Performed By: #### 2 4323-8, 2131-9, 88613-6, 3016-3 #### [facility] CLIA [id number] [address] [place] [address] [place] AST [Catalytic activity/Vol] 20 U/L Normal 13-35 [facility] Comment on above: Order Comment: Speci men Type: BLOOD SPECIMEN Ordering Facility: [facility] Address: [address] [place] [address] Performed By: #### 2 4323-8, 2131-9, 94002-9, 3016-3 #### [facility] CLIA [id number] [address] [place] [address] [place] Bilirubin [Mass/Vol] 0.3 mg/dL Normal 0.2-1.3 [facility] Comment on above: Order Comment: Speci men Type: BLOOD SPECIMEN Ordering Facility: [facility] Address: [address] [place] [address], [place] [address] Performed By: #### 2 4323-8, 2131-9, 78851-5, 3016-3 #### [facility] CLIA [id number] [address] [place] [address] [place] Calcium [Mass/Vol] 10.0 mg/dL Normal 8.5-10.2 [facility] Comment on above: Order Comment: Speci men Type: BLOOD SPECIMEN Ordering Facility: [facility] Address: [address] [place] [address], [place] [address] Performed By: #### 2 4323-8, 2131-9, 19211-8, 3016-3 #### [facility] CLIA [id number] [address] [place], [place] [address] [place] Chloride [Moles/Vol] 103 mmol/L Normal 97-105 [facility] Comment on above: Order Comment: Speci men Type: BLOOD SPECIMEN Ordering Facility: [facility] Address: [address] [place] [address], [place] [address] Performed By: #### 2 4323-8, 2131-9, 46189-6, 3016-3 #### [facility] CLIA [id number] [address] [place], [place] [address] [place] CO2 [Moles/Vol] 23 mmol/L Normal 22-30 [facility] Comment on above: Order Comment: Speci men Type: BLOOD SPECIMEN Ordering Facility: [facility] Address: [address] [place] [address], [place] [address] Performed By: #### 2 4323-8, 2131-9, 61336-1, 3016-3 #### [facility] CLIA [id number] [address] [place], [place] [address] [place] Creatinine [Mass/Vol] 0.54 mg/dL Low 0.58-0.96 [facility] Comment on above: Order Comment: Speci men Type: BLOOD SPECIMEN Ordering Facility: [facility] Address: [address] [place] [address], [place] [id number] Performed By: #### 2 4323-8, 2132-9, 28436-7, 3016-3 #### [facility] CLIA [id number] [address] [place] [address] [place] Creatinine and Glomerular filtration rate.predicted panel (S/P/Bld) 110 mL/min/1.73m??? Normal >=60 [facility] Comment on above: Order Comment: Sarah radha Type: BLOOD SPECIMEN Ordering Facility: [facility] Address: [address] [place] [address], [place] [address] Result Comment: Sue mated Glomerular Filtration Rate (eGFR) is calculated using the 2020 CKD-EPI creatinine equation. This equation utilizes serum creatinine, sex, and age as parameters. The creatinine assay has traceable calibration to isotope dilution-mass spectrometry. Refer to KDIGO guidelines for clinical interpretation. In patients with unstable renal function, e.g. those with acute kidney injury, the eGFR may not accurately reflect actual GFR. Performed By: #### 2 4323-8, 2132-9, 59191-9, 3016-3 #### [facility] CLIA [id number] [address] [place] [address] [place] Glucose [Mass/Vol] 80 mg/dL Normal 74-99 [facility] Comment on above: Order Comment: Sarah radha Type: BLOOD SPECIMEN Ordering Facility: [facility] Address: [address] [place] [address], [place] [address] Result Comment: The [place] [employer] (ADA) provides guidance for cutoff values for fasting glucose and random glucose. The ADA defines fasting as no caloric intake for at least 8 hours. Fasting plasma glucose results between 100 to 125 mg/dL indicate increased risk for diabetes (prediabetes). Fasting plasma glucose results greater than or equal to 126 mg/dL meet the criteria for diagnosis of diabetes. In the absence of unequivocal hyperglycemia, results should be confirmed by repeat testing. In a patient with classic symptoms of hyperglycemia or hyperglycemic crisis, random plasma glucose results greater than or equal to 200 mg/dL meet the criteria for diagnosis of diabetes. Reference: Standards of Medical Care in Diabetes 2016, [place] [employer]. Diabetes Care. 2016.39(Suppl 1). Performed By: #### 2 4323-8, 2131-9, 58003-7, 6-3 #### [facility] CLIA [id number] [address] [address] [place] Potassium [Moles/Vol] 4.4 mmol/L Normal 3.7-5.1 [facility] Comment on above: Order Comment: Speci men Type: BLOOD SPECIMEN Ordering Facility: [facility] Address: [address] [place] [address], [place] [address] Performed By: #### 2 4323-8, 9, 70088-0, 6-3 #### [facility] CLIA [id number] [address] [place] [address] [place] Protein [Mass/Vol] 7.2 g/dL Normal 6.3-8.0 [facility] Comment on above: Order Comment: Speci men Type: BLOOD SPECIMEN Ordering Facility: [facility] Address: [address] [place] [address], [place] [address] Performed By: #### 2 432-8, 9, 08515-1, 6-3 #### [facility] CLIA [id number] [address] [place] [address] [place] Sodium [Moles/Vol] 141 mmol/L Normal 136-144 [facility] Comment on above: Order Comment: Speci men Type: BLOOD SPECIMEN Ordering Facility: [facility] Address: [address] [place] [address], [place] [address] Performed By: #### 2 4323-8, 9, 52554-2, 3016-3 #### [facility] CLIA [id number] [address] [address] [place] Urea nitrogen [Mass/Vol] 16 mg/dL Normal 7-21 [facility] Comment on above: Order Comment: Speci men Type: BLOOD SPECIMEN Ordering Facility: [facility] Address: [address] [place] [address], [place] [address] Performed By: #### 2 4323-8, 2131-9, 24885-3, 3016-3 #### [facility] CLIA [id number] [address] [place] [address] [place] Iron and Iron binding capaci ty panelon 02-18-2023 Iron [Mass/Vol] 63 ug/dL Normal 41-186 [facility] Comment on above: Order Comment: Speci men Type: BLOOD SPECIMEN Ordering Facility: [facility] Address: [address] [place] [address], [place] [address] Performed By: #### 2 4323-8, 2131-9, 27371-4, 6-3 #### [facility] CLIA [id number] [address] [place] [address] [place] Iron binding capacity [Mass/Vol] 487 ug/dL High 232-386 [facility] Comment on above: Order Comment: Speci men Type: BLOOD SPECIMEN Ordering Facility: [facility] Address: [address] [place] [address], [place] [address] Performed By: #### 2 4323-8, 9, 70252-9, 3016-3 #### [facility] CLIA [id number] [address] [place] [address] [place] Iron/TIBC [Molar ratio] 12.9 % Low 15.0-57.0 [facility] Comment on above: Order Comment: Speci men Type: BLOOD SPECIMEN Ordering Facility: [facility] Address: [address] [place] [address], [place] [address] Performed By: #### 2 4323-8, 2131-9, 13437-8, 3016-3 #### [facility] CLIA [id number] [address] [place] [address] [place] TSH SerPl-aCncon 01-03-2024 TSH Qn 1.970 m[IU]/L Normal 0.270-4.200 [facility] Comment on above: Order Comment: Speci men Type: BLOOD SPECIMEN Ordering Facility: [facility] Address: [address] [place] [address], [place] [address] Performed By: #### 2 4323-8, 2-9, 73432-9, 3016-3 #### [facility] CLIA [id number] [address] [place] [address] [place] Vit B12 SerPl-mCncon 024 Cobalamin (Vitamin B12) [Mass/Vol] 316 pg/mL Normal 232-1245 [facility] Comment on above: Order Comment: Speci men Type: BLOOD SPECIMEN Ordering Facility: [facility] Address: [address] [place] [address], [place] [address] Performed By: #### 2 4323-8, 2131-9, 06688-3, 3016-3 #### [facility] CLIA [id number] [address] [place] [address] [place] Absolute lymphocyte counton 11-05-2022 Lymphocytes Auto (Unsp spec) [#/Vol] 2.45 10*3/uL 0.83-4.51 [facility] Basophil percentageon 2022 Basophils/100 WBC (Bld) 0.5 % 0-1 [facility] Eosinophils/100 WBC (Bld) 2.2 % 0-5 [facility] Neutrophils (Bld) [#/Vol] 4.5 10*3/uL 2.0-7.7 [facility] Neutrophils/100 WBC (Bld) 58.9 % 47-70 [facility] WBC (Bld) [#/Vol] 7.6 10*3/uL 4.4-11.0 [facility] Blood erythrocytes count (nu mber/volume)on 11-05-2022 RBC (Bld) [#/Vol] 4.66 10*6/uL 4.2-5.4 [facility] Blood hemoglobin measurement (mass/volume)on 11-05-2022 Hemoglobin (Bld) [Mass/Vol] 14.2 g/dL 12.0-15.0 [facility] Blood lymphocytes/100 leukoc yteson 11-05-2022 Lymphocytes/100 WBC (Bld) 32.4 % 19-41 [facility] Blood monocytes/100 leukocyt eson 11-05-2022 Monocytes/100 WBC (Bld) 5.6 % 0-10 [facility] Blood platelet mean volumeon 11-05-2022 Platelet mean volume (Bld) [Entitic vol] 10.8 fL 6.2-12.0 [facility] Determination of erythrocyte mean corpuscular volume (MCV)on 11-05-2022 MCV (RBC) [Entitic vol] 92.5 fL 81-99 [facility] Erythrocyte sedimentation ra jon 11-05-2022 ESR (Bld) [Velocity] 11 mm/h 0-30 [facility] Hematocrit Auto (Bld) [Volum e fraction]on 11-05-2022 Hematocrit (Bld) [Volume fraction] 43.1 % 37-47 [facility] - Hematology and Cell countson 11-05-2022 Erythrocyte distribution width (RBC) [Entitic vol] 40.4 fL 35.1-43.9 [facility] Erythrocyte distribution width (RBC) [Ratio] 11.9 % 11.6-14.6 [facility] Immature granulocytes/100 WBC (Bld) 0.400 % 0.0-0.9 [facility] Comment on above: IG% - Immature Granu locytes (promyelocytes, myelocytes and metamyelocytes) > 1% indicates that a LEFT SHIFT is Present. MCH (RBC) [Entitic mass] 30.5 pg 27.0-32.0 [facility] Nucleated RBC/100 WBC (Bld) [Ratio] 0 % 0-5 [facility] MCHC Auto (RBC) [Mass/Vol]on 11-05-2022 MCHC (RBC) [Mass/Vol] 32.9 g/dL 32-36 [facility] No Panel Informationon 11-05 Hepatitis C Antibody Non-Reactive Nonreactive [facility] Comment on above: Non Reactive: < 0.8 Equivocal: >/= 0.8 to < 1.0 Reactive: >/= 1.0The CDC recommends that a reactive/equivocal HCV antibody result be followed up by the HCV Nucleic Acid Amplificationtest (294321) Miscellaneous Test See comment [facility] Comment on above: TEST RESULTS LIMITSE nhanced Liver Fibrosis (ELF)ELF(TM) Score 8.01 <9.80 ELF(TM) Score Interpretation: Risk cut-offs to assess the likelihood of progression to cirrhosis and liver-related clinical events within 3.9 years following baseline ELF score (IQR: 14.0-22.4 months)*: Lower risk < 9.80 Mid risk 9.80 - 11.29 Higher risk >11.29 Note: The ELF(TM) Score is a unitless numerical value. *Gerald SA, Frank MADRIGAL, Arnaldo T, et al. Selonsertib for patients with bridging fibrosis or compensated cirrhosis due to MCKEON: Results from randomized phase III STELLAR trials. J Hepatol. 2020 Aug;73(1):26-39. TESTING PERFORMED AT [facility]. ORIGINAL REPORT ON FILE IN LAB CONTAINS ADDITIONAL TEST SITE INFORMATION. Vitamin D 25-Hydroxy 19.6 ng/mL [facility] Comment on above: Vitamin D 25(OH) Sta tus Range Deficiency <20 ng/mL (50nmol/L) Insufficiency 20 - 30 ng/mL (50 - 75 nmol/L) Sufficiency 30 - 100 ng/mL (75 - 250 nmol/L) Toxicity >100 ng/mL (>250 nmol/L) Platelets bldon 11-05-2022 Platelets (Bld) [#/Vol] 309 10*3/uL 150-450 [facility] Qualitative QuantiFERON-TB g old in tube teston 11-05-2022 M. tuberculosis tuberculin stim IFN-g Ql (Bld) 0.05 IU/mL . [facility] Serum cyclic citrullinated p eptide IgG antibody assay (units/volume)on 11-05-2022 Cyclic citrullinated peptide IgG Qn 6 units 0-19 [facility] Comment on above: Negative <20 Weak po sitive 20 - 39 Moderate positive 40 - 59 Strong positive >59 Serum hepatitis B virus core antibody detectionon 11-05-2022 HBV core Ab Ql (S) Negative Negative [facility] Comment on above: Performed at: [facility] [employer] [address] [id number] Director: Boogie Hinds PhD, Phone: [phone] Serum hepatitis B virus surf irma antibody IgG detectionon 11-05-2022 HBV surface IgG Ql (S) Reactive [facility] Comment on above: Non Reactive: Incons istent with immunity less than <10 mIU/mL Reactive: Consistent with immunity greater than or equal to 10 mIU/mL Thin prep Papanicolaou smear with manual screeningon 11-05-2022 Thin prep Papanicolaou smear with manual screening Comment . [facility] Comment on above: QuantiFERON-TB Gold Plus is a qualitative indirect test forM tuberculosis infection (including disease) and isintended for use in conjunction with risk assessment,radiography, and other medical and diagnostic evaluations.The QuantiFERON-TB Gold Plus result is determined bysubtracting the Nil value from either TB antigen (Ag)value. The Mitogen tube serves as a control for the test. Thin prep Papanicolaou smear with manual screening 0.04 IU/mL . [facility] Thin prep Papanicolaou smear with manual screening 0.03 IU/mL . [facility] Thin prep Papanicolaou smear with manual screening > 10.00 IU/mL . [facility] Thin prep Papanicolaou smear with manual screening Negative Negative [facility] Comment on above: No response to M tub erculosis antigens detected.Infection with M tuberculosis is unlikely, but high riskindividuals should be considered for additional testing(ATS/IDSA/CDC Clinical Practice Guidelines, 2017). Thereference range is an Antigen minus Nil result of <0.35IU/mL.The specimen received for QuantiFERON testing was incubatedby the ordering institution. Specific procedures outlinedin our Directory of Services and in the package insert forthe QuantiFERON Gold (In Tube) test must be followed toenable for proper stimulation of cells for the productionof interferon gamma. Chemiluminescence immunoassaymethodology Basophil percentageon 2022 Bilirubin [Mass/Vol] 0.30 mg/dL 0.20-1.00 [facility] Comment on above: For patients on eltr ombopag therapy, use of Dimension [place] TBIL is not recommended. Chloride [Moles/Vol] 107 mmol/L 98-107 [facility] Glucose [Mass/Vol] 104 mg/dL 74-106 [facility] Comment on above: Fasting Glucose resu lt from 100 to 125 mg/dL suggests IMPAIRED HOMEOSTASIS per A.D.A. criteria. Potassium [Moles/Vol] 4.1 mmol/L 3.5-5.1 [facility] Protein [Mass/Vol] 7.2 g/dL 6.4-8.2 [facility] Sodium [Moles/Vol] 139 mmol/L 136-145 [facility] Direct bilirubinon 3 Bilirubin.direct [Mass/Vol] 0.07 mg/dL 0.00-0.30 [facility] - Chemistry and C hemistry - challengeon 11-04-2022 ALP [Catalytic activity/Vol] 91 U/L 45-117 [facility] ALT [Catalytic activity/Vol] 25 U/L 13-56 [facility] CO2 [Moles/Vol] 27.0 mmol/L 21.0-32.0 [facility] Globulin (S) [Mass/Vol] 3.4 g/dL 2.2-4.2 [facility] Urea nitrogen/Creatinine [Mass ratio] 19.0 mg/mg 10-20 [facility] No Panel Informationon 11-04 Estimated GFR (MDRD) Amer 127 mL/min >60 [facility] Comment on above: GFR Calc Estimated GFR (MDRD) Non-Af Amer 105 mL/min >60 [facility] Comment on above: Non- GFR Calc Serum or plasma C reactive p rotein measurement (mass/volume)on 11-04-2022 CRP [Mass/Vol] mg/L 0.0-3.0 [facility] Comment on above: C-Reactive Protein ( CRP) provides useful information for thediagnosis, therapy and monitoring of inflammatory processesand associated diseases. For the evaluation of Relative Riskfor Cardiovascular Disease, a High Sensitivity CRP (HSCRP)should be ordered. Serum or plasma albumin roque urement (mass/volume)on 11-04-2022 Albumin [Mass/Vol] 3.8 g/dL 3.2-5.0 [facility] Serum or plasma calcium roque urement (mass/volume)on 11-04-2022 Calcium [Mass/Vol] 9.0 mg/dL 8.5-10.1 [facility] Serum or plasma creatinine m easurement (mass/volume)on 11-04-2022 Creatinine [Mass/Vol] 0.63 mg/dL 0.55-1.02 [facility] Comment on above: The validity of the calculated GFR & GFRAA in patients over 70 years has not been determined. Clinical correlation is essential. Serum or plasma urea nitroge n measurement (mass/volume)on 11-04-2022 Urea nitrogen [Mass/Vol] 12 mg/dL 7-18 [facility] Serum rheumatoid factor dete ctionon 11-04-2022 Rheumatoid factor Ql (S) 38.0 IU/mL <15 [facility] Thin prep Papanicolaou smear with manual screeningon 11-04-2022 Thin prep Papanicolaou smear with manual screening 11 U/L 15-37 [facility] Thin prep Papanicolaou smear with manual screening 5 5-15 [facility] Basophil percentageOrdered B y: DEONDRE REES on 06-04-2022 Bilirubin [Mass/Vol] 0.40 mg/dL 0.20-1.00 [facility] Comment on above: For patients on eltr ombopag therapy, use of Dimension [place] TBIL is not recommended. Chloride [Moles/Vol] 107 mmol/L 98-107 [facility] Glucose [Mass/Vol] 97 mg/dL 74-106 [facility] Potassium [Moles/Vol] 4.3 mmol/L 3.5-5.1 [facility] Protein [Mass/Vol] 6.8 g/dL 6.4-8.2 [facility] Sodium [Moles/Vol] 137 mmol/L 136-145 [facility] WBC (Bld) [#/Vol] 6.3 10*3/uL 4.4-11.0 [facility] Blood erythrocytes count (nu mber/volume)Ordered By: [facility] on 06-04-2022 RBC (Bld) [#/Vol] 4.44 10*6/uL 4.2-5.4 [facility] Blood hemoglobin measurement (mass/volume)Ordered By: [facility] on 06-04-2022 Hemoglobin (Bld) [Mass/Vol] 13.6 g/dL 12.0-15.0 [facility] Blood platelet mean volumeOr dered By: [facility] on 06-04-2022 Platelet mean volume (Bld) [Entitic vol] 11.1 fL 6.2-12.0 [facility] Determination of erythrocyte mean corpuscular volume (MCV)Ordered By: [facility] on 06-04-2022 MCV (RBC) [Entitic vol] 93.0 fL 81-99 [facility] Hematocrit Auto (Bld) [Volum e fraction]Ordered By: [facility] on 06-04-2022 Hematocrit (Bld) [Volume fraction] 41.3 % 37-47 [facility] Laboratory - Chemistry and C hemistry - challengeOrdered By: [facility] on 06-04-2022 ALP [Catalytic activity/Vol] 96 U/L 45-117 [facility] ALT [Catalytic activity/Vol] 21 U/L 13-56 [facility] CO2 [Moles/Vol] 27.0 mmol/L 21.0-32.0 [facility] Cobalamin (Vitamin B12) [Mass/Vol] 408 pg/mL 211-911 [facility] Globulin (S) [Mass/Vol] 3.1 g/dL 2.2-4.2 [facility] Magnesium [Mass/Vol] 1.8 mg/dL 1.6-2.6 [facility] Urea nitrogen/Creatinine [Mass ratio] 27.8 mg/mg 10-20 [facility] Laboratory - Hematology and Cell countsOrdered By: [facility] on 06-04-2022 Erythrocyte distribution width (RBC) [Entitic vol] 42.2 fL 35.1-43.9 [facility] Erythrocyte distribution width (RBC) [Ratio] 12.2 % 11.6-14.6 [facility] MCH (RBC) [Entitic mass] 30.6 pg 27.0-32.0 [facility] MCHC Auto (RBC) [Mass/Vol]Or dered By: DEONDRE MESA on 06-04-2022 MCHC (RBC) [Mass/Vol] 32.9 g/dL 32-36 [facility] No Panel InformationOrdered By: DEONDRE MESA on 06-04-2022 Estimated GFR (MDRD) Amer 142 mL/min >60 [facility] Comment on above: GFR Calc Estimated GFR (MDRD) Non-Af Amer 117 mL/min >60 [facility] Comment on above: Non- GFR Calc Thyroid Stimulating Hormone (TSH) 0.77 uIU/mL 0.358-3.74 [facility] Vitamin D 25-Hydroxy 23.2 ng/mL [facility] Comment on above: Vitamin D 25(OH) Sta tus Range Deficiency <20 ng/mL (50nmol/L) Insufficiency 20 - 30 ng/mL (50 - 75 nmol/L) Sufficiency 30 - 100 ng/mL (75 - 250 nmol/L) Toxicity >100 ng/mL (>250 nmol/L) Platelets bldOrdered By: JEMMA ORTIZ on 06-04-2022 Platelets (Bld) [#/Vol] 310 10*3/uL 150-450 [facility] Serum or plasma albumin roque urement (mass/volume)Ordered By: DEONDRE MESA on 06-04-2022 Albumin [Mass/Vol] 3.7 g/dL 3.2-5.0 [facility] Serum or plasma albumin/glob ulin mass ratioOrdered By: [facility] on 06-04-2022 Albumin/Globulin [Mass ratio] 1.2 {ratio} 0.9-2.4 [facility] Serum or plasma calcium roque urement (mass/volume)Ordered By: [facility] on 06-04-2022 Calcium [Mass/Vol] 8.7 mg/dL 8.5-10.1 [facility] Serum or plasma creatinine m easurement (mass/volume)Ordered By: DEONDRE MESA on 06-04-2022 Creatinine [Mass/Vol] 0.58 mg/dL 0.55-1.02 [facility] Comment on above: The validity of the calculated GFR & GFRAA in patients over 70 years has not been determined. Clinical correlation is essential. Serum or plasma urea nitroge n measurement (mass/volume)Ordered By: [facility] on 06-04-2022 Urea nitrogen [Mass/Vol] 16 mg/dL 7-18 [facility] Thin prep Papanicolaou smear with manual screeningOrdered By: [facility] on 06-04-2022 Thin prep Papanicolaou smear with manual screening 12 U/L 15-37 [facility] Thin prep Papanicolaou smear with manual screening 3 5-15 [facility] Whole blood hemoglobin A1c/t otal hemoglobin ratio (mass fraction)Ordered By: [facility] on 06-04-2022 HbA1c (Bld) [Mass fraction] 5.0 % 3.8-5.6 [facility] Comment on above: Normal < 5.7 % Predi abetic 5.7 - 6.4 % Diabetic >or= 6.5 % Please note range changes. No Panel Informationon 08-22 Anti-Nuclear Antibody Screen Negative Negative [facility] Work Phone: Comment on above: Performed at: [address] [id number] Director: Boogie Hinds PhD, Phone: [phone] Absolute lymphocyte counton 08-15-2021 Lymphocytes Auto (Unsp spec) [#/Vol] 1.69 10*3/uL 0.83-4.51 [facility] Work Phone: Basophil percentageon 2021 Basophils/100 WBC (Bld) 0.5 % 0-1 [facility] Work Phone: Bilirubin [Mass/Vol] 0.30 mg/dL 0.20-1.00 [facility] Work Phone: Comment on above: For patients on eltr ombopag therapy, use of Dim[place] TBIL is not recommended. Chloride [Moles/Vol] 103 mmol/L 98-107 [facility] Work Phone: Eosinophils/100 WBC (Bld) 4.9 % 0-5 [facility] Work Phone: [phone] Glucose [Mass/Vol] 124 mg/dL 74-106 [facility] Work Phone: Comment on above: Fasting Glucose resu lt from 100 to 125 mg/dL suggests IMPAIRED HOMEOSTASIS per A.D.A. criteria. Neutrophils (Bld) [#/Vol] 2.0 10*3/uL 2.0-7.7 [facility] Work Phone: Neutrophils/100 WBC (Bld) 46.2 % 47-70 [facility] Work Phone: [phone] Potassium [Moles/Vol] 3.5 mmol/L 3.5-5.1 [facility] Work Phone: [phone] Protein [Mass/Vol] 6.8 g/dL 6.4-8.2 [facility] Work Phone: [phone] Sodium [Moles/Vol] 137 mmol/L 136-145 [facility] Work Phone: WBC (Bld) [#/Vol] 4.3 10*3/uL 4.4-11.0 [facility] Work Phone: [phone] Blood erythrocytes count (nu mber/volume)on 08-15-2021 RBC (Bld) [#/Vol] 4.13 10*6/uL 4.2-5.4 [facility] Work Phone: Blood hemoglobin measurement (mass/volume)on 08-15-2021 Hemoglobin (Bld) [Mass/Vol] 12.3 g/dL 12.0-15.0 [facility] Work Phone: Blood lymphocytes/100 leukoc yteson 08-15-2021 Lymphocytes/100 WBC (Bld) 39.5 % 19-41 [facility] Work Phone: [phone] Blood monocytes/100 leukocyt eson 08-15-2021 Monocytes/100 WBC (Bld) 8.9 % 0-10 [facility] Work Phone: [phone] Blood platelet mean volumeon 08-15-2021 Platelet mean volume (Bld) [Entitic vol] 10.9 fL 6.2-12.0 [facility] Work Phone: Determination of erythrocyte mean corpuscular volume (MCV)on 08-15-2021 MCV (RBC) [Entitic vol] 88.6 fL 81-99 [facility] Work Phone: Erythrocyte sedimentation ra jon 08-15-2021 ESR (Bld) [Velocity] 18 mm/h 0-30 [facility] Work Phone: Hematocrit Auto (Bld) [Volum e fraction]on 08-15-2021 Hematocrit (Bld) [Volume fraction] 36.6 % 37-47 [facility] Work Phone: Laboratory - Chemistry and C hemistry - challengeon 08-15-2021 ALP [Catalytic activity/Vol] 74 U/L 45-117 [facility] Work Phone: ALT [Catalytic activity/Vol] 18 U/L 13-56 [facility] Work Phone: CK [Catalytic activity/Vol] 81 U/L 26-192 [facility] Work Phone: CO2 [Moles/Vol] 27.0 mmol/L 21.0-32.0 [facility] Work Phone: Globulin (S) [Mass/Vol] 3.4 g/dL 2.2-4.2 [facility] Work Phone: Urea nitrogen/Creatinine [Mass ratio] 14.3 mg/mg 10-20 [facility] Work Phone: Laboratory - Hematology and Cell countson 08-15-2021 Erythrocyte distribution width (RBC) [Entitic vol] 39.4 fL 35.1-43.9 [facility] Work Phone: Erythrocyte distribution width (RBC) [Ratio] 12.2 % 11.6-14.6 [facility] Work Phone: Immature granulocytes/100 WBC (Bld) 0.000 % 0.0-0.9 [facility] Work Phone: Comment on above: IG% - Immature Granu locytes (promyelocytes, myelocytes and metamyelocytes) > 1% indicates that a LEFT SHIFT is Present. MCH (RBC) [Entitic mass] 29.8 pg 27.0-32.0 [facility] Work Phone: Nucleated RBC/100 WBC (Bld) [Ratio] 0 % 0-5 [facility] Work Phone: MCHC Auto (RBC) [Mass/Vol]on 08-15-2021 MCHC (RBC) [Mass/Vol] 33.6 g/dL 32-36 [facility] Work Phone: No Panel Informationon 08-15 Estimated GFR (MDRD) Amer 146 mL/min >60 [facility] Work Phone: Comment on above: GFR Calc Estimated GFR (MDRD) Non-Af Amer 121 mL/min >60 [facility] Work Phone: Comment on above: Non- GFR Calc Platelets bldon 08-15-2021 Platelets (Bld) [#/Vol] 274 10*3/uL 150-450 [facility] Work Phone: Serum or plasma C reactive p rotein measurement (mass/volume)on 08-15-2021 CRP [Mass/Vol] 9.38 mg/L 0.0-3.0 [facility] Work Phone: Comment on above: C-Reactive Protein ( CRP) provides useful information for thediagnosis, therapy and monitoring of inflammatory processesand associated diseases. For the evaluation of Relative Riskfor Cardiovascular Disease, a High Sensitivity CRP (HSCRP)should be ordered. Serum or plasma albumin roque urement (mass/volume)on 08-15-2021 Albumin [Mass/Vol] 3.4 g/dL 3.2-5.0 [facility] Work Phone: Serum or plasma albumin/glob ulin mass ratioon 08-15-2021 Albumin/Globulin [Mass ratio] 1.0 {ratio} 0.9-2.4 [facility] Work Phone: Serum or plasma calcium roque urement (mass/volume)on 08-15-2021 Calcium [Mass/Vol] 8.5 mg/dL 8.5-10.1 [facility] Work Phone: Serum or plasma creatinine m easurement (mass/volume)on 08-15-2021 Creatinine [Mass/Vol] 0.56 mg/dL 0.55-1.02 [facility] Work Phone: Comment on above: The validity of the calculated GFR & GFRAA in patients over 70 years has not been determined. Clinical correlation is essential. Serum or plasma urea nitroge n measurement (mass/volume)on 08-15-2021 Urea nitrogen [Mass/Vol] 8 mg/dL 7-18 [facility] Work Phone: Serum or plasma uric acid me asurement (mass/volume)on 08-15-2021 Urate [Mass/Vol] 3.9 mg/dL 2.6-6.0 [facility] Work Phone: Comment on above: The drugs N-Acetylcy steine and Metamizole may falsely depress this assay. Serum rheumatoid factor dete ctionon 08-15-2021 Rheumatoid factor Ql (S) 29.0 IU/mL <15 [facility] Work Phone: Thin prep Papanicolaou smear with manual screeningon 08-15-2021 Thin prep Papanicolaou smear with manual screening 15 U/L 15-37 [facility] Work Phone: Thin prep Papanicolaou smear with manual screening 7 5-15 [facility] Work Phone: Glucose Glucometer (BldC) [M ass/Vol]on 06-25-2021 Glucose [Mass/Vol] 151 mg/dL 74-106 [facility] Work Phone: Comment on above: MANAGEMENT OF PATIEN T CARE PER NURSING PROTOCOL Laboratory - Chemistry and C hemistry - challengeon 06-25-2021 HCG ( test) Ql (U) Negative [facility] Work Phone: Comment on above: Very dilute urine sp ecimens, as indicated by a low specificgravity, may not contain account representative levels of hCG. If is still suspected, a first morning urinespecimen should be collected 48 hours later and tested. Basophil percentageon 2021 WBC (Bld) [#/Vol] 6.9 10*3/uL 4.4-11.0 [facility] Work Phone: Blood erythrocytes count (nu mber/volume)on 06-24-2021 RBC (Bld) [#/Vol] 4.46 10*6/uL 4.2-5.4 [facility] Work Phone: Blood hemoglobin measurement (mass/volume)on 06-24-2021 Hemoglobin (Bld) [Mass/Vol] 13.4 g/dL 12.0-15.0 [facility] Work Phone: Blood platelet mean volumeon 06-24-2021 Platelet mean volume (Bld) [Entitic vol] 11.1 fL 6.2-12.0 [facility] Work Phone: Determination of erythrocyte mean corpuscular volume (MCV)on 06-24-2021 MCV (RBC) [Entitic vol] 89.7 fL 81-99 [facility] Work Phone: Hematocrit Auto (Bld) [Volum e fraction]on 06-24-2021 Hematocrit (Bld) [Volume fraction] 40.0 % 37-47 [facility] Work Phone: Laboratory - Chemistry and C hemistry - challengeon 06-24-2021 Magnesium [Mass/Vol] 1.8 mg/dL 1.6-2.6 [facility] Work Phone: Laboratory - Hematology and Cell countson 06-24-2021 Erythrocyte distribution width (RBC) [Entitic vol] 40.7 fL 35.1-43.9 [facility] Work Phone: Erythrocyte distribution width (RBC) [Ratio] 12.4 % 11.6-14.6 [facility] Work Phone: MCH (RBC) [Entitic mass] 30.0 pg 27.0-32.0 [facility] Work Phone: MCHC Auto (RBC) [Mass/Vol]on 06-24-2021 MCHC (RBC) [Mass/Vol] 33.5 g/dL 32-36 [facility] Work Phone: Platelets bldon 06-24-2021 Platelets (Bld) [#/Vol] 250 10*3/uL 150-450 [facility] Work Phone: Vital Signs Date Time Vital Sign Value Performing Clinician Facility 05-18-2024 10:15-0400 Body height 165.1 cm Kaia Luo SIDING APPLICATOR-C Work Phone: [facility] 05-18-2024 10:15-0400 Body mass index (BMI) [Ratio] 43.2 kg/m2 Kaia Luo SIDING APPLICATOR-C Work Phone: [facility] 05-18-2024 10:15-0400 Body weight 117.93 kg Kaia Luo SIDING APPLICATOR-C Work Phone: [phone] [address] 05-04-2024 10:30-0400 Body height 165.1 cm Kaia Luo SIDING APPLICATOR-C Work Phone: [phone] [place] [address] 05-04-2024 10:30-0400 Body mass index (BMI) [Ratio] 44.8 kg/m2 Kaia Luo SIDING APPLICATOR-C Work Phone: [phone] [place] [address] 05-04-2024 10:30-0400 Body weight 122.18 kg Kaia Luo SIDING APPLICATOR-C Work Phone: [phone] [place] [address] 03-15-2024 14:00-0500 Body mass index (BMI) [Ratio] 43.4 kg/m2 Kaia Luo SIDING APPLICATOR-C Work Phone: [phone] [place] [address] 03-15-2024 14:00-0500 Body weight 118.61 kg Kaia Luo SIDING APPLICATOR-C Work Phone: [facility] 05-06-2023 11:38-0400 Body mass index (BMI) [Ratio] 42.17 kg/m2 [place] DO Work Phone: [facility] 05-06-2023 11:38-0400 Body weight 114.94 kg [place] DO Work Phone: [facility] 05-06-2023 11:38-0400 Diastolic blood pressure 86 mm[Hg] [place] DO Work Phone: [facility] 05-06-2023 11:38-0400 Systolic blood pressure 144 mm[Hg] [place] DO Work Phone: [facility] 05-24-2022 09:02-0400 Body height 165.1 cm [facility] Work Phone: [phone] [place] [address] 05-24-2022 09:02-0400 Body mass index (BMI) [Ratio] 36.8 kg/m2 [facility] Work Phone: [phone] [place] [address] 05-24-2022 09:02-0400 Body temperature 97.6 [degF] [facility] Work Phone: [phone] [place] [address] 05-24-2022 09:02-0400 Body weight 100.6 kg [facility] Work Phone: [phone] [place] [address] 05-24-2022 09:02-0400 Diastolic blood pressure 84 mm[Hg] [facility] Work Phone: [phone] [place] [address] 05-24-2022 09:02-0400 Heart rate 82 /min [facility] Work Phone: [phone] [place] [address] 05-24-2022 09:02-0400 Respiratory rate 18 /min [facility] Work Phone: [phone] [place] [address] 05-24-2022 09:02-0400 SaO2% (BldA) [Mass fraction] 99 % [facility] Work Phone: [phone] [place] [address] 05-24-2022 09:02-0400 Systolic blood pressure 158 mm[Hg] [facility] Work Phone: [phone] [place] [address] 04-30-2022 09:55-0400 Body mass index (BMI) [Ratio] 37.6 kg/m2 [facility] Work Phone: [facility] 04-30-2022 09:55-0400 Body weight 102.68 kg [facility] Work Phone: [facility] 09-02-2021 14:09-0400 Body height 165.1 cm [facility] Work Phone: [facility] Work Phone: 09-02-2021 14:09-0400 Body mass index (BMI) [Ratio] 35.9 kg/m2 [facility] Work Phone: [facility] Work Phone: 09-02-2021 14:09-0400 Body weight 97.74 kg [facility] Work Phone: [facility] Work Phone: 08-06-2021 09:59-0400 Body height 165.1 cm [facility] Work Phone: [facility] Work Phone: 08-06-2021 09:57-0400 Body mass index (BMI) [Ratio] 37 kg/m2 [facility] Work Phone: [facility] Work Phone: 08-06-2021 09:57-0400 Body weight 101.15 kg [facility] Work Phone: [facility] Work Phone: 08-06-2021 09:57-0400 Diastolic blood pressure 80 mm[Hg] [facility] Work Phone: [facility] Work Phone: 08-06-2021 09:57-0400 Systolic blood pressure 132 mm[Hg] [facility] Work Phone: [facility] Work Phone: 07-22-2021 19:18-0400 Body height 165.1 cm [facility] Work Phone: [facility] Work Phone: 07-22-2021 19:18-0400 Body mass index (BMI) [Ratio] 36.9 kg/m2 [facility] Work Phone: [facility] Work Phone: 07-22-2021 19:18-0400 Body temperature 97.1 [degF] [facility] Work Phone: [facility] Work Phone: 07-22-2021 19:18-0400 Body weight 100.8 kg [facility] Work Phone: [facility] Work Phone: 07-22-2021 19:18-0400 Diastolic blood pressure 76 mm[Hg] [facility] Work Phone: [facility] Work Phone: 07-22-2021 19:18-0400 Heart rate 114 /min [facility] Work Phone: [facility] Work Phone: 07-22-2021 19:18-0400 Respiratory rate 18 /min [facility] Work Phone: [facility] Work Phone: 07-22-2021 19:18-0400 SaO2% (BldA) [Mass fraction] 97 % [facility] Work Phone: [facility] Work Phone: 07-22-2021 19:18-0400 Systolic blood pressure 138 mm[Hg] [facility] Work Phone: [facility] Work Phone: 07-11-2021 11:23-0400 Body mass index (BMI) [Ratio] 36.1 kg/m2 [facility] Work Phone: [facility] Work Phone: 07-11-2021 11:23-0400 Body weight 101.71 kg [facility] Work Phone: [facility] Work Phone: 07-11-2021 11:23-0400 Diastolic blood pressure 76 mm[Hg] [facility] Work Phone: [facility] Work Phone: 07-11-2021 11:23-0400 Systolic blood pressure 136 mm[Hg] [facility] Work Phone: [facility] Work Phone: 07-11-2021 11:23-0400 Body mass index (BMI) [Ratio] 36.1 kg/m2 [facility] Work Phone: [facility] Work Phone: 07-11-2021 11:23-0400 Body weight 101.71 kg [facility] Work Phone: [facility] Work Phone: 07-11-2021 11:23-0400 Diastolic blood pressure 76 mm[Hg] [facility] Work Phone: [facility] Work Phone: 07-11-2021 11:23-0400 Systolic blood pressure 136 mm[Hg] [facility] Work Phone: [facility] Work Phone: 06-25-2021 14:21-0400 Body temperature 98.1 [degF] [facility] Work Phone: [facility] Work Phone: 06-25-2021 14:21-0400 Diastolic blood pressure 83 mm[Hg] [facility] Work Phone: [facility] Work Phone: 06-25-2021 14:21-0400 Heart rate 95 /min [facility] Work Phone: [facility] Work Phone: 06-25-2021 14:21-0400 Respiratory rate 16 /min [facility] Work Phone: [facility] Work Phone: 06-25-2021 14:21-0400 SaO2% (BldA) [Mass fraction] 99 % [facility] Work Phone: [facility] Work Phone: 06-25-2021 14:21-0400 Systolic blood pressure 130 mm[Hg] [facility] Work Phone: [facility] Work Phone: 06-25-2021 12:45-0400 Inhaled oxygen flow rate 4 L/min [facility] Work Phone: [facility] Work Phone: 06-25-2021 09:16-0400 Body height 167.64 cm [facility] Work Phone: [facility] Work Phone: 06-25-2021 09:16-0400 Body mass index (BMI) [Ratio] 36.5 kg/m2 [facility] Work Phone: [facility] Work Phone: 06-25-2021 09:16-0400 Body weight 102.7 kg [facility] Work Phone: [facility] Work Phone: 06-06-2021 14:42-0400 Body mass index (BMI) [Ratio] 36 kg/m2 [facility] Work Phone: [facility] Work Phone: 06-06-2021 14:42-0400 Body weight 101.2 kg [facility] Work Phone: [facility] Work Phone: 06-06-2021 14:42-0400 Diastolic blood pressure 88 mm[Hg] [facility] Work Phone: [facility] Work Phone: 06-06-2021 14:42-0400 Systolic blood pressure 130 mm[Hg] [facility] Work Phone: [facility] Work Phone: 06-06-2021 14:42-0400 Body mass index (BMI) [Ratio] 36 kg/m2 [facility] Work Phone: [facility] Work Phone: 06-06-2021 14:42-0400 Body weight 101.2 kg [facility] Work Phone: [facility] Work Phone: 06-06-2021 14:42-0400 Diastolic blood pressure 88 mm[Hg] [facility] Work Phone: [facility] Work Phone: 06-06-2021 14:42-0400 Systolic blood pressure 130 mm[Hg] [facility] Work Phone: [facility] Work Phone: 04-17-2021 14:33-0500 Body mass index (BMI) [Ratio] 35.1 kg/m2 [facility] Work Phone: [facility] Work Phone: 04-17-2021 14:33-0500 Body weight 98.59 kg [facility] Work Phone: [facility] Work Phone: 04-17-2021 14:33-0500 Diastolic blood pressure 86 mm[Hg] [facility] Work Phone: [facility] Work Phone: 04-17-2021 14:33-0500 Systolic blood pressure 120 mm[Hg] [facility] Work Phone: [facility] Work Phone: 03-13-2021 07:38-0500 Body mass index (BMI) [Ratio] 35 kg/m2 [facility] Work Phone: [facility] Work Phone: 03-13-2021 07:38-0500 Body weight 98.42 kg [facility] Work Phone: [facility] Work Phone: 03-13-2021 07:38-0500 Diastolic blood pressure 68 mm[Hg] [facility] Work Phone: [facility] Work Phone: 03-13-2021 07:38-0500 Systolic blood pressure 110 mm[Hg] [facility] Work Phone: [facility] Work Phone: Encounters Encounter Date Encounter Type Care Provider Facility Start: 07-27-2024 ambulatory Joaquín [place] Facility:[facility] Start: 07-25-2024 Encounter for other preprocedural examination [facility] Start: 07-21-2024 End: 07-21-[address] Joaquín Calix MD -[facility] Work Phone: Start: 07-21-2024 End: 07-21-2024 ambulatory Kaia Luo SIDING APPLICATOR-C Work Phone: [facility] Work Phone: Start: 07-07-2024 Encounter for other preprocedural examination Latonia Villeda [facility] Start: 07-04-2024 End: 07-04-2024 ambulatory [facility] Start: 07-04-2024 End: 07-04-2024 Non-patient / Non-visit Dr. Leon Bravo MD -[facility] Work Phone: Start: 07-04-2024 End: 07-04-[address] Latonia Villeda MD -Ultras[facility] Work Phone: Start: 07-04-2024 End: 07-04-2024 ambulatory [facility] Start: 06-13-2024 End: 06-13-[address] Latonia Villeda MD -[facility] Work Phone: Start: 06-13-2024 End: 06-13-2024 ambulatory [facility] Start: 06-03-2024 End: 06-03-[address] Joaquín Calix MD -[facility] Work Phone: Start: 06-03-2024 End: 06-03-2024 ambulatory Joaquín Calix Facility:[facility] Start: 05-18-2024 End: 05-18-[address] Sukh Bolanos DO -[facility] Work Phone: Start: 05-18-2024 End: 05-18-2024 ambulatory [facility] Start: 05-11-2024 End: 05-11-[address] Sukh Bolanos DO -[facility] Work Phone: Start: 05-11-2024 End: 05-11-2024 ambulatory [facility] Start: 05-04-2024 End: 05-04-[address] Leon Bravo MD -[facility] Start: 05-04-2024 End: 05-04-2024 ambulatory [facility] Start: 04-22-2024 End: 04-22-2024 Patient encounter procedure Soumya ROBERTO -[facility] Work Phone: Start: 04-22-2024 End: 04-22-2024 ambulatory [facility] Start: 04-20-2024 End: 04-20-2024 ambulatory [facility] SIDING APPLICATOR-C Work Phone: [facility] Work Phone: Start: 04-20-2024 End: 04-20-2024 Patient encounter procedure Soumya ROBERTO -[facility] Work Phone: Start: 04-20-2024 End: 04-20-2024 ambulatory [facility] Start: 03-15-2024 End: 03-15-2024 Patient encounter procedure Soumya ROBERTO -[facility] Work Phone: Start: 03-15-2024 End: 03-15-2024 ambulatory [facility] Start: 03-02-2024 End: 03-02-2024 Patient encounter procedure [facility] Kaia Valerio ALANISC -Laboratory, Deondre Dumontjaz Start: 03-02-2024 End: 03-02-2024 ambulatory Kaia [facility] Facility:[facility] Start: 09-16-2023 End: 09-16-2023 ambulatory [facility] Start: 08-10-2023 ambulatory Adrianne [place] [facility]: [place] Start: 08-10-2023 End: 08-10-2023 ambulatory [facility] Start: 06-29-2023 End: 06-30-2023 ambulatory Facility:[facility] Start: 05-15-2023 Refill France Colorado DO Work Phone: [facility] Comment on above: Seropositive rheumat oid arthritis (HCC) (Primary Dx) Start: 05-12-2023 Orders Only Historical Pro videtrish VILLALOBOS [facility] Start: 05-06-2023 End: 05-10-2023 ambulatory FRANCE COLORADO [facility] Start: 05-06-2023 End: 05-06-2023 Office outpatient visit 25 minutes France Colorado DO Work Phone: [facility] Comment on above: Seropositive rheumat oid arthritis (HCC) (Primary Dx); High risk medication use; Encounter for screening for other viral diseases Start: 04-09-2023 End: 04-09-2023 ambulatory [facility] Work Phone: Start: 04-09-2023 End: 04-09-2023 Patient encounter procedure [facility] Work Phone: Start: 01-13-2023 Documentation procedure Bay Jane LPN [facility] Start: 12-10-2022 Documentation procedure Bay Jane LPN [facility] Start: 12-08-2022 ambulatory ART [facility] Start: 12-08-2022 Documentation procedure Bay Jane LPN [facility] Start: 11-13-2022 Orders Only Art Russell MD Work Phone: [facility] Comment on above: Rheumatoid arthritis involving both knees with positive rheumatoid factor (HCC) (Primary Dx); [facility] methotrexate user Start: 11-07-2022 ambulatory ART VIDESWINSOME [facility] th Ambulatory Start: 11-06-2022 End: 11-06-2022 ambulatory ART RUSSELL [facility] Start: 11-06-2022 End: 11-06-2022 Office outpatient visit 40 minutes Art Russell MD Work Phone: [facility] Comment on above: Rheumatoid arthritis involving multiple sites with positive rheumatoid factor (HCC) (Primary Dx) Start: 11-05-2022 End: 11-05-2022 ambulatory [facility] Work Phone: Start: 11-05-2022 End: 11-05-2022 Patient encounter procedure [facility] Work Phone: Start: 11-04-2022 End: 11-04-2022 ambulatory [facility] Work Phone: Start: 11-04-2022 End: 11-04-2022 Patient encounter procedure [facility] Work Phone: Start: 11-03-2022 ambulatory [facility] Start: 11-03-2022 End: 11-03-2022 [facility] Start: 06-04-2022 End: 06-04-2022 ambulatory [facility] Work Phone: [facility] Work Phone: Start: 06-04-2022 End: 06-04-2022 Patient encounter procedure [facility] Work Phone: [facility] Start: 05-28-2022 End: 05-28-2022 Patient encounter procedure [facility] Work Phone: [facility] Start: 05-27-2022 End: 05-27-2022 ambulatory [facility] Work Phone: [facility] Work Phone: Start: 05-27-2022 End: 05-27-2022 Patient encounter procedure [facility] Work Phone: [facility] Start: 05-24-2022 End: 05-24-2022 Emergency department patient visit [facility] Work Phone: [facility]-Emergency Department Start: 04-30-2022 End: 04-30-2022 Patient encounter procedure [facility] Work Phone: [facility] Start: 04-21-2022 End: 04-21-2022 ambulatory [facility] Work Phone: [facility] Work Phone: Start: 04-21-2022 End: 04-21-2022 Discharged Recurring [facility] Work Phone: [facility]-Physical Therapy Start: 04-21-2022 Registered Recurring [facility] Work Phone: [facility] Start: 04-03-2022 Registered Recurring [facility] Start: 03-27-2022 End: 03-27-2022 ambulatory [facility] Work Phone: Start: 03-27-2022 End: 03-27-2022 Patient encounter procedure [facility] Start: 10-15-2021 End: 10-15-2021 ambulatory [facility] Work Phone: [facility] Work Phone: Start: 10-15-2021 End: 10-15-2021 Patient encounter procedure [facility] Work Phone: [facility] Start: 09-30-2021 End: 09-30-2021 [facility] encounter procedure [facility] Work Phone: [facility] Start: 09-02-2021 End: 09-02-2021 Patient encounter procedure [facility] Work Phone: [facility] Start: 08-22-2021 End: 08-22-2021 Patient encounter procedure [facility] Work Phone: [facility]Laboratory Start: 08-15-2021 End: 08-15-2021 Patient encounter procedure [facility] Work Phone: [facility] Start: 08-06-2021 End: 08-06-2021 Patient encounter procedure [facility] Work Phone: [facility] Start: 07-22-2021 End: 07-22-2021 Emergency department patient visit [facility] Work Phone: [facility]-Emergency Department Start: 07-11-2021 End: 07-11-2021 Patient encounter procedure [facility] Work Phone: [facility] Start: 06-25-2021 Non-patient / Non-visit [facility] Work Phone: [facility] Start: 06-25-2021 End: 06-25-2021 Admission to same day surgery center [facility] Start: 06-23-2021 Non-patient / Non-visit [facility] Work Phone: [facility] Start: 06-06-2021 End: 06-06-2021 Patient encounter procedure [facility] Work Phone: [facility] Start: 04-17-2021 End: 04-17-2021 Patient encounter procedure [facility] Work Phone: [facility] Start: 03-28-2021 End: 03-28-2021 Patient encounter procedure [facility] Work Phone: [facility] Start: 03-13-2021 End: 03-13-2021 Patient encounter procedure [facility] Work Phone: [facility] Procedures Date Procedure Procedure Detail Performing Clinician Start: 07-04-2024 X-ray of chest, PA a nd lateral views Kaia Luo SIDING APPLICATOR-C Work Phone: Start: 07-04-2024 Vitamin D, 25-hydrox y measurement Kaia Luo SIDING APPLICATOR-C Work Phone: Comment on above: Vitamin D StatusDefi ciency: <20 ng/mL (50nmol/L)Insufficiency: 20-30 ng/mL (50-75 nmol/L)Sufficiency: 30-100 ng/mL (75-250 nmol/L)Toxicity: >100 ng/mL (>250 nmol/L) Start: 07-04-2024 Ultrasonography of abdomen Kaia uLo SIDING APPLICATOR-C Work Phone: Start: 06-13-2024 ANDREW measurement Kaia Luo SIDING APPLICATOR-C Work Phone: Comment on above: Performed at: [facility] [employer] [id number] Director: Boogie Hinds PhD, Phone: [phone] Start: 06-13-2024 Hepatitis C antibody measurement Kaia Luo SIDING APPLICATOR-C Work Phone: Comment on above: Reactive: Presumptiv e evidence of antibodies to HCV. Follow CDC recommendations for supplemental testing.Non-Reactive: Antibodies to HCV were not detected; does not exclude the possibility of exposure to HCVReactive Results are presumptive evidence of antibodies to HCV. Follow CDC recommendations for supplemental testing.Order confirmation testing: HCV Quant by PCR testing - HCVPCR #[id number] Non Reactive: < 0.8 Equivocal: >/= 0.8 to < 1.0 Reactive: >/= 1.0The CDC requires that a reactive/equivocal HCV antibody result be sent out for confirmation. HCV Quant by PCR testing. Start: 05-04-2024 X-ray of knee, four or more views Kaia Luo SIDING APPLICATOR-C Work Phone: Start: 04-20-2024 MRI of lumbar spine Cuca Luo SIDING APPLICATOR-C Work Phone: Start: 03-15-2024 X-ray of lumbosacral spine Kaia Luo SIDING APPLICATOR-C Work Phone: Start: 05-12-2023 EXT LAB [facility]CP Historical Provider Start: 04-09-2023 Screening mammography Start: 11-04-2022 Plain x-ray of hand Start: 11-04-2022 Radiologic examinati on of knee Start: 05-27-2022 MRI of joint of lowe r extremity [facility] Work Phone: Start: 04-30-2022 End: 04-30-2022 Radiologic examination of knee [facility] Work Phone: Start: 03-27-2022 X-ray of lumbosacral spine Start: 10-15-2021 MRI of lumbar spine [facility] Work Phone: Start: 09-02-2021 Radiologic examinati on of knee [facility] Work Phone: Start: 08-15-2021 Radiologic examinati on of knee [facility] Work Phone: Start: 08-15-2021 X-ray of lumbar spin e, two or three views [facility] Work Phone: Start: 06-25-2021 Total abdominal hysterectomy with bilateral salpingo-oophorectomy [facility] Work Phone: Start: 06-24-2021 End: 06-24-2021 Viral antigen assay [facility] Work Phone: Start: 03-28-2021 Pelvic echography [facility] Work Phone: Start: 03-28-2021 Transvaginal echography [facility] Work Phone: H/O: hysterectomy Status post hysterectomy [facility] Work Phone: Viral antigen assay [facility] Work Phone: Plan of Treatment Date Care Activity Detail Author Start: 05-11-2024 Patient referral [facility] Work Phone: Start: 05-04-2024 X-ray of knee, four or more views Knee 4 or More Views [facility] Start: 05-04-2024 XR Knee GE 4 Views [facility] Start: 08-07-2023 End: 08-07-2023 Patient encounter procedure 08/07/2023 11:45 AM EDT Office Visit [facility] [address] [facility] [facility] [place] [address] [place], Franceruss Waltone, DO [address] [place] [id number] [facility] Start: 05-06-2023 End: 05-06-2023 Patient encounter procedure [facility] Start: 11-05-2022 Procedure [facility] Start: 10-17-2022 COVID-19 Vaccine ( season) COVID-19 Vaccine ( season) [facility] Start: 10-17-2022 Influenza vaccination Sequenti al Influenza Vaccine (#1) [facility] Start: 06-25-2021 Anesthesia intraperi toneal lower abd w/laps nos ANESTH SURG LOWER ABDOMEN [facility] Work Phone: Start: 06-25-2021 Laps total hysterect 250 gm/< w/rmvl tube/ovary TLH W/T/O 250 G OR LESS [facility] Work Phone: Start: 06-25-2021 Ambulation without limitation [facility] Work Phone: Start: 06-25-2021 Medication education [facility] Work Phone: Start: 06-25-2021 Patient discharge [facility] Work Phone: Start: 06-25-2021 Planned voiding [facility] Work Phone: Start: 06-25-2021 Procedure discontinued [facility] Work Phone: Start: 06-25-2021 Taking patient vital signs [facility] Work Phone: Start: 06-25-2021 Vital signs measurements [facility] Work Phone: Start: 06-25-2021 Dev [facility] Work Phone: Start: 06-25-2021 Admission procedure [facility] Work Phone: Start: 01-01-2020 Administration of he rpes zoster vaccine Zoster Vaccines (1 of 2) [facility] Start: 01-01-2020 Screening for malign ant neoplasm of colon Flexible sigmoidoscopy [facility] Start: 2009 Screening for malign ant neoplasm of breast Mammogram [facility] Start: 1988 Administration of he rpes zoster vaccine Zoster Vaccines (1 of 2) [facility] Start: 01-01-1988 Hepatitis C screening Hepatitis C Sc reening [facility] Start: 1984 HIV screening HIV Screening [facility] Start: 1981 Depression screening using PHQ-9 (Patient Health Questionnaire 9) score Depression Screening (PHQ-2/9) [facility] Start: 01-01-1976 Pneumococcal Vaccine : Ped or At-Risk (1 - PCV) Pneumococcal Vaccine: Ped or At-Risk (1 - PCV) [facility] Start: 01-01-1976 Pneumococcal Vaccine : Ped or At-Risk (1 of 2 - PCV) Pneumococcal Vaccine: Ped or At-Risk (1 of 2 - PCV) [facility] Start: 1974 COVID-19 Vaccine (#1) COVID-19 Vacci ne (#1) [facility] Start: 1972 History and physical examination, annual for health maintenance Wellness Visit [facility] Start: 1969 Screening for malign ant neoplasm of colon [facility] Start: 1969 Tetanus vaccination Tetanus: Every 1 0yrs [facility] End: 11-14-2023 Alanine aminotransferase [Enzymatic activity/volume] in Serum or Plasma ALT Lab Routine Rheumatoid arthritis involving both knees with positive rheumatoid factor (HCC) [facility] methotrexate user EVERY 3 MONTHS for 2 Occurrences starting 11/13/2022 until 11/14/2023 [facility] Work Phone: Comment on above: EVERY 3 MONTHS for 2 Occurrences starting 11/13/2022 until 11/14/2023 End: 11-14-2023 Aspartate aminotransferase [Enzymatic activity/volume] in Serum or Plasma AST Lab Routine Rheumatoid arthritis involving both knees with positive rheumatoid factor (HCC) [facility] methotrexate user EVERY 3 MONTHS for 2 Occurrences starting 11/13/2022 until 11/14/2023 [facility] Comment on above: EVERY 3 MONTHS for 2 Occurrences starting 11/13/2022 until 11/14/2023 End: 11-05-2024 C reactive protein [Mass/volume] in Serum or Plasma CRP, Inflammation Lab Routine Seropositive rheumatoid arthritis (HCC) High risk medication use 6 Occurrences starting 05/06/2023 until 11/05/2024, 1 completed [facility] Comment on above: 6 Occurrences starti ng 05/06/2023 until 11/05/2024, 1 completed End: 11-14-2023 Complete blood count with white cell differential, manual CBC and Differential Lab Routine Rheumatoid arthritis involving both knees with positive rheumatoid factor (HCC) intermediate designer methotrexate user LEVERY 3 MONTHS for 2 Occurrences starting 11/13/2022 until 11/14/2023 [facility] Comment on above: LEVERY 3 MONTHS for 2 Occurrences starting 11/13/2022 until 11/14/2023 End: 11-05-2024 Complete blood count with white cell differential, manual CBC and Differential Lab Routine Seropositive rheumatoid arthritis (HCC) High risk medication use 6 Occurrences starting 05/06/2023 until 11/05/2024 [facility] Comment on above: 6 Occurrences starti ng 05/06/2023 until 11/05/2024 End: 11-14-2023 Creatinine [Mass/volume] in Serum or Plasma Creatinine, serum Lab Routine Rheumatoid arthritis involving both knees with positive rheumatoid factor (HCC) intermediate designer methotrexate user EVERY 3 MONTHS for 2 Occurrences starting 11/13/2022 until 11/14/2023 [facility] Comment on above: EVERY 3 MONTHS for 2 Occurrences starting 11/13/2022 until 11/14/2023 End: 11-05-2024 Creatinine [Mass/volume] in Serum or Plasma Creatinine, serum Lab Routine Seropositive rheumatoid arthritis (HCC) High risk medication use 6 Occurrences starting 05/06/2023 until 11/05/2024 [facility] Comment on above: 6 Occurrences starti ng 05/06/2023 until 11/05/2024 End: 11-05-2024 Erythrocyte sedimentation rate Sedimentation Rate Lab Routine Seropositive rheumatoid arthritis (HCC) High risk medication use 6 Occurrences starting 05/06/2023 until 11/05/2024, 1 completed [facility] Comment on above: 6 Occurrences starti ng 05/06/2023 until 11/05/2024, 1 completed End: 11-05-2024 Hepatic function 2000 panel - Serum or Plasma Hepatic Function Panel Lab Routine Seropositive rheumatoid arthritis (HCC) High risk medication use 6 Occurrences starting 05/06/2023 until 11/05/2024, 1 completed [facility] Work Phone: Comment on above: 6 Occurrences starti ng 05/06/2023 until 11/05/2024, 1 completed MR Lower Extremity Joint [facility] Patient Education [facility] Work Phone: Patient referral [facility] [place] [facility] Work Phone: Payers Date Payer Category Payer Self-pay [id number] 2023 Self-pay [id number] 2023 Medicare [id number] 2023 Medicare [id number] 2022 Medicaid [id number] 2022 Unknown [id number] 1970 Unknown [id number] 2.16. 840.1.802366.3.579.2.90 1969 Unknown [id number] 2.16. 840.1.601888.3.579.2.90 1969 Unknown [id number] 2.16. 840.1.108352.3.579.2.90 1969 Unknown [id number] 2.16. 840.1.928310.3.579.2.90 1969 Unknown [id number] 2.16. 840.1.347603.3.579.2.903 1969 Unknown [id number] .. [id number] 1969 Unknown [id number] .. [id number] Unknown [id number] Unknown [id number] 2.16.8 40.1.958480.3.579.2.462 Unknown [id number] 2.16.8 40.1.155297.3.579.2.462 Unknown [id number] 2.16.8 40.1.174491.3.579.2.462 Unknown [id number] 2.16.8 40.1.581081.3.579.2.462 Unknown [id number] 2.16.8 40.1.876658.3.579.2.462 Unknown [id number] 2.16.8 40.1.551147.3.579.2.462 Unknown [id number] 2.16.8 40.1.588656.3.579.2.462 Unknown [id number] 2.16.8 40.1.264879.3.579.2.462 Unknown [id number] 2.16.8 40.1.627581.3.579.2.462 Unknown [id number] 2.16.8 40.1.904281.3.579.2.462 Unknown [id number] 2.16.8 40.1.172069.3.579.2.462 Unknown [id number] 2.16.8 40.1.212392.3.579.2.462 Unknown [id number] 2.16.8 40.1.091718.3.579.2.462 Unknown [id number] 2.16.8 40.1.088584.3.579.2.462 Unknown [id number] 2.16.8 40.1.170016.3.579.2.462 Unknown [id number] 2.16.8 40.1.736420.3.579.2.462 Unknown [id number] 2.16.8 40.1.884143.3.579.2.462 Unknown [id number] 2.16.8 40.1.321604.3.579.2.462 Social History Date Type Detail Facility [facility] Work Phone: Start: 06-06-2021 End: 05-28-2022 Tobacco smoking status NHIS Unknown if ever smoked [facility] Start: 06-04-2020 Cigarettes [facility] Start: 1970 Sex Assigned At Female W [facility] Start: 11-03-2022 End: 07-13-2024 Tobacco smoking status NYIS Smokes tobacco daily [facility] History of tobacco use Cigarette Smoker [facility] Start: 11-03-2022 Tobacco use and exposure Smokeless tobacco non-user [facility] Start: 11-03-2022 Alcohol intake [facility] ([facility] Start: 11-03-2022 History of Social function [facility] Start: 11-03-2022 Tobacco use panel [place] Start: 1970 Sex Assigned At Not on file [facility] Start: 05-04-2024 Sex Female (finding) [facility] Goals Date Patient Goal Desired Activity /State Functional Status Date Assessment Result Facility 06-25-2021 Functional status Ambulates [facility] Work Phone: Mental Status Date Assessment Result Facility 05-24-2022 Cognitive function Level Of Cons ciousness Awake;Alert;Appropriate [facility] Work Phone: 06-25-2021 Cognitive function Touch/Shaking [facility] Work Phone: Clinical Notes 05-29-2022 to 04-22-2024 Note Date & Type Note Facility 04-22-2024 Evaluation note Diagnosis Onset Date Resolution DDD (degenerative disc disease), lumbar acute April 22, 2024 1:55pm Lumbar radiculopathy acute 2024 1:55pm Lumbar stenosis with neurogenic claudication acute April 1:55pm Osteoarthritis of knees, bilateral acute May 04, 2024 10:29am Osteoarthritis of knees, bilateral acute May 11, 2024 10:48am Osteoarthritis of knees, bilateral acute May 18, 2024 10:14am DDD (degenerative disc disease), lumbar acute June 03 9:50am Lumbar radiculopathy acute Apri l 2024 9:50am Lumbar stenosis with neurogenic claudication acute June 032024 9:50am Spondylolisthesis, lumbar region acute June 03, 2024 9:50am [facility] [place] [facility] Work Phone: 1(390) 754-708701-28-2025 Evaluation note* Diagnosis Onset Date Resolution Status Admit Date DDD (degenerative disc disea se), lumbar acute March 15 1:51pm Lumbar radiculopathy acute Rc luna2024 1:51pm Lumbar stenosis with neuroge derian claudication acute March 15 1:51pm DDD (degenerative disc disea se), lumbar acute April 22, 2024 1:55pm Lumbar radiculopathy acute 2024 1:55pm Lumbar stenosis with neuroge derian claudication acute April 22, 2024 1:55pm Osteoarthritis of knees, bilateral acute May 04, 2024 10:29am [facility] Work Phone: 1(826) 253-536703-20-2024 Instructions* Patient Instructions* France Colorado DO - 05/06/2023 11:59 AM EDT It was nice to see you today! Many of the medications we prescribe require routine safety labs or eye exams. Refills will be provided after these are obtained. Please allow up to 3 business days for refills to be provided. If you have an urgent question or concern, please call our office at [phone]. If you have a non-urgent concern, please call or send a MyChart message. Please allow up to 3 business days for a [facility] message response. Sincerely, Fracne Colorado DO Rheumatology documented in this [id number] History of Present illness Narrative* France Colorado DO - 05/06/2023 11:43 AM EDT Images from the original note were not included. RHEUMATOLOGY FOLLOW-UP VISIT Patient Name: Tony Patel : 1970 Medical Record: [id number] PCP: No, Physician CHIEF COMPLAINT Seropositive RA ASSESSMENT AND PLAN Tony Patel is a 52 y.o. female who is being seen for evaluation of seropositive RA. Seropositive RA With active synovitis detected on exam and currently off of methotrexate. Plan: Restart methotrexate after labs result at 15 mg weekly. Will have patient resume this dose until follow-up. If she still has active disease at that point, we will plan to pursue TNF inhibitor therapy. High risk medication use Update labs today including completion of hepatitis serologies. Continue monitoring labs every 3 months. Return to clinic in 3 months Please do not hesitate to contact me with any questions or concerns. France Colorado DO [facility] Rheumatology [address] [place] [address]. [place] [address] O: [phone] F: [phone] The above recommendations were discussed with the patient who understands and agrees with the plan. Portions of this note were copied forward from the patient's last clinic visit.? I have reviewed and updated the history, physical exam, data, assessment and plan of the note so that it reflects the evaluation and management of the patient on 05/06/2023. Portions of this note were created with [employer]. Every effort was made to proofread, but sound-alike errors may occasionally occur. Please contact me for any clarification of note contents. I am managing Tony Patel for complex chronic condition(s) serving as the focal point for the patient's care for consistency and continuity over time. HPI/ROS Tony Patel is a 52 y.o. female who is being seen in follow-up for rheumatoid arthritis. Interval history I reviewed the nursing intake form. Any corrections needed have been updated in the HPI. Current medications include methotrexate 10 mg weekly, but patient has been out of this, so not taken recently. There are plans to get Enbrel, but there were difficulties with insurance, so this was not a routine. Patient continues with a lot of joint pain and stiffness. Prior and initial history Rheumatoid arthritis diagnosed by Dr. Russell in October 2022. History of extensive surgeries previously. Serologies/pertinent imaging and pathology On initial referral labs CRP elevated to 9.38 (reference range 0-3) and rheumatoid factor elevated to 29.0. ANDREW negative. Repeat RF high at 38.0. Liver fibrosis screen with lower risk. TB test negative. Prior rheumatology medications Methotrexate-ran out of medication. PHYSICAL EXAM Vitals: 05/06/23 1138 BP: (!) 144/86 Weight: 114.9 kg (253 lb 6.4 oz) Constitutional: ?No acute distress. Normal appearance. Not?ill-appearing. HENT: Head normocephalic?and atraumatic. Eyes: No discharge.??? Pulmonary: Pulmonary effort is normal. No?respiratory distress. Skin: Warm?and dry. No rash over exposed surfaces. Neurological: Alert. Psychiatric: ???Mood, affect, thought content normal. Musculoskeletal: Please see image below for mabry joint exam: PAST MEDICAL HISTORY Past Medical History: Diagnosis Date Arthritis Cervical stenosis (uterine cervix) CHI (closed head injury) DDD (degenerative disc disease), lumbar Depression Genital herpes Herniated nucleus pulposus of lumbosacral region Ovarian cyst PTSD (post-traumatic stress disorder) MEDICATIONS Reviewed. * Isamar Chandler LPN - 05/06/2023 11:38 AM EDT RHEUMATOLOGY FOLLOW-UP VISIT INTAKE: Have you had any new illnesses, infections, or hospitalizations? ? []Yes [x]No If yes, please specify: Are you having any side effects from your rheumatology medications? ? [x]Yes ? []No ? []N/A dry pasty tongue, dry mouth If yes, please specify: Are you having morning stiffness? ? [x]Yes []No How many minutes does it last? All day Are you having any joint swelling? ? [x]Yes []No If yes, what joints? knees legs Global Assessment: Considering all of the ways that your disease affects you, how are you doing (0 = best ; 10 = worst)? documented in this [id number] History of Present illness Narrative* Bay Jane LPN - 01/13/2023 3:03 PM EST Attempted a 2nd PA for pt.'s Enbrel, it was denied the 1st time I attempted it. Was unable to do anappeal as I am not an SIDING APPLICATOR or PA. PA was completed/submitted through [employer] documented in this [id number] History of Present illness Narrative* Bay Jane LPN - 12/10/2022 9:35 AM EDT Pt.'s Enbrel was denied. I call [employer] @ [phone] and spoke with Chantel to to initiate an appeal. Ref # [id number]. Pt has been made aware * Bay Jane LPN - 12/08/2022 3:36 PM EDT Pt.'s Enbrel required a PA, the online form was completed and submitted through [employer]. See attached document documented in this [id number] History of Present illness Narrative* Bay Jane LPN - 12/10/2022 9:32 AM EDT ERROR documented in this [id number] Instructions* Patient Instructions* Art Russell MD - 11/06/2022 10:55 AM EDT The financial assistance depends on if you have insurance or not. If you have no insurance you call [employer] patient assistance: # https://www.[employer].Wellcentive/assets/pdf/UHEOY-QIZ-Gkribjyhlzh-Prescr gcwfzs-Dygsxw-[place].pdf If you have insurance you call [employer] patient assistance and apply for co-pay card: # https://www.Nudge/-/media/Themes/Amgen/Gamisfaction-com/Gamisfaction-Wellcentive/PDF/E esvdl-Owecifc-Aokwboogls-Form_Electronic_Filled.pdf documented in this [id number] History of Present illness Narrative* Art Russell MD - 11/06/2022 10:25 AM EDT Images from the original note were not [...] there are inherent diagnostic limitations compared to lnxh-sm-yvpe evaluations. We elected to proceed with the telemedicine consultation. I have spent 30 minutes with the patient reviewing the HPI, reviewing and updating the medical records & coordination of care. The patient indicates understanding of these issues and agrees with the plan. RHEUMATOLOGY EST PATIENT VISIT Patients name: Tony aPtel : 1970 Today's date: 11/06/2022 Reason for visit: establish care Disease summary:RA diagnosed in Oct 2022. Status: NOT controlled. Serology: +ve RF -ve Radiology: Current Meds:HCQ 400mg/day Pain control: Prior Meds: HPC: This is a 51 y.o. female with a pmhx of obesity, tobacco abuse, depression, DJD here for RA w/u. Patient Tony presents with a history of degenerative bone condition in her knees and back, and torn meniscus in both knees. She reports severe pain and mobility issues, for which she has been receiving injections from Dr. Marino. The pain is only temporarily alleviated by these injections, and their effectiveness seems to decrease after a few weeks. Tony's knee issues began following a hysterectomy two years ago. She describes a pattern of swelling and heat in her knees, lasting for about a week before subsiding for a month. This pattern started shortly after her surgery. She reports weight gain since her surgery due to decreased activity. She also experiences soreness in her hands, which is a new symptom. Tony has been dealing with these issues for almost two years and has seen 13 doctors. She reports severe pain and sleep issues due to the pain. Her PCP at [facility], has not providedany help with these issues. She has a history of smoking and has no immediate plans to quit, despite being informed that smoking is a known trigger for rheumatoid arthritis. Tony also reports constant and sometimes debilitating pain [...] stiffness, which are common in rheumatoid arthritis. Tony's hands and back also show signs of rheumatoid arthritis. She has received shots for the back, which have been effective. However, the shots for the knees did not last as expected and the knees became swollen again. She is open to starting treatment for rheumatoid arthritis and is considering quitting smoking in preparation for potential surgery. Prior Rheum appts: NIL Oct 2022 - SIDING APPLICATOR Interim: The patient, Allyssa, primarily presents with rheumatoid arthritis, with the knees being the most affected area. She has been on Plaquenil (hydroxychloroquine) with no reported issues. Allyssa is scheduled to start on methotrexate, a dose of four 2.5 milligram tablets taken once a week, along with daily folic acid supplementation, excluding the day of methotrexate administration. Sheis also to commence a low dose of [...] headaches, speech/balance/coordination problems. Denied new focal numbness orweakness of extremities Psych: denied anxiety, depression or [...] Return to clinic 6 mo Telehealth appointments ok. Art Russell MD [employer] Member Note: To expedite correspondence this note was generated by Fat[employer] voice recognition software. Somegrammatical or spelling errors may occur using the system. documented in this [id number] Discharge summary Author Beverly Sandoval [facility] May 29, 2022 9:52am Note Date/Time May 29, 2022 9:5 2am [facility] Physical Therapy [facility] [address] [place] [address]. [address] [place] [address] / REHABILITATION SERVICES DISCHARGE SUMMARY MR#: [id number] Acct: [id number] Name: TONY PATEL Rep #: [id number] : 1970 51 From: Beverly Sandoval PT, Cert. MDT Referring Dr.: Dr. Jazmyne Marino MD Status: REG [facility] Insurance: [facility] SELF PAY INSURANCE TONY PATEL was seen in my office for initial evaluation on 03/20/22. The following Plan of Care was established for this patient: Initial Frequency: 2x /Week Initial Duration: 6 Weeks Patient/Client Instruction: Educate patient on: Condition, Plan of Care, Benefits of Fitness Program For the Purpose of:: To decrease pain, To improve ability to perform ADL's, To improve performance and independence with ADL's, To assume or resume ADL's, To improve tolerance to ADL's Therapeutic Exercise to Include: Strength training, Endurance training, Balance training, Body mechanics, Postural training, Flexibilty training, Gait and locomotor training, Passive ROM, Active ROM, Dynamic Lumbar Stabilization For the Purpose of:: To decrease pain, To improve ability to perform ADL's, To improve performance and independence with ADL's, To assume or resume ADL's, To improve tolerance to ADL's Functional Training to Include: ADL Training, Gait training For the Purpose of:: To decrease pain, To improve ability to perform ADL's, To increase tolerance to activity/condition/position, To improve performance and independence with ADL's, To improve gait and locomotor functions, To improve endurance, To improve balance, To improve safety with gait, To assume or resume ADL's, To improve tolerance to ADL's Assistive Devices: Cane, Wheeled walker For the Purpose of:: To decrease pain, To improve ability to perform ADL's, To improve performance and independence with ADL's, To improve balance, To improve safety with gait, To assume or resume ADL's, To improve tolerance to ADL's Cryotherapy (ice pack, ice massage): Yes For the Purpose of:: To decrease pain, To decrease swelling/inflammation, To improve ability to perform ADL's, To improve performance and independence with ADL's, To assume or resume ADL's, To improve tolerance to ADL's This patient was last seen in our office . Pertinent comments regarding their Physical therapy will appear below: THIS PT RECEIVED A NOTE STATING PATIENT CALLED TO REPORT DR. BOLANOS IS SENDING HER TO A SPECIALIST AND WE CAN D/C HER CHART. At this point I will be discontinuing this patient from physical therapy. I would be happy to see this patient again in the future if found appropriate by the physician. Thank you! Beverly Sandoval, PT, Cert MDT Balance/Gait/Functional tests - Balance/Special Test Scores Lower Extremity Functional Score: 5 <Electronically signed by Beverly Sandoval PT, Cert. MDT> 05/29/22 0952 CC: Dr. Jazmyne Marino MD; [facility] Signed [facility] Work Phone: Evaluation note* Diagnosis Onset Date Resolution Status Abnormal uterine bleeding (AUB) acute Genital herpes acute Ovarian cyst acute Abnormal uterine bleeding (AUB) acute Genital herpes acute Ovarian cyst acute Pelvic pain acute Abnormal uterine bleeding (AUB) acute Cervical stenosis (uterine cervix) acute Ovarian cyst acute Pelvic pain acute [facility] Work Phone: Evaluation note* Diagnosis Onset Date Resolution Status Abnormal uterine bleeding (AUB) acute Genital herpes acute Ovarian cyst acute Pelvic pain acute Abnormal uterine bleeding (AUB) acute Cervical stenosis (uterine cervix) acute Ovarian cyst acute Pelvic pain acute Status post hysterectomy acu te [facility] Work Phone: Evaluation note* Diagnosis Onset Date Resolution Status Abnormal uterine bleeding (AUB) acute Cervical stenosis (uterine cervix) acute Ovarian cyst acute Pelvic pain acute Status post hysterectomy acu te Status post hysterectomy acu te [facility] Work Phone: Evaluation note* Diagnosis Onset Date Resolution Status Status post hysterectomy acu te Status post hysterectomy acu te Sciatica noneactive Osteoarthritis of right knee noneactive HNP (herniated nucleus pulposus), lumbar acute [facility] Work Phone: Evaluation noteNo assessment information available [facility] Work Phone: Evaluation note* Diagnosis Onset Date Resolution Status Joint effusion of knee acute Osteoarthritis of knees, bilateral acute [facility] Work Phone: Evaluation note* Diagnosis Onset Date Resolution Status Joint effusion of knee acute Osteoarthritis of knees, bilateral acute Bilateral hand pain acute Bilateral hand swelling acut e Degenerative tear of meniscus acute Multiple joint complaints ac [place] Osteoarthritis of knees, bilateral acute [facility] Work Phone: Evaluation note* Diagnosis Rheumatoid arthritis involving multiple sites with positive rheumatoid factor (HCC)- [facility] Diagnosis Rheumatoid arthritis involving both knees with positive rheumatoid factor (HCC)- Primary [facility] methotrexate user [facility]* Diagnosis Seropositive rheumatoid arthritis (HCC)- Primary High risk medication use Encounter for screening for other viral diseases [facility]* Diagnosis Seropositive rheumatoid arthritis (HCC)- [facility] Additional Instructions Take medications as prescribed, follow-up with your doctor for continued treatment and reevaluation.[facility] Work Phone: Reason for referral (narrative)No reason for referral information [facility]WOhio[facility] Work Phone: Chief Complaint and Reason for Visit Chief Complaint AUB has started anay n, pt advised to make appt PELVIC PAIN US RESULTS SURGICAL DISC total robotic hyst. possible RSO cysto LAP ROBOTIC HYSTER, POSS RSO LAP ROBOTIC HYSTER, POSS RSO LAP ROBOTIC HYSTER, POSS RSO Reason for Visit Abnormal uterine ble eding (AUB) Genital herpes Ovarian cyst Abnormal uterine bleeding (AUB) Genital herpes Ovarian cyst Pelvic pain Abnormal uterine bleeding (AUB) Cervical stenosis (uterine cervix) Ovarian cyst Pelvic pain Chief Complaint PELVIC PAIN US RESULTS SURGICAL DISC total robotic hyst. possible RSO cysto LAP ROBOTIC HYSTER, POSS RSO LAP ROBOTIC HYSTER, POSS RSO LAP ROBOTIC HYSTER, POSS RSO LAP ROBOTIC HYSTER, POSS RSO 2 wk total robotic hyst. possible RSO cysto LEG Reason for Visit Abnormal uterine ble eding (AUB) Genital herpes Ovarian cyst Pelvic pain Abnormal uterine bleeding (AUB) Cervical stenosis (uterine cervix) Ovarian cyst Pelvic pain Status post hysterectomy Chief Complaint total robotic hyst. possible RSO cysto LAP ROBOTIC HYSTER, POSS RSO LAP ROBOTIC HYSTER, POSS RSO LAP ROBOTIC HYSTER, POSS RSO LAP ROBOTIC HYSTER, POSS RSO 2 wk total robotic hyst. possible RSO cysto LEG 6 WK POST OP Reason for Visit Abnormal uterine ble eding (AUB) Cervical stenosis (uterine cervix) Ovarian cyst Pelvic pain Status post hysterectomy Status post hysterectomy Chief Complaint LAP ROBOTIC HYSTER, POSS RSO LAP ROBOTIC HYSTER, POSS RSO 2 wk total robotic hyst. possible RSO cysto LEG 6 WK POST OP RIGHT KNEE xray Lumbar spine LUMBAR PAIN Reason for Visit Status post hysterec kiel Status post hysterectomy Sciatica Osteoarthritis of right knee HNP (herniated nucleus pulposus), lumbar Chief Complaint LUMBAR SPRAIN BACK AND KNEE PAIN / RX HERE Chief Complaint LUMBAR SPRAIN BACK AND KNEE PAIN / RX HERE BL KNEES Room 1 LEG PAIN Reason for Visit Joint effusion of kn ee Osteoarthritis of knees, bilateral Chief Complaint LUMBAR SPRAIN BACK AND KNEE PAIN / RX HERE BL KNEES Room 1 LEG PAIN RIGHT/LEFT KNEE PAIN BI LAT KNEES Reason for Visit Joint effusion of kn ee Osteoarthritis of knees, bilateral Bilateral hand pain Bilateral hand swelling Degenerative tear of meniscus Multiple joint complaints Osteoarthritis of knees, bilateral Chief Complaint LABWORK/XRAY ORDERS SCANNED Chief Complaint SCREEN Chief Complaint Admit Date LUMBAR SPINE March 15, 2024 1 :51pm Room 3 March 15, 2024 2 :12pm DDD April 20, 2024 6:34 am LUMBAR SPINE April 22, 2024 1:55 pm BL KNEES May 04, 2024 10: 29am RM 2 May 04, 2024 10: 38am Reason for Visit Admit Date DDD (degenerative disc disease), lumbar March 15, 2024 1:51pm Lumbar radiculopathy March 15, 2024 1:51pm Lumbar stenosis with neurogenic claudica tion March 15, 2024 1:51pm DDD (degenerative disc disease), lumbar April 22, 2024 1:55pm Lumbar radiculopathy April 22, 2024 1:5 5pm Lumbar stenosis with neurogenic claudica tion April 22, 2024 1:55pm Osteoarthritis of knees, bilateral May 04, 2024 10:29am Chief Complaint Admit Date DDD April 20, 2024 6:34 am LUMBAR SPINE April 22, 2024 1:55 pm BL KNEES May 04, 2024 10: 29am RM 2 May 04, 2024 10: 38am BILATERAL KNEES May 11, 2024 10: 48am BILATERAL KNEES May 18, 2024 10:1 4am LUMBAR SPINE June 03, 2024 9:5 0am PAIN- COPY PCP June 13, 2024 2:3 0pm REFINERY [employer]PER[employer] [facility]; PREOP July 04, 2024 7:03am PREOP July 04, 2024 7:17a m lumbar spine July 21, 2024 1:53p m Reason for Visit Admit Date DDD (degenerative disc disease), lumbar April 22, 2024 1:55pm Lumbar radiculopathy April 22, 2024 1:5 5pm Lumbar stenosis with neurogenic claudica tion April 22, 2024 1:55pm Osteoarthritis of knees, bilateral May 04, 2024 10:29am Osteoarthritis of knees, bilateral May 11, 2024 10:48am Osteoarthritis of knees, bilateral May 18, 2024 10:14am DDD (degenerative disc disease), lumbar June 03, 2024 9:50am Lumbar radiculopathy June 03, 2024 9: 50am Lumbar stenosis with neurogenic claudica tion June 03, 2024 9:50am Spondylolisthesis, lumbar region May 172024 9:50am Advance Directives No Advanced Directives Records Found Advance Directive Response Recorded Date/ Time Living Will No February 27 3:50pm Power of Passenger Service Manager No February 27, 2021 3:50pm Advance Directive Response Recorded Date/ Time Living Will No July 22, 2021 7 :40pm Power of Passenger Service Manager No July 22, 2021 7:40pm Advance Directive Response Recorded Date/ Time Living Will No July 22, 2021 6 :40pm Power of Passenger Service Manager No July 22, 2021 6:40pm Advance Directive Response Recorded Date/ Time Living Will No May 24, 2022 9:13am Power of Passenger Service Manager No May 24 9:13am Advance Directive Response Recorded Date/ Time Living Will No May 24, 2022 8:13am Power of Passenger Service Manager No May 24 8:13am Reason for Referral Specialty Diagnoses / Procedures Referred By Contac t Referred To Contact Diagnoses Rheumatoid arthritis involving multiple sites with positive rheumatoid factor (HCC) Art Russell MD [address] [place] [id number] Referral ID Status Reason Start Date Expiration Date Visits Re quested Visits Authorized [id number] Closed 1 1 Summary Purpose Family History No Family History Records Found Additional Source Comments Goals (unrecognized section and content) Goals may be documented in a n alternate sectionGoals may be documented in an alternate sectionGoals may be documented in an alternate sectionGoals may be documented in an alternate sectionGoals may be documented in an alternate sectionGoals may be documented in an alternate sectionGoals may be documented in an alternate sectionGoals may be documented in an alternate sectionGoals may be documented in an alternate sectionGoals may be documented in an alternate sectionGoals may be documented in an alternate sectionGoals may be documented in an alternate section Care Teams (unrecognized sec tion and content) Team Status: Active Member Role Status Dates Deneen Ac SIDING APPLICATOR, SIDING APPLICATOR-C Family Provider Active [facility] Primary Care Provider A ctive Team Status: Active Member Role Status Dates [facility] Primary Care Provider A ctive Dr. Jazmyne Marino MD Attending Provider, Referring Pr lisa Active Team Status: Inactive Member Role Status Dates [facility] Primary Care Provider A ctive Dr. Dwayne Velásquez DC Attending Provider, Referring P carla Active Team Status: Inactive Member Role Status Dates [facility] Primary Care Provider, Referring Provider Active Dr. Sukh Borruso , DO Attending Provider Active Team Status: Inactive Member Role Status Dates [facility] Primary Care Provider A ctive Dr. Leon Bravo MD Attending Provider Active Team Status: Inactive Member Role Status Dates [facility] Primary Care Provider A ctive Dr. Brenton Herrera , DO Emergency Provider Active Team Status: Inactive Member Role Status Dates [facility] Primary Care Provider A ctive Dr. Jamzyne Marino MD Attending Provider, Referring Pr ovider Active Team Status: Active Member Role Status Dates [facility] Primary Care Provider A ctive Dr. Sukh Bolanos , DO Attending Provider, Referring Provider Active Team Status: Inactive Member Role Status Dates [facility] Primary Care Provider A ctive Dr. Sukh Bolanos , DO Attending Provider, Referring Provider Active Team Status: Inactive Member Role Status Dates [facility] Primary Care Provider A ctive Dr. Brenton Herrera , DO Attending Provider, Emergency Provide r Active Team Status: Inactive Member Role Status [facility] Primary C are Provider, Attending Provider, Referring Provider Active Kaia Luo SIDING APPLICATOR, SIDING APPLICATOR-C Other Provider Active English Adjunct Faculty Relationship Specialty Start Date End Date No, Physician [facility] PCP - General 11/03/22 Team Status: Active Member Role Status Dates [facility] Primary Care Provider A ctGREG Parker Attending Provider, Referring Provider Active Team Status: Inactive Member Role Status Dates [facility] Primary Care Provider A ctGREG Parker Attending Provider Active English Adjunct Faculty Relationship Specialty Start Date End Date No, Physician [facility] PCP - General 11/03/22 English Adjunct Faculty Relationship Specialty Start Date End Date No, Physician [facility] PCP - General 11/03/22 English Adjunct Faculty Relationship Specialty Start Date End Date No, Physician [facility] PCP - General 11/03/22 Team Status: Inactive Member Role Status Dates [facility] Primary Care Provider A ctGREG Parker Attending Provider, Referring Provider Active Team Status: Inactive Member Role Status Dates [facility] Primary Care Provider A ctive Kaia Luo SIDING APPLICATOR, SIDING APPLICATOR-C Attending Provider, Referrin g Provider Active English Adjunct Faculty Relationship Specialty Start Date End Date No, Physician [facility] PCP - General 11/03/22 English Adjunct Faculty Relationship Specialty Start Date End Date No, Physician [facility] PCP - General 11/03/22 English Adjunct Faculty Relationship Specialty Start Date End Date No, Physician [facility] PCP - General 11/03/22 Team Status: Active Member Role Status Dates Kaia VAUGHANC, SIDING APPLICATOR-C Primary Care Provider Activ e Team Status: Inactive Member Role Status Dates Kaia Valerio CLEMENTC, SIDING APPLICATOR-C Primary Care Provider Activ e Start: March 02, 2024 End: March 02, 2024 Kaiamarcus Luo VSC, SIDING APPLICATOR-C Attending Provider Active Start: March 02, 2024 End: March 02, 2024 Team Status: Inactive Member Role Status Dates Kaia Valerio CLEMENTC, SIDING APPLICATOR-C Primary Care Provider Activ e Start: March 15, 2024 End: March 15, 2024 Kaia Luo VSC, SIDING APPLICATOR-C Referring Provider Active Start: March 15, 2024 End: March 15, 2024 FELISA Conde Attending Provider Active Star t: March 15, 2024 End: March 15, 2024 Team Status: Inactive Member Role Status Dates Kaia Valerio CLEMENTC, SIDING APPLICATOR-C Primary Care Provider Activ e Start: March 15, 2024 End: March 15, 2024 Dr. Leon Bravo MD Attending Provider Active S tart: March 15, 2024 End: March 15, 2024 Team Status: Inactive Member Role Status Dates Kaia Valerio CLEMENTRosy, SIDING APPLICATOR-C Primary Care Provider Activ e Start: April 20, 2024 End: April 20, 2024 FELISA Conde Attending Provider Active Star t: April 20, 2024 End: April 20, 2024 FELISA Conde Referring Provider Active Star t: April 20, 2024 End: April 20, 2024 Team Status: Inactive Member Role Status Dates Kaia Valerio CLEMENTC, SIDING APPLICATOR-C Primary Care Provider Activ e Start: April 22, 2024 End: April 22, 2024 Kaia VAUGHANC, SIDING APPLICATOR-C Referring Provider Active Start: April 22, 2024 End: April 22, 2024 FELISA Conde Attending Provider Active Star t: April 22, 2024 End: April 22, 2024 Team Status: Active Member Role Status Dates Kaia Valerio CLEMENTRosy, SIDING APPLICATOR-C Primary Care Provider Activ e Start: May 04, 2024 Kaia MOON, SIDING APPLICATOR-C Referring Provider Active Start: May 04, 2024 Dr. Sukh Bolanos DO Attending Provider Active Start: May 04, 2024 Team Status: Inactive Member Role Status Dates Kaia Luo VSC, SIDING APPLICATOR-C Primary Care Provider Activ e Start: May 04, 2024 End: May 04, 2024 Dr. Leon Bravo MD Attending Provider Active S tart: May 04, 2024 End: May 04, 2024 Team Status: Inactive Member Role Status Dates Kaia Luo VSC, SIDING APPLICATOR-C Primary Care Provider Activ e Start: May 04, 2024 End: May 04, 2024 Kaiakeegan Luo VSC, SIDING APPLICATOR-C Referring Provider Active Start: May 04, 2024 End: May 04, 2024 Dr. Sukh Bolanos DO Attending Provider Active Start: May 04, 2024 End: May 04, 2024 Team Status: Inactive Member Role Status Dates Kaia Luo VSC, SIDING APPLICATOR-C Primary Care Provider Activ e Start: May 11, 2024 End: May 11, 2024 Kaiamarcus Luo VSC, SIDING APPLICATOR-C Referring Provider Active Start: May 11, 2024 End: May 11, 2024 Dr. Sukh Bolanos DO Attending Provider Active Start: May 11, 2024 End: May 11, 2024 Team Status: Inactive Member Role Status Dates Kaia VAUGHANC, SIDING APPLICATOR-C Primary Care Provider Activ e Start: May 18, 2024 End: May 18, 2024 Kaia Luo VSC, SIDING APPLICATOR-C Referring Provider Active Start: May 18, 2024 End: May 18, 2024 Dr. Sukh Bolanos DO Attending Provider Active Start: May 18, 2024 End: May 18, 2024 Team Status: Inactive Member Role Status Dates Kaia Luo VSC, SIDING APPLICATOR-C Primary Care Provider Activ e Start: June 03, 2024 End: June 03, 2024 Kaia Valerio VSC, SIDING APPLICATOR-C Referring Provider Active Start: June 03, 2024 End: June 03, 2024 Dr. Joaquín Calix MD Attending Provider Active Start: June 03, 2024 End: June 03, 2024 Team Status: Inactive Member Role Status Dates Kaia Luo VSC, SIDING APPLICATOR-C Primary Care Provider Activ e Start: June 13, 2024 End: June 13, 2024 Dr. Latonia Villeda MD Attending Provider Active Start: June 13, 2024 End: June 13, 2024 Dr. Latonia Villeda MD Referring Provider Active Start: June 13, 2024 End: June 13, 2024 Team Status: Inactive Member Role Status Dates Kaia MOON, SIDING APPLICATOR-C Primary Care Provider Activ e Start: July 04, 2024 End: July 04, 2024 Dr. Latonia Villeda MD Attending Provider Active Start: July 04, 2024 End: July 04, 2024 Dr. Latonia Villeda MD Referring Provider Active Start: July 04, 2024 End: July 04, 2024 Team Status: Active Member Role Status Dates Kaia MOON, SIDING APPLICATOR-C Primary Care Provider Activ e Start: July 04, 2024 End: July 04, 2024 Dr. Leon Bravo MD Attending Provider Active S tart: July 04, 2024 End: July 04, 2024 Dr. Latonia Villeda MD Referring Provider Active Start: July 04, 2024 End: July 04, 2024 Team Status: Inactive Member Role Status Dates Kaia Valerio VSRosy, SIDING APPLICATOR-C Primary Care Provider Activ e Start: July 21, 2024 End: July 21, 2024 Kaiakeegan MOON, SIDING APPLICATOR-C Referring Provider Active Start: July 21, 2024 End: July 21, 2024 Dr. Joaquín Calix MD Attending Provider Active Start: July 21, 2024 End: July 21, 2024 INFORMATION SOURCE (unrecogn ized section and content) DATE CREATED AUTHOR 05/07/2023 [facility] DATE CREATED AUTHOR AUTHOR'S ORGANIZ ATION 05/10/2023 [facility] DATE CREATED AUTHOR AUTHOR'S ORGANIZ ATION 07/01/2023 [facility] DATE CREATED AUTHOR AUTHOR'S ORGANIZ ATION 07/25/2024 [facility] Reason for Visit (unrecogniz ed section and content) Reason Onset Date Comments Medication Refill 05/15/2023 FOR RECORDS PERTAINING TO PATIENTS WHO ARE [...] BE BASED ON THE PRIMARY CLINICAL RECORDS. [facility]. provides no warranty or guarantee of the accuracy or completeness of information in this document.
[2024-07-27] MEDS: Lactated Ringers 1,000 ML 15 ML IV (06:05)
[2024-07-27] MEDS: Magnesium 1 GM over 15 mins IV (06:25)
[2024-07-27] MEDS: Acetaminophen 500 MG Tablet 1000 MG PO ×2 (06:34→21:19)
--- NOTE | 2024-07-27 06:47 | PCM.PRE.AN2 ---
ASA Classification* ASA Classification ASA Classification: 3 Assessment & Plan Anesthesia* Anesthesia Assessment Anesthesia Assessment: Discussed sedation and/or anesthesia options, risks, benefits, and alternatives with patient/parents/legal guardian/POA. Questions invited. The patient/parents/legal guardian/POA seems to understand and agrees to proceed with anesthesia plan. Reviewed the physical assessment, medical history, allergy history and patient home medications list prior to surgery/procedure/anesthetic and documented any changes. Performed airway and anesthesia risk assessments. Anesthesia Type Anesthesia Type: General Anesthesia Focused Assessment* Temperature: 98.9 F Pulse Rate: 99 Blood Pressure: 151/86 Respiratory Rate: 18 Pulse Ox: 98 Airway Assessment Mouth opens: >3 cm Mallampati Score: II Labs Anesthesia Preop lab: CBC WBC 6.4 K/mm3 (4.4-11.0) 07/04/24 07:11 07/04/24 RBC 4.52 M/mm3 (4.2-5.4) 07/04/24 07:11 07/04/24 Hgb 14.1 g/dL (12.0-15.0) 07/04/24 07:11 07/04/24 Hct 40.6 % (37-47) 07/04/24 07:11 07/04/24 Plt Count 297 K/mm3 (150-450) 07/04/24 07:11 07/04/24 CHEMISTRY Potassium 3.9 mmol/L (3.3-5.1) 07/04/24 07:11 07/04/24 Sodium 138 mmol/L (133-145) 07/04/24 07:11 07/04/24 Magnesium 2.1 mg/dL (1.5-2.2) 07/19/24 07:02 07/19/24 BUN 9 mg/dL (4-19) 07/04/24 07:11 07/04/24 Creatinine 0.57 mg/dL (0.70-1.20) L 07/04/24 07:11 07/04/24 Glucose 121 mg/dL (70-99) H 07/04/24 07:11 07/04/24 POC Glucose 151 mg/dL (74-106) H 06/25/21 09:10 06/25/21 TSH 1.770 uIU/mL (0.300-4.200) 07/04/24 07:11 07/04/24 COAG PT 13.7 SECONDS (11.7-14.9) 07/04/24 07:11 07/04/24 Urine Test Negative Negative 06/25/21 09:02 06/25/21 Tst Clinic Negative 11/16/19 14:06 11/16/19 Pre-Assessment Diagnosis/Proposed Procedure Planned Operative Procedure(s): 360 Lumbar Fusion L3-4, L4-5, L5-S1, ERAS Anesthesia History Anesthesia History - dental officer: Anesthesia History - dental officer Hx Hospitalization No 07/13/24 08:38 Any Problems With Anesthesia No 07/13/24 08:38 Cholinesterase deficiency No 07/13/24 08:38 You/Your Family Experience No 07/13/24 08:38 fever (hyperthermia) with Relationship Recent Exposure to Contagious No 07/27/24 06:30 Disease Does patient have nerve No 07/13/24 08:38 stimulator Patient instructed to have device shut off --Does patient have Pacemaker or ICD? When Was Last Pacemaker Check QUESTION #4 FULL TEXT: You/Your Family Experience fever (hyperthermia) with Anesthesia Last Oral Intake Last Oral intake: Last Oral Intake NPO since Meds taken in AM with sips of water? Meds patient instructed to take am of surgery PONV PONV - dental officer: PONV - dental officer Female Yes 07/13/24 08:38 HX of Motion Sickness No 07/13/24 08:38 HX of N/V After Surgery No 07/13/24 08:38 Non-Smoker No 07/13/24 08:38 Duration of Surgery greater Yes 07/13/24 08:38 than 60 minutes Number of Risk Factors 2 07/13/24 08:38 PONV Score Moderate Risk 07/13/24 08:38 Height & Weight Height & Weight: Anesthesia: Height & Weight Height 5 ft 4 in 07/27/24 06:30 Weight: 123 kg 07/27/24 06:30 Body Mass Index (BMI) 46.5 07/27/24 06:30 Respiratory Assessment Respiratory Assessment - dental officer: Respiratory Tract Infection Hx - dental officer Hx Respiratory Tract Infection No 07/13/24 08:38 STOP Sleep Apnea STOP Sleep Apnea - dental officer: STOP Sleep Apnea - dental officer Hx Hypertension No 07/13/24 08:38 Hx Sleep Apnea No 07/13/24 08:38 CPAP No 07/13/24 08:38 BIPAP Do you snore loudly (louder No 07/13/24 08:38 than talking or can be heard Do you often feel tired/ No 07/13/24 08:38 fatigued/ sleepy during daytime? Has anyone observed you stop No 07/13/24 08:38 breathing during sleep? STOP Results Negative 07/13/24 08:38 QUESTION #5 FULL TEXT : Do you snore loudly (louder than talking or can be heard through closed doors)? Tobacco Use History Tobacco Use History - dental officer: Tobacco Use History - dental officer Tobacco Use Smoking Status Current every day smoker 07/13/24 08:38 Hx Tobacco Use Yes 07/13/24 08:38 Years Smoking Packs Smoked per Day Smoking Cessation Date was within the last 15 years Hx Smoking Cessation Date Hx Smoking Cessation Counseling Hematologic Medial History Hematologic Hx - dental officer: Hematologic Medical Hx - primary health organisation manager Hx of Blood Transfusion No 07/13/24 08:38 Hx of Transfusion in last 3 No 07/13/24 08:38 Months Date of Last Transfusion (if within last 3 months) Ever experience any problems No 07/13/24 08:38 with transfusion(s)? Specify any problems Hx of Preganancy in last 3 No 07/13/24 08:38 Months Nurse Filling Out Transfusion VCHRISTIN 07/13/24 08:38 & Questions: Date: 07/13/24 07/13/24 08:38 Time: 08:39 07/13/24 08:38 Patient unable to answer at this time (ie. confused, unrespo /Reproduction History /Reproductive History - dental officer: /Reproductive Hx- dental officer Hx Now No 07/13/24 08:38 Gestational Age (in weeks): EDC: Hx Hx Para Hx Section SAB No 07/13/24 08:38 Active Medications Active Medications: Current Medications Generic Name Dose Route Start Last Admin Trade Name Freq PRN Reason Stop Dose Admin Acetaminophen 1,000 mg 07/27/24 07:30 07/27/24 06:34 Acetaminophen 500 Mg Tablet PO 07/27/24 07:31 1,000 mg PREOP ONE Administration Clindamycin Phosphate 900 mg in 50 mls @ 75 mls/hr 07/27/24 07:30 Cleocin IV 07/27/24 08:09 INTRAOP ONE Tranexamic Acid 1,000 mg/ 110 mls @ 440 mls/hr 07/27/24 07:30 Sodium Chloride IV 07/27/24 07:44 INTRAOP ONE Tranexamic Acid 1,000 mg/ 110 mls @ 440 mls/hr 07/27/24 07:30 Sodium Chloride IV 07/27/24 07:44 INTRAOP ONE Magnesium Sulfate 1 gm/ 102 mls @ 408 mls/hr 07/27/24 07:30 07/27/24 06:25 Dextrose IV 07/27/24 07:44 408 mls/hr INTRAOP ONE Administration Lactated Ringer's 1,000 mls @ 15 mls/hr 07/27/24 05:45 07/27/24 06:05 IV 15 mls/hr .Q48H JANELL Administration Insulin Human Lispro 1 - 6 unit 07/27/24 07:30 Insulin Lispro 100 Unit/Ml Insuln.Pen SC Q4H PRN PRN BG>/= 180, SEE PROTOCOL Protocol [facility] Medical History Wears hearing aid Post-menopausal Cancer Anxiety Marijuana use Ambulates with cane Rheumatoid arthritis Fatty liver Back pain Dietary restriction History of pain when walking History of edema History of echocardiogram DDD (degenerative disc disease), lumbar HNP (herniated nucleus pulposus), lumbar Wears glasses Depression Arthritis Smoker Pelvic pain Genital herpes Ovarian cyst CHI (closed head injury) Abnormal uterine bleeding (AUB) Cervical stenosis (uterine cervix) PTSD (post-traumatic stress disorder) Home Medications ?Medication ?Instructions ?Recorded ?Last Taken ?Type lamotrigine 100 mg tablet 150 mg PO DAILY DEPRESSION 06/04/20 07/26/24 08:00 History (Lamictal) diclofenac potassium 25 mg tablet 25 mg PO BID pain 06/03/24 Unknown History Held on 07/13/24. Instructions: for surgery hydroxychloroquine 200 mg tablet 200 mg PO BID RA 07/13/24 07/26/24 17:00 History (Plaquenil) gabapentin 300 mg capsule 300 mg PO QHS PRN PAIN 07/21/24 07/13/24 History Allergy/AdvReac Type Severity Reaction Status Date / Time Penicillins Allergy Hives Verified 07/27/24 06:28 Family History Mother Diabetes Surgical History History of robot-assisted laparoscopic hysterectomy (~06/25/21) Status post hysterectomy exam under anesthesia Social History Smoking Status: Current every day smoker tobacco type: cigarettes second hand exposure: Yes alcohol intake: never substance use type: does not use seatbelt use: always do you feel safe at home: Yes Review of Systems (Anesthesia) ROS Narrative System reviewed and no additional complaints, except as documented.
--- NOTE | 2024-07-27 07:22 | HP.PCM_ITS ---
History and Physical Date of Admission: 07/27/24 MR#: [id number] Acct: [id number] Name: TONY TSANG Rep #: [id number] : 1970 Provider: Dr. Joaquín Calix MD Age/Sex: 53/F Location: [facility] – [place] Status: Signed Intake Vital Signs 05/18/2509:15 Height 5 ft 5 in Intake Visit Reasons: lumbar spine Chief Complaint: lumbar spine pre-op Accompanied by: Self Is patient in pain?: Yes Pain scale (1-10): 5 Allergies Penicillins Allergy (Verified 07/21/24 13:59) Hives Medications ?Medication ?Instructions ?Recorded ?Confirmed ?Type lamotrigine 100 mg tablet 150 mg PO DAILY DEPRESSION 06/04/2007/10 History (Lamictal) diclofenac potassium 25 mg tablet 25 mg PO BID pain 06/03/24 07/21/24 Hist ory Held on 07/13/24. Instructions: for surgery hydroxychloroquine 200 mg tablet 200 mg PO BID RA 07/13/24 07/21/24 Histo ry (Plaquenil) gabapentin 300 mg capsule 300 mg PO QHS PRN PAIN 07/21/24 History PFSH Medical History Wears hearing aid Post-menopausal Cancer Anxiety Marijuana use Ambulates with cane Rheumatoid arthritis Fatty liver Back pain Dietary restriction History of pain when walking History of edema History of echocardiogram DDD (degenerative disc disease), lumbar HNP (herniated nucleus pulposus), lumbar Wears glasses Depression Arthritis Smoker Pelvic pain Genital herpes Ovarian cyst CHI (closed head injury) Abnormal uterine bleeding (AUB) Cervical stenosis (uterine cervix) PTSD (post-traumatic stress disorder) Surgical History History of robot-assisted laparoscopic hysterectomy (~06/25/21) Status post hysterectomy exam under anesthesia Family History Mother Diabetes Social History Smoking Status: Current every day smoker tobacco type: cigarettes second hand exposure: Yes alcohol intake: never substance use type: does not use seatbelt use: always do you feel safe at home: Yes HPI lumbar spine Details: This documentation accurately reflects the service provided and the decisions made by me, Dr. Joaquín Calix MD 07/21/24 6601. Part of today?s visit was documented by Susana Don ATC, acting as scribe. TONY TSANG is a 53 year old F here today for pre-op 360 lumbar spinal fusion L3-4, L4-5 and L5-S1 dos 07/27/2024. Patient was approved for the bone stimulator and will be getting that. She states she is unsure on her current medications so plans on calling us and updating them today. 06/03/24: TONY TSANG is a 53 year old F here today to discuss surgery. She continues to experience centralized low back and bilateral leg pain. She states her legs feel weak at times with ambulation. Patient continues to c/o pain throughout her entire lower extremities sometimes the pain is worse in the groin. She recently had bilateral knee injections with Dr. Mackenzie. She says that she gets a burning pain sensation in her midline back. She does continue to say that she has issues with standing for extended periods. She recently had an injection with Dr. Marino to help with her pain while waiting for surgery. Over that past few years she had had about [address] Marino. She does get a lot of radiating pain over her anterior thighs bilaterally. Right now she is having more pain in her back than her knees. She did have gel injections for her knees with Dr. Bolanos. She can typically walk for 20 minutes before having to stop and take a break. She did have a hysterectomy 4 years ago as she had cancer. 04/22/24: TONY TSANG is a 53 year old F here today for lumbar spine MRI review. She continues to experience centralized low back pain. She also complains of bilateral leg pain. She states her legs feel weak at times with ambulation. She did follow up with Dr. Marino after her last visit with us but did not have any injections. She would like to discuss MRI results and next steps. Patient says that she continues to have pain throughout her entire lower extremity sometimes the pain is worse in the groin and other times it is worse in her knees. She says that she gets a burning pain sensation in her midline back. She does continue to say that she has issues with standing for extended period of time especially when in the kitchen. She relies on a shopping cart to lean on when at the grocery store. HPI from 03/15/24: TONY TSANG is a 53 year old F here today for lumbar spine pain. Patient rates her pain a 5/10 today. Patient states the lumbar spine has been going on for a couple years. She describes the pain centrally along the lumbar spine. She states most days she is unable to stand up straight due to the pain. She does see palliative care coordinator and she was told she has deterioration in her lumbar spine. She says that her walking distance has decreased over the last 6 months and that she is only able to walk several blocks at a time before she needs to rest due to pain. She says that she relies on a shopping cart to lean on when grocery shopping. Patient does see Dr. Marino and she has gotten injections in her knees and her lumbar spine. The last injection she had only gave her relief for about [address] Marino referred her to us to be evaluated. The last injection she had with Dr. Marino was given last month. Patient states she thinks she has had about 6 injections in the lumbar spine all together. Says that originally she felt like the injections gave her a month of relief. She complains of pain in the legs that seem to bother her. Patient denies numbness/tingling in the legs. Recently her pain has been radiating into her bilateral groin. With her groin pain increasing with sitting. Uses a recliner which has been slightly helpful. She says that this pain in her legs tends to change location at times it will be her lateral thigh and then other times it will be the front of her salazar, but there is no one location where there is pain consistently in her legs. The pain will go into both legs. She states she does get swelling in her legs and feet that will randomly occur and this tends to last about 1-2 weeks. Patient denies surgery. Patient did physical therapy at [facility] for the lumbar spine pain. Says that she has had back pain since her hysterectomy in 2019. Says that she has had swelling in her legs. Worsened over the last 6 months. PT was done in 2021 and did 3 months, she has had done some of the HEP without benefit. Ortho Exam General General: Yes no acute distress Neurologic: Yes alert and Yes oriented x3 Left Knee Examination: Yes med jt line tenderness and Yes Pain with flexion Patella Grind: Yes Spine SPINE TESTING CERVICAL THORACIC LUMBAR Musculoskeletal Strength 0=absent - 5=normal Details: Neurological exam of the lower extremities shows 5x5 power. Normal sensations across all dermatomes. No hyperreflexia. Mild midline and bilateral paraspinal tenderness. Patient was very antalgic when going from sitting to standing, says that her pain today is mostly in the left knees. Range of motion of the bilateral hips did not elicit any pain. Coding Level of Care Code Off vis,est,level 4 Diagnoses Degeneration of intervertebral disc of lumbar region with discogenic back pain and lower extremity pain M51.362 Disc-related pain type: discogenic back pain and lower extremity pain Lumbar radiculopathy M54.16 Lumbar stenosis with neurogenic claudication M48.062 Spondylolisthesis, lumbar region M43.16 Time Spent (min) 35 Assessment and Plan Assessment and Plan (1) DDD (degenerative disc disease), lumbar: Status: Acute Qualifiers: Disc-related pain type: discogenic back pain and lower extremity pain Qualified Code(s): M51.362 - Other intervertebral disc degeneration, lumbar region with discogenic back pain and lower extremity pain (2) Lumbar radiculopathy: Status: Acute (3) Lumbar stenosis with neurogenic claudication: Status: Acute (4) Spondylolisthesis, lumbar region: Status: Acute Plan Again reviewed X-rays which showed a subtle L3 on L4 retrolisthesis which reduces on flexion, and multilevel disc height loss. AP view of the lumbar x- rays also show mild bilateral hip arthrosis. Reviewed lumbar MRI from April 20, 2024 which showed moderate spinal canal stenosis at L3-4, mild spinal canal narrowing at L4-5 with moderate left neural foraminal narrowing, left L5-S1 lateral recess stenosis. Reviewed bilateral knee x-ray from 2022 which showed degenerative changes, left was worse than the right. Again explained imaging findings in detail. At this time the patient has predominantly low back pain and bilateral lower extremity radiation. Back pain is worse than leg pain. Mentions that her knee and hip pain is less severe than the back pain. She has exhausted nonsurgical treatment with numerous epidural injections through pain management over the last 3 years. She wishes to proceed with surgery. Surgical options were discussed which include decompression versus fusion. Because of her severe axial back pain worse than leg pain with instability, recommend L3-S1 anterior posterior fusion with indirect decompression. Explained the risks and benefits of this procedure in detail. Those risks include but are not limited to infection, bleeding, injury to nerves or vessels, need for further surgery, ileus, vascular injury, visceral injury, DVT, pulm embolism, pneumonia, atelectasis, cardiopulmonary event, pseudoarthr osis, hardware failure, adjacent segment degeneration. Patient understands and agrees to proceed with surgery. Consent was signed.
--- NOTE | 2024-07-27 07:36 | RAD_ITS ---
PROCEDURE: LUMBAR SPINE 2 OR 3 VIEWS 07/27/2024 REASON FOR EXAM: 360 LUMBAR FUSION L3-4 L4-5 L5-S1 TECHNIQUE: 2 view(s) of the lumbar spine Intraoperative fluoroscopic images. Fluoroscopy time 232.5 seconds. Radiation dose: 159.09 mGy. COMPARISON: Radiographs on 07/28/2024. FINDINGS: Intraoperative fluoroscopic images for decompression and fusion at L3-L4, L4-L5 and L5-S1 levels. Unremarkable transpedicular screws at L3, L5 and S1 levels. Unremarkable disc spacer at L3-L4, L4-L5 and L5-S1 levels. RAD/Lumbar Spine 2 or 3 Views IMPRESSION: Fluoroscopic intraoperative images for decompression and fusion. Reading Location: [facility]
[2024-07-27] MEDS: Clindamycin 900 MG/50 ML BAG 75 MG IV ×2 (07:40→18:35)
[2024-07-27] MEDS: TRANEXAMIC ACID 1,000 MG in 0.9% Normal Saline (100mL Bag) 100 ML 440 MG IV ×2 (07:57→14:46)
[2024-07-27] MEDS: Ropivacaine 0.5% 30 ML Vial (15:11)
--- NOTE | 2024-07-27 15:26 | PCM.OPRPT ---
Procedures Musculoskeletal 20xxx-29xxx: Other Procedure See Report Operative Report (Standard) Operative Information Date of Procedure: 07/27/24 Pre-Operative Diagnosis: L3-4 retrolisthesis, L3-S1 disc degeneration, radiculopathy, stenosis with neurogenic claudication Post-Operative Diagnosis: Same Surgery/Procedure Performed: L3-S1 oblique lumbar lumbar fusion designated broker: Yes Associate Professor Of Library Science: Eitan Wray Tasks completed by certified ophthalmic surgical assistant: Opening & closing, Dissecting tissue, Removing tissue, Altering tissue, Hemostasis: Clamp, Hemostasis: Tie, Hemostasis: Electrocautery, Retracting and Other (Lr-[id number]-uoivogso surgery-access) Additional certified ophthalmic surgical assistant?: Yes Additional New Media Strategist #2: Soumya Vo Tasks completed by certified ophthalmic surgical assistant #2: Closing, Removing tissue, Hemostasis: Electrocautery and Retracting Type of Anesthesia: General RN Documented Start/Stop Times: Operation Date: 07/27/24 07:30 Case Time Into Pre-Op 07/27/24 05:42 Out of Pre-Op 07/27/24 07:33 Anesthesia Start 07/27/24 07:40 Into Room 07/27/24 07:40 Procedure Start 07/27/24 08:21 Procedure Start Time: 08:21 Procedure Stop Time: 15:30 Select all DRAINS/GRAFTS/IMPLANTS that apply: Graft Graft details: Allograft cancellous bone chips, autologous bone marrow aspirate from iliac crest and Implanted device Implanted device details: 4web ALIF titanium cage, DePuy cougar lateral lumbar interbody cage Estimated Blood Loss: 150 cc Specimen collected: No Description of surgery: Preoperative diagnosis: L3-4 retrolisthesis, L3-S1 disc degeneration, radiculopathy, stenosis with neurogenic claudication Postoperative diagnosis: Same Name of procedures L3-S1 oblique lumbar interbody fusion (OLIF), minimally invasive left sided approach, lateral decubitus: ? L3-4 anterolateral spinal fusion 03064 ? L4-5 anterolateral fusion 61028/51 ? L5-S1 anterolateral fusion 73822/51 ? L3-4 insertion of cage 17846 ? L4-5 insertion of cage 06125/51 ? L5-S1 insertion of cage 65506/51 ? Bone graft aspirate left iliac crest separate incision ? Allograft cancellous chips Attending Surgeon: Dr. Joaquín Calix Co-surgeon: Dr. Eitan Wray Estimated blood loss: 150 mL Anesthesia: General Complications: None Indications: Patient is a 53-year-old pleasant lady who has had a long history of low back pain and right worse than left lower extremity radiation, difficulty walking distances. Xrays & MRI revealed L3-4 retrolisthesis, L3-S1 disc degeneration with stenosis. After undergoing a prolonged period of nonoperative treatment, the patient elected to undergo surgical decompression & fusion. All surgical options were discussed with the patient including anterior and posterior approaches. All risks and benefits associated with the procedure were explained to the patient. The risks include but are not limited to infection, bleeding, injury to nerves and vessels including major vessels like IVC and aorta, persistent paresthesia, persistent pain, dural tear, need for further procedures, adjacent segment degeneration, pseudoarthrosis, hardware failure, retrograde ejaculation, paralytic ileus, etc. Procedure: The patient was identified in the preoperative holding suite using Unique patient identifiers. Skin was marked, consent was reviewed, and all questions were answered. The patient was then brought back to the operative room. A surgical timeout was performed to make sure correct procedure was being done on the correct patient and all operative room staff were on the same page. General endotracheal anesthesia was then given to the patient. Hill catheter was inserted. The patient was then carefully positioned in right lateral decubitus position with the left side up on a regular OR table. Axillary roll was placed and all bony prominences were well- padded. Hip positioners were placed in the posterior buttocks and anterior sternal area. The surgical area was prepped and draped in usual fashion. Preoperative antibiotic was injected IV as preoperative antibiotic. A final timeout was then again done just before starting the procedure. A 3 inch incision oblique was taken in the left lower quadrant of the abdomen 2 fingerbreadths away from the iliac crest and the lower ribs. Sharp dissection with Bovie was carried out up to the fascia covering the external oblique. The external oblique, internal oblique and transversus abdominis muscles were split along the muscle fibers and retroperitoneal space was entered. Sponge sticks were utilized to move the bowel and peritoneum tzp-ob-xic-way and psoas muscle was exposed staying within the retroperitoneal plane. Netasq retractor system was positioned and the retractor blade was applied onto the psoas. The interval between psoas and midline structures was developed and appropriate retractors were placed. Once adequate interval was cleared, a disc space was identified and a marker x-ray was taken. This identified the L4-5 disc level. The prepsoas interval was then traced superiorly to expose the L3-4. The peritoneal sac along with attached retroperitoneal structures were then moved further medially and inferiorly and retractors were positioned medial to the left common iliac vessels to expose the anterior aspect of the L5-S1 disc. After careful dissection, several tributaries as well as the median sacral vessels were identified over the L5-S1 disc and these were ligated with help of vascular clips by Dr. Wray. Please see his operative note separately for details. Once L5-S1 was identified and confirmed with C-arm, Annulotomy was done with a long handled knife. Pituitary was used to remove disc material. Curettes were used to prepare the endplates. Disc space spreaders were utilized to distract and increase the disc height. Near complete discectomy was performed. Trials of serially increasing sizes were used. A Jamshidi needle was used to aspirate bone marrow from the left anterior iliac crest through a separate incision and this aspirate was mixed with the allograft bone chips. A 4WEB ALIF titanium cage of small footprint, 12 mm height, 16 degree lordosis was then packed with cortical cancellous bone chips mixed with bone marrow aspirate. This case was then inserted into the L5-S1 disc space through an anterolateral car mechanic into the ALIF configuration. The screw with washer was then placed into S1 partially covering this cage and additional bone graft was packed anterior to the cage. The retractors were then repositioned to go back to the previous psoas plane at the L4-5 level. Similar complete discectomy through an anterolateral approach was then performed. A Depuy Mcfarlan cage of size of the 18 x 15 x 12 mm with 15 degrees lordosis was packed with corticocancellous allograft bone chips mixed with bone marrow aspirate. This was inserted into the L4-5 disc space. The retractors were then repositioned to expose the L3-4 disc and the procedure was repeated with complete discectomy and endplate preparation. Smaller disc distractors were also used to bluntly perform a contralateral annulotomy at the L3-4 L4-5 levels. Cage size was 18 x 50 x 12 mm at L3-4. AP and lateral C-arm pictures were taken to confirm good position of the cage. Some bone chips were also packed around the cages. Screw with washer was placed into the lower L3 and L4 body with a washer partially covering the cage at L3-4 and L4-5 respectively. Hemostasis was confirmed. The retractor blades were removed. Closure was done in layers with a continuous strand of # 1 Vicryl in all muscle layers. 2-0 Vicryl was used for subcutaneous tissue and 4-0 for Monocryl for the skin. Steri-Strips were applied and 4 x 4 gauze and Tegaderm were applied. Surgical Findings: See operative note Complications Complications: No
--- NOTE | 2024-07-27 15:35 | OP.PCM_ITS ---
Procedures Musculoskeletal 20xxx-29xxx: Other Procedure See Report Operative Report (Standard) Operative Information Date of Procedure: 07/27/24 Pre-Operative Diagnosis: L3-4 retrolisthesis, L3-S1 disc degeneration, radiculopathy, stenosis with neurogenic claudication Post-Operative Diagnosis: Same Surgery/Procedure Performed: L3-S1 posterior spinal instrumented fusion pole framer: Yes Student Services Rep: Soumya Vo Tasks completed by home based assistant: Closing, Implanting device, Hemostasis: Electrocautery and Retracting Type of Anesthesia: General RN Documented Start/Stop Times: Operation Date: 07/27/24 07:30 Case Time Into Pre-Op 07/27/24 05:42 Out of Pre-Op 07/27/24 07:33 Anesthesia Start 07/27/24 07:40 Into Room 07/27/24 07:40 Procedure Start 07/27/24 08:21 Procedure Start Time: 08:21 Procedure Stop Time: 15:30 Select all DRAINS/GRAFTS/IMPLANTS that apply: Graft Graft details: Allograft cancellous bone chips and Implanted device Implanted device details: [employer] prime pedicle screw instrumentation Estimated Blood Loss: 150 cc Specimen collected: No Description of surgery: Preoperative diagnosis: L3-4 retrolisthesis, L3-S1 disc degeneration, radiculopathy, stenosis with neurogenic claudication Postoperative diagnosis: Same Name of procedures: L3-S1 posterior percutaneous pedicle screw instrumented fusion, prone: ? L3-4 posterior spinal fusion 32038 ? L3-S1 posterior pedicle screw instrumentation 04936 ? L4-5 posterior fusion 36336/51 ? L5-S1 posterior fusion 24242/51 ? Allograft cancellous chips [id number] Attending Surgeon: Dr. Joaquín Calix Estimated blood loss: 150 mL (total for entire case) Anesthesia: General Complications: None Description of procedure: After the anterior procedure was complete, the patient was then turned supine. The patient was then transferred to Ray table in prone position. Back was prepped and draped in usual fashion. C-arm AP view was then taken. C-arm was positioned in a way that L3 was centralized and superior endplate of was parallel to the beam. Spinous process was centered between the pedicles. Midline was marked with skin marker and lateral borders of the pedicles were also marked. Skin marker was also utilized to fritz transversely across the middle of the pedicles at L3. 2 transverse paramedian incisions of 1 inch were placed. The fascia was incised vertically. Finger dissection was utilized to palpate the transverse process and facet joint. Viper Prime screws with towers were inserted and docked onto the transverse processes. This was then slowly moved medially to reach the superior articular process of L3. This was then confirmed on C-arm and then a mallet was utilized to drive the trocar into the pedicle going up to the medial wall of the pedicle on AP view. This was performed both sides. C-arm lateral view confirmed that the tip of the trocar was in the vertebral body, and the screw was advanced into the pedicle and vertebral body. This was repeated similarly at L5 and S1 bilaterally. Screw sizes were 7 x 50 mm at L3 and L5, and 7 x 45 mm at S1 on both sides. 100 mm precontoured titanium 5.5 mm lordotic serge on both sides were then passed through the screw extensions and reduced down to the screws with the help of [employer] instrumentation system on both sides. AP and lateral view of the C-arm showed good positioning of the screws and cages. Final tightening with the torque screwdriver was then completed. [place] was utilized to roughen the facet joint at L3-4, L4-5, L5-S1 on the right side. Cancellous allograft bone chips mixed with bone marrow aspirate were then placed over this decorticated area. Hemostasis was achieved. Closure was done in layers with 0 Vicryls for the fascia, 2-0 Vicryls for the subcutaneous tissue, and Monocryl for the skin. Dermabond was applied. Dressings were applied covered with Tegaderm. The patient was then turned supine onto a hospital bed. The patient was extubated and taken to PACU in stable condition. The patient tolerated the procedure well and no complications occurred. Depuy [place] cage & Viper Prime minimally invasive pedicle screw instrumentation system was utilized in this case. No dural tear was identified intraoperatively. I was present for the entirety of the case and performed the surgery. Reinsurance Clerk Soumya Vo PA-C. My physician fiscal assistant was a vital part of this case. They were important in appropriate retraction during the case, and protection of soft tissues during the procedure. Their intimate knowledge of the case and my steps aided in safe and expedient completion of the procedure as well as appropriate position of the patient during the surgery. They were also vital in assisting with closure under my direct supervision. Surgical Findings: See operative note Complications Complications: No
--- NOTE | 2024-07-27 15:50 | PCM.POST.ANE ---
Anesthesia: Postop Eval I Current Vital Signs Temperature: 97.4 F Pulse Rate: 104 Blood Pressure: 140/87 Respiratory Rate: 18 Pulse Ox: 100 Oxygen Delivery Method: Simple Mask Oxygen Flow Rate (L/min): 6 Assessment Airway patent: Yes Spontaneous unlabored respirations: Yes Mental status: Awake and Calm nausea: No Vomiting: No Anesthesia Complication: No Fluid Hydration Crystalloid volume administer (ml): 2,700 Total IV fluid infused: 2,700 Progress Note Anesthesia document: Postop Eval 1 completed: Yes
--- NOTE | 2024-07-27 16:51 | POSTOPAN2_ITS ---
Anesthesia Postop Eval I Sum Postop Eval Completion status Anesthesia document: Postop Eval 1 completed: Yes Anesthesia Postop Eval I Summary Anesthesia Postop Eval I Summary: Anesthesia Postop Eval I: Assessment Summary Airway patent Yes 07/27/24 15:51 INTEGRATION ASSISTANT.[email or web address] Spontaneous unlabored Yes 07/27/24 15:51 INTEGRATION ASSISTANT.GDOTT respirations Mental status Awake,Calm 07/27/24 15:51 INTEGRATION ASSISTANT.GDOTT nausea No 07/27/24 15:51 INTEGRATION ASSISTANT.GDOTT Vomiting No 07/27/24 15:51 INTEGRATION ASSISTANT.GDOTT Anesthesia Postop Eval I: Fluid Summary Crystalloid volume administer 2,700 07/27/24 15:51 INTEGRATION ASSISTANT.GDOTT (ml) Colloids volume administered ( ml) Blood Product volume administered (ml) Total IV fluid infused 2,700 07/27/24 15:51 INTEGRATION ASSISTANT.GDOTT Anesthesia Postop Eval I: Summary Notes Anesthesia Complication No 07/27/24 15:51 INTEGRATION ASSISTANT.GDOTT Anesthesia Complication Comment: Post-operative progress note Anesthesia: Postop Eval II Evaluation Mental status: Awake Pain Level: 0 nausea: No Vomiting: No
--- NOTE | 2024-07-27 16:51 | PCM.POSTANE2 ---
Anesthesia Postop Eval I Sum Postop Eval Completion status Anesthesia document: Postop Eval 1 completed: Yes Anesthesia Postop Eval I Summary Anesthesia Postop Eval I Summary: Anesthesia Postop Eval I: Assessment Summary Airway patent Yes 07/27/24 15:51 ENERGY [email or web address].[email or web address] Spontaneous unlabored Yes 07/27/24 15:51 ENERGY RATER.GDOTT respirations Mental status Awake,Calm 07/27/24 15:51 ENERGY RATER.GDOTT nausea No 07/27/24 15:51 ENERGY RATER.GDOTT Vomiting No 07/27/24 15:51 ENERGY RATER.GDOTT Anesthesia Postop Eval I: Fluid Summary Crystalloid volume administer 2,700 07/27/24 15:51 ENERGY RATER.GDOTT (ml) Colloids volume administered ( ml) Blood Product volume administered (ml) Total IV fluid infused 2,700 07/27/24 15:51 ENERGY RATER.GDOTT Anesthesia Postop Eval I: Summary Notes Anesthesia Complication No 07/27/24 15:51 ENERGY RATER.GDOTT Anesthesia Complication Comment: Post-operative progress note Anesthesia: Postop Eval II Evaluation Mental status: Awake Pain Level: 0 nausea: No Vomiting: No
[2024-07-27] MEDS: Ketorolac 15 MG/ML Vial IV (17:11)
--- NOTE | 2024-07-27 17:48 | PCM.CONS.GEN ---
Assessment & Plan Assessment/Plan (1) Status post lumbar spinal fusion: PLAN: Plan Patient is a 53-year-old female who presented to [facility] on 07/27/2024 for planned lumbar fusion procedure. Medicine consulted postoperatively for medical management. 1. L3-S1 disc degeneration with radiculopathy and spinal stenosis with neurogenic claudication ? Orthopedic surgery primary. S/p L3-S1 lumbar fusion procedure with Dr. Calix on 07/27. Tolerated procedure well, no intraoperative complications noted. Pain control, DVT prophylaxis and other postoperative management per orthopedics. Continue home gabapentin. 2. Rheumatoid arthritis ? Stable, not in acute exacerbation. Continue home Plaquenil. 3. Mood disorder ? Stable. Continue home Lamictal. 4. Class III obesity ? BMI 46. Complicates hospital course, care and prognosis. DVT prophylaxis: Defer to orthopedics Total clinical time spent by myself addressing the patient's medical issues, reviewing all the data, and collaborating with patient's care team: 35 minutes. HPI Consult Data Date of Consult: 07/27/24 HPI Narrative Reason for Consultation: Postoperative medical management HPI Narrative: TONY TSANG, is a 53 F who presented to [facility] on 07/27/24 for planned lumbar fusion procedure. Medicine consulted postoperatively for medical management. Patient had L3-S1 oblique lumbar fusion procedure done with Dr. Calix today. Tolerated procedure well, no intraoperative complications. Saw patient at bedside postoperatively. Patient was fatigued appearing but otherwise laying back fairly comfortably in bed, answering questions appropriately and in no acute distress. Reported mild low back pain currently. She otherwise felt tired but denied any other acute concerns at this time. [facility] Medical History Wears hearing aid Post-menopausal Cancer Anxiety Marijuana use Ambulates with cane Rheumatoid arthritis Fatty liver Back pain Dietary restriction History of pain when walking History of edema History of echocardiogram DDD (degenerative disc disease), lumbar HNP (herniated nucleus pulposus), lumbar Wears glasses Depression Arthritis Smoker Pelvic pain Genital herpes Ovarian cyst CHI (closed head injury) Abnormal uterine bleeding (AUB) Cervical stenosis (uterine cervix) PTSD (post-traumatic stress disorder) Home Medications ?Medication ?Instructions ?Recorded ?Last Taken ?Type lamotrigine 100 mg tablet 150 mg PO DAILY DEPRESSION 06/04/20 07/26/24 08:00 History (Lamictal) diclofenac potassium 25 mg tablet 25 mg PO BID pain 06/03/24 Unknown History Held on 07/13/24. Instructions: for surgery hydroxychloroquine 200 mg tablet 200 mg PO BID RA 07/13/24 07/26/24 17:00 History (Plaquenil) gabapentin 300 mg capsule 300 mg PO QHS PRN PAIN 07/21/24 07/13/24 History Allergy/AdvReac Type Severity Reaction Status Date / Time Penicillins Allergy Hives Verified 07/27/24 06:28 Family History Mother Diabetes Surgical History History of robot-assisted laparoscopic hysterectomy (~06/25/21) Status post hysterectomy exam under anesthesia Social History Smoking Status: Current every day smoker tobacco type: cigarettes second hand exposure: Yes alcohol intake: never substance use type: does not use seatbelt use: always do you feel safe at home: Yes ROS Constitutional Constitutional: Reports fatigue; Denies chills, fever(s) or weakness Eyes Eyes: Denies change in vision Cardiovascular Cardiovascular: Denies chest pain Respiratory/Chest Respiratory/Chest: Denies shortness of breath at rest Gastrointestinal Gastrointestinal: Denies abdominal pain Musculoskeletal Musculoskeletal: Reports back pain; Denies arthralgias or myalgias Neurologic Neurologic: Denies dizziness, focal weakness, headache(s), numbness or paresthesias Physical Exam Const alert, oriented x3 and no apparent distress Constitutional Narrative: Middle-aged female, class III obesity, mildly fatigued appearing but otherwise laying back comfortably in bed, conversing normally, in no acute distress. General Appearance: cooperative and comfortable HEENT normocephalic, head/scalp atraumatic, hearing grossly normal bilaterally, nasal mucous membranes and turbinates normal and moist oral mucous membranes Eyes PERRL, EOMs intact bilaterally and conjunctivae normal Neck full ROM Chest inspection of chest normal Resp normal respiratory effort, normal air movement, no use of accessory muscles and clear to auscultation bilaterally Cardio regular rate, regular rhythm, no murmurs and peripheral pulses 2+ throughout GI normal to inspection, nondistended, normoactive bowel sounds, soft to palpation, non-tender and non-distended Back/Spine Back/Spine Narrative: Postoperative dressing in place. Did not attempt any range of motion. Extremity normal to inspection, full ROM and no pedal edema Skin no rashes or lesions noted Psych mental status grossly normal Charges/Coding Visit Charges Inpatient E&M: 00694 Subs Hosp L2
--- NOTE | 2024-07-27 18:17 | PCM.OPRPT ---
Operative Report (Standard) Operative Information Date of Procedure: 07/27/24 Pre-Operative Diagnosis: L3-4 retrolisthesis, L3-S1 disc degeneration, radiculopathy, stenosis with neurogenic claudication Post-Operative Diagnosis: Same Surgery/Procedure Performed: L3-S1 oblique lumbar lumbar fusion chemical dependency attendant: Yes Weblogic Developer: Soumya Vo Tasks completed by senior care assistant: Opening, Closing, Opening & closing and Retracting Type of Anesthesia: General RN Documented Start/Stop Times: Operation Date: 07/27/24 07:30 Case Time Into Pre-Op 07/27/24 05:42 Out of Pre-Op 07/27/24 07:33 Anesthesia Start 07/27/24 07:40 Into Room 07/27/24 07:40 Procedure Start 07/27/24 08:21 Procedure End 07/27/24 15:21 Anesthesia End 07/27/24 15:41 Out of Room 07/27/24 15:41 Into Recovery 07/27/24 15:45 Out of Recovery 07/27/24 18:02 Procedure Start Time: 08:30 Procedure Stop Time: 12:30 Select all DRAINS/GRAFTS/IMPLANTS that apply: Graft Graft details: Allograft cancellous bone chips, autologous bone marrow aspirate from iliac crest and and Implanted device Implanted device details: 4web ALIF titanium cage, DePuy cougar lateral lumbar interbody cage Estimated Blood Loss: 150 Specimen collected: No Description of surgery: Co-surgeons: Dr. Calix, Dr. Wray ?L3-S1 oblique lumbar interbody fusion (OLIF), minimally invasive left sided approach, lateral decubitus: ? L3-4 anterolateral spinal fusion 20503 ? L4-5 anterolateral fusion 01062/51 ? L5-S1 anterolateral fusion 37508/51 ? L3-4 insertion of cage 86223 ? L4-5 insertion of cage 16529/51 ? L5-S1 insertion of cage 16353/51 ? Bone graft aspirate left iliac crest separate incision ? Allograft cancellous chips HPI: Patient is a 53-year-old female with L3-S1 degenerative disc disease and neurogenic claudication. She was assessed by Dr. Calix and felt to be appropriate for lumbar interbody fusion via an oblique approach in addition to his posterior instrumentation. Vascular surgery services are requested to aid in exposure to facilitate the interbody fusion. Description of procedure: Upon obtaining informed consent and verification correct patient procedure site the patient was taken to the operating where she was placed under general anesthesia. She was then positioned prepped and draped in usual sterile fashion a time was performed. Oblique incision was made 1 fingerbreadth superior to the iliac crest and Bovie electrocautery used to dissect down through subcutaneous tissue to the level of the fascia. The fascia was then incised following the fibers of the external oblique muscle and each of the muscle layers were then split along the orientation of their fibers individually with hand-held retractors placed deeper into the wound. Blunt dissection was then used to develop a plane in the retroperitoneal space mobilizing the abdominal contents from the lateral and posterior abdominal wall. Once the psoas muscle was visualized the Syn frame self-retaining retractor system was brought on the field and positioned to aid in exposure. Combination of blunt and Bovie dissection was then used to mobilize the psoas muscle and retracted posterior laterally exposing the lateral aspect of the L4-L5 disc. This was then marked with Bovie and our attention turned distally to the L5-S1 disc. The self-retaining retractor blades were then repositioned retracting the left iliac artery and vein laterally exposing the disc medially. Again combination blunt and Bovie dissection were utilized to mobilize the vessels from the connective tissue and allow further lateral retraction exposing the disc space. The middle sacral vessels were identified, ligated with clips, and divided. Once the vessels were sufficiently freed from their connective tissue anchors medially they were retracted laterally at which point Dr. Calix performed the L5-S1 discectomy and implant placement which she will describe in further detail. Once this was completed the self-retaining retractors were then repositioned and the vessel was inspected and found to be without evidence of injury. The retractor blades were then positioned to the L4-L5 disc and further mobilization performed exposing the lateral aspect. At this point Dr. Calix performed the discectomy and implant placement which she will describe in further detail. Finally retractors were repositioned to expose the L3-L4 disc and combination of Bovie and blunt dissection utilized to expose the lateral aspect of the disc which point the discectomy and implant placement was performed which will be dictated in further detail by Dr. Calix. Once this was completed the self-retaining retractors were withdrawn and the abdominal contents inspected and then irrigated with saline. The muscle layers of the abdominal wall were then closed individually with running 1 Vicryl. After this is completed superficial wound was again irrigated with saline and closed with 2-0 Vicryl in layers followed by 4-0 Monocryl for the skin. At this point dry sterile dressings were applied the patient repositioned for posterior approach. Surgical Findings: see above Complications Complications: No
[2024-07-27] MEDS: Methocarbamol 500 MG Tablet 1000 MG PO ×2 (18:34→21:19)
[2024-07-27] MEDS: Morphine 4 MG/ML Syringe IV (20:05)
[2024-07-27] MEDS: Gabapentin 300 MG Capsule PO (20:08)
[2024-07-27] MEDS: Hydroxychloroquine 200 MG Tablet PO (21:19)
[2024-07-27] MEDS: oxyCODONE 5 MG Tablet PO (21:19)
[2024-07-27] MEDS: Senna/Docusate Sodium 1 Tablet 2 TABLET PO (21:19)
[2024-07-28] MEDS: Clindamycin 900 MG/50 ML BAG 75 MG IV (00:01)
[2024-07-28] MEDS: 0.9% Saline Lock 10 ML Syringe IV (00:03)
[2024-07-28] MEDS: Ketorolac 15 MG/ML Vial IV (00:03)
[2024-07-28 02:09] VITALS: BP 105/59; PULSE 96; RESP 16; TEMP 36.6; O2SAT 99
[2024-07-28] MEDS: Acetaminophen 500 MG Tablet 1000 MG PO ×2 (05:27→13:32)
[2024-07-28] MEDS: oxyCODONE 5 MG Tablet PO ×2 (05:27→12:09)
--- NOTE | 2024-07-28 05:35 | RAD_ITS ---
PROCEDURE: LUMBAR SPINE 2 OR 3 VIEWS 07/28/2024 REASON FOR EXAM: S/P LUMBAR FUSION TECHNIQUE: 2 view(s) of the lumbar spine COMPARISON: MRI on 04/20/2024. FINDINGS: Prior decompression and fusion with unremarkable transpedicular screws at L3, L5 and S1 levels. Unremarkable intervertebral disc metallic hardware at L3-L4, L4-L5 and L5-S1 levels. Unchanged grade 1 anterolisthesis of L3 on L4. There are diffuse spondylotic changes. Findings are demonstrated to by diffuse disc space narrowing, osteophyte formation and degenerative endplate sclerosis. Mild degenerative dextroscoliosis apex at L3. There is diffuse facet joint arthropathy with secondary bilateral neural foramina narrowing. No fracture or dislocation is seen. No aggressive lytic or blastic bony lesion is noted. RAD/Lumbar Spine 2 or 3 Views IMPRESSION: No radiographic evidence of an acute abnormality. [facility]
[2024-07-28 06:09] VITALS: BP 103/63; PULSE 100; RESP 16; TEMP 36.6; O2SAT 97
[2024-07-28 07:24] LABS: Hematocrit 33.1 % (37-47); Hemoglobin 11.4 g/dL (12.0-15.0); Mean Corp Hgb Conc 34.4 g/dL (32-36); Mean Corpuscular Hgb 31.4 pg (27.0-32.0); Mean Corpuscular Volume 91.2 fL (81-99); Mean Platelet Vol. 10.4 fl (6.2-12.0); Platelet Count 232 K/mm3 (150-450); RBC Distribution Width CV 11.5 % (11.6-14.6); RBC Distribution Width SD 38.2 fl (35.1-43.9); Red Blood Count 3.63 M/mm3 (4.2-5.4); White Blood Count 10.7 K/mm3 (4.4-11.0)
[2024-07-28 07:44] LABS: Anion Gap 12 (5-15); BUN 14 mg/dL (4-19); Calcium,Total 8.3 mg/dL (7.6-11.0); Carbon Dioxide 22.3 mmol/L (21.0-32.0); Chloride 103 mmol/L (98-108); Creatinine, Serum 0.56 mg/dL (0.70-1.20); EST Glomerular Filtration Rate 109 (>60); Glucose 145 mg/dL (70-99); Potassium 3.8 mmol/L (3.3-5.1); Sodium Level 138 mmol/L (133-145)
[2024-07-28] MEDS: Senna/Docusate Sodium 1 Tablet 2 TABLET PO (07:54)
[2024-07-28] MEDS: Methocarbamol 500 MG Tablet 1000 MG PO ×2 (07:55→13:31)
[2024-07-28] MEDS: Meloxicam 15 MG Tablet PO (07:55)
[2024-07-28] MEDS: Hydroxychloroquine 200 MG Tablet PO (07:55)
[2024-07-28] MEDS: lamoTRIgine 150 MG Tablet PO (07:55)
[2024-07-28] MEDS: Ensure Surgery 237 ML LIQUID PO ×2 (07:58→12:10)
[2024-07-28 08:22] VITALS: BP 117/46; BP 117/76; PULSE 102; RESP 16; TEMP 36.8; O2SAT 97
[2024-07-28 09:32] VITALS: O2SAT 95
[2024-07-28 11:16] VITALS: BP 121/41; PULSE 103; RESP 16; TEMP 36.9; O2SAT 97
[2024-07-28 11:21] VITALS: O2SAT 97
--- NOTE | 2024-07-28 12:40 | CASEMGMT ---
JAMILA GARCIA Assessment: Face to Face with pt for initial transition planning/care coordination assessment. JAMILA GARCIA introduced self and role at [facility], pt voices understanding and consents to assessment. Pt is A&O x4 and answers all questions appropriately at this time. Pt lying in bed in no distress with sig other at bedside. Pt agreeable to assessment with sig other present. Care providers, pharmacy, and demographics verified/updated. Admitting Dx: s/p lumbar fusion Strata Score: 1 PCP:Valerio at [facility] Specialists:Yogi, ortho; Jamila, pain mgmt; Christiana, rheum; Borrurichard, ortho Preferred Pharmacy: [facility] Insurance: [facility], [facility] Prescription Benefit: yes LNOK: Lorena Cabrales, sister Living Arrangements: Pt lives alone but sig other stays sometimes overnight. Pt reports she is I in bathing but her sig other assists in dressing pt, does meals, grocery shopping and laundry. Pt denies concerns at home. Transportation: Pt drives self and denies concerns with transportation. Sig other will transport pt until she can drive again. DME:cane, crutches, walker, stairlift to second story of house HHC/SNF: Denies hx of Pt states no concerns with going home at time of dc. No PT recommended. Pt states no further concerns/needs. CM to follow. Advised pt to ask CM if any further questions/concerns/needs arise, voices understanding. Pt Goal: Home Plan: Home Baljit MARINO CM
--- NOTE | 2024-07-28 13:07 | PN.ORTHO_ITS ---
Subjective Subjective Postop day 1 L3-S1 fusion. Patient is doing well postoperatively with her pain controlled. The patient was seen at the bedside. The patient has been up and has walked with physical therapy who is cleared her for home discharge. This morning she had not yet walked with therapy but had been up to the bathroom with a walker and had walked around her room. The patient has passed gas and will attempt a solid meal at lunch. If she tolerates solid food plan is to discharge home today. Seen with Dr. Calix. Objective Data Objective Data Vital Signs: Vital Signs Temp Pulse Resp BP Pulse Ox O2 Del Method O2 Flow Rate 98.4 F 103 H 16 121/41 H 97 Room Air 2 07/28/24 11:16 07/28/24 11:16 07/28/24 11:16 07/28/24 11:16 07/28/24 11:21 07/28/24 11:16 07/27/24 20:54 Oxygen Flow Rate (L/min) 2 Oxygen Delivery Method Room Air Weight: 271 lb 2.697 oz Body Mass Index (BMI) 46.5 Intake & Output: Intake and Output for Last 24 Hours 07/26/24 07/27/24 07/28/24 23:59 23:59 23:59 Intake Total 50 / 50 851.5 / 851.5 Output Total 500 / 500 Balance -450 / -450 851.5 / 851.5 Lab / Micro Data 07/28/24 07:14 07/28/24 07:14 Labs: Laboratory Results - last 24 hr 07/28/24 07:14: WBC 10.7, RBC 3.63 L, Hgb 11.4 L, Hct 33.1 L, MCV 91.2, MCH 31.4, MCHC 34.4, RDW Std Deviation 38.2, RDW Coeff of Sharlene 11.5 L, Plt Count 232, MPV 10.4, Sodium 138, Potassium 3.8, Chloride 103, Carbon Dioxide 22.3, Anion Gap 12, BUN 14, Creatinine 0.56 L, Estim Creat Clear Calc 148.70, Est GFR (MDRD) Non-Af 109, BUN/Creatinine Ratio 25.0 H, Glucose 145 H, Calcium 8.3 Micro: Microbiology 07/19/24 07:02 Swab (Method) Nasal Screen MRSA/MSSA - Final Radiography Diagnostic Testing: Radiology Impression Lumbar Spine X-Ray 07/28/24 05:35 IMPRESSION: No radiographic evidence of an acute abnormality. Reading Location: [place] [id number] Physical Exam Narrative Neurological examination of the lower extremities showed 5X5 power. Normal sensation across all dermatomes. Physical examination of the back and belly shows Tegaderm and gauze CDI. Const alert, oriented x3 and no apparent distress Assessment & Plan Assessment/Plan (1) Status post lumbar spinal fusion: PLAN: Plan Postop day 1 L3-S1 fusion. Obtained reviewed x-rays today which show hardware and bone graft in good position. Patient has walked with therapy who is cleared her for home discharge. Reviewed restrictions of no bending, lifting, twisting. Reviewed and educated on the use of the incentive spirometer. Home-going meds include oxycodone, acetaminophen, meloxicam, methocarbamol, senna. OARRS reviewed. Patient wishes for the prescriptions to be sent to [facility] [place]. She will follow-up in the clinic in 2 weeks. Patient is in agreement.
== END 2024-07-28 14:23 | disposition home or self-care (01) | DRG 427 ==
PROVIDERS: Anesthesiology; Student in an Organized Health Care Education/Training Program; Admitting Provider Orthopaedic Surgery Orthopaedic Surgery of the Spine; PCP Nurse Practitioner Family; Referring Provider Orthopaedic Surgery Orthopaedic Surgery of the Spine; Visit Provider Orthopaedic Surgery Orthopaedic Surgery of the Spine
PROC: 0SG30K1 Fusion of Lumbosacral Joint with Nonautologous Tissue Substitute, Posterior Approach, Posterior Column, Open Approach (ICD-10-PCS; principal; 2024-07-27 07:00)
DX: M48.062 Spinal stenosis, lumbar region with neurogenic claudication (principal); Z68.42 Body mass index [BMI] 45.0-49.9, adult; E66.813 Obesity, class 3; M06.9 Rheumatoid arthritis, unspecified; F39 Unspecified mood [affective] disorder; M51.16 Intervertebral disc disorders with radiculopathy, lumbar region; M48.07 Spinal stenosis, lumbosacral region; M43.16 Spondylolisthesis, lumbar region; M16.0 Bilateral primary osteoarthritis of hip; Z79.1 Long term (current) use of non-steroidal anti-inflammatories (NSAID); Z90.710 Acquired absence of both cervix and uterus; M51.362 Other intervertebral disc degeneration, lumbar region with discogenic back pain and lower extremity pain
CPT/HCPCS: 36415; 72100; 76000; 80048; 83735; 85027; 86703; 86706; 86708; 86803; 86850; 86900; 86901; 87081; 94668; 97161; 97166; 97802; 99406; A4648; C1713; A4216; J2405; J3475

== ENCOUNTER → 2025-01-04 | Outpatient (CLI) | payer MEDICARE, MEDICAID, SELFPAY ==
--- NOTE | 2025-01-04 11:56 | NEURO ---
NCS and/or EMG Patient Report Ordering Doctor: Dariel Rojas DATE OF SERVICE: 01/04/25 Olga presents with complaints of pain in both feet, primarily along the medial aspect. She denies numbness and tingling. She has a history of lower back pain and recent spinal surgery. Electrodiagnostic findings: Peroneal motor nerve demonstrates normal distal latency, amplitude and conduction velocity bilaterally. Tibial motor response within normal limits bilaterally. Sensory responses are normal. Normal peroneal and tibial F–wave. H–reflex is prolonged bilaterally. Needle EMG testing was performed the lower limbs. All muscles tested showed no evidence of denervation with normal motor unit action potentials. Electrodiagnostic impression: This is an essentially normal electrodiagnostic study of the lower limbs. There is no electrodiagnostic evidence for peripheral neuropathy, including tarsal tunnel syndrome. There is no evidence for polyneuropathy or lumbosacral radiculopathy. Multi Select Codes Neurology Neurology Interp Codes: 54382-35 Musc test done w/n test comp (interp) (2) and 10952-97 Nrv cndj test 9-10 studies (interp)
== END | disposition home or self-care (01) ==
LOC: PSN 08:46
PROVIDERS: PCP Nurse Practitioner Family
DX: R20.0 Anesthesia of skin (principal)
CPT/HCPCS: 95886; 95911